=== PATIENT | male | born 1940 | race Caucasian/White ===

== ENCOUNTER 2023-06-13 10:50 | Outpatient (AMB) | payer MEDICARE, SELFPAY ==
[2023-06-13 10:56] VITALS: BP 160/68; PULSE 60; O2SAT 98; BMI 25.2
--- NOTE | 2023-06-13 10:56 | HO.NEPHOV_ITS ---
HPI HPI Comments History of Present Illness Details 82-year-old man with a history of chroni c kidney disease in the setting of longstanding hypertension and vascular disease. Recently amlodipine has been increased to 2.5 mg twice a day. Home blood pressure readings have been acceptable. Serum creatinine has been around 1.4-1.7 mg/dL. Around as history of coronary disease and status post CABG in the past. He has history of edema due to high dose of Norvasc in the past. At that time he was on 10 mg a day. PFSH Family History Father Hypertension Social History (Updated 06/13/23 @ 11:01 by Maine Bucio) Alcohol intake: former Patient Tobacco Use Status: Former Tobacco user Use of substances other than those prescribed or required for medical reasons: No Vital Signs 06/13/23 10:56 06/13/23 11:09 Height 5 ft 8 in Weight 166 lb BMI 25.2 BP 160/68 H 140/60 H Blood Pressure Location Lt brachial Lt brachial Position Sitting Sitting Pulse 60 Pulse Source Pulse Oximeter Pulse Oximetry (%) 98 Oxygen Delivery Method Room Air Physical Exam Vital Signs: Last Vital Signs Pulse 60 06/13/23 10:56 BP 140/60 H 06/13/23 11:09 Pulse Ox 98 06/13/23 10:56 Oxygen Delivery Method Room Air 06/13/23 10:56 BMI result Body Mass Index 25.2 Const General: comfortable Nutritional Appearance: well nourished Orientation/consciousness: patient oriented x3 HEENT Head: No normal to inspection Mouth: moist mucous membranes Neck Neck: Yes supple and Yes no JVD Resp Auscultation: clear to auscultation bilaterally, no rales and rub present Cardio Jugular venous distension: no JVD Palpation: no palpable S3 and no palpable S4 Heart sounds: no rubs GI Palpation (GI): Soft to palpation and nontender Percussion: No Fluid wave present General: Yes no CVA tenderness Back/Spine/Pelvis Back: no CVA tenderness Skin General skin exam: no rashes or lesions noted Neuro General: patient oriented x3 Extrem Other: Knee braces left leg General: Yes no pedal edema and No clubbing Assessment & Plan Assessment & Plan (1) CKD (chronic kidney disease): Code(s): N18.9 - Chronic kidney disease, unspecified (2) HTN (hypertension): Code(s): I10 - Essential (primary) hypertension Plan Elderly man with stage 3 chronic kidney disease in the setting of longstanding hypertension. 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 Renal function is close to baseline with a serum creatinine of 1.7 mg/dL. Goal is to slow the portion disease. The office today blood pressure was initially elevated but repeat reading was acceptable. Goal is to maintain blood pressure less than 130/80 mm of mercury. Continue with current dose of amlodipine Discussed low-sodium diet. History of mild anemia which is multifactorial no indication for Epogen. Coding Level of Care Code Est Pt Level 4 (65717) Diagnoses CKD (chronic kidney disease) N18.9 HTN (hypertension) I10 Results Reviewed Results Reviewed: 06/11/23 Cr 1.7 Nephrology Results: No Data to Display
[2023-06-13 11:09] VITALS: BP 140/60
== END 2023-06-13 11:18 | disposition home or self-care (01) ==
PROVIDERS: PCP Internal Medicine; Referring Provider Internal Medicine; Visit Provider Internal Medicine Hypertension Specialist
DX: I12.9 Hypertensive chronic kidney disease with stage 1 through stage 4 chronic kidney disease, or unspecified chronic kidney disease (principal); N18.30 Chronic kidney disease, stage 3 unspecified
CPT/HCPCS: 99214

== ENCOUNTER → 2023-06-13 10:50 | Outpatient (BNVA) | payer MEDICARE, SELFPAY | PROVIDERS: PCP Internal Medicine; Referring Provider Internal Medicine; Visit Provider Internal Medicine Hypertension Specialist | DX: I12.9 Hypertensive chronic kidney disease with stage 1 through stage 4 chronic kidney disease, or unspecified chronic kidney disease (principal); N18.9 Chronic kidney disease, unspecified | CPT/HCPCS: 99212 ==

== ENCOUNTER 2023-12-12 10:47 | Outpatient (AMB) | payer MEDICARE, BC, SELFPAY ==
[2023-12-12 10:49] VITALS: BP 132/68; PULSE 60; O2SAT 98; BMI 25.7
--- NOTE | 2023-12-12 10:49 | HO.NEPHOV_ITS ---
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 Recently amlodipine has been increased to 2.5 mg twice a day. Home blood pressure readings have been acceptable. Serum creatinine has been around 1.4-1.7 mg/dL. Around as history of coronary disease and status post CABG in the past. He has history of edema due to high dose of Norvasc in the past. At that time he was on 10 mg a day. NOw on Amldipine 5 mg in AM and 2.5 mg q PM PFSH Family History Father Hypertension Social History Alcohol intake: former Patient Tobacco Use Status: Former Tobacco user Physical Exam Vital Signs: Last Vital Signs Pulse 60 12/12/23 10:49 BP 132/68 12/12/23 10:49 Pulse Ox 98 12/12/23 10:49 Oxygen Delivery Method Room Air 12/12/23 10:49 BMI result Body Mass Index 25.7 Const General: comfortable Nutritional Appearance: well nourished Orientation/consciousness: patient oriented x3 HEENT Head: No normal to inspection Mouth: moist mucous membranes Neck Neck: Yes supple and Yes no JVD Resp Auscultation: clear to auscultation bilaterally, no rales and rub present Cardio Jugular venous distension: no JVD Palpation: no palpable S3 and no palpable S4 Heart sounds: no rubs GI Palpation (GI): Soft to palpation and nontender Percussion: No Fluid wave present General: Yes no CVA tenderness Back/Spine/Pelvis Back: no CVA tenderness Skin General skin exam: no rashes or lesions noted Neuro General: patient oriented x3 Extrem Other: Knee braces left leg General: Yes no pedal edema and No clubbing Results Reviewed Nephrology Results: No Data to Display Assessment & Plan Assessment & Plan (1) CKD (chronic kidney disease): Code(s): N18.9 - Chronic kidney disease, unspecified Category: Medical (2) HTN (hypertension): Code(s): I10 - Essential (primary) hypertension Category: Medical Plan Elderly man with stage 3 chronic kidney disease in the setting of longstanding hypertension. 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 Renal function is close to baseline with a serum creatinine of 1.45 mg/dL. Goal is to slow the progression of the kidney disease. BP well controlled Goal is to maintain blood pressure less than 130/80 mm of mercury. Continue with current dose of amlodipine Discussed low-sodium diet. Mild edema ; Amlodipine could be a contributing factor History of mild anemia which is multifactorial no indication for Epogen. Coding Level of Care Code Est Pt Level 4 (43185) Diagnoses CKD (chronic kidney disease) N18.9 HTN (hypertension) I10
== END 2023-12-12 11:14 | disposition home or self-care (01) ==
PROVIDERS: PCP Internal Medicine; Visit Provider Internal Medicine Hypertension Specialist
DX: I12.9 Hypertensive chronic kidney disease with stage 1 through stage 4 chronic kidney disease, or unspecified chronic kidney disease (principal); N18.9 Chronic kidney disease, unspecified
CPT/HCPCS: 99214

== ENCOUNTER → 2023-12-12 10:47 | Outpatient (BNVA) | payer MEDICARE, SELFPAY | PROVIDERS: PCP Internal Medicine; Visit Provider Internal Medicine Hypertension Specialist | DX: I12.9 Hypertensive chronic kidney disease with stage 1 through stage 4 chronic kidney disease, or unspecified chronic kidney disease (principal); N18.9 Chronic kidney disease, unspecified | CPT/HCPCS: 99212 ==

== ENCOUNTER 2024-09-24 10:36 | Outpatient (AMB) | payer MEDICARE, SELFPAY ==
[2024-09-24 10:41] VITALS: BP 128/50; PULSE 62; O2SAT 98; BMI 23.9
--- NOTE | 2024-09-24 10:41 | HO.NEPHOV_ITS ---
Vital Signs 09/24/24 10:41 Height 5 ft 8 in Weight 157 lb BMI 23.9 BP 128/50 L Blood Pressure Location Rt brachial Position Sitting Pulse 62 Pulse Source Pulse Oximeter Pulse Oximetry (%) 98 Oxygen Delivery Method Room Air Intake Visit Reasons: FU / CONF Form Grader Required: No Accompanied by: Spouse Allergies No Known Allergies Allergy (Verified 09/24/24 10:44) Medication List - Last Reconciled 09/24/24 by Krishan Luevano MD amlodipine 5 mg PO DAILY amlodipine 2.5 mg PO .evening aspirin 81 mg PO DAILY cyanocobalamin (vitamin B-12) 1,000 mcg PO DAILY metoprolol succinate ER 50 mg PO DAILY rosuvastatin 40 mg PO DAILY HPI Comments Details: 84-year-old man with a history of chronic kidney disease in the setting of longstanding hypertension and vascular disease. Recently amlodipine has been increased to 2.5 mg twice a day. Home blood pressure readings have been acceptable. Serum creatinine has been around 1.4-1.7 mg/dL. Around as history of coronary disease and status post CABG in the past. He has history of edema due to high dose of Norvasc in the past. At that time he was on 10 mg a day. Now on Amldipine 5 mg in AM and 2.5 mg q PM 09/24/24 The patient is an 84-year-old male presenting with kidney function decline and medication-related complications. The patient experienced a fall in the kitchen, resulting in a fractured ankle and knee injury. He underwent rehabilitation for three months following the injury. During hospitalization, the patient was administered olmesartan, which led to complications and retention requiring catheterization. The medication was discontinued, and the catheter was eventually removed. The patient is currently on amlodipine taken twice daily, with no reported side effects such as lightheadedness or dizziness. He reports good respiratory function and denies any breathing difficulties. An ultrasound is scheduled to assess kidney function further, and blood work is planned to monitor his condition. The patient is advised to maintain adequate hydration and reduce salt intake to manage edema. [facility] Family History Father Hypertension Social History Alcohol intake: former Patient Tobacco Use Status: Former Tobacco user Physical Exam Vital Signs: Last Vital Signs Pulse 62 09/24/24 10:41 BP 128/50 L 09/24/24 10:41 Pulse Ox 98 09/24/24 10:41 Oxygen Delivery Method Room Air 09/24/24 10:41 BMI result Body Mass Index 23.9 Const General: comfortable Nutritional Appearance: well nourished Orientation/consciousness: patient oriented x3 HEENT Head: No normal to inspection Mouth: moist mucous membranes Neck Neck: Yes supple and Yes no JVD Resp Auscultation: clear to auscultation bilaterally, no rales and rub present Cardio Jugular venous distension: no JVD Palpation: no palpable S3 and no palpable S4 Heart sounds: no rubs GI Palpation (GI): Soft to palpation and nontender Percussion: No Fluid wave present General: Yes no CVA tenderness Back/Spine/Pelvis Back: no CVA tenderness Skin General skin exam: no rashes or lesions noted Neuro General: patient oriented x3 Extrem Other: Knee braces left leg General: No clubbing and Yes pedal edema Results Reviewed Results Reviewed: 06/11/23 Cr 1.7 Assessment & Plan Assessment & Plan (1) CKD (chronic kidney disease): Code(s): N18.9 - Chronic kidney disease, unspecified Category: Medical (2) HTN (hypertension): Code(s): I10 - Essential (primary) hypertension Category: Medical Plan Elderly man with stage 3 chronic kidney disease in the setting of longstanding hypertension. 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 Renal function is close to baseline with a serum creatinine of 1.45 mg/dL. Goal is to slow the progression of the kidney disease. s/p WANDER during recent hospitalization- resolved BP well controlled Goal is to maintain blood pressure less than 130/80 mm of mercury. Continue with current dose of amlodipine Discussed low-sodium diet. Mild edema ; Amlodipine could be a contributing factor History of mild anemia which is multifactorial no indication for Epogen. Coding Level of Care Code Est Pt Level 4 (88154) Diagnoses CKD (chronic kidney disease) N18.9 HTN (hypertension) I10
--- OUTSIDE RECORDS SUMMARY | 2024-09-24 12:32 | XMS_ITS | Encounter Summary ---
Author Organization [facility] Address [address] [place] [address] Care Team Providers Care High Speed Printer Operator Name Role Phone Fartun Goldstein MD Primary Care Provider + Encounter Details Date Type Department Care Team (Late st Contact Info) Description 06/29/2024 Lab Requisition [facility] - Main Lab [address] [facility] [place] [address] Fartun Goldstein MD [address] [facility] [address] [place] [address] Unspecified atrial fibrillation (CMS/HCC V24, CMS/HCC V28) Social History Tobacco Use Types Packs/Day Years Used Date Smoking Tobacco: Never Assessed Sex and Gender Information Value Date Recorded Sex Assigned at Not on file Legal Sex Male 4:14 AM EST Gender Identity Not on file Sexual Orientation Not on file documented as of this encounter Plan of Treatment Not on file documented as of this encounter Procedures Procedure Name Priority Date/Time Associated Diagnosis Comments COMPLETE BLOOD COUNT Routine 06/29/2024 1:02 PM EDT Unspecified atrial fibrillation (CMS/HCC) COMPREHENSIVE METABOLIC PANEL Routine 06/29/2024 1:02 PM EDT Unspecified atrial fibrillation (CMS/HCC) documented in this encounter Results * (ABNORMAL) Comprehensive metabolic panel (06/29/2024 1:02 PM EDT) Sodium 134 133 - 145 mmol/L LAB CHEMISTRY METHOD 06/29/2024 2:33 PM EDT [facility] Potassium 4.7 3.5 - 5.5 mmol/L LAB CHEMISTRY METHOD 06/29/2024 2:33 PM EDT [facility] Chloride 102 96 - 110 mmol/L LAB CHEMISTRY METHOD 06/29/2024 2:33 PM [facility] CO2 20(L) 21 - 32 mmol/L LAB CHEMISTRY METHOD 06/29/2024 2:33 PM [facility] Anion Gap 12(H) 3 - 11 LAB CHEMISTRY METHOD 06/29/2024 2:33 PM [facility] Glucose 122(H) 70 - 100 mg/dL LAB CHEMISTRY METHOD 06/29/2024 2:33 PM [facility] BUN 28(H) 5 - 25 mg/dL LAB CHEMISTRY METHOD 06/29/2024 2:33 PM [facility] Creatinine 1.87(H) 0.70 - 1.30 mg/dL LAB CHEMISTRY METHOD 06/29/2024 2:33 PM [facility] eGFR 35(L) >=60 mL/min/1. 73m2 LAB CHEMISTRY METHOD 06/29/2024 2:33 PM [facility] Comment:Calculation based on the Chronic Kidney Disease Epidemiology Collaboration (CKD-EPI) equation refit without adjustment for race. BUN/Creatinine Ratio 15.0 LAB CHEMISTRY METHOD 06/29/2024 2:33 PM [facility] Calcium 8.9 8.5 - 10.5 mg/dL LAB CHEMISTRY METHOD 06/29/2024 2:33 PM [facility] AST (SGOT) 44(H) 10 - 42 unit/L LAB CHEMISTRY METHOD 06/29/2024 2:33 PM [facility] ALT (SGPT) 40 10 - 60 unit/L LAB CHEMISTRY METHOD 06/29/2024 2:33 PM [facility] Alkaline Phosphatase 73 42 - 121 unit/L LAB CHEMISTRY METHOD 06/29/2024 2:33 PM [facility] Total Protein 6.2 6.0 - 8.0 g/dL LAB CHEMISTRY METHOD 06/29/2024 2:33 PM EDT [facility] Albumin 2.5(L) 3.2 - 5.0 g/dL LAB CHEMISTRY METHOD 06/29/2024 2:33 PM EDT [facility] Total Bilirubin 0.8 0.0 - 1.4 mg/dL LAB CHEMISTRY METHOD 06/29/2024 2:33 PM EDT [facility] Blood Venous blood specimen / Unknown Venipuncture / Unknown 06/29/2024 1:02 PM EDT 06/29/2024 1:53 PM EDT us Fartun Goldstein MD LAB BLOOD ORDERABLES Fin al Result [facility] [address] [place] [address], * (ABNORMAL) Complete blood count (06/29/2024 1:02 PM EDT) WBC 15.2(H) 4.8 - 10.8 K/mcL LAB HEMETOLOGY METHOD 06/29/2024 2:07 PM EDT [facility] RBC 2.70(L) 4.50 - 5.50 M/mcL LAB HEMETOLOGY METHOD 06/29/2024 2:07 PM EDT [facility] Hemoglobin 8.6(L) 13.5 - 17.5 g/dL LAB HEMETOLOGY METHOD 06/29/2024 2:07 PM EDT [facility] Hematocrit 27.1(L) 42.0 - 54.0 % LAB HEMETOLOGY METHOD 06/29/2024 2:07 PM EDT [facility] MCV 100.4(H) 79.0 - 98.0 FL LAB HEMETOLOGY METHOD 06/29/2024 2:07 PM EDT [facility] MCH 31.9 27.0 - 32.0 pcg LAB HEMETOLOGY METHOD 06/29/2024 2:07 PM EDT [facility] MCHC 31.7(L) 32.0 - 37.0 g/dL LAB HEMETOLOGY METHOD 06/29/2024 2:07 PM EDT [facility] RDW 13.6 11.0 - 15.0 % LAB HEMETOLOGY METHOD 06/29/2024 2:07 PM EDT [facility] Platelets 389 130 - 400 K/mcL LAB HEMETOLOGY METHOD 06/29/2024 2:07 PM EDT [facility] MPV 10.4 7.0 - 11.0 FL LAB HEMETOLOGY METHOD 06/29/2024 2:07 PM EDT [facility] NRBC 0.0 <1.0 % LAB HEMETOLOGY METHOD 06/29/2024 2:07 PM EDT [facility] NRBC Absolute 0.00 <0.10 K/mcL LAB HEMETOLOGY METHOD 06/29/2024 2:07 PM EDT [facility] Blood Venous blood specimen / Unknown Venipuncture / Unknown 06/29/2024 1:02 PM EDT 06/29/2024 1:53 PM EDT us Fartun Goldstein MD LAB BLOOD ORDERABLES Fin al Result [facility] [address] [place] [address], documented in this encounter Visit Diagnoses Diagnosis Unspecified atrial fibrillation (CMS/HCC V24, CMS/HCC V28) documented in this encounter Care Teams High Speed Printer Operator Relationship Specialty Start Date End Date Fartun Goldstein MD [address] [place] [id number] PCP - General Family Medicine 06/13/24 documented as of this encounter
== END 2024-09-24 10:58 | disposition home or self-care (01) ==
LOC: HO.HKAS 10:36
PROVIDERS: PCP Internal Medicine; Visit Provider Internal Medicine Hypertension Specialist
DX: I12.9 Hypertensive chronic kidney disease with stage 1 through stage 4 chronic kidney disease, or unspecified chronic kidney disease (principal); N18.9 Chronic kidney disease, unspecified
CPT/HCPCS: 99214

== ENCOUNTER → 2024-09-24 10:36 | Outpatient (BNVA) | payer MEDICARE, SELFPAY | PROVIDERS: PCP Internal Medicine; Visit Provider Internal Medicine Hypertension Specialist | DX: I12.9 Hypertensive chronic kidney disease with stage 1 through stage 4 chronic kidney disease, or unspecified chronic kidney disease (principal); N18.9 Chronic kidney disease, unspecified | CPT/HCPCS: 99212 ==

== ENCOUNTER 2025-01-21 08:41 | Outpatient (AMB) | payer MEDICARE, SELFPAY ==
[2025-01-21 08:56] VITALS: BP 130/50; PULSE 60; O2SAT 97; BMI 24.3
--- NOTE | 2025-01-21 08:56 | HO.NEPHOV_ITS ---
Vital Signs 01/21/25 08:56 Height 5 ft 8 in Weight 160 lb BMI 24.3 BP 130/50 L Blood Pressure Location Rt brachial Position Sitting Pulse 60 Pulse Source Pulse Oximeter Pulse Oximetry (%) 97 Oxygen Delivery Method Room Air Intake Visit Reasons: 4m follow up, t Confirmed Fibre Optic Cable Splicer Required: No Accompanied by: Self / Same As Patient Allergies No Known Allergies Allergy (Verified 01/21/25 08:59) Medication List - Last Reconciled 01/21/25 by Krishan Luevano MD amlodipine 5 mg PO DAILY aspirin 81 mg PO DAILY cyanocobalamin (vitamin B-12) 1,000 mcg PO DAILY PRN metoprolol succinate ER 50 mg PO DAILY rosuvastatin 40 mg PO DAILY HPI Comments Details: 84-year-old man with a history of chronic kidney disease in the setting of longstanding hypertension and vascular disease. Recently amlodipine has been increased to 2.5 mg twice a day. Home blood pressure readings have been acceptable. Serum creatinine has been around 1.4-1.7 mg/dL. Around as history of coronary disease and status post CABG in the past. He has history of edema due to high dose of Norvasc in the past. At that time he was on 10 mg a day. Now on Amldipine 5 mg in AM and 2.5 mg q PM 09/24/24 The patient is an 84-year-old male presenting with kidney function decline and medication-related complications. The patient experienced a fall in the kitchen, resulting in a fractured ankle and knee injury. He underwent rehabilitation for three months following the injury. During hospitalization, the patient was administered olmesartan, which led to complications and retention requiring catheterization. The medication was discontinued, and the catheter was eventually removed. The patient is currently on amlodipine taken twice daily, with no reported side effects such as lightheadedness or dizziness. He reports good respiratory function and denies any breathing difficulties. An ultrasound is scheduled to assess kidney function further, and blood work is planned to monitor his condition. The patient is advised to maintain adequate hydration and reduce salt intake to manage edema. 01/21/25 - The patient is an 84-year-old male presenting with anemia and chronic kidney disease. - Anemia: Hemoglobin level is 8.3 g/dL, - Hypothyroidism: Underactive thyroid, awaiting medication initiation. Accompanied by ;In a wheelchair [facility] Family History Father Hypertension Social History Alcohol intake: former Patient Tobacco Use Status: Former Tobacco user Physical Exam Vital Signs: BMI result Body Mass Index 24.3 Const General: comfortable Nutritional Appearance: well nourished Orientation/consciousness: patient oriented x3 HEENT Head: No normal to inspection Mouth: moist mucous membranes Neck Neck: Yes supple and Yes no JVD Resp Auscultation: clear to auscultation bilaterally, no rales and rub present Cardio Jugular venous distension: no JVD Palpation: no palpable S3 and no palpable S4 Heart sounds: no rubs GI Palpation (GI): Soft to palpation and nontender Percussion: No Fluid wave present General: Yes no CVA tenderness Back/Spine/Pelvis Back: no CVA tenderness Skin General skin exam: no rashes or lesions noted Neuro General: patient oriented x3 Extrem Other: Knee braces left leg General: No clubbing and Yes pedal edema Results Reviewed Results Reviewed: 06/11/23 Cr 1.7 01/16/25 BUN / Cr 31/2.0 K 4.2 HgB 8.3 TSH: 9.08 Assessment & Plan Assessment & Plan (1) CKD (chronic kidney disease): Code(s): N18.9 - Chronic kidney disease, unspecified Category: Medical (2) HTN (hypertension): Code(s): I10 - Essential (primary) hypertension Category: Medical Plan Elderly man with stage 3 chronic kidney disease in the setting of longstanding hypertension. 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 Renal function is close to baseline with a serum creatinine of 2.0 mg/dL. Goal is to slow the progression of the kidney disease. HTN BP well controlled Goal is to maintain blood pressure less than 130/80 mm of mercury. Continue with current dose of amlodipine Discussed low-sodium diet. Mild edema ; Amlodipine could be a contributing factor Anemia Hgb 8.2 and 8.3 Work up in progress Iron studies- normal May need Epogen- I shall arrange Orders: Orders Basic Metabolic Panel 4 Months I10 - Essential (primary) hypertension, N18.9 - Chronic kidney disease, unspecified Coding Level of Care Code Est Pt Level 4 (51997) Diagnoses CKD (chronic kidney disease) N18.9 HTN (hypertension) I10
== END 2025-01-21 09:54 | disposition home or self-care (01) ==
LOC: HO.HKAS 08:42
PROVIDERS: PCP Internal Medicine; Visit Provider Internal Medicine Hypertension Specialist
DX: I12.9 Hypertensive chronic kidney disease with stage 1 through stage 4 chronic kidney disease, or unspecified chronic kidney disease (principal); N18.9 Chronic kidney disease, unspecified
CPT/HCPCS: 99214

== ENCOUNTER → 2025-01-21 08:41 | Outpatient (BNVA) | payer MEDICARE, SELFPAY | PROVIDERS: PCP Internal Medicine; Visit Provider Internal Medicine Hypertension Specialist | DX: I10 Essential (primary) hypertension (principal); N18.30 Chronic kidney disease, stage 3 unspecified; D63.1 Anemia in chronic kidney disease | CPT/HCPCS: 99212 ==

== ENCOUNTER 2025-02-11 10:39 | Outpatient (AMB) | payer MEDICARE, SELFPAY ==
--- OUTSIDE RECORDS SUMMARY | 2024-11-19 06:41 | XMS_ITS ---
Author Organization [facility] Address [address] [place], [place] [id number] Care Team Providers Care Paint Spray Tender Name Role Phone IONA TOTH Primary Care Provider [phone] REASON FOR VISIT continuation of PT/ OT Encounters Encounter Location Date Provider [place] [facility] [place] [address] [place] [address] 11/19/2024 IONA TOTH PLAN OF TREATMENT Next Appt Details Provider Name:IONA JEFFRIES, 07/28/2025 10:00:00 AM, [address] [place], [address],
--- OUTSIDE RECORDS SUMMARY | 2024-11-20 05:29 | XMS_ITS ---
Author Organization [facility] Address [address] [place], [place] [id number] Care Team Providers Care Land Commissioner Name Role Phone IONA TOTH Primary Care Provider REASON FOR VISIT Received order for PT and OT Encounters Encounter Location Date Provider Diagnosis [facility] [address] [place] [phone] 11/20/2024 IONA TOTH PLAN OF TREATMENT Next Appt Details Provider Name:IONA JEFFRIES, 07/28/2025 10:00:00 AM, [address] [place], [address],
--- OUTSIDE RECORDS SUMMARY | 2024-12-02 07:51 | XMS_ITS ---
Author Organization [facility] Address [address] [place], [place] [id number] Care Team Providers Care Hospice Patient Care Secretary Name Role Phone IONA TOTH Primary Care Provider REASON FOR VISIT lab review Encounters Encounter Location Date Provider Diagnosis [facility] [address] [place] [phone] 12/02/2024 IONA TOTH PLAN OF TREATMENT Next Appt Details Provider Name:IONA JEFFRIES, 07/28/2025 10:00:00 AM, [address] [place], [address],
--- OUTSIDE RECORDS SUMMARY | 2024-12-23 08:01 | XMS_ITS ---
Author Organization [facility] Address [address] [place], [place] [phone] Care Team Providers Care Animal Husbandry Professor Name Role Phone IONA TOTH Primary Care Provider [phone] REASON FOR VISIT requesting Encounters Encounter Location Date Provider Diagnosis [facility] [address] [place] [phone] 12/23/2024 IONA TOTH PLAN OF TREATMENT Next Appt Details Provider Name:IONA JEFFRIES, 07/28/2025 10:00:00 AM, [address] [place], [phone],
--- OUTSIDE RECORDS SUMMARY | 2024-12-24 11:36 | XMS_ITS ---
Author Organization [facility] Address [address] [place], [place] [phone] Care Team Providers Care Valet Name Role Phone IONA TOTH Primary Care Provider [phone] REASON FOR VISIT need md NPI for order Encounters Encounter Location Date Provider Diagnosis [facility] [address] [place] [address] 12/24/2024 IONA TOTH PLAN OF TREATMENT Next Appt Details Provider Name:IONA JEFFRIES, 07/28/2025 10:00:00 AM, [address] [place], [address],
--- OUTSIDE RECORDS SUMMARY | 2025-01-10 06:28 | XMS_ITS ---
Author Organization [facility] Address [address] [place], [place] [phone] Care Team Providers Care Director Network Development Name Role Phone IONA TOTH Primary Care Provider [phone] REASON FOR VISIT (W)(2)consult note Encounters Encounter Location Date Provider Diagnosis [address] [address] 01/10/2025 IONA TOTH PLAN OF TREATMENT Next Appt Details Provider Name:IONA JEFFRIES, 07/28/2025 10:00:00 AM, [address] [place], [address],
--- OUTSIDE RECORDS SUMMARY | 2025-01-19 09:15 | XMS_ITS ---
Author Organization [facility] Address [address], [place] [id number] Care Team Providers Care Account Development Executive Name Role Phone IONA TOTH Primary Care Provider RESULTS Component Value Reference Range Notes EKG Reviewed date:02/03/2025 01:01:13 PM Interpretation: Performing Lab: Notes/Report: ECGDiastolicBP ECGHr ECGPRInterval ECGPWaveAxis ECGQRSDuration ECGQrsWaveAxis ECGQTcInterval ECGQTInterval ECGSystolicBP ECGTWaveAxis RR_DiastolicBP RR_MaxRRInterval RR_MeanHR RR_MeanRRInterval RR_MinRRInterval RR_NumBeats RR_NumNormalBeats RR_SystolicBP REASON FOR VISIT F/U MEDICATIONS Medication SIG (Take, Route, Frequency, Duration) Notes Start Date End Date Status amLODIPine Besylate 5 MG 1 tablet Orally Once a day in AM for 90 days plus 2.5 q d Active Rosuvastatin Calcium 40 MG TAKE 1 TABLET DAILY for 90 Active E20-Dbikcf 1 MG as directed Orally Active Knee Brace Adjustable Hinged - as directed 10/05/2022 Active Metoprolol Succinate ER 50 MG TAKE 1 TABLET ONCE DAILY for 90 Active Nitroglycerin 0.4 MG 1 tablet under the tongue and allow to dissolve as needed. Take every 5 minutes up to 3 times if chest pain persists Sublingual Three times a day Active Aspirin 81 81 MG 1 tablet Orally Once a day for 30 day(s) Active SOCIAL HISTORY Tobacco Use: Social History Observation Description Date Details (start date - stop date) Never Smoker NA - NA Sex Assigned At : Social History Observation Description Sex Assigned At Unknown Smoking Question Answer Notes Are you a: never smoker VITAL SIGNS Height 68 in 01/19/2025 Weight 162 lbs 01/19/2025 Blood pressure systolic 122 mm Hg 01/20/20 25 Blood pressure diastolic 72 mm Hg 025 BMI 24.63 kg/m2 01/19/2025 Encounters Encounter Location Date Provider Diagnosis [facility] [address] [place] [address] 01/19/2025 IONA TOTH Essential (primary) hypertension I10 ; Disorder of lipoprotein metabolism, unspecified E78.9 ; Chronic kidney disease, unspecified N18.9 ; 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 Check lipid profile check LFTs LDL goal less than 70 01/19/2025 Chronic kidney disease, unspecified (ICD-10 - N18.9) Doing well urinating well follow-up with renal. Chronic chronic history of kidney disease stage III with acute kidney injury but had resolved. 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 yearly set up cardiac echo 01/19/2025 Unspecified atrial fibrillation (ICD-10 - I48.91) Patient has had a Watchman procedure therefore does not need anticoagulation . Patient had a pacemaker EKG a paced rhythm left bundle branch block 01/19/2025 Elevated PSA (ICD-10 - R97.20) Discussed PSA elevation and again. Tolerating test recheck. After discussion patient states he does not want to have anything done understands the risks PLAN OF TREATMENT Treatment Notes Assessment Notes Essential (primary) hypertension Blood p ressure stable well-controlled no change in therapy follow-up with renal Disorder of lipoprotein meta bolism, unspecified On statin for decades continue with statin. Check lipid profile check LFTs LDL goal less than 70 Chronic kidney disease, unspecified Doin g well urinating well follow-up with renal. Chronic chronic history of kidney disease stage III with acute kidney injury but had resolved. 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 yearly set up cardiac echo Unspecified atrial fibrillation Patient has had a Watchman procedure therefore does not need anticoagulation. Patient had a pacemaker EKG a paced rhythm left bundle branch block Elevated PSA Discussed PSA elevat ion and again. Tolerating test recheck. After discussion patient states he does not want to have anything done understands the risks Pending Test Test Name Order Date Echocardiogram 01/19/2025 Future Test Test Name Order Date Vitamin [id number] 01/10/2025 Folate (Folic Acid), Serum-[id number] 2024 Urinalysis, Complete w/ME-[id number] 025 TSH-[id number] 01/10/2025 CBC, Platelet, w/o Differential-[id number] 1 Lipid Panel-[id number] 01/10/2025 Comp. Metabolic Panel ([id number] 2024 Next Appt Details Follow Up: Doing 6 months la bs pending EKG today, Reason: Provider Name:IONA JEFFRIES, 07/28/2025 10:00:00 AM, [address] [place], [address], Progress Notes * Examination Category Sub-Category Detail Notes Category Not es General Examination HEENT: Conjunctiva pink anicteric mucous membranes moist oropharynx clear TMs clear sinus clear EACs clear Neck: Supple carotids 2+ n o bruits lymphadenopathy no thyromegaly Heart: Regular rate and rhy thm 2/6 systolic murmur left sternal border Lungs: clear to auscultatio n Abdomen: soft, non tender/non distended, no rebound tenderness, no guarding or rigidity, no masses palpated, no hepatosplenomegaly, normal active bowel sounds Extremities: no edema, pulses 2 p rad bilaterally General Appearance Pleasant elderly whi te male appearing stated age no apparent distress alert appropriate conversive Skin: Scattered ecchymoses no skin breakdown no ulcerations no rashes no concerning moles Neuro alert and oriented x 3, CN 2-12 intact, motor 5/5 bilaterally proximally and distally in all 4 extremities Musculoskeletal Left knee brace exte rnal support device intact. History and Physical Notes * HPI (History of Present Illness) Category Sub-Category Detail Notes Category Not es General Hypertension fo llow-up. See review of systems below
--- OUTSIDE RECORDS SUMMARY | 2025-01-20 01:20 | XMS_ITS ---
Author Organization [facility] Address [address] [place], [place] [id number] Care Team Providers Care Auto Air Conditioning Installer Name Role Phone IONA TOTH Primary Care Provider [phone] REASON FOR VISIT add on PROBLEMS Problem Type ICD Code Onset Dates Problem Status W/U Status Risk SNOMED Code Notes Problem Anemia, unspecified (D64.9) Active confirmed Anemia ([id number]) Encounters Encounter Location Date Provider Diagnosis [address] [address] 01/20/2025 IONA TOTH B12 deficiency E53.8 and Anemia, unspecified D64.9 ASSESSMENTS Encounter Date Diagnosis Assessment Notes Treatment Notes Treatment Clinical Notes Section Notes 01/20/2025 B12 deficiency (ICD-10 - E53.8) 01/20/2025 Anemia, unspecified (ICD-10 - D64.9) PLAN OF TREATMENT Future Test Test Name Order Date [id number] 01/20/2025 Iron and TIBC-[id number] 01/20/2025 Haptoglobin-[id number] 01/20/2025 Ferritin-186396 01/20/2025 Reticulocyte Count-395158 01/20/2025 Methylmalonic Acid, Serum-293036 025 Homocyst(e)ine-462816 01/20/2025 Next Appt Details Provider Name:IONA JEFFRIES, 07/28/2025 10:00:00 AM, [address] [place] [address], [phone],
--- OUTSIDE RECORDS SUMMARY | 2025-01-20 03:13 | XMS_ITS ---
Author Organization [facility] Address [address] [place], [place] [id number] Care Team Providers Care Sales Designer Name Role Phone JANEYIONA Primary Care Provider REASON FOR VISIT (2)thyroid there other encounter MEDICATIONS Medication SIG (Take, Route, Fr equency, Duration) Notes Start Date End Date Status Nitroglycerin 0.4 MG 1 tablet under the tongue and allow to dissolve as needed. Take every 5 minutes up to 3 times if chest pain persists Sublingual Once a day if needed for 30 days Active Encounters Encounter Location Date Provider Diagnosis [facility] [address] [place] [address] 01/20/2025 IONA TOTH Essential (primary) hypertension I10 and Acquired hypothyroidism E03.9 ASSESSMENTS Encounter Date Diagnosis Assessment Notes Treatment Notes Treatment Clinical Notes Section Notes 01/20/2025 Essential (primary) hypertension (ICD-10 - I10) 01/20/2025 Acquired hypothyroidism (ICD-10 - E03.9) PLAN OF TREATMENT Medication Medication Name Sig Start Date Stop Date Notes Nitroglycerin 0.4 MG 1 tablet under the tongue and allow to dissolve as needed. Take every 5 minutes up to 3 times if chest pain persists Sublingual Once a day if needed for 30 days Future Test Test Name Order Date T4 Free Direct (Thyroxine)-[id number] 2024 TSH-[id number] 03/03/2025 BMP8+eGFR-[id number] 03/03/2025 Next Appt Details Provider Name:IONA JEFFRIES, 07/28/2025 10:00:00 AM, [address] [place], [address],
--- OUTSIDE RECORDS SUMMARY | 2025-01-21 05:23 | XMS_ITS ---
Author Organization [facility] Address [address] [place], [place] [id number] Care Team Providers Care Oven Dumper Name Role Phone IONA TOTH Primary Care Provider REASON FOR VISIT Send Med MEDICATIONS Medication SIG (Take, Route, Frequency, Duration) Notes Start Date End Date Status Levothyroxine Sodium 25 MCG 1 tablet in the morning on an empty stomach Orally Once a day for 90 day(s) 01/21/2025 Active Encounters Encounter Location Date Provider Diagnosis [facility] [address] [place] [address] 01/21/2025 IONA TOTH PLAN OF TREATMENT Medication Medication Name Sig Start Date Stop Date Notes Levothyroxine Sodium 25 MCG 1 tablet in the morning on an empty stomach Orally Once a day for 90 day(s) 01/21/2025 Next Appt Details Provider Name:IONA JEFFRIES, 07/28/2025 10:00:00 AM, [address] [place], [address],
[2025-02-11 10:45] VITALS: BP 140/52; PULSE 60; O2SAT 100
--- NOTE | 2025-02-11 10:45 | HO.NEPHOV ---
Vital Signs 02/11/25 10:45 Height 5 ft 8 in BP 140/52 H Blood Pressure Location Rt brachial Position Sitting Pulse 60 Pulse Source Pulse Oximeter Pulse Oximetry (%) 100 Oxygen Delivery Method Room Air Intake Visit Reasons: Retacrit Mattress Inspector Required: No Accompanied by: Spouse Allergies No Known Allergies Allergy (Verified 02/11/25 10:47) HPI Comments Details: 84-year-old man with a history of chronic kidney disease in the setting of longstanding hypertension and vascular disease. Recently amlodipine has been increased to 2.5 mg twice a day. Home blood pressure readings have been acceptable. Serum creatinine has been around 1.4-1.7 mg/dL. Around as history of coronary disease and status post CABG in the past. He has history of edema due to high dose of Norvasc in the past. At that time he was on 10 mg a day. Now on Amldipine 5 mg in AM and 2.5 mg q PM 09/24/24 The patient is an 84-year-old male presenting with kidney function decline and medication-related complications. The patient experienced a fall in the kitchen, resulting in a fractured ankle and knee injury. He underwent rehabilitation for three months following the injury. During hospitalization, the patient was administered olmesartan, which led to complications and retention requiring catheterization. The medication was discontinued, and the catheter was eventually removed. The patient is currently on amlodipine taken twice daily, with no reported side effects such as lightheadedness or dizziness. He reports good respiratory function and denies any breathing difficulties. An ultrasound is scheduled to assess kidney function further, and blood work is planned to monitor his condition. The patient is advised to maintain adequate hydration and reduce salt intake to manage edema. 01/21/25 - The patient is an 84-year-old male presenting with anemia and chronic kidney disease. - Anemia: Hemoglobin level is 8.3 g/dL, - Hypothyroidism: Underactive thyroid, awaiting medication initiation. Accompanied by ;In a wheelchair 02/11/25 Here for follow up and MERARY injection No new issues today PFSH Family History Father Hypertension Social History Alcohol intake: former Patient Tobacco Use Status: Former Tobacco user Physical Exam Vital Signs: Last Vital Signs Pulse 60 02/11/25 10:45 BP 140/52 H 02/11/25 10:45 Pulse Ox 100 02/11/25 10:45 Oxygen Delivery Method Room Air 02/11/25 10:45 Office Meds epoetin miguelina-epbx 20,000 unit/mL injection solution Performing Provider: Krishan Luevano MD Performing [facility] Administered by: Krishan Luevano MD on 02/11/25 11:03 Dose Route Admin Location Dispensed Lot Number Expiration Date [facility] Ruby [employer] Rails Engineer 20,000 unit subcut right arm 1 mL [id number] 05/30/26 3809-6115-83 [employer] Total Dispensed Waste 1 mL 0 % Assessment & Plan Assessment & Plan (1) CKD (chronic kidney disease): Code(s): N18.9 - Chronic kidney disease, unspecified Category: Medical (2) HTN (hypertension): Code(s): I10 - Essential (primary) hypertension Category: Medical Plan Elderly man with stage 3 chronic kidney disease in the setting of longstanding hypertension. 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 Renal function is close to baseline with a serum creatinine of 2.0 mg/dL. Goal is to slow the progression of the kidney disease. HTN BP well controlled Goal is to maintain blood pressure less than 130/80 mm of mercury. Continue with current dose of amlodipine Discussed low-sodium diet. Mild edema ; Amlodipine could be a contributing factor Anemia Hgb 8.2 and 8.3 Work up in progress Iron studies- normal Administered Retacrit 58896 U SQ and tolerated well Orders: Orders AMB Epoetin Injection Practice Supplied Today N40.1 - Benign prostatic hyperplasia with lower urinary tract symptoms Coding Level of Care Code Est Pt Level 4 (19347) Diagnoses CKD (chronic kidney disease) N18.9 HTN (hypertension) I10
--- OUTSIDE RECORDS SUMMARY | 2025-02-11 12:48 | XMS_ITS | Encounter Summary ---
Author Organization [facility] Address [address] [place] [address] Care Team Providers Care Head Of English Name Role Phone Fartun Goldstein MD Primary Care Provider + Encounter Details Date Type Department Care Team (Late st Contact Info) Description 06/13/2024 Lab Requisition [facility] - Main Lab [address] [facility] [place] [address] Fartun Goldstein MD [address] [facility] [address] [place] [address] Unspecified atrial fibrillation (CMS/HCC V24, CMS/HCC V28) [...] Associated Diagnosis Comments COMPLETE BLOOD COUNT Routine 06/16/2024 7:31 AM EDT Unspecified atrial fibrillation (CMS/HCC) BASIC METABOLIC PANEL Routine 06/16/2024 7:31 AM EDT Unspecified atrial fibrillation (CMS/HCC) documented in this encounter Results * (ABNORMAL) Basic metabolic panel (06/16/2024 7:31 AM EDT) Sodium 134 133 - 145 mmol/L LAB CHEMISTRY METHOD 06/16/2024 3:12 PM EDT [facility] Potassium 4.9 3.5 - 5.5 mmol/L LAB CHEMISTRY METHOD 06/16/2024 3:12 PM EDT [facility] Chloride 101 96 - 110 mmol/L LAB CHEMISTRY METHOD 06/16/2024 3:12 PM EDT [facility] CO2 18(L) 21 - 32 mmol/L LAB CHEMISTRY METHOD 06/16/2024 3:12 PM [facility] Anion Gap 15(H) 3 - 11 LAB CHEMISTRY METHOD 06/16/2024 3:12 PM [facility] Glucose 94 70 - 100 mg/dL LAB CHEMISTRY METHOD 06/16/2024 3:12 PM EDT [facility] BUN 77(H) 5 - 25 mg/dL LAB CHEMISTRY METHOD 06/16/2024 3:12 PM [facility] Comment:Results verified by repeat testing Creatinine 5.11(H) 0.70 - 1.30 mg/dL LAB CHEMISTRY METHOD 06/16/2024 3:12 PM [facility] Comment:Results verified by repeat testing eGFR 10(L) >=60 mL/min/1. 73m2 LAB CHEMISTRY METHOD 06/16/2024 3:12 PM [facility] Comment:Calculation based on the Chronic Kidney Disease Epidemiology Collaboration (CKD-EPI) equation refit without adjustment for race. BUN/Creatinine Ratio 15.1 LAB CHEMISTRY METHOD 06/16/2024 3:12 PM [facility] Calcium 8.4(L) 8.5 - 10.5 mg/dL LAB CHEMISTRY METHOD 06/16/2024 3:12 PM T [facility] Blood Venous blood specimen / Unknown Venipuncture / Unknown 06/16/2024 7:31 AM EDT 06/16/2024 11:30 AM EDT us Fartun Goldstein MD LAB BLOOD ORDERABLES Fin al Result [facility] [address] [place] [address], * (ABNORMAL) Complete blood count (06/16/2024 7:31 AM EDT) [facility] WBC 7.4 4.8 - 10.8 K/mcL LAB HEMETOLOGY METHOD 06/16/2024 12:32 PM [facility] RBC 2.80(L) 4.50 - 5.50 M/mcL LAB HEMETOLOGY METHOD 06/16/2024 12:32 PM EDT [facility] Hemoglobin 9.0(L) 13.5 - 17.5 g/dL LAB HEMETOLOGY METHOD 06/16/2024 12:32 PM [facility] Hematocrit 28.4(L) 42.0 - 54.0 % LAB HEMETOLOGY METHOD 06/16/2024 12:32 PM [facility] MCV 101.4(H) 79.0 - 98.0 FL LAB [facility]OLOGY [facility]24 [facility] MCH 32.1(H) 27.0 - 32.0 pcg LAB HEMETOLOGY METHOD 06/16/2024 12:32 PM [facility] MCHC 31.7(L) 32.0 - 37.0 g/dL LAB HEMETOLOGY METHOD 06/16/2024 12:32 PM [facility] RDW 13.4 11.0 - 15.0 % LAB HEMETOLOGY METHOD 06/16/2024 12:32 PM [facility] Platelets 311 130 - 400 K/mcL LAB HEMETOLOGY METHOD 06/16/2024 12:32 PM [facility] MPV 10.5 7.0 - 11.0 FL LAB HEMETOLOGY METHOD 06/16/2024 12:32 PM [facility] NRBC 0.0 <1.0 % LAB HEMETOLOGY METHOD 06/16/2024 12:32 PM [facility] NRBC Absolute 0.00 <0.10 K/mcL LAB HEMETOLOGY METHOD 06/16/2024 12:32 PM EDT [facility] Blood Venous blood specimen / Unknown Venipuncture / Unknown 06/16/2024 7:31 AM EDT 06/16/2024 11:30 AM EDT us Fartun Goldstein MD LAB BLOOD ORDERABLES Fin al Result [facility] [address] [place] [address], documented in this encounter Visit Diagnoses Diagnosis Unspecified atrial fibrillation (CMS/HCC V24, CMS/HCC V28) documented in this encounter Care Teams Head Of English Relationship Specialty Start Date End Date Fartun Goldstein MD [address] [place] [address] PCP - General Family Medicine 06/13/24 documented as of this encounter
--- OUTSIDE RECORDS SUMMARY | 2025-02-11 12:48 | XMS_ITS | Encounter Summary ---
Author Organization [facility] Address [address] [place] [address] Care Team Providers Care Electrolysist Name Role Phone Fartun Goldstein MD Primary Care Provider + Encounter Details Date Type Department Care Team (Late st Contact Info) Description 06/22/[address] [facility] - Main Lab [address] [facility] [place] [address] Fartun Goldstein MD [address] [address] Unspecified atrial fibrillation (CMS/HCC V24, CMS/HCC V28) [...] on file documented as of this encounter Visit Diagnoses Diagnosis Unspecified atrial fibrillation (CMS/HCC V24, CMS/HCC V28) documented in this encounter Care Teams Electrolysist Relationship Specialty Start Date End Date Fartun Goldstein MD [address] [place] [id number] PCP - General Family Medicine 06/13/24 documented as of this encounter
--- OUTSIDE RECORDS SUMMARY | 2025-02-11 12:48 | XMS_ITS | Patient Health Record ---
Author Organization [facility] Address [address] [place], [place] [id number] Care Team Providers Care Mri Supervisor Name Role Phone JANEY IONA Primary Care Provider LIZZIE FINLEY [phone] ALLERGIES No Known Allergies REASON FOR REFERRAL Referral Organization [facility] Referring Provider First Name IONA Referring Provider Last Name JANEY Referring Provider Speciality Internal M edicine Referred Provider JILL GOOWDIN Referred Provider Specialty Certified Ps ychologist General Notes Nelli GARNER Call Ctr 04/11/2024 02:44:48 PM > Sukhwinder sandersm BS Cardiology for an insurance referral to Dr Thalia Goodwin , [address] [place] [address], phone [phone], fax [phone], reason-I25.10, appointment date 04/11/24, visits-6, insurance confirmed (the referral is needed for the patients [facility] Blue insurance), Ginger GARNER Referrals 04/15/2024 02:39:45 PM > referral approved and faxed to Sukhwinder at [phone] Referral Priority Routine Referral Appointment Date 04/11/2024 Reason S82.91XA Referral Organization [facility] Referring Provider First Name IONA Referring Provider Last Name JANEY Referring Provider Speciality Internal M edicine Referred Provider TERI ALVAREZ Referred Provider Specialty Orthopedic S urgery General Notes Lorna GARNER Admin 11:56:32 AM > per incoming document from MANUELA GUARDADO) pt has appt on 07/03/24 with Teri Lareau>12 visits>S82.91XA>referral approved and faxed to [facility] at [phone]>encounter closed Referral Priority Routine Referral Appointment Date 07/03/2024 Reason insurance referral isela porter Referral Organization [facility] Referring Provider First Name IONA Referring Provider Last Name JANEY Referring Provider Speciality Internal edicine Referred Organization [facility] Referred Provider Specialty Orthopedic S urgery General Notes Karen GARNER MA 025 03:48:56 PM > Cherri/RIPS asking for 3 [facility] referrals for ongoing treatment, [address] [place], [address], fax [phone]. , NASEEM Lantigua, , M25.562, back date to 07/17/24, 12 visits, BC has referral for the MD for all. , PATSYLorna P Admin 10/13/2024 10:25:31 AM > referral approved and faxed to GEORGINA at [phone]>ENCOUNTER CLOSED Referral Priority Routine Referral Appointment Date 07/17/2024 Reason insurance referral p milad edwards Referral Organization [facility] Referring Provider First Name IONA Referring Provider Last Name JANEY Referring Provider Speciality Internal edicine Referred Organization [facility] General Notes Karen GARNER [place] 025 03:50:48 PM > Cherri/MANUELA asking for 3 [facility] referrals for ongoing treatment, [address] [place], [address], fax [phone]. , Milad Edwards , M25.562, back date to 08/11/24, 12 visits., PATSYLorna P Admin 10/13/2024 10:32:47 AM > referral approved and faxed to [facility] at [phone]>encounter closed Clinical Notes 1831 Referral Priority Routine Referral Appointment Date 08/11/2024 Reason insurance referral Referral Organization [facility] Referring Provider First Name IONA Referring Provider Last Name JANEY Referring Provider Speciality Internal edicine Referred Organization [facility] General Notes Karen GARNER MA 025 03:53:23 PM > Milad Avitia, , M25.571, 09/05/24 appt., 12 visits., Lavinia GARNERi P Admin 10/13/2024 10:18:04 AM > referral approved and faxed to GEORGINA at [phone]>encounter closed Referral Priority Routine Referral Appointment Date 09/05/2024 Reason up date referral Referral Organization [facility] Referring Provider First Name IONA Referring Provider Last Name JANEY Referring Provider Speciality Internal edicine Referred Provider CRISTAL ORDOÑEZ Referred Provider Specialty Urology General Notes Karen GARNER MA 025 11:11:33 AM > t saw a urologist on 07/23/24 Dr Cristal Ordoñez , so the patient would need a back dated insurance referral, [address] [address], [facility] [address], phone [phone], fax [phone], reason-catheter from detention removal, visits-1, insurance confirmed, IONA TOTH 10/20/2024 08:15:57 AM > put in urinary retention, Lorna GRANER P Admin 10/21/2024 12:40:57 PM > referral approved and faxed to [phone]>encounter closed Clinical Notes Lorna GARNER P Admin 10:39:55 AM > Karen,, could you please let me know why pt had a cathter>I cant use removal for the referral Referral Priority Routine Referral Appointment Date 07/23/2024 Referral Organization [facility] Referring Provider First Name IONA Referring Provider Last Name JANEY Referring Provider [facility] Internal edicine Referred Organization [facility] Referred Provider Specialty Orthopedic S urgery General Notes Lorna GARNER P Admin 12:42:51 PM > per incoming document pt had appt on 10/15/24 for M25.561>referral approved and faxed to MANUELA at [phone]>encounter closed Referral Priority Routine Referral Appointment Date 10/15/2024 MEDICATIONS Medication SIG (Take, Route, Frequency, Duration) Notes Start Date End Date Status Knee Brace Adjustable Hinged - as directed 10/05/2022 Active Levothyroxine Sodium 25 MCG 1 tablet in the morning on an empty stomach Orally Once a day for 90 day(s) 01/21/2025 Active Metoprolol Succinate ER 50 MG TAKE 1 TABLET ONCE DAILY for 90 Active amLODIPine Besylate 5 MG 1 tablet Orally Once a day in AM for 90 days plus 2.5 q d Active Aspirin 81 81 MG 1 tablet Orally Once a day for 30 day(s) Active Rosuvastatin Calcium 40 MG TAKE 1 TABLET DAILY for 90 Active F27-Cvqidc 1 MG as directed Orally Active Nitroglycerin 0.4 MG 1 tablet under the tongue and allow to dissolve as needed. Take every 5 minutes up to 3 times if chest pain persists Sublingual Once a day if needed for 30 days Active SOCIAL HISTORY Tobacco Use: Social History Observation Description Date Details (start date - stop date) Never Smoker NA - NA Sex Assigned At : Social History Observation Description Sex Assigned At Unknown Smoking Question Answer Notes Are you a: never smoker PROBLEMS Problem Type ICD Code Onset Dates Problem Status W/U Status Risk SNOMED Code Notes Problem GERD [Gastroesophageal reflux disease] (530.81) Active confirmed Gastroesophagea l reflux disease (disorder) (329861833) Problem IBS [Irritable bowel syndrome] (564.1) Active confirmed Irritable bowel syndrome (18384520) Problem H/o colon adenoma (211.3) Active confirmed Benign neoplasm of colon (50867238) Problem Gastro-esophageal reflux disease without esophagitis (K21.9) Active confirmed Gastro-esophage al reflux disease without esophagitis (128097194) Problem Essential (primary) hypertension (I10) Active confirmed Essential hypertension (02980524) Problem Hypothyroidism, unspecified (E03.9) Active confirmed Hypothyroidism (87577204) Problem Anemia, unspecified (D64.9) Active confirmed Anemia (470556744) Problem Arthritis (M19.90) Active confirmed 372 3001 Problem Chronic kidney disease, unspecified (N18.9) Active confirmed Chronic kidney disease (544984005) Problem Acquired hypothyroidism (E03.9) Active confirmed 349844485 Problem Chronic diastolic (congestive) heart failure (I50.32) Active confirmed Chronic noé stolic heart failure (609984365) Problem 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) Active confirmed Anemia in chron ic kidney disease (831195601) Problem Disorder of lipoprotein metabolism, 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 confirmed Disorder of lipoprotein storage and metabolism (disorder) (230547176) Problem Polyneuropathy, unspecified (G62.9) Active confirmed Polyneuropathy (59118548) Problem Hypertensive chronic kidney disease with stage 1 through stage 4 chronic kidney disease, or unspecified chronic kidney disease (I12.9) Active confirmed Chronic kidn ey disease due to hypertension (190910458829751) Problem Hypertensive heart and chronic kidney disease with heart failure and stage 1 through stage 4 chronic kidney disease, or unspecified chronic kidney disease (I13.0) Active confirmed Hypertensive heart AND chronic kidney disease with congestive heart failure (09354321713174) Problem 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5) Active confirmed Sick sinus syndrome (97731063) Problem Athscl heart disease of kake coronary artery w/o ang pctrs (I25.10) Active confirmed Atherosclerosis of coronary artery without angina pectoris (803845115443475) Problem Aortic stenosis, moderate (I35.0) Active confirmed 548403738 Problem Pure hypercholesterolem ia, unspecified (E78.00) Active confirmed Pure hypercholesterolemia (819198240) Problem Benign prostatic hyperplasia without lower urinary tract symptoms (N40.0) Active confirmed Benign pros tatic hypertrophy without outflow obstruction (537825166) Problem Chronic kidney disease, stage 3 unspecified (N18.30) Active confirmed Chronic kidney disease stage 3 (disorder) (886814781) VITAL SIGNS Blood pressure diastolic 72 mm Hg 01/19/2025 Height 68 in 01/19/2025 Blood pressure systolic 122 mm Hg 01/19/2025 Weight 162 lbs 01/19/2025 BMI 24.63 kg/m2 01/19/2025 Encounters Encounter Location Date Provider Diagnosis [facility] [address] [place] [phone] 02/19/2024 IONA TOTH Essential (primary) hypertension I10 ; Disorder of lipoprotein metabolism, unspecified E78.9 ; Chronic kidney disease, unspecified N18.9 ; Athscl heart disease of kake coronary artery w/o ang pctrs I25.10 ; Gastro-esophageal reflux disease without esophagitis K21.9 ; B12 deficiency E53.8 ; Aortic stenosis, moderate I35.0 ; Unspecified atrial fibrillation I48.91 and Acquired hypothyroidism E03.9 [facility] [address] [place] [address] 02/20/2024 IONA TOTH Elevated serum creatinine R79.89 [facility] [address] [place] [phone] 06/09/2024 IONA TOTH [facility] [address] [place] [address] 06/10/2024 IONA TOTH [facility] [address] [place] [phone] 06/12/2024 IONA TOTH [facility] [address] [place] [phone] 06/17/2024 IONA TOTH [facility] [address] [place] [phone] 06/24/2024 IONA [facility] [address] [place] [phone] 08/05/2024 IONA TOTH [facility] [address] [place] [phone] 09/01/2024 IONA TOTH [facility] [address] [place] [phone] 09/02/2024 IONA TOTH [facility] [address] [place] [address] 09/02/2024 IONA [facility] [address] [place] [phone] 09/03/2024 IONA [facility] [address] [place] [phone] 09/08/2024 IONA TOTH [facility] [address] [place] [phone] 09/09/2024 [facility] [address] [address] 09/11/2024 [facility] discharge follow-up Z09 ; Acute kidney injury N17.9 ; Closed fracture of right ankle with routine healing, subsequent encounter S82.891D ; Lesion of right kake kidney N28.9 ; Disorder of lipoprotein metabolism, unspecified E78.9 ; Essential (primary) hypertension I10 ; Chronic kidney disease, unspecified N18.9 ; Acquired hypothyroidism E03.9 ; Acute urinary retention R33.8 and Closed fracture of proximal end of left tibia with routine healing, unspecified fracture morphology, subsequent encounter S82.102D [facility] [address] [place] [address] 09/11/2024 IONA [facility] [address] [place] [address] 09/15/2024 LIZZIE FINLEY [facility] [address] [place] [address] 09/16[facility] [address] [place] [phone] 09/30/2024 IONA TOTH [facility] [address] [place] [phone] 10/07/2024 IONA [facility] [address] [place] [phone] 10/10/2024 IONA [facility] [address] [place] [phone] 10/13/[address] [address] 11/19/[address] [address] 11/20/2024 [facility] [address] [place] [phone] 12/02/2024 IONA [facility] [address] [place] [phone] 12/23/2024 IONA [facility] [address] [place] [phone] 12/24/2024 IONA [facility] [address] [place] [phone] 01/10/2025 IONA [facility] [address] [place] [phone] 01/19/2025 IONA TOTH Essential (primary) hypertension I10 ; Disorder of lipoprotein metabolism, unspecified E78.9 ; Chronic kidney disease, unspecified N18.9 ; Athscl heart disease of kake coronary artery w/o ang pctrs I25.10 ; Gastro-esophageal reflux disease without esophagitis K21.9 ; B12 deficiency E53.8 ; Aortic stenosis, moderate I35.0 ; Unspecified atrial fibrillation I48.91 and Elevated PSA R97.[address] [address] 01/20/2025 IONA TOTH B12 deficiency E53.8 and Anemia, unspecified D64.[address] [address] 01/20/2025 IONA TOTH Essential (primary) hypertension I10 and Acquired hypothyroidism E03.[address] [place] [address] 01/21/2025 IONA TOTH ASSESSMENTS Encounter Date Diagnosis Assessment Notes Treatment Notes Treatment Clinical Notes Section Notes 02/19/2024 Disorder of lipoprotein metabolism, unspecified (ICD-10 - E78.9) Continue statin therapy check lipid profile with LDL goal less than 70 02/19/2024 Essential (primary) hypertension (ICD-10 - I10) Blood pressure stable well-controlled no change in therapy check electrolytes. EKG paced rhythm right bundle branch block 01/20/2025 Acquired hypothyroidism (ICD-10 - E03.9) 01/20/2025 Essential (primary) hypertension (ICD-10 - I10) 01/20/2025 Anemia, unspecified (ICD-10 - D64.9) 01/20/2025 B12 deficiency (ICD-10 - E53.8) 01/19/2025 Disorder of lipoprotein metabolism, unspecified (ICD-10 - E78.9) On statin for decades continue with statin. Check lipid profile check LFTs LDL goal less than 70 01/19/2025 Essential (primary) hypertension (ICD-10 - I10) Blood pressure stable well-controlled no change in therapy follow-up with renal 09/11/2024 Hospital discharge follow-up (ICD-10 - Z09) Hospital records and data reviewed. Medication reconciliation was completed with facility discharge summary. 09/11/2024 Acute kidney injury (ICD-10 - N17.9) likely from dehydration and olemsartan in setting of CKD: D/c Creat 1.97. Hgb 7.6 and hct 24.1 reported as stable. Will check renal function/lytes today. Following with nephrology and has appt later this month. 02/20/2024 Elevated serum creatinine (ICD-10 - R79.89) 09/11/2024 Closed fracture of right ankle with routine healing, subsequent encounter (ICD-10 - S82.891D) f/u with ortho; continue PT 01/19/2025 Chronic kidney disease, unspecified (ICD-10 - N18.9) Doing well urinating well follow-up with renal. Chronic chronic history of kidney disease stage III with acute kidney injury but had resolved. Avoid NSAIDs avoid IVP dyes 02/19/2024 Chronic kidney disease, unspecified (ICD-10 - N18.9) Stable check BMP. Avoid NSAIDs avoid IVP dyes 02/19/2024 Athscl heart disease of kake coronary artery w/o ang pctrs (ICD-10 - I25.10) No chest pain no CHF vital signs stable patient with aortic stenosis, MR and diastolic dysfunction. Asymptomatic 09/11/2024 Lesion of right kake kidney (ICD-10 - N28.9) 1.1cm indeterminate lesion in right lower pole rec US imaging 01/19/2025 Athscl heart disease of kake coronary artery w/o ang pctrs (ICD-10 - I25.10) Chest pain no CHF vital signs stable check EKG sinus rhythm no change 02/19/2024 Gastro-esophageal reflux disease without esophagitis (ICD-10 - K21.9) Stable no significant symptoms dietary recommendations discussed 09/11/2024 Disorder of lipoprotein metabolism, unspecified (ICD-10 - E78.9) LDL at goal <100 in 02/23; will repeat, continue on crestor 01/19/2025 Gastro-esophageal reflux disease without esophagitis (ICD-10 - K21.9) 02/19/2024 B12 deficiency (ICD-10 - E53.8) Continue B12 therapy. 09/11/2024 Essential (primary) hypertension (ICD-10 - I10) good control; continue current management; low salt 01/19/2025 B12 deficiency (ICD-10 - E53.8) Continue B12 replacement 02/19/2024 Aortic stenosis, moderate (ICD-10 - I35.0) No CHF no chest pain no change in medication follow-up echo per cardiology 09/11/2024 Chronic kidney disease, unspecified (ICD-10 - N18.9) F/u with Dr Pal as scheduled; will check renal and lytes 01/19/2025 Aortic stenosis, moderate (ICD-10 - I35.0) No CHF no chest pain no LEGAL ADVISER symptoms cardiac echo q. yearly set up cardiac echo 02/19/2024 Unspecified atrial fibrillation (ICD-10 - I48.91) Stable check EKG 09/11/2024 Acquired hypothyroidism (ICD-10 - E03.9) will check TSH, not on any meds 01/19/2025 Unspecified atrial fibrillation (ICD-10 - I48.91) Patient has had a Watchman procedure therefore does not need anticoagulation. Patient had a pacemaker EKG a paced rhythm left bundle branch block 02/19/2024 Acquired hypothyroidism (ICD-10 - E03.9) Check TSH follow-up in 6 months of medical 09/11/2024 Acute urinary retention (ICD-10 - R33.8) no longer with any urinary symptoms; doesnt follow with urology; would like to try and go off the flomax; advised to restart if diff urinating 01/19/2025 Elevated PSA (ICD-10 - R97.20) Discussed PSA elevation and again. Tolerating test recheck. After discussion patient states he does not want to have anything done understands the risks 09/11/2024 Closed fracture of proximal end of left tibia with routine healing, unspecified fracture morphology, subsequent encounter (ICD-10 - S82.102D) f/u with ortho 09/11/2024 Other I am seeing the patient under the supervision of the co-signing physician. The physician was available for consultation at the time of the office visit. PLAN OF TREATMENT Pending Test Test Name Order Date Echocardiogram 01/19/2025 Future Test Test Name Order Date Iron and TIBC-816064 09/04/2023 Ferritin-474175 09/04/2023 CBC With Differential/Platelet-213662 Iron and TIBC-120181 10/02/2023 Vitamin G64-721258 10/02/2023 T4 Free Direct (Thyroxine)-933324 2023 Folate (Folic Acid), Serum-365230 2023 TSH-286242 10/02/2023 CBC, Platelet, w/o Differential-326989 0 10/02/2023 BMP8+eGFR-521772 10/02/2023 Albumin/Creatinine Ratio,Urine-889451 BMP8+eGFR-850712 03/05/2024 Vitamin M51-295149 01/10/2025 Folate (Folic Acid), Serum-184159 2024 Urinalysis, Complete w/ME-444107 025 TSH-951013 01/10/2025 CBC, Platelet, w/o Differential-543002 1 Lipid Panel-548643 01/10/2025 Comp. Metabolic Panel (14)-629628 2024 LDH-268606 01/20/2025 Iron and TIBC-121004 01/20/2025 Haptoglobin-745227 01/20/2025 Ferritin-305648 01/20/2025 Reticulocyte Count-982859 01/20/2025 Methylmalonic Acid, Serum-501955 025 Homocyst(e)ine-706914 01/20/2025 T4 Free Direct (Thyroxine)-546375 2024 TSH-054206 03/03/2025 BMP8+eGFR-890379 03/03/2025 Next Appt Details Provider Name:IONA JEFFRIES, 07/28/2025 10:00:00 AM, [address] [place], [address], Insurance Providers Payer Name Payer Address Payer Phone Subscriber Number Group Number Insured Name Patient Relationship to Insured Coverage Start Date Coverage End Date MEDICARE [employer] [address] [place] [address] [id number] [place] Self - patient is the insured [employer] [facility] [address] [place] [address] [phone] [id number] [place] Self - patient is the insured MEDICAL (GENERAL) HISTORY Medical History History ICD Code coronary artery disease angina Esophageal reflux Hypertension high cholesterol Colonoscopy 03/04 - Tubular Adenoma, sigmoid polyp / Mild Sigmoid Diverticulosis EGD 03/04 - [facility] Colonoscopy 04/16/06 - No polyps. Mild si gmoid diverticulosis. EGD 06/13/06 - [facility]. Probable IBS Colonoscopy 12/17/2012 - Diverticulosis in sigmoid colon Vaccination status. COVID 2 shots. Tetanus shot 2019. Pneumovax x 2. Flu shot q. year. Shingrix negative. Chronic kidney disease stage III. August 2024 for consult History of BPH microscopic hematuria Pertinent lab data August 2022 creatinine 1.8. LFTs normal. Homocystine and methylmalonic acid elevated. B12 low at 213. 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 CAD status post CABG Cardiac echo October 2022 eje ction fraction 50 to 55%. Grade 3 diastolic dysfunction. Mild MR moderate AAS Surgical History Surgery Date(Month/Year) cataracts - right eye 2011 Hip Replacement 07/05 Cardiac Stent 05/08 TKR - R 1999 CABG 1994 Hospitalization History Reason Date(Month/Year) [facility]: L ankle fx, joint effusion 05/2024 [facility]: Tx from [facility] for likely surgery. R ankle fx, left tibial tubercle fx 05/2024 [facility]: [facility]ER, acute urinary rete ntion, hyponatremia, elevated LFT's, constipation 05/2024
--- OUTSIDE RECORDS SUMMARY | 2025-02-11 12:49 | XMS_ITS | Encounter Summary ---
Author Organization [employer] Address [address] [place] [address] Care Team Providers Care Analyst Food And Beverage Name Role Phone Fartun Goldstein MD Primary Care Provider + Encounter Details Date Type Department Care Team (Late st Contact Info) Description 06/13/2024 Lab Requisition [facility] - Main Lab 299 [facility] [place] [address] Fartun Goldstein MD [address] [facility] 1 [place] [address] Unspecified atrial fibrillation (CMS/HCC V24, CMS/HCC V28) [...] Associated Diagnosis Comments COMPLETE BLOOD COUNT Routine 06/13/2024 6:18 AM EDT Unspecified atrial fibrillation (CMS/HCC) BASIC METABOLIC PANEL Routine 06/13/2024 6:18 AM EDT Unspecified atrial fibrillation (CMS/HCC) documented in this encounter Results * (ABNORMAL) Basic metabolic panel (06/13/2024 6:18 AM EDT) Sodium 137 133 - 145 mmol/L LAB CHEMISTRY METHOD 06/13/2024 1:16 PM EDT [facility] Potassium 4.3 3.5 - 5.5 mmol/L LAB CHEMISTRY METHOD 06/13/2024 1:16 PM EDT [facility] Chloride 106 96 - 110 mmol/L LAB CHEMISTRY METHOD 06/13/2024 1:16 PM EDT [facility] CO2 20(L) 21 - 32 mmol/L LAB CHEMISTRY METHOD 06/13/2024 1:16 PM [facility] Anion Gap 11 3 - 11 LAB CHEMISTRY METHOD 06/13/2024 1:16 PM [facility] Glucose 90 70 - 100 mg/dL LAB CHEMISTRY METHOD 06/13/2024 1:16 PM T [facility] BUN 38(H) 5 - 25 mg/dL LAB CHEMISTRY METHOD 06/13/2024 1:16 PM [facility] Creatinine 1.85(H) 0.70 - 1.30 mg/dL LAB CHEMISTRY METHOD 06/13/2024 1:16 PM [facility] eGFR 35(L) >=60 mL/min/1. 73m2 LAB CHEMISTRY METHOD 06/13/2024 1:16 PM T [facility] Comment:Calculation based on the Chronic Kidney Disease Epidemiology Collaboration (CKD-EPI) equation refit without adjustment for race. BUN/Creatinine Ratio 20.5 LAB CHEMISTRY METHOD 06/13/2024 1:16 PM [facility] Calcium 8.9 8.5 - 10.5 mg/dL LAB CHEMISTRY METHOD 06/13/2024 1:16 PM [facility] Blood Venous blood specimen / Unknown Venipuncture / Unknown 06/13/2024 6:18 AM EDT 06/13/2024 10:32 AM EDT us Fartun Goldstein MD LAB BLOOD ORDERABLES Fin al Result [facility] [address] [place] [address], * (ABNORMAL) Complete blood count (06/13/2024 6:18 AM EDT) [facility] WBC 9.7 4.8 - 10.8 K/mcL LAB HEMETOLOGY METHOD 06/13/2024 11:26 AM [facility] RBC 3.00(L) 4.50 - 5.50 M/mcL LAB HEMETOLOGY METHOD 06/13/2024 11:26 AM [facility] Hemoglobin 9.7(L) 13.5 - 17.5 g/dL LAB HEMETOLOGY METHOD 06/13/2024 11:26 AM [facility] Hematocrit 29.8(L) 42.0 - 54.0 % LAB HEMETOLOGY METHOD 06/13/2024 11:26 AM [facility] MCV 100.0(H) 79.0 - 98.0 FL LAB HEMETOLOGY METHOD 06/13/2024 11:26 AM [facility] MCH 32.6(H) 27.0 - 32.0 pcg LAB HEMETOLOGY METHOD 06/13/2024 11:26 AM [facility] MCHC 32.6 32.0 - 37.0 g/dL LAB HEMETOLOGY METHOD 06/13/2024 11:26 AM [facility] RDW 13.2 11.0 - 15.0 % LAB HEMETOLOGY METHOD 06/13/2024 11:26 AM [facility] Platelets 218 130 - 400 K/[facility] LAB HEMETOLOGY METHOD 06/13/2024 11:26 AM [facility] MPV 11.9(H) 7.0 - 11.0 FL LAB HEMETOLOGY METHOD 06/13/2024 11:26 AM [facility] NRBC 0.0 <1.0 % LAB HEMETOLOGY METHOD 06/13/2024 11:26 AM [facility] NRBC Absolute 0.00 <0.10 K/[facility] LAB HEMETOLOGY METHOD 06/13/2024 11:26 AM EDT [facility] Blood Venous blood specimen / Unknown Venipuncture / Unknown 06/13/2024 6:18 AM EDT 06/13/2024 10:32 AM EDT us Fartun Goldstein MD LAB BLOOD ORDERABLES Fin al Result [facility] [address] [place] [address], documented in this encounter Visit Diagnoses Diagnosis Unspecified atrial fibrillation (CMS/HCC V24, CMS/HCC V28) documented in this encounter Care Teams Analyst Food And Beverage Relationship Specialty Start Date End Date Fartun Goldstein MD [address] [place] [id number] PCP - General Family Medicine 06/13/24 documented as of this encounter
--- OUTSIDE RECORDS SUMMARY | 2025-02-11 12:49 | XMS_ITS | Encounter Summary ---
Author Organization [employer] [facility] Address [address] [place] [address] Care Team Providers Care Physician Office Clin Asst Name Role Phone Fartun Goldstein MD Primary Care Provider + Encounter Details Date Type Department Care Team (Late st Contact Info) Description 06/28/2024 Lab Requisition [facility] - Main Lab 299 [facility] [place] [address] Fartun Goldstein MD [address] [phone] Abnormal results of kidney function studies Social History Tobacco Use Types Packs/Day Years [...] Procedure Name Priority Date/Time Associated Diagnosis Comments BASIC METABOLIC PANEL Routine 06/28/2024 11:33 AM EDT Abnormal results of kidney function studies documented in this encounter Results * (ABNORMAL) Basic metabolic panel (06/28/2024 11:33 AM EDT) Sodium 134 133 - 145 mmol/L LAB CHEMISTRY METHOD 06/28/2024 1:21 PM EDT [facility] Potassium 4.4 3.5 - 5.5 mmol/L LAB CHEMISTRY METHOD 06/28/2024 1:21 PM EDT [facility] Chloride 103 96 - 110 mmol/L LAB CHEMISTRY METHOD 06/28/2024 1:21 PM EDT [facility] CO2 23 21 - 32 mmol/L LAB CHEMISTRY METHOD 06/28/2024 1:21 PM EDT [facility] Anion Gap 8 3 - 11 LAB CHEMISTRY METHOD 06/28/2024 1:21 PM EDT [facility] Glucose 94 70 - 100 mg/dL LAB CHEMISTRY METHOD 06/28/2024 1:21 PM EDT [facility] BUN 28(H) 5 - 25 mg/dL LAB CHEMISTRY METHOD 06/28/2024 1:21 PM EDT [facility] Creatinine 1.80(H) 0.70 - 1.30 mg/dL LAB CHEMISTRY METHOD 06/28/2024 1:21 PM EDT [facility] eGFR 36(L) >=60 mL/min/1. 73m2 LAB CHEMISTRY METHOD 06/28/2024 1:21 PM EDT [facility] Comment:Calculation based on the Chronic Kidney Disease Epidemiology Collaboration (CKD-EPI) equation refit without adjustment for race. BUN/Creatinine Ratio 15.6 LAB CHEMISTRY METHOD 06/28/2024 1:21 PM EDT [facility] Calcium 8.7 8.5 - 10.5 mg/dL LAB CHEMISTRY METHOD 06/28/2024 1:21 PM [facility] Blood Venous blood specimen / Unknown Venipuncture / Unknown 06/28/2024 11:33 AM EDT 06/28/2024 12:55 PM EDT us Fartun Goldstein MD LAB BLOOD ORDERABLES Fin al Result [facility] [address] [place] [address], [place] [phone] documented in this encounter Visit Diagnoses Diagnosis Abnormal results of kidney function studies Nonspecific abnormal results of kidney function study documented in this encounter Care Teams Physician Office Clin Asst Relationship Specialty Start Date End Date Fartun Goldstein MD [address] [place] [phone] PCP - General Family Medicine 06/13/24 documented as of this encounter
--- OUTSIDE RECORDS SUMMARY | 2025-02-11 12:49 | XMS_ITS | Encounter Summary ---
Author Organization [facility] Address [address] [place] [address] Care Team Providers Care Roll Scale Man Name Role Phone Fartun Goldstein MD Primary Care Provider + Encounter Details Date Type Department Care Team (Late st Contact Info) Description 06/30/[address] [facility] - Main Lab 299 [place] [address] Fartun Goldstein MD 819 [facility] 1 [place], [place] [phone] Essential (primary) hypertension Social History Tobacco Use Types Packs/Day Years [...] Procedure Name Priority Date/Time Associated Diagnosis Comments SST - GOLD Routine 06/30/2024 7:42 AM EDT Essential (primary) hypertension COMPLETE BLOOD COUNT Routine 06/30/2024 7:42 AM EDT Essential (primary) hypertension documented in this encounter Results * SST tube (06/30/2024 7:42 AM EDT) Extra Tube Hold for add-ons. 06/30/2024 1:02 PM EDT [facility] Comment:Auto resulted. Blood Venous blood specimen / Unknown 06/30/2024 7:42 AM EDT 06/30/2024 11:48 AM EDT us Fartun Goldstein MD LAB BLOOD ORDERABLES Fin al Result [facility] [address] [place] [address], * (ABNORMAL) Complete blood count (06/30/2024 7:42 AM EDT) WBC 8.7 4.8 - 10.8 K/mcL LAB HEMETOLOGY METHOD 06/30/2024 1:20 PM EDT [facility] RBC 2.50(L) 4.50 - 5.50 M/mcL LAB HEMETOLOGY METHOD 06/30/2024 1:20 PM EDT [facility] Hemoglobin 7.9(L) 13.5 - 17.5 g/dL LAB HEMETOLOGY METHOD 06/30/2024 1:20 PM EDT [facility] Hematocrit 25.3(L) 42.0 - 54.0 % LAB HEMETOLOGY METHOD 06/30/2024 1:20 PM EDT [facility] MCV 102.4(H) 79.0 - 98.0 FL LAB HEMETOLOGY METHOD 06/30/2024 1:20 PM EDT [facility] MCH 32.0 27.0 - 32.0 pcg LAB HEMETOLOGY METHOD 06/30/2024 1:20 PM EDT [facility] MCHC 31.2(L) 32.0 - 37.0 g/dL LAB HEMETOLOGY METHOD 06/30/2024 1:20 PM EDT [facility] RDW 13.6 11.0 - 15.0 % LAB HEMETOLOGY METHOD 06/30/2024 1:20 PM EDT [facility] Platelets 368 130 - 400 K/mcL LAB HEMETOLOGY METHOD 06/30/2024 1:20 PM EDT [facility] MPV 10.5 7.0 - 11.0 FL LAB HEMETOLOGY METHOD 06/30/2024 1:20 PM EDT [facility] NRBC 0.0 <1.0 % LAB HEMETOLOGY METHOD 06/30/2024 1:20 PM EDT [facility] NRBC Absolute 0.00 <0.10 K/mcL LAB HEMETOLOGY METHOD 06/30/2024 1:20 PM EDT [facility] Blood Venous blood specimen / Unknown Venipuncture / Unknown 06/30/2024 7:42 AM EDT 06/30/2024 11:32 AM EDT us Fartun Goldstein MD LAB BLOOD ORDERABLES Fin al Result [facility] [address] [place] [address], documented in this encounter Visit Diagnoses Diagnosis Essential (primary) hypertension Unspecified essential hypertension documented in this encounter Care Teams Roll Scale Man Relationship Specialty Start Date End Date Fartun Goldstein MD [address] [phone] PCP - General Family Medicine 06/13/24 documented as of this encounter
--- OUTSIDE RECORDS SUMMARY | 2025-02-11 12:49 | XMS_ITS | Encounter Summary ---
Author Organization [employer] Address [address] [place] [address] Care Team Providers Care Cable Splicer Apprentice Name Role Phone Fartun Goldstein MD Primary Care Provider + Encounter Details Date Type Department Care Team (Late st Contact Info) Description 06/25/2024 Lab Requisition [facility] - Main Lab 299 [place] [address] Fartun Goldstein MD 819 [facility] 1 [place] [address] Anemia, unspecified Social History Tobacco Use Types Packs/Day Years [...] Associated Diagnosis Comments COMPLETE BLOOD COUNT Routine 06/25/2024 5:37 AM EDT Anemia, unspecified BASIC METABOLIC PANEL Routine 06/25/2024 5:37 AM EDT Anemia, unspecified documented in this encounter Results * (ABNORMAL) Basic metabolic panel (06/25/2024 5:37 AM EDT) Sodium 135 133 - 145 mmol/L LAB CHEMISTRY METHOD 06/25/2024 8:37 AM T [facility] Potassium 4.6 3.5 - 5.5 mmol/L LAB CHEMISTRY METHOD 06/25/2024 8:37 AM [facility] Chloride 104 96 - 110 mmol/L LAB CHEMISTRY METHOD 06/25/2024 8:37 AM [facility] CO2 24 21 - 32 mmol/L LAB CHEMISTRY METHOD 06/25/2024 8:37 AM [facility] Anion Gap 7 3 - 11 LAB CHEMISTRY METHOD 06/25/2024 8:37 AM [facility] Glucose 82 70 - 100 mg/dL LAB CHEMISTRY METHOD 06/25/2024 8:37 AM [facility] BUN 31(H) 5 - 25 mg/dL LAB CHEMISTRY METHOD 06/25/2024 8:37 AM [facility] Creatinine 2.10(H) 0.70 - 1.30 mg/dL LAB CHEMISTRY METHOD 06/25/2024 8:37 AM [facility] eGFR 30(L) >=60 mL/min/1. 73m2 LAB CHEMISTRY METHOD 06/25/2024 8:37 AM [facility] Comment:Calculation based on the Chronic Kidney Disease Epidemiology Collaboration (CKD-EPI) equation refit without adjustment for race. BUN/Creatinine Ratio 14.8 LAB CHEMISTRY METHOD 06/25/2024 8:37 AM [facility] Calcium 8.4(L) 8.5 - 10.5 mg/dL LAB CHEMISTRY METHOD 06/25/2024 8:37 AM [facility] Blood Venous blood specimen / Unknown Venipuncture / Unknown 06/25/2024 5:37 AM EDT 06/25/2024 7:49 AM EDT us Fartun Goldstein MD LAB BLOOD ORDERABLES Fin al Result [facility] [address] [place] [address], * (ABNORMAL) Complete blood count (06/25/2024 5:37 AM EDT) WBC 8.9 4.8 - 10.8 K/[facility] LAB HEMETOLOGY METHOD 06/25/2024 8:11 AM [facility] RBC 2.50(L) 4.50 - 5.50 M/mcL LAB HEMETOLOGY METHOD 06/25/2024 8:11 AM [facility] Hemoglobin 7.9(L) 13.5 - 17.5 g/dL LAB HEMETOLOGY METHOD 06/25/2024 8:11 AM [facility] Hematocrit 24.6(L) 42.0 - 54.0 % LAB HEMETOLOGY METHOD 06/25/2024 8:11 AM [facility] MCV 100.4(H) 79.0 - 98.0 FL LAB HEMETOLOGY METHOD 06/25/2024 8:11 AM [facility] MCH 32.2(H) 27.0 - 32.0 pcg LAB HEMETOLOGY METHOD 06/25/2024 8:11 AM [facility] MCHC 32.1 32.0 - 37.0 g/dL LAB HEMETOLOGY METHOD 06/25/2024 8:11 AM [facility] RDW 13.7 11.0 - 15.0 % LAB HEMETOLOGY METHOD 06/25/2024 8:11 AM [facility] Platelets 354 130 - 400 K/mcL LAB HEMETOLOGY METHOD 06/25/2024 8:11 AM [facility] MPV 10.1 7.0 - 11.0 FL LAB HEMETOLOGY METHOD 06/25/2024 8:11 AM [facility] NRBC 0.0 <1.0 % LAB HEMETOLOGY METHOD 06/25/2024 8:11 AM [facility] NRBC Absolute 0.00 <0.10 K/mcL LAB HEMETOLOGY METHOD 06/25/2024 8:11 AM [facility] Blood Venous blood specimen / Unknown Venipuncture / Unknown 06/25/2024 5:37 AM EDT 06/25/2024 7:49 AM EDT us Fartun Goldstein MD LAB BLOOD ORDERABLES Fin al Result Performing Organization Address City/State/[facility] Co de Phone Number [facility] [address] [place] [address], documented in this encounter Visit Diagnoses Diagnosis Anemia, unspecified documented in this encounter Care Teams Cable Splicer Apprentice Relationship Specialty Start Date End Date Fartun Goldstein MD [address] [place] [phone] PCP - General Family Medicine 06/13/24 documented as of this encounter
--- OUTSIDE RECORDS SUMMARY | 2025-02-11 12:49 | XMS_ITS | Encounter Summary ---
Author Organization [employer] Address [address] [place] [address] Care Team Providers Care Stripping Cutter And Winder Name Role Phone Fartun Goldstein MD Primary Care Provider + Encounter Details Date Type Department Care Team (Late st Contact Info) Description 06/29/2024 Lab Requisition [facility] - Main Lab 299 [facility] [place] [address] Fartun Goldstein MD 819 [facility] 1 [place] [address] Unspecified atrial fibrillation (CMS/HCC V24, CMS/HCC V28) [...] LAB CHEMISTRY METHOD 06/29/2024 2:33 PM EDT [facility] Potassium 4.7 3.5 - 5.5 mmol/L LAB CHEMISTRY METHOD 06/29/2024 2:33 PM EDT [facility] Chloride 102 96 - 110 mmol/L LAB CHEMISTRY METHOD 06/29/2024 2:33 PM [facility] CO2 20(L) 21 - 32 mmol/L LAB CHEMISTRY METHOD 06/29/2024 2:33 PM [facility] Anion Gap 12(H) 3 - 11 LAB CHEMISTRY METHOD 06/29/2024 2:33 PM [facility] Glucose 122(H) 70 - 100 mg/dL LAB CHEMISTRY METHOD 06/29/2024 2:33 PM [facility] BUN 28(H) 5 - 25 mg/dL LAB CHEMISTRY METHOD 06/29/2024 2:33 PM [facility] Creatinine 1.87(H) 0.70 - 1.30 mg/dL LAB CHEMISTRY METHOD 06/29/2024 2:33 PM [facility] eGFR 35(L) >=60 mL/min/1. 73m2 LAB CHEMISTRY METHOD 06/29/2024 2:33 PM [facility] Comment:Calculation based on the Chronic Kidney Disease Epidemiology Collaboration (CKD-EPI) equation refit without adjustment for race. BUN/Creatinine Ratio 15.0 LAB CHEMISTRY METHOD 06/29/2024 2:33 PM [facility] Calcium 8.9 8.5 - 10.5 mg/dL LAB CHEMISTRY METHOD 06/29/2024 2:33 PM [facility] AST (SGOT) 44(H) 10 - 42 unit/L LAB CHEMISTRY METHOD 06/29/2024 2:33 PM [facility] ALT (SGPT) 40 10 - 60 unit/L LAB CHEMISTRY METHOD 06/29/2024 2:33 PM [facility] Alkaline Phosphatase 73 42 - 121 unit/L LAB CHEMISTRY METHOD 06/29/2024 2:33 PM [facility] Total Protein 6.2 6.0 - 8.0 g/dL LAB CHEMISTRY METHOD 06/29/2024 2:33 PM EDT [facility] Albumin 2.5(L) 3.2 - 5.0 g/dL LAB CHEMISTRY METHOD 06/29/2024 2:33 PM EDT [facility] Total Bilirubin 0.8 0.0 - 1.4 mg/dL LAB CHEMISTRY METHOD 06/29/2024 2:33 PM EDT [facility] Blood Venous blood specimen / Unknown Venipuncture / Unknown 06/29/2024 1:02 PM EDT 06/29/2024 1:53 PM EDT us Fartun Goldstein MD LAB BLOOD ORDERABLES Fin al Result [facility] [address] [place] [address], * (ABNORMAL) Complete blood count (06/29/2024 1:02 PM EDT) WBC 15.2(H) 4.8 - 10.8 K/mcL LAB HEMETOLOGY METHOD 06/29/2024 2:07 PM EDT [facility] RBC 2.70(L) 4.50 - 5.50 M/mcL LAB HEMETOLOGY METHOD 06/29/2024 2:07 PM EDT [facility] Hemoglobin 8.6(L) 13.5 - 17.5 g/dL LAB HEMETOLOGY METHOD 06/29/2024 2:07 PM EDT [facility] Hematocrit 27.1(L) 42.0 - 54.0 % LAB HEMETOLOGY METHOD 06/29/2024 2:07 PM EDT [facility] MCV 100.4(H) 79.0 - 98.0 FL LAB HEMETOLOGY METHOD 06/29/2024 2:07 PM EDT [facility] MCH 31.9 27.0 - 32.0 pcg LAB HEMETOLOGY METHOD 06/29/2024 2:07 PM EDT [facility] MCHC 31.7(L) 32.0 - 37.0 g/dL LAB HEMETOLOGY METHOD 06/29/2024 2:07 PM EDT [facility] RDW 13.6 11.0 - 15.0 % LAB HEMETOLOGY METHOD 06/29/2024 2:07 PM EDT [facility] Platelets 389 130 - 400 K/mcL LAB HEMETOLOGY METHOD 06/29/2024 2:07 PM EDT [facility] MPV 10.4 7.0 - 11.0 FL LAB HEMETOLOGY METHOD 06/29/2024 2:07 PM EDT [facility] NRBC 0.0 <1.0 % LAB HEMETOLOGY METHOD 06/29/2024 2:07 PM EDT [facility] NRBC Absolute 0.00 <0.10 K/mcL LAB HEMETOLOGY METHOD 06/29/2024 2:07 PM EDT [facility] Blood Venous blood specimen / Unknown Venipuncture / Unknown 06/29/2024 1:02 PM EDT 06/29/2024 1:53 PM EDT us Fartun Goldstein MD LAB BLOOD ORDERABLES Fin al Result [facility] [address] [place] [address], documented in this encounter Visit Diagnoses Diagnosis Unspecified atrial fibrillation (CMS/HCC V24, CMS/HCC V28) documented in this encounter Care Teams Stripping Cutter And Winder Relationship Specialty Start Date End Date Fartun Goldstein MD [address] [place] [phone] PCP - General Family Medicine 06/13/24 documented as of this encounter
--- OUTSIDE RECORDS SUMMARY | 2025-02-11 12:50 | XMS_ITS | Encounter Summary ---
Author Organization [employer] Address [address] [place] [address] Care Team Providers Care Abap Developer Name Role Phone Fartun Goldstein MD Primary Care Provider + Encounter Details Date Type Department Care Team (Late st Contact Info) Description 07/25/2024 Lab Requisition [facility] - Main Lab 299 [place] [address] Fartun Goldstein MD [address] [phone] Myelodysplastic syndrome, unspecified (CMS/HCC V24, CMS/HCC V28) Social History Tobacco [...] Associated Diagnosis Comments COMPLETE BLOOD COUNT Routine 07/28/2024 6:42 AM EDT Myelodysplastic syndrome, unspecified (CMS/HCC V24, CMS/HCC V28) BASIC METABOLIC PANEL Routine 07/28/2024 6:42 AM EDT Myelodysplastic syndrome, unspecified (CMS/HCC V24, CMS/HCC V28) documented in this encounter Results * (ABNORMAL) Basic metabolic panel (07/28/2024 6:42 AM EDT) Sodium 140 133 - 145 mmol/L LAB CHEMISTRY METHOD 07/28/2024 11:57 AM EDT [facility] Potassium 4.2 3.5 - 5.5 mmol/L LAB CHEMISTRY METHOD 07/28/2024 11:57 AM [facility] Chloride 109 96 - 110 mmol/L LAB CHEMISTRY METHOD 07/28/2024 11:57 AM [facility] CO2 25 21 - 32 mmol/L LAB CHEMISTRY METHOD 07/28/2024 11:57 AM [facility] Anion Gap 6 3 - 11 LAB CHEMISTRY METHOD 07/28/2024 11:57 AM [facility] Glucose 80 70 - 100 mg/dL LAB CHEMISTRY METHOD 07/28/2024 11:57 AM [facility] BUN 24 5 - 25 mg/dL LAB CHEMISTRY METHOD 07/28/2024 11:57 AM [facility] Creatinine 1.67(H) 0.70 - 1.30 mg/dL LAB CHEMISTRY METHOD 07/28/2024 11:57 AM [facility] eGFR 40(L) >=60 mL/min/1. 73m2 LAB CHEMISTRY METHOD 07/28/2024 11:57 AM [facility] Comment:Calculation based on the Chronic Kidney Disease Epidemiology Collaboration (CKD-EPI) equation refit without adjustment for race. BUN/Creatinine Ratio 14.4 LAB CHEMISTRY METHOD 07/28/2024 11:57 AM [facility] Calcium 8.8 8.5 - 10.5 mg/dL LAB CHEMISTRY METHOD 07/28/2024 11:57 AM [facility] Blood Venous blood specimen / Unknown Venipuncture / Unknown 07/28/2024 6:42 AM EDT 07/28/2024 9:47 AM EDT us Fartun Goldstein MD LAB BLOOD ORDERABLES Fin al Result [facility] [address] [place] [address], * (ABNORMAL) Complete blood count (07/28/2024 6:42 AM EDT) [facility] WBC 6.2 4.8 - 10.8 K/mcL LAB HEMETOLOGY METHOD 07/28/2024 10:16 AM [facility] RBC 2.30(L) 4.50 - 5.50 M/mcL LAB HEMETOLOGY METHOD 07/28/2024 10:16 AM [facility] Hemoglobin 7.3(L) 13.5 - 17.5 g/dL LAB HEMETOLOGY METHOD 07/28/2024 10:16 AM [facility] Hematocrit 23.7(L) 42.0 - 54.0 % LAB HEMETOLOGY METHOD 07/28/2024 10:16 AM [facility] MCV 105.3(H) 79.0 - 98.0 FL LAB HEMETOLOGY METHOD 07/28/2024 10:16 AM [facility] MCH 32.4(H) 27.0 - 32.0 pcg LAB HEMETOLOGY METHOD 07/28/2024 10:16 AM [facility] MCHC 30.8(L) 32.0 - 37.0 g/dL LAB HEMETOLOGY METHOD 07/28/2024 10:16 AM [facility] RDW 15.3(H) 11.0 - 15.0 % LAB HEMETOLOGY METHOD 07/28/2024 10:16 AM [facility] Platelets 234 130 - 400 K/mcL LAB HEMETOLOGY METHOD 07/28/2024 10:16 AM [facility] MPV 11.7(H) 7.0 - 11.0 FL LAB HEMETOLOGY METHOD 07/28/2024 10:16 AM [facility] NRBC 0.0 <1.0 % LAB HEMETOLOGY METHOD 07/28/2024 10:16 AM [facility] NRBC Absolute 0.00 <0.10 K/mcL LAB HEMETOLOGY METHOD 07/28/2024 10:16 AM EDT [facility] Blood Venous blood specimen / Unknown Venipuncture / Unknown 07/28/2024 6:42 AM EDT 07/28/2024 9:47 AM EDT us Fartun Goldstein MD LAB BLOOD ORDERABLES Fin al Result [facility] [address] [place] [address], documented in this encounter Visit Diagnoses Diagnosis Myelodysplastic syndrome, unspecified (CMS/HCC V24, CMS/HCC V28) Myelodysplastic syndrome, unspecified documented in this encounter Care Teams Abap Developer Relationship Specialty Start Date End Date Fartun Goldstein MD [address] [place] [id number] PCP - General Family Medicine 06/13/24 documented as of this encounter
--- OUTSIDE RECORDS SUMMARY | 2025-02-11 12:50 | XMS_ITS | Encounter Summary ---
Author Organization [employer] [facility] Address [address] [place] [address] Care Team Providers Care Chainstitch Zipper Setter Name Role Phone Fartun Goldstein MD Primary Care Provider + Encounter Details Date Type Department Care Team (Late st Contact Info) Description 07/15/2024 Lab Requisition [facility] - Main Lab 299 [facility] [place] [address] Fartun Goldstein MD [address] [facility] 1 [place] [address] Essential (primary) hypertension Social History Tobacco Use [...] Associated Diagnosis Comments COMPLETE BLOOD COUNT Routine 07/15/2024 5:03 AM EDT Essential (primary) hypertension BASIC METABOLIC PANEL Routine 07/15/2024 5:03 AM EDT Essential (primary) hypertension documented in this encounter Results * (ABNORMAL) Basic metabolic panel (07/15/2024 5:03 AM EDT) Sodium 136 133 - 145 mmol/L LAB CHEMISTRY METHOD 07/15/2024 9:17 AM [facility] Potassium 3.9 3.5 - 5.5 mmol/L LAB CHEMISTRY METHOD 07/15/2024 9:17 AM [facility] Chloride 106 96 - 110 mmol/L LAB CHEMISTRY METHOD 07/15/2024 9:17 AM [facility] CO2 25 21 - 32 mmol/L LAB CHEMISTRY METHOD 07/15/2024 9:17 AM [facility] Anion Gap 5 3 - 11 LAB CHEMISTRY METHOD 07/15/2024 9:17 AM [facility] Glucose 73 70 - 100 mg/dL LAB CHEMISTRY METHOD 07/15/2024 9:17 AM [facility] BUN 21 5 - 25 mg/dL LAB CHEMISTRY METHOD 07/15/2024 9:17 AM [facility] Creatinine 1.47(H) 0.70 - 1.30 mg/dL LAB CHEMISTRY METHOD 07/15/2024 9:17 AM [facility] eGFR 46(L) >=60 mL/min/1. 73m2 LAB CHEMISTRY METHOD 07/15/2024 9:17 AM [facility] Comment:Calculation based on the Chronic Kidney Disease Epidemiology Collaboration (CKD-EPI) equation refit without adjustment for race. BUN/Creatinine Ratio 14.3 LAB CHEMISTRY METHOD 07/15/2024 9:17 AM [facility] Calcium 8.7 8.5 - 10.5 mg/dL LAB CHEMISTRY METHOD 07/15/2024 9:17 AM [facility] Blood Venous blood specimen / Unknown Venipuncture / Unknown 07/15/2024 5:03 AM EDT 07/15/2024 8:28 AM EDT us Fartun Goldstein MD LAB BLOOD ORDERABLES Fin al Result [facility] LAB [address] [place] [address], * (ABNORMAL) Complete blood count (07/15/2024 5:03 AM EDT) WBC 7.0 4.8 - 10.8 K/[facility] LAB HEMETOLOGY METHOD 07/15/2024 9:21 AM [facility] RBC 2.30(L) 4.50 - 5.50 M/mcL LAB HEMETOLOGY METHOD 07/15/2024 9:21 AM [facility] Hemoglobin 7.2(L) 13.5 - 17.5 g/dL LAB HEMETOLOGY METHOD 07/15/2024 9:21 AM [facility] Hematocrit 23.3(L) 42.0 - 54.0 % LAB HEMETOLOGY METHOD 07/15/2024 9:21 AM [facility] MCV 103.1(H) 79.0 - 98.0 FL LAB HEMETOLOGY METHOD 07/15/2024 9:21 AM [facility] MCH 31.9 27.0 - 32.0 pcg LAB HEMETOLOGY METHOD 07/15/2024 9:21 AM [facility] MCHC 30.9(L) 32.0 - 37.0 g/dL LAB HEMETOLOGY METHOD 07/15/2024 9:21 AM [facility] RDW 14.9 11.0 - 15.0 % LAB HEMETOLOGY METHOD 07/15/2024 9:21 AM [facility] Platelets 07/15/2024 9:21 AM [facility] Comment:Not measured. Platel ets appear adequate but clumped MPV 10.2 7.0 - 11.0 FL LAB HEMETOLOGY METHOD 07/15/2024 9:21 AM [facility] NRBC 0.0 <1.0 % LAB HEMETOLOGY METHOD 07/15/2024 9:21 AM [facility] NRBC Absolute 0.00 <0.10 K/mcL LAB HEMETOLOGY METHOD 07/15/2024 9:21 AM [facility] Blood Venous blood specimen / Unknown Venipuncture / Unknown 07/15/2024 5:03 AM EDT 07/15/2024 8:28 AM EDT us Fartun Goldstein MD LAB BLOOD ORDERABLES Fin al Result [facility] ([facility]) [facility] LAB [address] [place] [address], documented in this encounter Visit Diagnoses Diagnosis Essential (primary) hypertension Unspecified essential hypertension documented in this encounter Care Teams Chainstitch Zipper Setter Relationship Specialty Start Date End Date Fartun Goldstein MD [address] [place] [id number] PCP - General Family Medicine 06/13/24 documented as of this encounter
--- OUTSIDE RECORDS SUMMARY | 2025-02-11 12:50 | XMS_ITS | Encounter Summary ---
Author Organization [employer] Address [address] [place] [address] Care Team Providers Care Needle Loom Tender Name Role Phone Fartun Goldstein MD Primary Care Provider + Encounter Details Date Type Department Care Team (Late st Contact Info) Description 07/09/2024 Lab Requisition [facility] - Main Lab 299 [place] [address] Fartun Goldstein MD 819 [facility] 1 [place] [address] Unspecified atrial fibrillation (CMS/HCC V24, CMS/HCC V28) [...] Associated Diagnosis Comments COMPLETE BLOOD COUNT Routine 07/09/2024 5:50 AM EDT Unspecified atrial fibrillation (CMS/HCC V24, CMS/HCC V28) BASIC METABOLIC PANEL Routine 07/09/2024 5:50 AM EDT Unspecified atrial fibrillation (CMS/HCC V24, CMS/HCC V28) documented in this encounter Results * (ABNORMAL) Basic metabolic panel (07/09/2024 5:50 AM EDT) Sodium 137 133 - 145 mmol/L LAB CHEMISTRY METHOD 07/09/2024 10:39 AM EDT [facility] Potassium 3.8 3.5 - 5.5 mmol/L LAB CHEMISTRY METHOD 07/09/2024 10:39 AM [facility] Chloride 106 96 - 110 mmol/L LAB CHEMISTRY METHOD 07/09/2024 10:39 AM [facility] CO2 25 21 - 32 mmol/L LAB CHEMISTRY METHOD 07/09/2024 10:39 AM [facility] Anion Gap 6 3 - 11 LAB CHEMISTRY METHOD 07/09/2024 10:39 AM [facility] Glucose 77 70 - 100 mg/dL LAB CHEMISTRY METHOD 07/09/2024 10:39 AM [facility] BUN 27(H) 5 - 25 mg/dL LAB CHEMISTRY METHOD 07/09/2024 10:39 AM [facility] Creatinine 1.77(H) 0.70 - 1.30 mg/dL LAB CHEMISTRY METHOD 07/09/2024 10:39 AM [facility] eGFR 37(L) >=60 mL/min/1. 73m2 LAB CHEMISTRY METHOD 07/09/2024 10:39 AM [facility] Comment:Calculation based on the Chronic Kidney Disease Epidemiology Collaboration (CKD-EPI) equation refit without adjustment for race. BUN/Creatinine Ratio 15.3 LAB CHEMISTRY METHOD 07/09/2024 10:39 AM [facility] Calcium 8.5 8.5 - 10.5 mg/dL LAB CHEMISTRY METHOD 07/09/2024 10:39 AM [facility] Blood Venous blood specimen / Unknown Venipuncture / Unknown 07/09/2024 5:50 AM EDT 07/09/2024 8:43 AM EDT us Fartun Goldstein MD LAB BLOOD ORDERABLES Fin al Result [facility] LAB [address] [place] [address], * (ABNORMAL) Complete blood count (07/09/2024 5:50 AM EDT) [facility] WBC 7.0 4.8 - 10.8 K/mcL LAB HEMETOLOGY METHOD 07/09/2024 9:37 AM [facility] RBC 2.20(L) 4.50 - 5.50 M/mcL LAB HEMETOLOGY METHOD 07/09/2024 9:37 AM [facility] Hemoglobin 7.1(L) 13.5 - 17.5 g/dL LAB HEMETOLOGY METHOD 07/09/2024 9:37 AM [facility] Hematocrit 22.9(L) 42.0 - 54.0 % LAB HEMETOLOGY METHOD 07/09/2024 9:37 AM [facility] LAB MCV 103.2(H) 79.0 - 98.0 FL LAB HEMETOLOGY METHOD 07/09/2024 9:37 AM [facility] LAB MCH 32.0 27.0 - 32.0 pcg LAB HEMETOLOGY METHOD 07/09/2024 9:37 AM [facility] LAB MCHC 31.0(L) 32.0 - 37.0 g/dL LAB HEMETOLOGY METHOD 07/09/2024 9:37 AM [facility] LAB RDW 14.3 11.0 - 15.0 % LAB HEMETOLOGY METHOD 07/09/2024 9:37 AM [facility] LAB Platelets 291 130 - 400 K/mcL LAB HEMETOLOGY METHOD 07/09/2024 9:37 AM [facility] LAB MPV 10.5 7.0 - 11.0 FL LAB HEMETOLOGY METHOD 07/09/2024 9:37 AM [facility] NRBC 0.0 <1.0 % LAB HEMETOLOGY METHOD 07/09/2024 9:37 AM [facility] LAB NRBC Absolute 0.00 <0.10 K/mcL LAB HEMETOLOGY METHOD 07/09/2024 9:37 AM EDT [facility] Blood Venous blood specimen / Unknown Venipuncture / Unknown 07/09/2024 5:50 AM EDT 07/09/2024 8:43 AM EDT us Fartun Goldstein MD LAB BLOOD ORDERABLES Fin al Result [facility] [address] [place] [address], documented in this encounter Visit Diagnoses Diagnosis Unspecified atrial fibrillation (CMS/HCC V24, CMS/HCC V28) documented in this encounter Care Teams Needle Loom Tender Relationship Specialty Start Date End Date Fartun Goldstein MD [address] [place] [phone] PCP - General Family Medicine 06/13/24 documented as of this encounter
--- OUTSIDE RECORDS SUMMARY | 2025-02-11 12:50 | XMS_ITS | Encounter Summary ---
Author Organization [employer] Address [address] [place] [address] Care Team Providers Care Belt Fixer Name Role Phone Fartun Goldstein MD Primary Care Provider + Encounter Details Date Type Department Care Team (Late st Contact Info) Description 08/29/2024 Lab Requisition [facility] - Main Lab [address] [place] [address] Fartun Goldstein MD [address] [facility] 1 [place] [address] Anemia, unspecified Social History Tobacco Use Types [...] Associated Diagnosis Comments COMPLETE BLOOD COUNT Routine 09/01/2024 6:06 AM EDT Anemia, unspecified BASIC METABOLIC PANEL Routine 09/01/2024 6:06 AM EDT Anemia, unspecified documented in this encounter Results * (ABNORMAL) Basic metabolic panel (09/01/2024 6:06 AM EDT) Sodium 139 133 - 145 mmol/L LAB CHEMISTRY METHOD 09/01/2024 10:20 AM [facility] Potassium 4.7 3.5 - 5.5 mmol/L LAB CHEMISTRY METHOD 09/01/2024 10:20 AM [facility] Chloride 108 96 - 110 mmol/L LAB CHEMISTRY METHOD 09/01/2024 10:20 AM [facility] CO2 22 21 - 32 mmol/L LAB CHEMISTRY METHOD 09/01/2024 10:20 AM [facility] Anion Gap 9 3 - 11 LAB CHEMISTRY METHOD 09/01/2024 10:20 AM [facility] Glucose 80 70 - 100 mg/dL LAB CHEMISTRY METHOD 09/01/2024 10:20 AM [facility] BUN 39(H) 5 - 25 mg/dL LAB CHEMISTRY METHOD 09/01/2024 10:20 AM [facility] Creatinine 1.79(H) 0.70 - 1.30 mg/dL LAB CHEMISTRY METHOD 09/01/2024 10:20 AM [facility] LAB eGFR 36(L) >=60 mL/min/1. 73m2 LAB CHEMISTRY METHOD 09/01/2024 10:20 AM [facility] Comment:Calculation based on the Chronic Kidney Disease Epidemiology Collaboration (CKD-EPI) equation refit without adjustment for race. BUN/Creatinine Ratio 21.8 LAB CHEMISTRY METHOD 09/01/2024 10:20 AM [facility] Calcium 8.7 8.5 - 10.5 mg/dL LAB CHEMISTRY METHOD 09/01/2024 10:20 AM [facility] Blood Venous blood specimen / Unknown Venipuncture / Unknown 09/01/2024 6:06 AM EDT 09/01/2024 10:19 AM EDT us Fartun Goldstein MD LAB BLOOD ORDERABLES Fin al Result [facility] LAB [address] [place] [address], * (ABNORMAL) Complete blood count (09/01/2024 6:06 AM EDT) WBC 5.8 4.8 - 10.8 K/[facility] LAB HEMETOLOGY METHOD 09/01/2024 10:13 AM [facility] RBC 2.40(L) 4.50 - 5.50 M/mcL LAB HEMETOLOGY METHOD 09/01/2024 10:13 AM [facility] Hemoglobin 7.8(L) 13.5 - 17.5 g/dL LAB HEMETOLOGY METHOD 09/01/2024 10:13 AM [facility] Hematocrit 24.7(L) 42.0 - 54.0 % LAB HEMETOLOGY METHOD 09/01/2024 10:13 AM [facility] MCV 102.1(H) 79.0 - 98.0 FL LAB HEMETOLOGY METHOD 09/01/2024 10:13 AM [facility] MCH 32.2(H) 27.0 - 32.0 pcg LAB HEMETOLOGY METHOD 09/01/2024 10:13 AM [facility] MCHC 31.6(L) 32.0 - 37.0 g/dL LAB HEMETOLOGY METHOD 09/01/2024 10:13 AM [facility] RDW 14.2 11.0 - 15.0 % LAB HEMETOLOGY METHOD 09/01/2024 10:13 AM [facility] Platelets 232 130 - 400 K/mcL LAB HEMETOLOGY METHOD 09/01/2024 10:13 AM [facility] MPV 11.2(H) 7.0 - 11.0 FL LAB HEMETOLOGY METHOD 09/01/2024 10:13 AM [facility] NRBC 0.0 <1.0 % LAB HEMETOLOGY METHOD 09/01/2024 10:13 AM [facility] NRBC Absolute 0.00 <0.10 K/mcL LAB HEMETOLOGY METHOD 09/01/2024 10:13 AM [facility] Blood Venous blood specimen / Unknown Venipuncture / Unknown 09/01/2024 6:06 AM EDT 09/01/2024 10:11 AM EDT Fartun Goldstein MD LAB BLOOD ORDERABLES Fin al Result [facility] [address] [place] [address], documented in this encounter Visit Diagnoses Diagnosis Anemia, unspecified documented in this encounter Care Teams Belt Fixer Relationship Specialty Start Date End Date Fartun Goldstein MD [address] [place] [id number] PCP - General Family Medicine 06/13/24 documented as of this encounter
--- OUTSIDE RECORDS SUMMARY | 2025-02-11 12:50 | XMS_ITS | Encounter Summary ---
Author Organization [employer] Address [address] [place] [address] Care Team Providers Care Cook Cold Meat Name Role Phone Fartun Goldstein MD Primary Care Provider + Encounter Details Date Type Department Care Team (Late st Contact Info) Description 08/09/2024 Lab Requisition [facility] - Main Lab [address] [place] [address] Fartun Goldstein MD [address] [facility] 1 [place] [address] Anemia, unspecified Social History Tobacco Use Types [...] Associated Diagnosis Comments COMPLETE BLOOD COUNT Routine 08/11/2024 5:57 AM EDT Anemia, unspecified BASIC METABOLIC PANEL Routine 08/11/2024 5:57 AM EDT Anemia, unspecified documented in this encounter Results * (ABNORMAL) Basic metabolic panel (08/11/2024 5:57 AM EDT) Sodium 140 133 - 145 mmol/L LAB CHEMISTRY METHOD 08/11/2024 8:47 AM [facility] Potassium 4.1 3.5 - 5.5 mmol/L LAB CHEMISTRY METHOD 08/11/2024 8:47 AM [facility] Chloride 109 96 - 110 mmol/L LAB CHEMISTRY METHOD 08/11/2024 8:47 AM [facility] LAB CO2 24 21 - 32 mmol/L LAB CHEMISTRY METHOD 08/11/2024 8:47 AM [facility] LAB Anion Gap 7 3 - 11 LAB CHEMISTRY METHOD 08/11/2024 8:47 AM [facility] LAB Glucose 78 70 - 100 mg/dL LAB CHEMISTRY METHOD 08/11/2024 8:47 AM [facility] BUN 33(H) 5 - 25 mg/dL LAB CHEMISTRY METHOD 08/11/2024 8:47 AM [facility] Creatinine 1.81(H) 0.70 - 1.30 mg/dL LAB CHEMISTRY METHOD 08/11/2024 8:47 AM [facility] LAB eGFR 36(L) >=60 mL/min/1. 73m2 LAB CHEMISTRY METHOD 08/11/2024 8:47 AM [facility] LAB Comment:Calculation based on the Chronic Kidney Disease Epidemiology Collaboration (CKD-EPI) equation refit without adjustment for race. BUN/Creatinine Ratio 18.2 LAB CHEMISTRY METHOD 08/11/2024 8:47 AM [facility] Calcium 9.0 8.5 - 10.5 mg/dL LAB CHEMISTRY METHOD 08/11/2024 8:47 AM [facility] LAB Blood Venous blood specimen / Unknown Venipuncture / Unknown 08/11/2024 5:57 AM EDT 08/11/2024 7:32 AM EDT us Fartun Goldstein MD LAB BLOOD ORDERABLES Fin al Result [facility] LAB [address] [place] [address], * (ABNORMAL) Complete blood count (08/11/2024 5:57 AM EDT) WBC 5.8 4.8 - 10.8 K/[facility] LAB HEMETOLOGY METHOD 08/11/2024 8:01 AM [facility] LAB RBC 2.20(L) 4.50 - 5.50 M/mcL LAB HEMETOLOGY METHOD 08/11/2024 8:01 AM [facility] Hemoglobin 7.0(L) 13.5 - 17.5 g/dL LAB HEMETOLOGY METHOD 08/11/2024 8:01 AM [facility] LAB Hematocrit 22.4(L) 42.0 - 54.0 % LAB HEMETOLOGY METHOD 08/11/2024 8:01 AM [facility] LAB MCV 102.3(H) 79.0 - 98.0 FL LAB HEMETOLOGY METHOD 08/11/2024 8:01 AM [facility] LAB MCH 32.0 27.0 - 32.0 pcg LAB HEMETOLOGY METHOD 08/11/2024 8:01 AM [facility] LAB MCHC 31.3(L) 32.0 - 37.0 g/dL LAB HEMETOLOGY METHOD 08/11/2024 8:01 AM [facility] LAB RDW 15.2(H) 11.0 - 15.0 % LAB HEMETOLOGY METHOD 08/11/2024 8:01 AM [facility] LAB Platelets 217 130 - 400 K/mcL LAB HEMETOLOGY METHOD 08/11/2024 8:01 AM [facility] LAB MPV 10.7 7.0 - 11.0 FL LAB HEMETOLOGY METHOD 08/11/2024 8:01 AM [facility] LAB NRBC 0.0 <1.0 % LAB HEMETOLOGY METHOD 08/11/2024 8:01 AM [facility] LAB NRBC Absolute 0.00 <0.10 K/mcL LAB HEMETOLOGY METHOD 08/11/2024 8:01 AM [facility] LAB Blood Venous blood specimen / Unknown Venipuncture / Unknown 08/11/2024 5:57 AM EDT 08/11/2024 7:32 AM EDT us Fartun Goldstein MD LAB BLOOD ORDERABLES Fin al Result Performing Organization Address City/State/[facility] Co de Phone Number [facility] [address] [place] [address], documented in this encounter Visit Diagnoses Diagnosis Anemia, unspecified documented in this encounter Care Teams Cook Cold Meat Relationship Specialty Start Date End Date Fartun Goldstein MD [address] [place] [id number] PCP - General Family Medicine 06/13/24 documented as of this encounter
--- OUTSIDE RECORDS SUMMARY | 2025-02-11 12:50 | XMS_ITS | Encounter Summary ---
Author Organization [employer] Address [address] [place] [address] Care Team Providers Care Internal Medicine Nurse Practitioner Name Role Phone Fartun Goldstein MD Primary Care Provider + Encounter Details Date Type Department Care Team (Late st Contact Info) Description 07/23/[address] [facility] - Main Lab [address] [place] [address] Fartun Goldstein MD 8[address] [facility] 1 [place] [address] Anemia, unspecified Social History Tobacco Use Types [...] Associated Diagnosis Comments COMPLETE BLOOD COUNT Routine 07/23/2024 7:47 AM EDT Anemia, unspecified BASIC METABOLIC PANEL Routine 07/23/2024 7:47 AM EDT Anemia, unspecified documented in this encounter Results * (ABNORMAL) Basic metabolic panel (07/23/2024 7:47 AM EDT) Sodium 138 133 - 145 mmol/L LAB CHEMISTRY METHOD 07/23/2024 10:34 AM [facility] Potassium 4.0 3.5 - 5.5 mmol/L LAB CHEMISTRY METHOD 07/23/2024 10:34 AM [facility] Chloride 107 96 - 110 mmol/L LAB CHEMISTRY METHOD 07/23/2024 10:34 AM [facility] CO2 25 21 - 32 mmol/L LAB CHEMISTRY METHOD 07/23/2024 10:34 AM [facility] Anion Gap 6 3 - 11 LAB CHEMISTRY METHOD 07/23/2024 10:34 AM [facility] Glucose 83 70 - 100 mg/dL LAB CHEMISTRY METHOD 07/23/2024 10:34 AM [facility] BUN 25 5 - 25 mg/dL LAB CHEMISTRY METHOD 07/23/2024 10:34 AM [facility] Creatinine 1.73(H) 0.70 - 1.30 mg/dL LAB CHEMISTRY METHOD 07/23/2024 10:34 AM [facility] LAB eGFR 38(L) >=60 mL/min/1. 73m2 LAB CHEMISTRY METHOD 07/23/2024 10:34 AM [facility] LAB Comment:Calculation based on the Chronic Kidney Disease Epidemiology Collaboration (CKD-EPI) equation refit without adjustment for race. BUN/Creatinine Ratio 14.5 LAB CHEMISTRY METHOD 07/23/2024 10:34 AM [facility] Calcium 8.8 8.5 - 10.5 mg/dL LAB CHEMISTRY METHOD 07/23/2024 10:34 AM [facility] Blood Venous blood specimen / Unknown Venipuncture / Unknown 07/23/2024 7:47 AM EDT 07/23/2024 9:27 AM EDT us Fartun Goldstein MD LAB BLOOD ORDERABLES Fin al Result [facility] [address] [place] [address], * (ABNORMAL) Complete blood count (07/23/2024 7:47 AM EDT) WBC 5.6 4.8 - 10.8 K/mcL LAB HEMETOLOGY METHOD 07/23/2024 10:14 AM [facility] RBC 2.20(L) 4.50 - 5.50 M/mcL LAB HEMETOLOGY METHOD 07/23/2024 10:14 AM [facility] Hemoglobin 7.1(L) 13.5 - 17.5 g/dL LAB HEMETOLOGY METHOD 07/23/2024 10:14 AM [facility] LAB Hematocrit 22.8(L) 42.0 - 54.0 % LAB HEMETOLOGY METHOD 07/23/2024 10:14 AM [facility] LAB MCV 103.2(H) 79.0 - 98.0 FL LAB HEMETOLOGY METHOD 07/23/2024 10:14 AM [facility] MCH 32.1(H) 27.0 - 32.0 pcg LAB HEMETOLOGY METHOD 07/23/2024 10:14 AM [facility] MCHC 31.1(L) 32.0 - 37.0 g/dL LAB HEMETOLOGY METHOD 07/23/2024 10:14 AM [facility] LAB RDW 15.1(H) 11.0 - 15.0 % LAB HEMETOLOGY METHOD 07/23/2024 10:14 AM [facility] Platelets 192 130 - 400 K/mcL LAB HEMETOLOGY METHOD 07/23/2024 10:14 AM [facility] MPV 11.7(H) 7.0 - 11.0 FL LAB HEMETOLOGY METHOD 07/23/2024 10:14 AM [facility] NRBC 0.0 <1.0 % LAB HEMETOLOGY METHOD 07/23/2024 10:14 AM [facility] NRBC Absolute 0.00 <0.10 K/mcL LAB HEMETOLOGY METHOD 07/23/2024 10:14 AM [facility] Blood Venous blood specimen / Unknown Venipuncture / Unknown 07/23/2024 7:47 AM EDT 07/23/2024 9:27 AM EDT Fartun Goldstein MD LAB BLOOD ORDERABLES Fin al Result [facility] ([facility]) [facility] [address] [place] [address], documented in this encounter Visit Diagnoses Diagnosis Anemia, unspecified documented in this encounter Care Teams Internal Medicine Nurse Practitioner Relationship Specialty Start Date End Date Fartun Goldstein MD [address] [place] [id number] PCP - General Family Medicine 06/13/24 documented as of this encounter
--- OUTSIDE RECORDS SUMMARY | 2025-02-11 12:50 | XMS_ITS | Encounter Summary ---
Author Organization [facility] Address [address] [place] [address] Care Team Providers Care Custom Wood Stair Builder Name Role Phone Fartun Goldstein MD Primary Care Provider + Encounter Details Date Type Department Care Team (Late st Contact Info) Description 09/05/2024 Lab Requisition [facility] - Main Lab 299 [facility] [place] [address] Fartun Goldstein MD [address] [address] Anemia, unspecified Social History Tobacco Use Types Packs/Day Years Used Date Smoking Tobacco: Never Assessed Sex and Gender Information Value Date Recorded Sex Assigned at Not on file Legal Sex Male 4:14 AM EST Gender Identity Not on file Sexual Orientation Not on file documented as of this encounter Plan of Treatment Not on file documented as of this encounter Visit Diagnoses Diagnosis Anemia, unspecified documented in this encounter Care Teams Custom Wood Stair Builder Relationship Specialty Start Date End Date Fartun Goldstein MD [address] [phone] PCP - General Family Medicine 06/13/24 documented as of this encounter
--- OUTSIDE RECORDS SUMMARY | 2025-02-11 12:50 | XMS_ITS | Encounter Summary ---
Author Organization [employer] [facility] Address [address] [place] [address] Care Team Providers Care Livestock Nutritionist Name Role Phone Fartun Goldstein MD Primary Care Provider + Encounter Details Date Type Department Care Team (Late st Contact Info) Description 08/17/2024 Lab Requisition [facility] - Main Lab [address] [place] [address] Fartun Goldstein MD [address] [phone] Myelodysplastic syndrome, unspecified (CMS/HCC V24, CMS/HCC V28) [...] Associated Diagnosis Comments COMPLETE BLOOD COUNT Routine 08/18/2024 6:03 AM EDT Myelodysplastic syndrome, unspecified (CMS/HCC V24, CMS/HCC V28) BASIC METABOLIC PANEL Routine 08/18/2024 6:03 AM EDT Myelodysplastic syndrome, unspecified (CMS/HCC V24, CMS/HCC V28) documented in this encounter Results * (ABNORMAL) Basic metabolic panel (08/18/2024 6:03 AM EDT) Sodium 139 133 - 145 mmol/L LAB CHEMISTRY METHOD 08/18/2024 10:33 AM EDT [facility] ([facility] Potassium 4.4 3.5 - 5.5 mmol/L LAB CHEMISTRY METHOD 08/18/2024 10:33 AM [facility] Chloride 107 96 - 110 mmol/L LAB CHEMISTRY METHOD 08/18/2024 10:33 AM [facility] CO2 22 21 - 32 mmol/L LAB CHEMISTRY METHOD 08/18/2024 10:33 AM [facility] Anion Gap 10 3 - 11 LAB CHEMISTRY METHOD 08/18/2024 10:33 AM [facility] Glucose 76 70 - 100 mg/dL LAB CHEMISTRY METHOD 08/18/2024 10:33 AM [facility] BUN 34(H) 5 - 25 mg/dL LAB CHEMISTRY METHOD 08/18/2024 10:33 AM [facility] Creatinine 1.97(H) 0.70 - 1.30 mg/dL LAB CHEMISTRY METHOD 08/18/2024 10:33 AM [facility] eGFR 32(L) >=60 mL/min/1. 73m2 LAB CHEMISTRY METHOD 08/18/2024 10:33 AM [facility] LAB Comment:Calculation based on the Chronic Kidney Disease Epidemiology Collaboration (CKD-EPI) equation refit without adjustment for race. BUN/Creatinine Ratio 17.3 LAB CHEMISTRY METHOD 08/18/2024 10:33 AM [facility] Calcium 9.1 8.5 - 10.5 mg/dL LAB CHEMISTRY METHOD 08/18/2024 10:33 AM [facility] Blood Venous blood specimen / Unknown Venipuncture / Unknown 08/18/2024 6:03 AM EDT 08/18/2024 9:11 AM EDT us Fartun Goldstein MD LAB BLOOD ORDERABLES Fin al Result [facility] LAB [address] [place] [address], * (ABNORMAL) Complete blood count (08/18/2024 6:03 AM EDT) [facility] WBC 5.5 4.8 - 10.8 K/mcL LAB HEMETOLOGY METHOD 08/18/2024 9:42 AM [facility] RBC 2.30(L) 4.50 - 5.50 M/mcL LAB HEMETOLOGY METHOD 08/18/2024 9:42 AM [facility] Hemoglobin 7.6(L) 13.5 - 17.5 g/dL LAB HEMETOLOGY METHOD 08/18/2024 9:42 AM [facility] Hematocrit 24.1(L) 42.0 - 54.0 % LAB HEMETOLOGY METHOD 08/18/2024 9:42 AM [facility] MCV 103.0(H) 79.0 - 98.0 FL LAB HEMETOLOGY METHOD 08/18/2024 9:42 AM [facility] MCH 32.5(H) 27.0 - 32.0 pcg LAB HEMETOLOGY METHOD 08/18/2024 9:42 AM [facility] MCHC 31.5(L) 32.0 - 37.0 g/dL LAB HEMETOLOGY METHOD 08/18/2024 9:42 AM [facility] RDW 14.7 11.0 - 15.0 % LAB HEMETOLOGY METHOD 08/18/2024 9:42 AM [facility] Platelets 235 130 - 400 K/mcL LAB HEMETOLOGY METHOD 08/18/2024 9:42 AM [facility] MPV 11.3(H) 7.0 - 11.0 FL LAB HEMETOLOGY METHOD 08/18/2024 9:42 AM [facility] NRBC 0.0 <1.0 % LAB HEMETOLOGY METHOD 08/18/2024 9:42 AM [facility] NRBC Absolute 0.00 <0.10 K/mcL LAB HEMETOLOGY METHOD 08/18/2024 9:42 AM EDT [facility] Blood Venous blood specimen / Unknown Venipuncture / Unknown 08/18/2024 6:03 AM EDT 08/18/2024 9:11 AM EDT us Fartun Goldstein MD LAB BLOOD ORDERABLES Fin al Result [facility] [address] [place] [address], documented in this encounter Visit Diagnoses Diagnosis Myelodysplastic syndrome, unspecified (CMS/HCC V24, CMS/HCC V28) Myelodysplastic syndrome, unspecified documented in this encounter Care Teams Livestock Nutritionist Relationship Specialty Start Date End Date Fartun Goldstein MD [address] [place] [phone] PCP - General Family Medicine 06/13/24 documented as of this encounter
--- OUTSIDE RECORDS SUMMARY | 2025-02-11 12:50 | XMS_ITS | Encounter Summary ---
Author Organization [facility] Address [address] [place] [address] Care Team Providers Care Animal Cop Name Role Phone Fartun Goldstein MD Primary Care Provider + Encounter Details Date Type Department Care Team (Late st Contact Info) Description 07/03/2024 Lab Requisition [facility] Lab [address] [place] [address] Fartun Goldstein MD [address] [phone] Elevated white blood cell count, unspecified Social History Tobacco Use Types Packs/Day [...] Associated Diagnosis Comments COMPLETE BLOOD COUNT Routine 07/03/2024 6:54 AM EDT Elevated white blood cell count, unspecified documented in this encounter Results * (ABNORMAL) Complete blood count (07/03/2024 6:54 AM EDT) WBC 6.5 4.8 - 10.8 K/[facility] LAB HEMETOLOGY METHOD 07/03/2024 8:[address] [facility] RBC 2.30(L) 4.50 - 5.50 M/[facility] LAB HEMETOLOGY METHOD 07/03/2024 8:[address] [facility] Hemoglobin 7.5(L) 13.5 - 17.5 g/dL LAB HEMETOLOGY METHOD 07/03/2024 8:[address] [facility] Hematocrit 23.6(L) 42.0 - 54.0 % LAB HEMETOLOGY METHOD 07/03/2024 8:[address] [facility] MCV 100.9(H) 79.0 - 98.0 FL LAB HEMETOLOGY METHOD 07/03/2024 8:[address] [facility] MCH 32.1(H) 27.0 - 32.0 pcg LAB HEMETOLOGY METHOD 07/03/2024 8:[address] [facility] MCHC 31.8(L) 32.0 - 37.0 g/dL LAB HEMETOLOGY METHOD 07/03/2024 8:[address] [facility] RDW 13.6 11.0 - 15.0 % LAB HEMETOLOGY METHOD 07/03/2024 8:[address] [facility] Platelets 355 130 - 400 K/mcL LAB HEMETOLOGY METHOD 07/03/2024 8:[address] [facility] MPV 9.8 7.0 - 11.0 FL LAB HEMETOLOGY METHOD 07/03/2024 8:[address] [facility] NRBC 0.0 <1.0 % LAB HEMETOLOGY METHOD 07/03/2024 8:[address] [facility] NRBC Absolute 0.00 <0.10 K/mcL LAB HEMETOLOGY METHOD 07/03/2024 8:[address] [facility] Blood Venous blood specimen / Unknown Venipuncture / Unknown 07/03/2024 6:54 AM EDT 07/03/2024 8:08 AM EDT us Fartun Goldstein MD LAB BLOOD ORDERABLES Fin al Result [facility] [address] [place] [address], documented in this encounter Visit Diagnoses Diagnosis Elevated white blood cell count, unspecified documented in this encounter Care Teams Animal Cop Relationship Specialty Start Date End Date Fartun Goldstein MD [address] [phone] PCP - General Family Medicine 06/13/24 documented as of this encounter
--- OUTSIDE RECORDS SUMMARY | 2025-02-11 12:50 | XMS_ITS | Clinical Summary ---
Author Organization [address] [facility] Address [address] [place] [address] Phone Care Team Providers Care Medical Assisting Instructor Name Role Phone Elder, Fartun Barahona MD Primary Care Provider + Social History Tobacco Use Types Packs/Day Years Used Date Smoking Tobacco: Never Assessed Sex and Gender Information Value Date Recorded Sex Assigned at Not on file Legal Sex Male 4:14 AM EST Gender Identity Not on file Sexual Orientation Not on file Plan of Treatment Health Maintenance Due Date Last Done Comments Pneumococcal Vaccine: 50+ Years (1 of 1 - PCV) 02/29/1988 Zoster Vaccines (1 of 2) 02/29/1988 RSV Immunization Adult Patients (1 - 1-dose 75+ series) 2013 Depression Screening 04/02/2024 Cholesterol Screening (Lipid Panel) 06/13/2024 Falls Risk Assessment 06/13/2024 Medicare Annual Wellness Visit 06/13/2024 Social Influencers of Health Screening 06/13/2024 COVID-19 Vaccine (2 - 2024- season) 2024 05/27/2020 Influenza Vaccine (#1) 2024 01/27/2008 Hypertension/CHF/CAD Annual BMP Blood Test 09/01/2025 09/01/2024, 08/26/2024, 08/18/2024, Additional history exists DTaP,Tdap,and Td Vaccines (2 - Td or Tdap) 07/07/2029 07/08/2019 HIB Vaccines Aged Out No longer eligi ble based on patient's age to complete this topic HPV Vaccines Aged Out No longer eligi ble based on patient's age to complete this topic Hepatitis A Vaccines Aged Out No long er eligible based on patient's age to complete this topic Hepatitis B Vaccines Aged Out No long er eligible based on patient's age to complete this topic IPV Vaccines Aged Out No longer eligi ble based on patient's age to complete this topic MMR Vaccines Aged Out No longer eligi ble based on patient's age to complete this topic Meningococcal ACWY Vaccine Aged Out N o longer eligible based on patient's age to complete this topic Meningococcal B Vaccine Aged Out No l onger eligible based on patient's age to complete this topic RSV Immunization Patients Under 20 months Aged Out No longer eligible based on patient's age to complete this topic Varicella Vaccines Aged Out No longer eligible based on patient's age to complete this topic Procedures Procedure Name Priority Date/Time Associated Diagnosis Comments BASIC METABOLIC PANEL Routine 09/01/2024 6:06 AM EDT Anemia, unspecified from Last 3 Months or Most Recently Relevant to Health Maintenance Results * (ABNORMAL) Basic metabolic panel (09/01/2024 6:06 AM EDT) Sodium 139 133 - 145 mmol/L LAB CHEMISTRY METHOD 09/01/2024 10:20 AM [facility] Potassium 4.7 3.5 - 5.5 mmol/L LAB CHEMISTRY METHOD 09/01/2024 10:20 AM [facility] Chloride 108 96 - 110 mmol/L LAB CHEMISTRY METHOD 09/01/2024 10:20 AM [facility] CO2 22 21 - 32 mmol/L LAB CHEMISTRY METHOD 09/01/2024 10:20 AM [facility] Anion Gap 9 3 - 11 LAB CHEMISTRY METHOD 09/01/2024 10:20 AM [facility] Glucose 80 70 - 100 mg/dL LAB CHEMISTRY METHOD 09/01/2024 10:20 AM [facility] BUN 39(H) 5 - 25 mg/dL LAB CHEMISTRY METHOD 09/01/2024 10:20 AM [facility] Creatinine 1.79(H) 0.70 - 1.30 mg/dL LAB CHEMISTRY METHOD 09/01/2024 10:20 AM [facility] eGFR 36(L) >=60 mL/min/1. 73m2 LAB CHEMISTRY METHOD 09/01/2024 10:20 AM EDT [facility] Comment:Calculation based on the Chronic Kidney Disease Epidemiology Collaboration (CKD-EPI) equation refit without adjustment for race. BUN/Creatinine Ratio 21.8 LAB CHEMISTRY METHOD 09/01/2024 10:20 AM EDT [facility] Calcium 8.7 8.5 - 10.5 mg/dL LAB CHEMISTRY METHOD 09/01/2024 10:20 AM EDT [facility] Blood Venous blood specimen / Unknown Venipuncture / Unknown 09/01/2024 6:06 AM EDT 09/01/2024 10:19 AM EDT us Fartun Goldstein MD LAB BLOOD ORDERABLES Fin al Result [facility] [address] [place] [address], from Last 3 Months or Most Recently Relevant to Health Maintenance Insurance MEDICARE [facility] Care Teams Medical Assisting Instructor Relationship Specialty Start Date End Date Fartun Goldstein MD [address] [place] [address] PCP - General Family Medicine 06/13/24
--- OUTSIDE RECORDS SUMMARY | 2025-02-11 12:50 | XMS_ITS | Encounter Summary ---
Author Organization [employer] Address [address] [place] [address] Care Team Providers Care Dry Kiln Loader Name Role Phone Fartun Goldstein MD Primary Care Provider + Encounter Details Date Type Department Care Team (Late st Contact Info) Description 08/25/2024 Lab Requisition [facility] - Main Lab [address] [place] [address] Fartun Goldstein MD [address] [phone] Myelodysplastic syndrome, unspecified (CMS/HCC V24, CMS/HCC V28) [...] Associated Diagnosis Comments COMPLETE BLOOD COUNT Routine 08/26/2024 5:58 AM EDT Myelodysplastic syndrome, unspecified (CMS/HCC V24, CMS/HCC V28) BASIC METABOLIC PANEL Routine 08/26/2024 5:58 AM EDT Myelodysplastic syndrome, unspecified (CMS/HCC V24, CMS/HCC V28) documented in this encounter Results * (ABNORMAL) Basic metabolic panel (08/26/2024 5:58 AM EDT) Sodium 140 133 - 145 mmol/L LAB CHEMISTRY METHOD 08/26/2024 11:17 AM EDT [facility] Potassium 4.4 3.5 - 5.5 mmol/L LAB CHEMISTRY METHOD 08/26/2024 11:17 AM [facility] Chloride 108 96 - 110 mmol/L LAB CHEMISTRY METHOD 08/26/2024 11:17 AM [facility] CO2 23 21 - 32 mmol/L LAB CHEMISTRY METHOD 08/26/2024 11:17 AM [facility] Anion Gap 9 3 - 11 LAB CHEMISTRY METHOD 08/26/2024 11:17 AM [facility] Glucose 73 70 - 100 mg/dL LAB CHEMISTRY METHOD 08/26/2024 11:17 AM [facility] BUN 36(H) 5 - 25 mg/dL LAB CHEMISTRY METHOD 08/26/2024 11:17 AM [facility] Creatinine 1.98(H) 0.70 - 1.30 mg/dL LAB CHEMISTRY METHOD 08/26/2024 11:17 AM [facility] LAB eGFR 32(L) >=60 mL/min/1. 73m2 LAB CHEMISTRY METHOD 08/26/2024 11:17 AM [facility] LAB Comment:Calculation based on the Chronic Kidney Disease Epidemiology Collaboration (CKD-EPI) equation refit without adjustment for race. BUN/Creatinine Ratio 18.2 LAB CHEMISTRY METHOD 08/26/2024 11:17 AM [facility] Calcium 9.0 8.5 - 10.5 mg/dL LAB CHEMISTRY METHOD 08/26/2024 11:17 AM [facility] Blood Venous blood specimen / Unknown Venipuncture / Unknown 08/26/2024 5:58 AM EDT 08/26/2024 11:17 AM EDT us Fartun Goldstein MD LAB BLOOD ORDERABLES Fin al Result [facility] LAB [address] [place] [address], * (ABNORMAL) Complete blood count (08/26/2024 5:58 AM EDT) [facility] WBC 5.4 4.8 - 10.8 K/mcL LAB HEMETOLOGY METHOD 08/26/2024 11:03 AM [facility] RBC 2.20(L) 4.50 - 5.50 M/mcL LAB HEMETOLOGY METHOD 08/26/2024 11:03 AM [facility] Hemoglobin 7.3(L) 13.5 - 17.5 g/dL LAB HEMETOLOGY METHOD 08/26/2024 11:03 AM [facility] Hematocrit 23.6(L) 42.0 - 54.0 % LAB HEMETOLOGY METHOD 08/26/2024 11:03 AM [facility] MCV 105.4(H) 79.0 - 98.0 FL LAB HEMETOLOGY METHOD 08/26/2024 11:03 AM [facility] MCH 32.6(H) 27.0 - 32.0 pcg LAB HEMETOLOGY METHOD 08/26/2024 11:03 AM [facility] MCHC 30.9(L) 32.0 - 37.0 g/dL LAB HEMETOLOGY METHOD 08/26/2024 11:03 AM [facility] RDW 14.6 11.0 - 15.0 % LAB HEMETOLOGY METHOD 08/26/2024 11:03 AM [facility] Platelets 212 130 - 400 K/mcL LAB HEMETOLOGY METHOD 08/26/2024 11:03 AM [facility] LAB MPV 11.3(H) 7.0 - 11.0 FL LAB HEMETOLOGY METHOD 08/26/2024 11:03 AM [facility] NRBC 0.0 <1.0 % LAB HEMETOLOGY METHOD 08/26/2024 11:03 AM [facility] NRBC Absolute 0.00 <0.10 K/mcL LAB HEMETOLOGY METHOD 08/26/2024 11:03 AM EDT [facility] Blood Venous blood specimen / Unknown Venipuncture / Unknown 08/26/2024 5:58 AM EDT 08/26/2024 11:02 AM EDT us Fartun Goldstein MD LAB BLOOD ORDERABLES Fin al Result [facility] [address] [place] [address], documented in this encounter Visit Diagnoses Diagnosis Myelodysplastic syndrome, unspecified (CMS/HCC V24, CMS/HCC V28) Myelodysplastic syndrome, unspecified documented in this encounter Care Teams Dry Kiln Loader Relationship Specialty Start Date End Date Fartun Goldstein MD [address] [place] [phone] PCP - General Family Medicine 06/13/24 documented as of this encounter
--- OUTSIDE RECORDS SUMMARY | 2025-02-11 12:50 | XMS_ITS | Encounter Summary ---
Author Organization [employer] Address [address] [place] [address] Care Team Providers Care Wall Mirror Department Supervisor Name Role Phone Fartun Goldstein MD Primary Care Provider + Encounter Details Date Type Department Care Team (Late st Contact Info) Description 08/02/2024 Lab Requisition [facility] - Main Lab [address] [place] [address] Fartun Goldstein MD [address] [phone] Myelodysplastic syndrome, unspecified (CMS/HCC V24, CMS/HCC V28) [...] Associated Diagnosis Comments COMPLETE BLOOD COUNT Routine 08/04/2024 5:53 AM EDT Myelodysplastic syndrome, unspecified (CMS/HCC V24, CMS/HCC V28) BASIC METABOLIC PANEL Routine 08/04/2024 5:53 AM EDT Myelodysplastic syndrome, unspecified (CMS/HCC V24, CMS/HCC V28) documented in this encounter Results * (ABNORMAL) Basic metabolic panel (08/04/2024 5:53 AM EDT) Sodium 137 133 - 145 mmol/L LAB CHEMISTRY METHOD 08/04/2024 10:15 AM EDT [facility] Potassium 4.0 3.5 - 5.5 mmol/L LAB CHEMISTRY METHOD 08/04/2024 10:15 AM [facility] Chloride 107 96 - 110 mmol/L LAB CHEMISTRY METHOD 08/04/2024 10:15 AM [facility] CO2 22 21 - 32 mmol/L LAB CHEMISTRY METHOD 08/04/2024 10:15 AM [facility] Anion Gap 8 3 - 11 LAB CHEMISTRY METHOD 08/04/2024 10:15 AM [facility] Glucose 77 70 - 100 mg/dL LAB CHEMISTRY METHOD 08/04/2024 10:15 AM [facility] BUN 31(H) 5 - 25 mg/dL LAB CHEMISTRY METHOD 08/04/2024 10:15 AM [facility] Creatinine 1.80(H) 0.70 - 1.30 mg/dL LAB CHEMISTRY METHOD 08/04/2024 10:15 AM [facility] eGFR 36(L) >=60 mL/min/1. 73m2 LAB CHEMISTRY METHOD 08/04/2024 10:15 AM [facility] Comment:Calculation based on the Chronic Kidney Disease Epidemiology Collaboration (CKD-EPI) equation refit without adjustment for race. BUN/Creatinine Ratio 17.2 LAB CHEMISTRY METHOD 08/04/2024 10:15 AM [facility] Calcium 9.0 8.5 - 10.5 mg/dL LAB CHEMISTRY METHOD 08/04/2024 10:15 AM [facility] Blood Venous blood specimen / Unknown Venipuncture / Unknown 08/04/2024 5:53 AM EDT 08/04/2024 9:11 AM EDT us Fartun Goldstein MD LAB BLOOD ORDERABLES Fin al Result [facility] [address] [place] [address], * (ABNORMAL) Complete blood count (08/04/2024 5:53 AM EDT) [facility] WBC 6.3 4.8 - 10.8 K/mcL LAB HEMETOLOGY METHOD 08/04/2024 9:50 AM [facility] RBC 2.30(L) 4.50 - 5.50 M/mcL LAB HEMETOLOGY METHOD 08/04/2024 9:50 AM [facility] Hemoglobin 7.3(L) 13.5 - 17.5 g/dL LAB HEMETOLOGY METHOD 08/04/2024 9:50 AM [facility] Hematocrit 23.8(L) 42.0 - 54.0 % LAB HEMETOLOGY METHOD 08/04/2024 9:50 AM [facility] MCV 105.8(H) 79.0 - 98.0 FL LAB HEMETOLOGY METHOD 08/04/2024 9:50 AM [facility] MCH 32.4(H) 27.0 - 32.0 pcg LAB HEMETOLOGY METHOD 08/04/2024 9:50 AM [facility] MCHC 30.7(L) 32.0 - 37.0 g/dL LAB HEMETOLOGY METHOD 08/04/2024 9:50 AM [facility] RDW 15.6(H) 11.0 - 15.0 % LAB HEMETOLOGY METHOD 08/04/2024 9:50 AM [facility] Platelets 227 130 - 400 K/mcL LAB HEMETOLOGY METHOD 08/04/2024 9:50 AM [facility] MPV 11.0 7.0 - 11.0 FL LAB HEMETOLOGY METHOD 08/04/2024 9:50 AM [facility] NRBC 0.0 <1.0 % LAB HEMETOLOGY METHOD 08/04/2024 9:50 AM [facility] NRBC Absolute 0.00 <0.10 K/mcL LAB HEMETOLOGY METHOD 08/04/2024 9:50 AM EDT [facility] Blood Venous blood specimen / Unknown Venipuncture / Unknown 08/04/2024 5:53 AM EDT 08/04/2024 9:11 AM EDT us Fartun Goldstein MD LAB BLOOD ORDERABLES Fin al Result [facility] [address] [place] [address], documented in this encounter Visit Diagnoses Diagnosis Myelodysplastic syndrome, unspecified (CMS/HCC V24, CMS/HCC V28) Myelodysplastic syndrome, unspecified documented in this encounter Care Teams Wall Mirror Department Supervisor Relationship Specialty Start Date End Date Fartun Goldstein MD [address] [place] [address] PCP - General Family Medicine 06/13/24 documented as of this encounter
== END 2025-02-11 11:09 | disposition home or self-care (01) ==
LOC: HO.HKAS 10:40
PROVIDERS: PCP Internal Medicine; Visit Provider Internal Medicine Hypertension Specialist
DX: I12.9 Hypertensive chronic kidney disease with stage 1 through stage 4 chronic kidney disease, or unspecified chronic kidney disease (principal); N18.9 Chronic kidney disease, unspecified; N40.1 Benign prostatic hyperplasia with lower urinary tract symptoms
CPT/HCPCS: 99214

== ENCOUNTER → 2025-02-11 10:39 | Outpatient (BNVA) | payer MEDICARE, SELFPAY | PROVIDERS: PCP Internal Medicine; Visit Provider Internal Medicine Hypertension Specialist | DX: I10 Essential (primary) hypertension (principal); N18.31 Chronic kidney disease, stage 3a; D63.1 Anemia in chronic kidney disease | CPT/HCPCS: 96372; 99212; Q5106 ==

== ENCOUNTER 2025-03-18 11:38 | Outpatient (AMB) | payer MEDICARE, SELFPAY ==
--- OUTSIDE RECORDS SUMMARY | 2024-09-16 06:00 | XMS_ITS ---
Author Organization [facility] Address [address] [place] [phone] Care Team Providers Care Pill Packer Name Role Phone IONA TOTH Primary Care Provider LIZZIE FINLEY [phone] REASON FOR VISIT JW/42 extended appt Encounters Encounter Location Date Provider Diagnosis [address] [address] 09/16/2024 LIZZIE FINLEY Plan Of Treatment Next Appt Details Provider Name:IONA JEFFRIES, 07/28/2025 10:00:00 AM, [address] [place] [address], [phone], Progress Notes * BARRINGTON FLORENCE RDOB:[birth year] (85 yo M)Acc No.[id number]:09/16/2024 Progress Notes Patient: BARRINGTON LEIVA Provider: Fracisco Finley PA-C :1940 A ge:84 Y S ex:Male Date:09/16/2024 Address:[address] [place] [address] Pcp:IONA TOTH Subjective: * Chief Complaints: * J W/42 extended appt * Electronic signature of TRISHA FINLEY PA-C on 03/18/2025 at 03:25 PM EST Sign off status: Pending * Provider: Fracisco Finley PA-C Date: 0 09/16/2024 Generated for Ryanne diamond/Fabien/Kavon on: 1 05/19/2024 03:25 PM EST
--- OUTSIDE RECORDS SUMMARY | 2025-03-04 10:00 | XMS_ITS ---
Author Organization [facility] Address [address] [place] [address] Care Team Providers Care Dispatcher Service Name Role Phone IONA TOTH Primary Care Provider DANNY KELLEY [phone] REASON FOR VISIT CB 42 Chest Cold Encounters Encounter Location Date Provider Diagnosis [address] [address] 03/04/2025 DANNY KELLEY Plan Of Treatment Next Appt Details Provider Name:IONA JEFFRIES, 07/28/2025 10:00:00 AM, [address] [place], [address], Progress Notes * BARRINGTON FLORENCE RDOB:[birth year] (85 yo M)Acc No.[id number]:03/04/2025 Progress Notes Patient: BARRINGTON LEIVA Provider: Dee Dee Kelley MD :1940 A ge:85 Y S ex:Male Date:03/04/2025 Address:[address] [place] [id number] Pcp:IONA TOTH Subjective: * Chief Complaints: * C B 42 Chest Cold Billing Information: * Procedure Codes: * Electronic signature of MERCY KELLEY M.D. on 03/18/2025 at 03:26 PM EST Sign off status: Pending * Provider: Dee Dee Kelley MD Date: 05/05/2024 Generated for Ryanne diamond/Fabien/Giovanismitting on: 1 05/19/2024 03:26 PM EST
--- OUTSIDE RECORDS SUMMARY | 2025-03-16 06:00 | XMS_ITS ---
Author Organization [facility] Address [address] [place] [address] Care Team Providers Care Dough Puncher Name Role Phone IONA TOTH Primary Care Provider LIZZIE FINLEY Unavailable [phone] Allergies No Known Allergies Reason For Referral Reason (03/16/25 FAXED) pos t hospitalization f/u, NSTEMI, acute respiratory failure; multifocal pneumonia; acute on chronic heart failure Diagnosis 1 Chronic diastolic (c ongestive) heart failure (I50.32) Diagnosis 2 Acute respiratory fa ilure with hypoxia (J96.01) Diagnosis 3 NSTEMI (non-ST eleva josy myocardial infarction) (I21.4) [facility] Referring Provider First Name LIZZIE Referring Provider Last Name TUSHAR Referring Provider Speciality Physician Container Washer Referred Provider JILL CADE General Notes Elida GARNER MA 01:01:24 PM > referral and office note faxed Referral Priority Routine REASON FOR VISIT JW/42 HFU Medications Medication SIG (Take, Route, Frequency, Duration) Notes Start Date End Date Status Levothyroxine Sodium 25 MCG Tablet 1 tablet in the morning on an empty stomach Orally Once a day; Duration: 90 day(s) 01/21/2025 Active Tamsulosin HCl 0.4 MG Capsule 1 capsule Orally Daily at bedtime 03/11/2025 Not-Taking Polyethylene Glycol 3350 17 GM Packet 1 packet mixed with 8 ounces of fluid Orally Daily as needed constipation 03/11/2025 Not-Taking Milk of Magnesia 1200 MG/15ML Suspension 30ml Orally Daily at bedtime as need if no BM in 3 days 03/11/2025 Not-Taking Knee Brace Adjustable Hinged - Miscellaneous as directed 10/05/2022 Unkno wn Nitroglycerin 0.4 MG Tablet Sublingual 1 tablet under the tongue and allow to dissolve as needed. Take every 5 minutes up to 3 times if chest pain persists Sublingual Once a day if needed; Duration: 30 days Active amLODIPine Besylate 5 MG Tablet 1 tablet Orally Once a day in AM; Duration: 90 days Active V26-Zygvwh 1 MG Tablet Chewable as directed Orally Active Metoprolol Succinate ER 50 MG Tablet Extended Release 24 Hour TAKE 1 TABLET ONCE DAILY; Duration: 90 Active Rosuvastatin Calcium 40 MG Tablet TAKE 1 TABLET DAILY; Duration: 90 Active Sodium Bicarbonate 650 MG Tablet 1 tab Orally twice a day 03/11/2025 Not-Taking Aspirin 81 81 MG Tablet Delayed Release 1 tablet Orally Once a day; Duration: 30 day(s) Active Social History Tobacco Use: Social History Observation Description Date Details (start date - stop date) Former Smoker NA - NA Social History Tobacco Use: Social Info Question Answer Notes Tobacco Control (Standard) Tobacco use: Former smoker Additional Details Category Social Info Options Details General Occupation: Retired alcohol use: yes Beer: 3/day Coffee/Tea/Soda: yes Coffee: 3 cups/ day Marital Status Living with smokers in household no Problems Problem Type SNOMED Code ICD Code Onset Dates Problem Status W/U Status Risk Notes Problem Chronic kidney disease stage 3B (disorder) (892070732) CKD stage 3b, GFR 30-44 ml/min (N18.32) Active confirmed Problem Acute non-ST segment elevation myocardial infarction (037602467) NSTEMI (non-ST elevated myocardial infarction) (I21.4) Active confirmed Vital Signs Blood pressure systolic 129 mm Hg 03/16/20 25 Blood pressure diastolic 76 mm Hg 025 Height 68 in 03/16/2025 Weight 000 lbs 03/16/2025 Encounters Encounter Location Date Provider Diagnosis [facility] [address] [place] [address] 03/16/2025 [facility] discharge follow-up Z51.89 ; Multifocal pneumonia J18.8 ; Acute kidney injury (WANDER) with acute tubular necrosis (ATN) N17.0 ; CKD stage 3b, GFR 30-44 ml/min N18.32 ; NSTEMI (non-ST elevated myocardial infarction) I21.4 ; Acute respiratory failure with hypoxia J96.01 and Chronic diastolic (congestive) heart failure I50.32 Assessments Encounter Date Diagnosis (ICD Code) Assessment Notes Treatment Notes Treatment Clinical Notes Section Notes 03/16/2025 Hospital discharge follow-up (ICD-10 - Z51.89) Hospital records and data reviewed. Medication reconciliation was completed with facility discharge summary. 03/16/2025 Multifocal pneumonia (ICD-10 - J18.8) treated with rocephin, doxycycline and oxygen, sats are normal, improving 03/16/2025 Acute kidney injury (WANDER) with acute tubular necrosis (ATN) (ICD-10 - N17.0) due to dehydration; treated with IV fluids and now on sodium bicarb which pt will continue until seeing anum Liao check renal fuction/lytes today 03/16/2025 CKD stage 3b, GFR 30-44 ml/min (ICD-10 - N18.32) f/u with renal on 03/18/25 03/16/2025 NSTEMI (non-ST elevated myocardial infarction) (ICD-10 - I21.4) due to htn and hypoxia in the setting of acute bronchitis/RSV infection; f/u with cardiology 03/16/2025 Acute respiratory failure with hypoxia (ICD-10 - J96.01) due to multifocal pneumonia and RSV; treated with abx and oxygen 03/16/2025 Chronic diastolic (congestive) heart failure (ICD-10 - I50.32) pt with h/o ischemic cardiomyopathy; swelling in legs have increased some since d/c from hospital; will check labs including renal status and bnp (was 21,837 on admission); will arrange post hospitalization with cardiology as well 03/16/2025 Other I am seeing the patient under the supervision of the co-signing physician. The physician was available for consultation at the time of the office visit. Plan Of Treatment Treatment Notes Assessment Notes Hospital discharge follow-up Hospital re cords and data reviewed. Medication reconciliation was completed with facility discharge summary. Multifocal pneumonia treated with roceph in, doxycycline and oxygen, sats are normal, improving Acute kidney injury (WANDER) wi th acute tubular necrosis (ATN) due to dehydration; treated with IV flui ds and now on sodium bicarb which pt will continue until seeing anum Liao check renal fuction/lytes today CKD stage 3b, GFR 30-44 ml/min f/u with renal on 03/18/25 NSTEMI (non-ST elevated myoc ardial infarction) due to htn and hypoxia in the setting of acute bronchitis/RSV infection; f/u with cardiology Acute respiratory failure with hypoxia d ue to multifocal pneumonia and RSV; treated with abx and oxygen Chronic diastolic (congestiv e) heart failure pt with h/o ischemic cardiomyopathy; swelling in legs have increased some since d/c from hospital; will check labs including renal status and bnp (was 21,837 on admission); will arrange post hospitalization with cardiology as well Other I am seeing the francisco ent under the supervision of the co-signing physician. The physician was available for consultation at the time of the office visit. Referrals Referral Date Details 03/16/2025 03/16/2025, ( 5 FAXED) post hospitalization f/u, NSTEMI, acute respiratory failure; multifocal pneumonia; acute on chronic heart failure, [facility] Next Appt Details Follow Up: prn, Reason: Provider Name:IONA JEFFRIES, 07/28/2025 10:00:00 AM, [address] [place], [address], History and Physical Notes * HPI (History of Present Illness) Category Sub-Category Detail Notes Category Not es General Pt here for HFU today with his and son, iNk. Pt was admitted to [facility] from 03/05/25 -03/11/25 due to acute respiratory failure with hyoxia, RSV, multifocal pneumonia; ATN due to WANDER in the setting of CKD; and NSTEMI. Pt recieved IV lasix in the ER whcih worsened his WANDER with a BUN/creat of 80/4.91. He was volume depleted and started on IV fluids. Nephrology was consulted. Despite IV fluids his kidney functions continued to deteriorate. His CXR showed vascular congestion concerning for volume overload/CHF. Due to renal failure fluids were continued with close monitoring. US of kidneys were negative for obstruction. On 03/10/25 renal status showed significant improvement (63/4.38) and CXR improved. On 03/11/25 creat was down to 3.9. Dr Basilio started him on Na Bicarb and was cleared for dicharge with oupt nephrology f/u. Due to hypoxia and HTN pt had a NSTEMI. Hs trop was elevated. Echo was updated due to h/o Mod to severe which showed mild inc gradient across valve compared to may 2024. He was on oxygen via high flow nasal cannula which was weaned to room air. He was treated with ceftriaxone and doxycycline for presumed pneumonia. PT evaluated pt and rec inpt rehab. Family preferred home with services. Pt has appt with Dr Luevano on 03/18/25,. reports she stopped sodium bicarb yesterday due to noticing swelling in legs. He is coughing which has improved since hospitalizartion. He denies fever. Appetite has been good at home. He c/o sob which is at baseline. He is urinating normally. Visiting nurse has come. PT/OT expected to be coming as well. Physical Examination Category Sub-Category Detail Notes Section Note s HEENT Pharynx: moist mucus membranes NECK Cervical lymph nodes: non-tender, no cerv ical lymphadenopathy Neck: supple EXTREMITIES Edema: L >R lower leg p itting edema; 1+ L, trace R to mid tibia CHEST Shape and expansion: normal Breath sounds: clear to auscultatio n Rales: bibasilar Wheezes: none rubs no HEART Rhythm: regular Murmurs: 3/6, systolic ejecti on murmur Heart sounds: Normal S1 & S2, no S 3/S4 Clicks: none Rubs: none Rate: regular ABDOMEN Guarding: none Tenderness: none NEUROLOGICAL Mental status: Alert and oriented to pers on, place, time GENERAL General Appearance: well nourish ed, no apparent distress, well developed, in wheelchair Consultation Request Notes Referral Date Referring Provider Referred Provider Not es 03/16/2025 LIZZIE FINLEY JILL ( 5 FAXED) post hospitalization f/u, NSTEMI, acute respiratory failure; multifocal pneumonia; acute on chronic heart failure Progress Notes * BARRINGTON FLORENCE RDOB:[birth year] (85 yo M)Acc No.[id number]:03/16/2025 Progress note Patient: Loida WILDERBARRINGTON Provider: Fracisco Finley PA-C :1940 A ge:85 Y S ex:Male Date:03/16/2025 Address:[address] [place], [place] [id number] Pcp:IONA TOTH Subjective: * Chief Complaints: * J W/42 HFU * HPI: G eneral: Pt here for HFU today with his and son, Nik. Pt was admitted to [facility] from 03/05/25 -03/11/25 due to acute respiratory failure with hyoxia, RSV, multifocal pneumonia; ATN due to WANDER in the setting of CKD; and NSTEMI. Pt recieved IV lasix in the ER whcih worsened his WANDER with a BUN/creat of 80/4.91. He was volume depleted and started on IV fluids. Nephrology was consulted. Despite IV fluids his kidney functions continued to deteriorate. His CXR showed vascular congestion concerning for volume overload/CHF. Due to renal failure fluids were continued with close monitoring. US of kidneys were negative for obstruction. On 03/10/25 renal status showed significant improvement (63/4.38) and CXR improved. On 03/11/25 creat was down to 3.9. Dr Basilio started him on Na Bicarb and was cleared for dicharge with oupt nephrology f/u. Due to hypoxia and HTN pt had a NSTEMI. Hs trop was elevated. Echo was updated due to h/o Mod to severe which showed mild inc gradient across valve compared to may 2024.? He was on oxygen via high flow nasal cannula which was weaned to room air. He was treated with ceftriaxone and doxycycline for presumed pneumonia. PT evaluated pt and rec inpt rehab. Family preferred home with services. P t has appt with Dr Bassem martines 03/18/25,. reports she stopped sodium bicarb yesterday due to noticing swelling in legs. He is coughing which has improved since hospitalizartion. He denies fever. Appetite has been good at home. He c/o sob which is at baseline. He is urinating normally. V isiting nurse has come. P T/OT expected to be coming as well. * ROS: C ONSTITUTIONAL: no f ever. n o l oss of appetite. C ARDIOVASCULAR: no c hest pain. s hortness of breath y es. l eg swelling y es. R ESPIRATORY: no s putum. c ough y es. n o p hlegm. n o c hest congestion. G ASTROINTESTINAL: no n ausea. n o v omiting. G ENITOURINARY: voiding normally y es. K idney disease y es. n o u rinary retention. * Medical History: Coronary artery disease Angina Esophageal reflux Hypertension High cholesterol Colonoscopy 03/04 - Tubular Adenoma, sigmoid polyp / Mild Sigmoid Diverticulosis EGD 03/04 - Nrml Colonoscopy 04/16/06 - No polyps. Mild sigmoid diverticulosis. EGD 06/13/06 - Nrml. Probable IBS [...] Status post pacemaker Status post Watchman procedure Curriculum Developer OV every 6 months. CAD status post CABG Cardiac echo October 2022 ejection fraction 50 to 55%. Grade 3 diastolic dysfunction. Mild MR moderate AAS Medical History Verified * Surgical History: CABG 1994 TKR - R 1999 Cardiac Stent 05/08 Hip Replacement 07/05 cataracts - right eye 2011 Surgical History verified. * Hospitalization/Major Diagno stic Procedure: [facility]: L ankle fx, joint effusion 05/2024 [facility]: Tx from [facility] for likely surgery. R ankle fx, left tibial tubercle fx 05/2024 [facility]: WANDER, acute urinary retention, hyponatremia, elevated LFT's, constipation 05/2024 [facility] dx Chronic anemia, hyponatremia, poor p.o. intake, WANDER, CKD, elevated BNP, troponinemia, community acquired pneumonia 03/05/2025 Hospitalization Verified. * Family History: F ather: 70 yrs, Blood Clot. M other: 62 yrs, Massive Heart Attack. 2 brother(s) , 4 sister(s) . 2 son(s) - healthy. . F amily History Verified.. No FH of Colon CA or polyps. * Social History: G eneral: S mokers in household: no. Alcohol use: yes, Beer: 3/day. Coffee/Tea/Soda: yes, Coffee: 3 cups/day. Marital Status: . Living with: . Occupation: Retired. T obacco Use: T obacco Control (Standard) T obacco use: F ormer smoker. Social History Verified. * Medications: T akingAspirin 81 81 MG Tablet Delayed Release 1 tablet Orally Once a day Metoprolol Succinate ER 50 MG Tablet Extended Release 24 Hour TAKE 1 TABLET ONCE DAILY Rosuvastatin Calcium 40 MG Tablet TAKE 1 TABLET DAILY Nitroglycerin 0.4 MG Tablet Sublingual 1 tablet under the tongue and allow to dissolve as needed. Take every 5 minutes up to 3 times if chest pain persists Sublingual Once a day if needed amLODIPine Besylate 5 MG Tablet 1 tablet Orally Once a day in AM [id number]-Yqgclj 1 MG Tablet Chewable as directed Orally Levothyroxine Sodium 25 MCG Tablet 1 tablet in the morning on an empty stomach Orally Once a day Taking Aspirin 81 81 MG Tablet Delayed Release 1 tablet Orally Once a day Taking Metoprolol Succinate ER 50 MG Tablet Extended Release 24 Hour TAKE 1 TABLET ONCE DAILY Taking Rosuvastatin Calcium 40 MG Tablet TAKE 1 TABLET DAILY Taking Nitroglycerin 0.4 MG Tablet Sublingual 1 tablet under the tongue and allow to dissolve as needed. Take every 5 minutes up to 3 times if chest pain persists Sublingual Once a day if needed Taking amLODIPine Besylate 5 MG Tablet 1 tablet Orally Once a day in AM Taking Z39-Lgcxjd 1 MG Tablet Chewable as directed Orally Taking Levothyroxine Sodium 25 MCG Tablet 1 tablet in the morning on an empty stomach Orally Once a day Not-TakingSodium Bicarbonate 650 MG Tablet 1 tab Orally twice a day Tamsulosin HCl 0.4 MG Capsule 1 capsule Orally Daily at bedtime Polyethylene Glycol 3350 17 GM Packet 1 packet mixed with 8 ounces of fluid Orally Daily as needed constipation Milk of Magnesia 1200 MG/15ML Suspension 30ml Orally Daily at bedtime as need if no BM in 3 days Not-Taking Sodium Bicarbonate 650 MG Tablet 1 tab Orally twice a day Not-Taking Tamsulosin HCl 0.4 MG Capsule 1 capsule Orally Daily at bedtime Not-Taking Polyethylene Glycol 3350 17 GM Packet 1 packet mixed with 8 ounces of fluid Orally Daily as needed constipation Not-Taking Milk of Magnesia 1200 MG/15ML Suspension 30ml Orally Daily at bedtime as need if no BM in 3 days UnknownKnee Brace Adjustable Hinged - Miscellaneous as directed Medication List reviewed and reconciled with the patientUnknown Knee Brace Adjustable Hinged - Miscellaneous as directed Medication List reviewed and reconciled with the patient * Allergies: N .K.D.A.yesAllergies Verified. Objective: * Vitals: H t: 68 in, Wt: 000 lbs, Temp: 98 F, HR: 60 /min, BP:129/76mm Hg, BMI: Not Taken - Declined by Patient, O2 Sat: 99% RA. * Physical Examination: G ENERAL: General Appearance: w ell nourished, no apparent distress, well developed, in wheelchair. H EENT: Pharynx: m oist mucus membranes. N PETEY: Neck: s upple. C ervical lymph nodes: n on-tender, no cervical lymphadenopathy. C HEST: Shape and expansion: n ormal. r ubs n o. B reath sounds: c lear to auscultation. R ales: b ibasilar. W heezes: n one. H EART: Rhythm: r egular. R ate: r egular. H eart sounds: N ormal S1 & S2, no S3/S4. M urmurs: 3 /6, systolic ejection murmur. C licks:?none. R ubs: n one. A BDOMEN: Tenderness: n one. G uarding: n one. E XTREMITIES: Edema: L >R lower leg pitting edema; 1+ L, trace R to mid tibia. N EUROLOGICAL: Mental status: A lert and oriented to person, place, time.? Assessment: * Assessment: 1. H ospital discharge follow-up - Z51.89 (Primary) 2 . M ultifocal pneumonia - J18.8 3 . A cute kidney injury (WANDER) with acute tubular necrosis (ATN) - N17.0 4 . C KD stage 3b, GFR 30-44 ml/min - N18.32 5 . N STEMI (non-ST elevated myocardial infarction) - I21.4 6 . A cute respiratory failure with hypoxia - J96.01 7 . C hronic diastolic (congestive) heart failure - I50.32? Plan: * Treatment: 2. M ultifocal pneumonia Notes: treated with rocephin, doxycycline and oxygen, sats are normal, improving 3. A cute kidney injury (WANDER) with acute tubular necrosis (ATN) L AB: CBC, Platelet, No Differential-[id number] (Ordered for 03/16/2025) L AB: Basic Metabolic Panel ([id number] (Ordered for 03/16/2025) Notes: due to dehydration; treated with IV fluids and now on sodium bicarb which pt will continue until seeing anum Liao check renal fuction/lytes today 4. C KD stage 3b, GFR 30-44 ml/min Notes: f/u with renal on 03/18/25 5. N STEMI (non-ST elevated myocardial infarction) L AB: B-Type Natriuretic Peptide-[id number] (Ordered for 03/16/2025) Notes: due to htn and hypoxia in the setting of acute bronchitis/RSV infection; f/u with cardiology? Referral To:[facility] Reason:post hospitalization f/u, NSTEMI, acute respiratory failure; multifocal pneumonia; acute on chronic heart failure 6. A cute respiratory failure with hypoxia Notes: due to multifocal pneumonia and RSV; treated with abx and oxygen ? Referral To:[facility] Reason:post hospitalization f/u, NSTEMI, acute respiratory failure; multifocal pneumonia; acute on chronic heart failure 7. C hronic diastolic (congestive) heart failure Notes: pt with h/o ischemic cardiomyopathy; swelling in legs have increased some since d/c from hospital; will check labs including renal status and bnp (was 21,837 on admission); will arrange post hospitalization with cardiology as well Referral To:[facility] Reason:post hospitalization f/u, NSTEMI, acute respiratory failure; multifocal pneumonia; acute on chronic heart failure 8. O thers Notes: I am seeing the patient under the supervision of the co-signing physician. The physician was available for consultation at the time of the office visit. * Follow Up: p rn Billing Information: * Procedure Codes: * Sign off status: Completed true * Provider: Fracisco Finley PA-C Date: 1 05/17/2024 Generated for Ryanne diamond/Fabien/Kavon on: 1 05/19/2024 03:27 PM EST
--- NOTE | 2025-03-18 11:56 | HO.NEPHOV_ITS ---
Vital Signs 03/18/25 11:58 Height 5 ft 8 in BP 134/62 Blood Pressure Location Rt brachial Position Sitting Pulse 60 Pulse Source Pulse Oximeter Pulse Oximetry (%) 98 Oxygen Delivery Method Room Air Intake Visit Reasons: 4wks Retacrit F/U w/labs Director Appointment Required: No Accompanied by: Spouse Allergies No Known Allergies Allergy (Verified 03/18/25 11:58) Medication List - Last Reconciled 03/18/25 by Krishan Luevano MD amlodipine 5 mg PO DAILY aspirin 81 mg PO DAILY cyanocobalamin (vitamin B-12) 1,000 mcg PO DAILY PRN levothyroxine 25 mcg PO QAM metoprolol succinate ER 50 mg PO DAILY nitroglycerin 0.4 mg sublingual rosuvastatin 40 mg PO DAILY HPI Comments Details: History of Present Illness The patient is an 85 year old male with longstanding HTN, CKD and anemia He was hospitalized from the 4th to the 10th of the month for pneumonia Sustained WANDER Cr was > 4t. During his hospital stay, his hemoglobin dropped to 6.9, but he did not receive a blood transfusion. He was started on sodium bicarbonate 650 mg twice a day, which resulted in significant swelling of one leg and foot, making it difficult for him to buckle his brace. The sodium bicarbonate was subsequently stopped. His kidney function declined due to the recent infection. He reports normal urination. The patient is currently receiving physical therapy at home. He also experienced a bruise and subcutaneous swelling from an incorrectly administered injection. Results - Labs: Recent blood work from the previous day was noted as good. - His hemoglobin level dropped to 6.9 during his recent hospitalization. [facility] Family History Father Hypertension Social History Alcohol intake: former Patient Tobacco Use Status: Former Tobacco user Physical Exam Exam Exam: Physical Exam General: Awake. Comfortable. HENT: Neck supple. Mucosa moist. Infected ear and strep throat. Pulmonary: Lungs aeration equal. No rales. Cardiology: Heart S1-S2 heard. No gallop. Abdomen: Soft. Non tender. Bowel sounds normal. Neurologic: No involuntary movements. No myoclonus. Extremities: Swelling in the leg and foot. No rash. Vital Signs: Last Vital Signs Pulse 60 03/18/25 11:58 BP 134/62 03/18/25 11:58 Pulse Ox 98 03/18/25 11:58 Oxygen Delivery Method Room Air 03/18/25 11:58 Office Meds epoetin miguelina-epbx 20,000 unit/mL injection solution Performing Provider: Krishan Luevano MD Performing Location[facility] Administered by: Krishan Luevano MD on 03/18/25 12:11 Dose Route Admin Location Dispensed Lot Number Expiration Date [place] [employer] Professor 40,000 unit subcut left arm 2 mL [id number] 03/18/25 3395-1723-57 PFIZE R US PHARM Total Dispensed Waste 2 mL 0 % Assessment & Plan Assessment & Plan (1) Anemia due to chronic kidney disease: Code(s): N18.9 - Chronic kidney disease, unspecified; D63.1 - Anemia in chronic kidney disease Category: Medical (2) CKD (chronic kidney disease): Code(s): N18.9 - Chronic kidney disease, unspecified Category: Medical (3) HTN (hypertension): Code(s): I10 - Essential (primary) hypertension Category: Medical Plan Plan 1. Anemia - The patient's hemoglobin decreased to 6.9 during his recent hospitalization. - The plan is to double the dose of his erythropoiesis-stimulating agent injections ( [id number] U ) to improve red blood cell production. 2. Acute Kidney Injury - superimposed on CKD - The patient's kidney function has declined secondary to a recent infection. No s/s of uremia - Expectation is that kidney function will improve and recover over time. 3. Peripheral Edema - The patient developed significant leg and foot edema after starting sodium bicarbonate 650 mg twice daily during hospitalization. - The sodium bicarbonate was discontinued, and the swelling is expected to resolve. 4. HTN BP is acceptable. NO changes Stay on low salt diet Orders: Orders Basic Metabolic Panel 3 Weeks D63.1 - Anemia in chronic kidney disease, N18.9 - Chronic kidney disease, unspecified Complete Blood Count no Diff 3 Weeks D63.1 - Anemia in chronic kidney disease, N18.9 - Chronic kidney disease, unspecified AMB Epoetin Injection Practice Supplied Today D63.1 - Anemia in chronic kidney disease, N18.9 - Chronic kidney disease, unspecified Coding Level of Care Code Est Pt Level 4 (43199) Diagnoses Anemia due to chronic kidney disease N18.9; D63.1 CKD (chronic kidney disease) N18.9 HTN (hypertension) I10
[2025-03-18 11:58] VITALS: BP 134/62; PULSE 60; O2SAT 98
--- OUTSIDE RECORDS SUMMARY | 2025-03-18 15:25 | XMS_ITS | Patient Health Record ---
[facility] Address [address] [place] [address] Care Team Providers Care Skidder Loader Name Role Phone IONA TOTH Primary Care Provider DANNY RAMIREZ Unavailable [phone] LIZZIE FINLEY Unavailable [phone] Allergies No Known Allergies Reason For Referral Referral Organization [facility] Referring Provider First Name IONA Referring Provider Last Name JANEY Referring Provider Speciality Internal M edicine Referred Provider JILL GOODWIN Referred Provider Specialty Certified Ps ychologist General Notes Nelli GARNER Call Ctr 04/11/2024 02:44:48 PM > Sukhwinder sandersm BS Cardiology for an insurance referral to Dr Thalia Goodwin , [address] [place] [address], phone [phone], fax [phone], reason-I25.10, appointment date 04/11/24, visits-6, insurance confirmed (the referral is needed for the patients [facility] Blue insurance), Ginger GARNER Referrals 04/15/2024 02:39:45 PM > referral approved and faxed to Sukhwinder at [phone] Referral Priority Routine Referral Appointment Date 04/11/2024 Reason S82.91XA Referral Organization [facility] Referring Provider First Name IONA Referring Provider Last Name JANEY Referring Provider Speciality Internal M edicine Referred Provider TERI MAIER Referred Provider Specialty Orthopedic S urgery General Notes Lorna GARNER Admin 11:56:32 AM > per incoming document from MANUELA GUARDADO) pt has appt on 07/03/24 with Teri Maier>12 visits>S82.91XA>referral approved and faxed to [facility] at [phone]>encounter closed Referral Priority Routine Referral Appointment Date 07/03/2024 Reason insurance referral isela porter Referral Organization [facility] Referring Provider First Name IONA Referring Provider Last Name JANEY Referring Provider Speciality Internal edicine Referred Organization [facility] Referred Provider Specialty Orthopedic S urgery General Notes Karen GARNER MA 03:48:56 PM > Cherri/RIPS asking for 3 [facility] referrals for ongoing treatment, [address], [address], fax [phone]. , NASEEM Lantigua , M25.562, back date to 07/17/24, 12 visits, has referral for the MD for all. , PATSYLorna P Admin 10/13/2024 10:25:31 AM > referral approved and faxed to GEORGINA at [phone]>ENCOUNTER CLOSED Referral Priority Routine Referral Appointment Date 07/17/2024 Reason insurance referral p milad mari Referral Organization [facility] Referring Provider First Name IONA Referring Provider Last Name JANEY Referring Provider Speciality Internal edicine Referred Organization [facility] General Notes Karen GARNER [place] 03:50:48 PM > Cherri/MANUELA asking for 3 [facility] referrals for ongoing treatment, [address], [address], fax [phone]. , ARLET Dukes [id number], M25.562, back date to 08/11/24, 12 visits., Lorna GARNER P Admin 10/13/2024 10:32:47 AM > referral approved and faxed to [facility] at [phone]>encounter closed Clinical Notes 1831 Referral Priority Routine Referral Appointment Date 08/11/2024 Reason insurance referral Referral Organization [facility] [employer] Referring Provider First Name IONA Referring Provider Last Name JANEY Referring Provider Speciality Internal edicine Referred Organization [facility] General Notes Karen GARNER MA 03:53:23 PM > Milad Avitia , M25.571, 09/05/24 appt., 12 visits., Lorna GARNER P Admin 10/13/2024 10:18:04 AM > referral approved and faxed to GEORGINA at [phone]>encounter closed Referral Priority Routine Referral Appointment Date 09/05/2024 Reason up date referral Referral Organization [facility] Referring Provider First Name IONA Referring Provider Codey Name JANEY Referring Provider Speciality Internal edicine Referred Provider CRISTAL ORDOÑEZ Referred Provider Specialty Urology General Notes Karen GARNER MA 025 11:11:33 AM > t saw a urologist on 07/23/24 Dr Cristal Ordoñez , so the patient would need a back dated insurance referral, [address] [address], [facility] [address], phone [phone], fax [phone], reason-catheter from [facility] removal, visits-1, insurance confirmed, IONA TOTH 10/20/2024 08:15:57 AM > put in urinary retention, Lorna GARNER P Admin 10/21/2024 12:40:57 PM > referral approved and faxed to [phone]>encounter closed Clinical Notes Lorna GARNER Admin 10:39:55 AM > Karen,, could you please let me know why pt had a cathter>I cant use removal for the referral Referral Priority Routine Referral Appointment Date 07/23/2024 [facility] Referring Provider First Name IONA Referring Provider Codey Name JANEY Referring Provider [facility] Internal edicine Referred Organization MANUELA Referred Provider Specialty Orthopedic S urgery General Notes Lorna GARNER P Admin 12:42:51 PM > per incoming document pt had appt on 10/15/24 for M25.561>referral approved and faxed to MANUELA at [phone]>encounter closed Referral Priority Routine Referral Appointment Date 10/15/2024 Reason (03/16/25 FAXED) pos t hospitalization f/u, NSTEMI, acute respiratory failure; multifocal pneumonia; acute on chronic heart failure Diagnosis 1 Chronic diastolic (c ongestive) heart failure (I50.32) Diagnosis 2 Acute respiratory fa ilure with hypoxia (J96.01) Diagnosis 3 NSTEMI (non-ST eleva josy myocardial infarction) (I21.4) Referral Organization [facility] Referring Provider First Name LIZZIE Referring Provider Last Name RIKSHWETAMACO Referring Provider Speciality Physician Metal Wire Coating Operator Referred Provider JILL GOODWIN General Notes Elida GARNER MA 01:01:24 PM > referral and office note faxed Referral Priority Routine Medications Medication SIG (Take, Route, Frequency, Duration) Notes Start Date End Date Status Nitroglycerin 0.4 MG Tablet Sublingual 1 tablet under the tongue and allow to dissolve as needed. Take every 5 minutes up to 3 times if chest pain persists Sublingual Once a day if needed; Duration: 30 days Active amLODIPine Besylate 5 MG Tablet 1 tablet Orally Once a day in AM; Duration: 90 days Active L05-Rhehay 1 MG Tablet Chewable as directed Orally Active Levothyroxine Sodium 25 MCG Tablet 1 tablet [...] no BM in 3 days 03/11/2025 Not-Taking Sodium Bicarbonate 650 MG Tablet 1 tab Orally twice a day 03/11/2025 Not-Taking Knee Brace Adjustable Hinged - Miscellaneous as directed 10/05/2022 Unkno wn Aspirin 81 81 MG Tablet Delayed Release 1 tablet Orally Once a day; Duration: 30 day(s) Active Metoprolol Succinate ER 50 MG Tablet Extended Release 24 Hour TAKE 1 TABLET ONCE DAILY; Duration: 90 Active Rosuvastatin Calcium 40 MG Tablet TAKE 1 TABLET DAILY; Duration: 90 Active Social History Tobacco Use: Social History Observation Description Date Details (start date - stop date) Former Smoker NA - NA Social History Tobacco Use: Social Info Question Answer Notes Tobacco Control (Standard) Tobacco use: Former smoker Smoking Are you a: never smoker Additional Details Category Social Info Options Details General Occupation: Retired alcohol use: yes Beer: 3/day Coffee/Tea/Soda: yes Coffee: 3 cups/ day Marital Status Living with smokers in household no Problems Problem Type SNOMED Code ICD Code Onset Dates Problem Status W/U Status Risk Notes Problem Gastroesophageal reflux disease (disorder) (443627747) GERD [Gastroesophageal reflux disease] (530.81) Active confirmed Problem Irritable bowel syndrome (07879677) IBS [Irritable bowel syndrome] (564.1) Active confirmed Problem Benign neoplasm of colon (94568143) H/o colon adenoma (211.3) Active confirmed Problem Gastro-esophageal reflux disease without esophagitis (128252872) Gastro-esophageal reflux disease without esophagitis (K21.9) Active confirmed Problem Essential hypertensi on (90583287) Essential (primary) hypertension (I10) Active confirmed Problem Hypothyroidism (56155079) Hypothyroidism, unspecified (E03.9) Active confirmed Problem Anemia (367366229) Anemia, unspecified (D64.9) Active confirmed Problem Arthritis (1000419) Arthritis (M19.90) Active c onfirmed Problem Chronic kidney disea se (978570951) Chronic kidney disease, unspecified (N18.9) Active confirmed Problem Acquired hypothyroidism (501230133) Acquired hypothyroidism (E03.9) Active confirmed Problem Chronic diastolic heart failure (511185515) Chronic diastolic (congestive) heart failure (I50.32) Active confirmed Problem Anemia in chronic kidney disease (552417848) 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) Active confirmed Problem Disorder of lipoprotein storage and metabolism (disorder) (231467706) Disorder of lipoprotein metabolism, 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 confirmed Problem Polyneuropathy (14933543) Polyneuropathy, unspecified (G62.9) Active confirmed Problem Chronic kidney disea se due to hypertension (968333310152516) Hypertensive chronic kidney disease with stage 1 through stage 4 chronic kidney disease, or unspecified chronic kidney disease (I12.9) Active confirmed Problem Hypertensive heart A ND chronic kidney disease with congestive heart failure (43215204280324) Hypertensive heart and chronic kidney disease with heart failure and stage 1 through stage 4 chronic kidney disease, or unspecified chronic kidney disease (I13.0) Active confirmed Problem Atherosclerotic hear t disease of cadd[place] coronary artery without angina pectoris (180914685612547) Atherosclerotic heart disease of [place] coronary artery without angina pectoris (I25.10) Active confirmed Problem Angina (875256154) Atherosclerot ic heart disease of [place] coronary artery with unspecified angina pectoris (I25.119) Active confirmed Problem Aortic valve disorde r (6636946) Nonrheumatic aortic (valve) stenosis (I35.0) Active confirmed Problem Complete atrioventricular block (59806904) Atrioventricular block, 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) Active confirmed Problem Atrial fibrillation (56013253) Unspecified atrial fibrillation (I48.91) Active confirmed Problem Sick sinus syndrome (24641100) Sick sinus syndrome (I49.5) Active confirmed Problem Atherosclerosis of coronary artery without angina pectoris (975606584319933) Athscl heart disease of [place] coronary artery w/o ang pctrs (I25.10) Active confirmed Problem Aortic valve disorde r (0916603) Aortic stenosis, moderate (I35.0) Active confirmed Problem Acute non-ST segment elevation myocardial infarction (670547579) NSTEMI (non-ST elevated myocardial infarction) (I21.4) Active confirmed Problem Pure hypercholesterolemia (413823281) Pure hypercholesterolem ia, unspecified (E78.00) Active confirmed Problem Benign prostatic hypertrophy without outflow obstruction (060039938) Benign prostatic hyperplasia without lower urinary tract symptoms (N40.0) Active confirmed Problem Chronic kidney disea se stage 3 (disorder) (966772735) Chronic kidney disease, stage 3 unspecified (N18.30) Active confirmed Problem Chronic kidney disea se stage 3B (disorder) (616359590) CKD stage 3b, GFR 30-44 ml/min (N18.32) Active confirmed Vital Signs Blood pressure diastolic 76 mm Hg 03/16/2025 Height 68 in 03/16/2025 Blood pressure systolic 129 mm Hg 03/16/2025 Weight 000 lbs 03/16/2025 BMI 24.63 kg/m2 01/19/2025 Encounters Encounter Location Date Provider Diagnosis [facility] [address] [place] [address] 09/11/2024 [facility] discharge follow-up Z09 ; Acute kidney injury N17.9 ; Closed fracture of right ankle with routine healing, subsequent encounter S82.293P ; Lesion of right caddo kidney N28.9 ; Disorder of lipoprotein metabolism, unspecified E78.9 ; Essential (primary) hypertension I10 ; Chronic kidney disease, unspecified N18.9 ; Acquired hypothyroidism E03.9 ; Acute urinary retention R33.8 and Closed fracture of proximal end of left tibia with routine healing, unspecified fracture morphology, subsequent encounter S82.102D [address] [address] 01/19/2025 IONA TOTH Essential (primary) hypertension I10 ; Disorder of lipoprotein metabolism, unspecified E78.9 ; Chronic kidney disease, unspecified N18.9 ; Athscl heart disease of [place] coronary artery w/o ang pctrs I25.10 ; Gastro-esophageal reflux disease without esophagitis K21.9 ; B12 deficiency E53.8 ; Aortic stenosis, moderate I35.0 ; Unspecified atrial fibrillation I48.91 and Elevated PSA R97.[address] [address] 03/16/2025 [facility] discharge follow-up Z51.89 ; Multifocal pneumonia J18.8 ; Acute kidney injury (WANDER) with acute tubular necrosis (ATN) N17.0 ; CKD stage 3b, GFR 30-44 ml/min N18.32 ; NSTEMI (non-ST elevated myocardial infarction) I21.4 ; Acute respiratory failure with hypoxia J96.01 and Chronic diastolic (congestive) heart failure I50.[address] [address] 06/09/[address] [address] 06/10/[address] [address] 06/12/[address] [address] 06/17/[address] [address] 06/24/[address] [address] 09/01/[address] [address] 09/02/[address] [place] [address] 09/02/2024 IONA TOTH [facility] [address] [place] [address] 09/03/2024 IONA TOTH [facility] [address] [place] [address] 09/08/2024 IONA TOTH [facility] [address] [place] [address] 09/09/2024 IONA TOTH [facility] [address] [place] [address] 09/11/2024 IONA TOTH [facility] [address] [place] [address] 09/15/2024 LIZZIE FINLEY [facility] [address] [place] [address] 09/30/2024 IONA TOTH [facility] [address] [place] [address] 10/07/2024 IONA TOTH [facility] [address] [place] [address] 10/10/2024 IONA TOTH [facility] [address] [place] [address] 10/13/2024 IONA TOTH [facility] [address] [place] [address] 11/19/2024 IONA TOTH [facility] [address] [place] [address] 11/20/2024 IONA TOTH [facility] [address] [place] [address] 12/02/2024 IONA TOTH [facility] [address] [place] [address] 12/23/2024 IONA TOTH [facility] [address] [place] [address] 12/24/2024 IONA TOTH [facility] [address] [place] [address] 01/10/2025 IONA TOTH [facility] [address] [place] [address] 01/20/2025 IONA TOTH B12 deficiency E53.8 and Anemia, unspecified D64.9 [facility] [address] [place] [address] 01/20/2025 IONA TOTH Essential (primary) hypertension I10 and Acquired hypothyroidism E03.9 [facility] [address] [place] [address], [place] [address] 01/21/2025 IONA [facility] [address] [place] [address], [place] [address] 03/04/2025 IONA [facility] [address] [place] [address], [place] [address] 03/05/2025 IONA [facility] [address] [place] [address], [place] [address] 03/12/2025 IONA [facility] [address] [place] [address], [place] [address] 03/12/2025 IONA [facility] [address] [place] [address], [place] [address] 03/12/[address] [place] [address] 03/13/[address] [place] [address] 03/16/[address] [place] [address] 03/16/[address] [place] [address] 03/17/2025 IONA TOTH Assessments Encounter Date Diagnosis (ICD Code) Assessment Notes Treatment Notes Treatment Clinical Notes Section Notes 09/11/2024 Acute kidney injury (ICD-10 - N17.9) likely from dehydration and olemsartan in setting of CKD: D/c Creat 1.97. Hgb 7.6 and hct 24.1 reported as stable. Will check renal function/lytes today. Following with nephrology and has appt later this month. 09/11/2024 Hospital discharge follow-up (ICD-10 - Z09) Hospital records and data reviewed. Medication reconciliation was completed with facility discharge summary. 01/20/2025 B12 deficiency (ICD-10 - E53.8) 01/20/2025 Anemia, unspecified (ICD-10 - D64.9) 01/20/2025 Essential (primary) hypertension (ICD-10 - I10) 01/20/2025 Acquired hypothyroidism (ICD-10 - E03.9) 03/16/2025 Hospital discharge follow-up (ICD-10 - Z51.89) Hospital records and data reviewed. Medication reconciliation was completed with facility discharge summary. 03/16/2025 Multifocal pneumonia (ICD-10 - J18.8) treated with rocephin, doxycycline and oxygen, sats are normal, improving 01/19/2025 Essential (primary) hypertension (ICD-10 - I10) [...] had resolved. Avoid NSAIDs avoid IVP dyes 03/16/2025 Acute kidney injury (WANDER) with acute tubular necrosis (ATN) (ICD-10 - N17.0) due to dehydration; treated with IV fluids and now on sodium bicarb which pt will continue until seeing anum Liao check renal fuction/lytes today 09/11/2024 Closed fracture of right ankle with routine healing, subsequent encounter (ICD-10 - S82.891D) f/u with ortho; continue PT 09/11/2024 Lesion of right caddo kidney (ICD-10 - N28.9) 1.1cm indeterminate lesion in right lower pole rec US imaging 03/16/2025 CKD stage 3b, GFR 30-44 ml/min (ICD-10 - N18.32) f/u with renal on 03/18/25 01/19/2025 Athscl heart disease of c[place] coronary artery w/o ang pctrs (ICD-10 - I25.10) Chest pain no CHF vital signs stable check EKG sinus rhythm no change 01/19/2025 Gastro-esophageal reflux disease without esophagitis (ICD-10 - K21.9) 03/16/2025 NSTEMI (non-ST elevated myocardial infarction) (ICD-10 - I21.4) due to htn and hypoxia in the setting of acute bronchitis/RSV infection; f/u with cardiology 09/11/2024 Disorder of lipoprotein metabolism, unspecified (ICD-10 - E78.9) LDL at goal <100 in 02/23; will repeat, continue on crestor 09/11/2024 Essential (primary) hypertension (ICD-10 - I10) good control; continue current management; low salt 03/16/2025 Acute respiratory failure with hypoxia (ICD-10 - J96.01) due to multifocal pneumonia and RSV; treated with abx and oxygen 01/19/2025 B12 deficiency (ICD-10 - E53.8) Continue B12 replacement 01/19/2025 Aortic stenosis, moderate (ICD-10 - I35.0) No CHF no chest pain no TUBE DRAWER symptoms cardiac echo q. yearly set up cardiac echo 03/16/2025 Chronic diastolic (congestive) heart failure (ICD-10 - I50.32) pt with h/o ischemic cardiomyopathy; swelling in legs have increased some since d/c from hospital; will check labs including renal status and bnp (was 21,837 on admission); will arrange post hospitalization with cardiology as well 09/11/2024 Chronic kidney disease, unspecified (ICD-10 - N18.9) F/u with Dr Pla as scheduled; will check renal and lytes 09/11/2024 Acquired hypothyroidism (ICD-10 - E03.9) will [...] have anything done understands the risks 09/11/2024 Acute urinary retention (ICD-10 - R33.8) no longer with any urinary symptoms; doesnt follow with urology; would like to try and go off the flomax; advised to restart if diff urinating 09/11/2024 Closed fracture of proximal end of left tibia with routine healing, unspecified fracture morphology, subsequent encounter (ICD-10 - S82.102D) f/u with ortho 09/11/2024 Other I am seeing the patient under the supervision of the co-signing physician. The physician was available for consultation at the time of the office visit. 03/16/2025 Other I am seeing the patient under the supervision of the co-signing physician. The physician was available for consultation at the time of the office visit. Plan Of Treatment Pending Test Test Name Order Date Echocardiogram 01/19/2025 Future Test Test Name Order Date Iron and TIBC-313971 09/04/2023 Ferritin-800378 09/04/2023 CBC With Differential/Platelet-859033 Iron and TIBC-582827 10/02/2023 Vitamin J96-938791 10/02/2023 T4 Free Direct (Thyroxine)-611268 2023 Folate (Folic Acid), Serum-333490 2023 TSH-563298 10/02/2023 CBC, Platelet, w/o Differential-193785 0 10/02/2023 BMP8+eGFR-716307 10/02/2023 Albumin/Creatinine Ratio,Urine-529873 BMP8+eGFR-626813 03/05/2024 Vitamin O95-717800 01/10/2025 Folate (Folic Acid), Serum-789727 2024 Urinalysis, Complete w/ME-384346 025 TSH-246065 01/10/2025 CBC, Platelet, w/o Differential-166566 1 Lipid Panel-919659 01/10/2025 Comp. Metabolic Panel (14)-032240 2024 LDH-339171 01/20/2025 Iron and TIBC-685914 01/20/2025 Haptoglobin-712324 01/20/2025 Ferritin-887659 01/20/2025 Reticulocyte Count-530404 01/20/2025 Methylmalonic Acid, Serum-836600 025 Homocyst(e)ine-372600 01/20/2025 T4 Free Direct (Thyroxine)-976481 2024 TSH-729077 03/03/2025 BMP8+eGFR-615016 03/03/2025 Next Appt Details Provider Name:IONA JEFFRIES, 07/28/2025 10:00:00 AM, [address] [place], [address], Insurance Providers Payer Name Payer Address Payer Phone Subscriber Number Group Number Insured Name Patient Relationship to Insured Coverage Start Date Coverage End Date MEDICARE [facility] [employer] 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 CAD status post CABG Cardiac echo October 2022 eje ction fraction 50 to 55%. Grade 3 diastolic dysfunction. Mild MR moderate AAS Surgical History Surgery Date(Month/Year) cataracts - right eye 2011 Hip Replacement 07/05 Cardiac Stent 05/08 TKR - R 1999 CABG 1994 Hospitalization History Reason Date(Month/Year) [facility] dx Chronic anemia, hypon atremia, poor p.o. intake, WANDER, CKD, elevated BNP, troponinemia, community acquired pneumonia 03/05/2025 [facility]: WANDER, acute urinary rete ntion, hyponatremia, elevated LFT's, constipation 05/2024 [facility]: Tx from [facility] for likely surgery. R ankle fx, left tibial tubercle fx 05/2024 [facility]: L ankle fx, joint effusion 05/2024
--- OUTSIDE RECORDS SUMMARY | 2025-03-18 15:26 | XMS_ITS | Encounter Summary ---
Author Organization [facility] Address [address] [place] [address] Care Team Providers Care Energy Derivatives Trader Name Role Phone Fartun Goldstein MD Primary Care Provider + Encounter Details Date Type Department Care Team (Late st Contact Info) Description 06/30/[address] [facility] - Main Lab [address] [place] [address] Fartun Goldstein MD 819 [facility] 1 [place], [place] [id number] Essential (primary) hypertension Social History Tobacco Use [...] Hold for add-ons. 06/30/2024 1:02 PM EDT [facility] Comment:Auto resulted. Blood Venous blood specimen / Unknown 06/30/2024 7:42 AM EDT 06/30/2024 11:48 AM EDT us Fartun Goldstein MD LAB BLOOD ORDERABLES Fin al Result [facility] [address] [place] [address], * (ABNORMAL) Complete blood count (06/30/2024 7:42 AM EDT) WBC 8.7 4.8 - 10.8 K/mcL LAB HEMETOLOGY METHOD 06/30/2024 1:20 PM EDT [facility] RBC 2.50(L) 4.50 - 5.50 M/mcL LAB HEMETOLOGY METHOD 06/30/2024 1:20 PM EDT [facility] Hemoglobin 7.9(L) 13.5 - 17.5 g/dL LAB HEMETOLOGY METHOD 06/30/2024 1:20 PM EDT [facility] Hematocrit 25.3(L) 42.0 - 54.0 % LAB HEMETOLOGY METHOD 06/30/2024 1:20 PM EDT [facility] MCV 102.4(H) 79.0 - 98.0 FL LAB HEMETOLOGY METHOD 06/30/2024 1:20 PM EDT [facility] MCH 32.0 27.0 - 32.0 pcg LAB HEMETOLOGY METHOD 06/30/2024 1:20 PM EDT [facility] MCHC 31.2(L) 32.0 - 37.0 g/dL LAB HEMETOLOGY METHOD 06/30/2024 1:20 PM EDT [facility] RDW 13.6 11.0 - 15.0 % LAB HEMETOLOGY METHOD 06/30/2024 1:20 PM EDT [facility] Platelets 368 130 - 400 K/mcL LAB HEMETOLOGY METHOD 06/30/2024 1:20 PM EDT [facility] MPV 10.5 7.0 - 11.0 FL LAB HEMETOLOGY METHOD 06/30/2024 1:20 PM EDT [facility] NRBC 0.0 <1.0 % LAB HEMETOLOGY METHOD 06/30/2024 1:20 PM EDT [facility] NRBC Absolute 0.00 <0.10 K/mcL LAB HEMETOLOGY METHOD 06/30/2024 1:20 PM EDT [facility] Blood Venous blood specimen / Unknown Venipuncture / Unknown 06/30/2024 7:42 AM EDT 06/30/2024 11:32 AM EDT us Fartun Goldstein MD LAB BLOOD ORDERABLES Fin al Result [facility] [address] [place] [address], documented in this encounter Visit Diagnoses Diagnosis Essential (primary) hypertension Unspecified essential hypertension documented in this encounter Care Teams Energy Derivatives Trader Relationship Specialty Start Date End Date Fartun Goldstein MD [address] [address] PCP - General Family Medicine 06/13/24 documented as of this encounter
--- OUTSIDE RECORDS SUMMARY | 2025-03-18 15:26 | XMS_ITS | Encounter Summary ---
Author Organization [employer] Address [address] [place] [address] Care Team Providers Care Underwriter Mortgage Loan Name Role Phone Fartun Goldstein MD Primary Care Provider + Encounter Details Date Type Department Care Team (Late st Contact Info) Description 06/29/2024 Lab Requisition [facility] - Main Lab 299 [facility] [place] [address] Fartun Goldstein MD 819 [facility] 1 [place] [address] Unspecified atrial fibrillation (CMS/HCC V24, CMS/HCC V28) [...] LAB CHEMISTRY METHOD 06/29/2024 2:33 PM EDT [facility] Potassium 4.7 3.5 - 5.5 mmol/L LAB CHEMISTRY METHOD 06/29/2024 2:33 PM EDT [facility] Chloride 102 96 - 110 mmol/L LAB CHEMISTRY METHOD 06/29/2024 2:33 PM [facility] CO2 20(L) 21 - 32 mmol/L LAB CHEMISTRY METHOD 06/29/2024 2:33 PM [facility] Anion Gap 12(H) 3 - 11 LAB CHEMISTRY METHOD 06/29/2024 2:33 PM [facility] Glucose 122(H) 70 - 100 mg/dL LAB CHEMISTRY METHOD 06/29/2024 2:33 PM [facility] BUN 28(H) 5 - 25 mg/dL LAB CHEMISTRY METHOD 06/29/2024 2:33 PM [facility] Creatinine 1.87(H) 0.70 - 1.30 mg/dL LAB CHEMISTRY METHOD 06/29/2024 2:33 PM [facility] eGFR 35(L) >=60 mL/min/1. 73m2 LAB CHEMISTRY METHOD 06/29/2024 2:33 PM [facility] Comment:Calculation based on the Chronic Kidney Disease Epidemiology Collaboration (CKD-EPI) equation refit without adjustment for race. BUN/Creatinine Ratio 15.0 LAB CHEMISTRY METHOD 06/29/2024 2:33 PM [facility] Calcium 8.9 8.5 - 10.5 mg/dL LAB CHEMISTRY METHOD 06/29/2024 2:33 PM [facility] AST (SGOT) 44(H) 10 - 42 unit/L LAB CHEMISTRY METHOD 06/29/2024 2:33 PM [facility] ALT (SGPT) 40 10 - 60 unit/L LAB CHEMISTRY METHOD 06/29/2024 2:33 PM [facility] Alkaline Phosphatase 73 42 - 121 unit/L LAB CHEMISTRY METHOD 06/29/2024 2:33 PM [facility] Total Protein 6.2 6.0 - 8.0 g/dL LAB CHEMISTRY METHOD 06/29/2024 2:33 PM EDT [facility] Albumin 2.5(L) 3.2 - 5.0 g/dL LAB CHEMISTRY METHOD 06/29/2024 2:33 PM EDT [facility] Total Bilirubin 0.8 0.0 - 1.4 mg/dL LAB CHEMISTRY METHOD 06/29/2024 2:33 PM EDT [facility] Blood Venous blood specimen / Unknown Venipuncture / Unknown 06/29/2024 1:02 PM EDT 06/29/2024 1:53 PM EDT us Fartun Goldstein MD LAB BLOOD ORDERABLES Fin al Result [facility] [address] [place] [address], * (ABNORMAL) Complete blood count (06/29/2024 1:02 PM EDT) WBC 15.2(H) 4.8 - 10.8 K/mcL LAB HEMETOLOGY METHOD 06/29/2024 2:07 PM EDT [facility] RBC 2.70(L) 4.50 - 5.50 M/mcL LAB HEMETOLOGY METHOD 06/29/2024 2:07 PM EDT [facility] Hemoglobin 8.6(L) 13.5 - 17.5 g/dL LAB HEMETOLOGY METHOD 06/29/2024 2:07 PM EDT [facility] Hematocrit 27.1(L) 42.0 - 54.0 % LAB HEMETOLOGY METHOD 06/29/2024 2:07 PM EDT [facility] MCV 100.4(H) 79.0 - 98.0 FL LAB HEMETOLOGY METHOD 06/29/2024 2:07 PM EDT [facility] MCH 31.9 27.0 - 32.0 pcg LAB HEMETOLOGY METHOD 06/29/2024 2:07 PM EDT [facility] MCHC 31.7(L) 32.0 - 37.0 g/dL LAB HEMETOLOGY METHOD 06/29/2024 2:07 PM EDT [facility] RDW 13.6 11.0 - 15.0 % LAB HEMETOLOGY METHOD 06/29/2024 2:07 PM EDT [facility] Platelets 389 130 - 400 K/mcL LAB HEMETOLOGY METHOD 06/29/2024 2:07 PM EDT [facility] MPV 10.4 7.0 - 11.0 FL LAB HEMETOLOGY METHOD 06/29/2024 2:07 PM EDT [facility] NRBC 0.0 <1.0 % LAB HEMETOLOGY METHOD 06/29/2024 2:07 PM EDT [facility] NRBC Absolute 0.00 <0.10 K/mcL LAB HEMETOLOGY METHOD 06/29/2024 2:07 PM EDT [facility] Blood Venous blood specimen / Unknown Venipuncture / Unknown 06/29/2024 1:02 PM EDT 06/29/2024 1:53 PM EDT us Fartun Goldstein MD LAB BLOOD ORDERABLES Fin al Result [facility] [address] [place] [address], documented in this encounter Visit Diagnoses Diagnosis Unspecified atrial fibrillation (CMS/HCC V24, CMS/HCC V28) documented in this encounter Care Teams Underwriter Mortgage Loan Relationship Specialty Start Date End Date Fartun Goldstein MD [address] [place] [phone] PCP - General Family Medicine 06/13/24 documented as of this encounter
--- OUTSIDE RECORDS SUMMARY | 2025-03-18 15:26 | XMS_ITS | Encounter Summary ---
Author Organization [facility] Address [address] [place] [address] Care Team Providers Care Spotter Name Role Phone Fartun Goldstein MD Primary Care Provider + Encounter Details Date Type Department Care Team (Late st Contact Info) Description 07/23/2024 Lab Requisition [facility] - Main Lab [address] [place] [address] Fartun Goldstein MD 819 [facility] 1 [place] [address] Anemia, unspecified Social History Tobacco Use Types [...] mmol/L LAB CHEMISTRY METHOD 07/23/2024 10:34 AM [facility] Potassium 4.0 3.5 - 5.5 mmol/L LAB CHEMISTRY METHOD 07/23/2024 10:34 AM [facility] Chloride 107 96 - 110 mmol/L LAB CHEMISTRY METHOD 07/23/2024 10:34 AM [facility] CO2 25 21 - 32 mmol/L LAB CHEMISTRY METHOD 07/23/2024 10:34 AM [facility] Anion Gap 6 3 - 11 LAB CHEMISTRY METHOD 07/23/2024 10:34 AM [facility] Glucose 83 70 - 100 mg/dL LAB CHEMISTRY METHOD 07/23/2024 10:34 AM [facility] BUN 25 5 - 25 mg/dL LAB CHEMISTRY METHOD 07/23/2024 10:34 AM [facility] Creatinine 1.73(H) 0.70 - 1.30 mg/dL LAB CHEMISTRY METHOD 07/23/2024 10:34 AM [facility] eGFR 38(L) >=60 mL/min/1. 73m2 LAB CHEMISTRY METHOD 07/23/2024 10:34 AM [facility] Comment:Calculation based on the Chronic Kidney Disease Epidemiology Collaboration (CKD-EPI) equation refit without adjustment for race. BUN/Creatinine Ratio 14.5 LAB CHEMISTRY METHOD 07/23/2024 10:34 AM [facility] Calcium 8.8 8.5 - 10.5 mg/dL LAB CHEMISTRY METHOD 07/23/2024 10:34 AM [facility] Blood Venous blood specimen / Unknown Venipuncture / Unknown 07/23/2024 7:47 AM EDT 07/23/2024 9:27 AM EDT us Fartun Goldstein MD LAB BLOOD ORDERABLES Fin al Result [facility] [address] [place] [address], * (ABNORMAL) Complete blood count (07/23/2024 7:47 AM EDT) WBC 5.6 4.8 - 10.8 K/mcL LAB HEMETOLOGY METHOD 07/23/2024 10:14 AM [facility] RBC 2.20(L) 4.50 - 5.50 M/mcL LAB HEMETOLOGY METHOD 07/23/2024 10:14 AM [facility] Hemoglobin 7.1(L) 13.5 - 17.5 g/dL LAB HEMETOLOGY METHOD 07/23/2024 10:14 AM [facility] Hematocrit 22.8(L) 42.0 - 54.0 % LAB HEMETOLOGY METHOD 07/23/2024 10:14 AM [facility] MCV 103.2(H) 79.0 - 98.0 FL LAB HEMETOLOGY METHOD 07/23/2024 10:14 AM [facility] MCH 32.1(H) 27.0 - 32.0 pcg LAB HEMETOLOGY METHOD 07/23/2024 10:14 AM [facility] MCHC 31.1(L) 32.0 - 37.0 g/dL LAB HEMETOLOGY METHOD 07/23/2024 10:14 AM [facility] RDW 15.1(H) 11.0 - 15.0 % LAB HEMETOLOGY METHOD 07/23/2024 10:14 AM [facility] Platelets 192 130 - 400 K/mcL LAB HEMETOLOGY METHOD 07/23/2024 10:14 AM [facility] MPV 11.7(H) 7.0 - 11.0 FL LAB HEMETOLOGY METHOD 07/23/2024 10:14 AM [facility] NRBC 0.0 <1.0 % LAB HEMETOLOGY METHOD 07/23/2024 10:14 AM [facility] NRBC Absolute 0.00 <0.10 K/mcL LAB HEMETOLOGY METHOD 07/23/2024 10:14 AM [facility] Blood Venous blood specimen / Unknown Venipuncture / Unknown 07/23/2024 7:47 AM EDT 07/23/2024 9:27 AM EDT Fartun Goldstein MD LAB BLOOD ORDERABLES Fin al Result [facility]) [facility] [address] [place] [address], documented in this encounter Visit Diagnoses Diagnosis Anemia, unspecified documented in this encounter Care Teams Spotter Relationship Specialty Start Date End Date Fartun Goldstein MD [address] [place] [phone] PCP - General Family Medicine 06/13/24 documented as of this encounter
--- OUTSIDE RECORDS SUMMARY | 2025-03-18 15:26 | XMS_ITS | Encounter Summary ---
Author Organization [employer] Address [address] [place] [address] Care Team Providers Care Vice President Of Talent Acquisition Name Role Phone Fartun Goldstein MD Primary Care Provider + Encounter Details Date Type Department Care Team (Late st Contact Info) Description 06/13/2024 Lab Requisition [facility] - Main Lab 299 [facility] [place] [address] Fartun Goldstein MD 819 [facility] 1 [place] [address] Unspecified atrial fibrillation (CMS/HCC V24, CMS/HCC V28) [...] LAB CHEMISTRY METHOD 06/13/2024 1:16 PM EDT [facility] Potassium 4.3 3.5 - 5.5 mmol/L LAB CHEMISTRY METHOD 06/13/2024 1:16 PM EDT [facility] Chloride 106 96 - 110 mmol/L LAB CHEMISTRY METHOD 06/13/2024 1:16 PM EDT [facility] CO2 20(L) 21 - 32 mmol/L LAB CHEMISTRY METHOD 06/13/2024 1:16 PM [facility] Anion Gap 11 3 - 11 LAB CHEMISTRY METHOD 06/13/2024 1:16 PM [facility] Glucose 90 70 - 100 mg/dL LAB CHEMISTRY METHOD 06/13/2024 1:16 PM T [facility] BUN 38(H) 5 - 25 mg/dL LAB CHEMISTRY METHOD 06/13/2024 1:16 PM [facility] Creatinine 1.85(H) 0.70 - 1.30 mg/dL LAB CHEMISTRY METHOD 06/13/2024 1:16 PM [facility] eGFR 35(L) >=60 mL/min/1. 73m2 LAB CHEMISTRY METHOD 06/13/2024 1:16 PM T [facility] Comment:Calculation based on the Chronic Kidney Disease Epidemiology Collaboration (CKD-EPI) equation refit without adjustment for race. BUN/Creatinine Ratio 20.5 LAB CHEMISTRY METHOD 06/13/2024 1:16 PM [facility] Calcium 8.9 8.5 - 10.5 mg/dL LAB CHEMISTRY METHOD 06/13/2024 1:16 PM [facility] Blood Venous blood specimen / Unknown Venipuncture / Unknown 06/13/2024 6:18 AM EDT 06/13/2024 10:32 AM EDT us Fartun Goldstein MD LAB BLOOD ORDERABLES Fin al Result [facility] [address] [place] [address], * (ABNORMAL) Complete blood count (06/13/2024 6:18 AM EDT) [facility] WBC 9.7 4.8 - 10.8 K/mcL LAB HEMETOLOGY METHOD 06/13/2024 11:26 AM [facility] RBC 3.00(L) 4.50 - 5.50 M/mcL LAB HEMETOLOGY METHOD 06/13/2024 11:26 AM [facility] Hemoglobin 9.7(L) 13.5 - 17.5 g/dL LAB HEMETOLOGY METHOD 06/13/2024 11:26 AM [facility] Hematocrit 29.8(L) 42.0 - 54.0 % LAB HEMETOLOGY METHOD 06/13/2024 11:26 AM [facility] MCV 100.0(H) 79.0 - 98.0 FL LAB HEMETOLOGY METHOD 06/13/2024 11:26 AM [facility] MCH 32.6(H) 27.0 - 32.0 pcg LAB HEMETOLOGY METHOD 06/13/2024 11:26 AM [facility] MCHC 32.6 32.0 - 37.0 g/dL LAB HEMETOLOGY METHOD 06/13/2024 11:26 AM [facility] RDW 13.2 11.0 - 15.0 % LAB HEMETOLOGY METHOD 06/13/2024 11:26 AM [facility] Platelets 218 130 - 400 K/[facility] LAB HEMETOLOGY METHOD 06/13/2024 11:26 AM [facility] MPV 11.9(H) 7.0 - 11.0 FL LAB HEMETOLOGY METHOD 06/13/2024 11:26 AM [facility] NRBC 0.0 <1.0 % LAB HEMETOLOGY METHOD 06/13/2024 11:26 AM [facility] NRBC Absolute 0.00 <0.10 K/[facility] LAB HEMETOLOGY METHOD 06/13/2024 11:26 AM EDT [facility] Blood Venous blood specimen / Unknown Venipuncture / Unknown 06/13/2024 6:18 AM EDT 06/13/2024 10:32 AM EDT us Fartun Goldstein MD LAB BLOOD ORDERABLES Fin al Result [facility] [address] [place] [address], documented in this encounter Visit Diagnoses Diagnosis Unspecified atrial fibrillation (CMS/HCC V24, CMS/HCC V28) documented in this encounter Care Teams Vice President Of Talent Acquisition Relationship Specialty Start Date End Date Fartun Goldstein MD [address] [place] [phone] PCP - General Family Medicine 06/13/24 documented as of this encounter
--- OUTSIDE RECORDS SUMMARY | 2025-03-18 15:26 | XMS_ITS | Encounter Summary ---
Author Organization [facility] Address [address] [place] [address] Care Team Providers Care Metal Drill Operator Name Role Phone Fartun Goldstein MD Primary Care Provider + Encounter Details Date Type Department Care Team (Late st Contact Info) Description 06/22/[address] [facility] - Main Lab 299 [facility] [place] [address] Fartun Goldstein MD [address] [address] Unspecified atrial fibrillation (CMS/HCC V24, CMS/HCC V28) [...] V28) documented in this encounter Care Teams Metal Drill Operator Relationship Specialty Start Date End Date Fartun Goldstein MD [address] [place] [phone] PCP - General Family Medicine 06/13/24 documented as of this encounter
--- OUTSIDE RECORDS SUMMARY | 2025-03-18 15:26 | XMS_ITS | Encounter Summary ---
Author Organization [employer] Address [address] [place] [address] Care Team Providers Care Sales Center Manager Name Role Phone Fartun Goldstein MD Primary Care Provider + Encounter Details Date Type Department Care Team (Late st Contact Info) Description 06/28/2024 Lab Requisition [facility] - Main Lab 299 [facility] [place] [address] Fartun Goldstein MD [address] [phone] Abnormal results of kidney function studies Social [...] LAB CHEMISTRY METHOD 06/28/2024 1:21 PM EDT [facility] Potassium 4.4 3.5 - 5.5 mmol/L LAB CHEMISTRY METHOD 06/28/2024 1:21 PM EDT [facility] Chloride 103 96 - 110 mmol/L LAB CHEMISTRY METHOD 06/28/2024 1:21 PM EDT [facility] CO2 23 21 - 32 mmol/L LAB CHEMISTRY METHOD 06/28/2024 1:21 PM EDT [facility] Anion Gap 8 3 - 11 LAB CHEMISTRY METHOD 06/28/2024 1:21 PM EDT [facility] Glucose 94 70 - 100 mg/dL LAB CHEMISTRY METHOD 06/28/2024 1:21 PM EDT [facility] BUN 28(H) 5 - 25 mg/dL LAB CHEMISTRY METHOD 06/28/2024 1:21 PM EDT [facility] Creatinine 1.80(H) 0.70 - 1.30 mg/dL LAB CHEMISTRY METHOD 06/28/2024 1:21 PM EDT [facility] eGFR 36(L) >=60 mL/min/1. 73m2 LAB CHEMISTRY METHOD 06/28/2024 1:21 PM EDT [facility] Comment:Calculation based on the Chronic Kidney Disease Epidemiology Collaboration (CKD-EPI) equation refit without adjustment for race. BUN/Creatinine Ratio 15.6 LAB CHEMISTRY METHOD 06/28/2024 1:21 PM EDT [facility] Calcium 8.7 8.5 - 10.5 mg/dL LAB CHEMISTRY METHOD 06/28/2024 1:21 PM [facility] Blood Venous blood specimen / Unknown Venipuncture / Unknown 06/28/2024 11:33 AM EDT 06/28/2024 12:55 PM EDT us Fartun Goldstein MD LAB BLOOD ORDERABLES Fin al Result [facility] [address] [place] [address], [place] [phone] documented in this encounter Visit Diagnoses Diagnosis Abnormal results of kidney function studies Nonspecific abnormal results of kidney function study documented in this encounter Care Teams Sales Center Manager Relationship Specialty Start Date End Date Fartun Goldstein MD [address] [place] [phone] PCP - General Family Medicine 06/13/24 documented as of this encounter
--- OUTSIDE RECORDS SUMMARY | 2025-03-18 15:26 | XMS_ITS | Encounter Summary ---
Author Organization [employer] Address [address] [place] [address] Care Team Providers Care Electrician'S Assistant Name Role Phone Fartun Goldstein MD Primary Care Provider + Encounter Details Date Type Department Care Team (Late st Contact Info) Description 06/13/2024 Lab Requisition [facility] - Main Lab 299 [facility] [place] [address] Fartun Goldstein MD 819 [facility] 1 [place] [address] Unspecified atrial fibrillation (CMS/HCC V24, CMS/HCC V28) [...] LAB CHEMISTRY METHOD 06/16/2024 3:12 PM EDT [facility] Potassium 4.9 3.5 - 5.5 mmol/L LAB CHEMISTRY METHOD 06/16/2024 3:12 PM EDT [facility] Chloride 101 96 - 110 mmol/L LAB CHEMISTRY METHOD 06/16/2024 3:12 PM EDT [facility] CO2 18(L) 21 - 32 mmol/L LAB CHEMISTRY METHOD 06/16/2024 3:12 PM [facility] Anion Gap 15(H) 3 - 11 LAB CHEMISTRY METHOD 06/16/2024 3:12 PM [facility] Glucose 94 70 - 100 mg/dL LAB CHEMISTRY METHOD 06/16/2024 3:12 PM EDT [facility] BUN 77(H) 5 - 25 mg/dL LAB CHEMISTRY METHOD 06/16/2024 3:12 PM [facility] Comment:Results verified by repeat testing Creatinine 5.11(H) 0.70 - 1.30 mg/dL LAB CHEMISTRY METHOD 06/16/2024 3:12 PM [facility] Comment:Results verified by repeat testing eGFR 10(L) >=60 mL/min/1. 73m2 LAB CHEMISTRY METHOD 06/16/2024 3:12 PM [facility] Comment:Calculation based on the Chronic Kidney Disease Epidemiology Collaboration (CKD-EPI) equation refit without adjustment for race. BUN/Creatinine Ratio 15.1 LAB CHEMISTRY METHOD 06/16/2024 3:12 PM [facility] Calcium 8.4(L) 8.5 - 10.5 mg/dL LAB CHEMISTRY METHOD 06/16/2024 3:12 PM T [facility] Blood Venous blood specimen / Unknown Venipuncture / Unknown 06/16/2024 7:31 AM EDT 06/16/2024 11:30 AM EDT us Fartun Goldstein MD LAB BLOOD ORDERABLES Fin al Result [facility] [address] [place] [address], * (ABNORMAL) Complete blood count (06/16/2024 7:31 AM EDT) [facility] WBC 7.4 4.8 - 10.8 K/mcL LAB HEMETOLOGY METHOD 06/16/2024 12:32 PM [facility] RBC 2.80(L) 4.50 - 5.50 M/mcL LAB HEMETOLOGY METHOD 06/16/2024 12:32 PM EDT [facility] Hemoglobin 9.0(L) 13.5 - 17.5 g/dL LAB HEMETOLOGY METHOD 06/16/2024 12:32 PM [facility] Hematocrit 28.4(L) 42.0 - 54.0 % LAB HEMETOLOGY METHOD 06/16/2024 12:32 PM [facility] MCV 101.4(H) 79.0 - 98.0 FL LAB HEMETOLOGY METHOD 06/16/2024 12:32 [facility] MCH 32.1(H) 27.0 - 32.0 pcg LAB HEMETOLOGY METHOD 06/16/2024 12:32 PM [facility] MCHC 31.7(L) 32.0 - 37.0 g/dL LAB HEMETOLOGY METHOD 06/16/2024 12:32 PM [facility] RDW 13.4 11.0 - 15.0 % LAB HEMETOLOGY METHOD 06/16/2024 12:32 PM [facility] Platelets 311 130 - 400 K/mcL LAB HEMETOLOGY METHOD 06/16/2024 12:32 PM [facility] MPV 10.5 7.0 - 11.0 FL LAB HEMETOLOGY METHOD 06/16/2024 12:32 PM [facility] NRBC 0.0 <1.0 % LAB HEMETOLOGY METHOD 06/16/2024 12:32 PM [facility] NRBC Absolute 0.00 <0.10 K/mcL LAB HEMETOLOGY METHOD 06/16/2024 12:32 PM EDT [facility] Blood Venous blood specimen / Unknown Venipuncture / Unknown 06/16/2024 7:31 AM EDT 06/16/2024 11:30 AM EDT us Fartun Goldstein MD LAB BLOOD ORDERABLES Fin al Result [facility] [address] [place] [address], documented in this encounter Visit Diagnoses Diagnosis Unspecified atrial fibrillation (CMS/HCC V24, CMS/HCC V28) documented in this encounter Care Teams Electrician'S Assistant Relationship Specialty Start Date End Date Fartun Goldstein MD [address] [place] [phone] PCP - General Family Medicine 06/13/24 documented as of this encounter
--- OUTSIDE RECORDS SUMMARY | 2025-03-18 15:26 | XMS_ITS | Encounter Summary ---
Author Organization [employer] Address [address] [place] [address] Care Team Providers Care Professional Bass Fisher Name Role Phone Fartun Goldstein MD Primary Care Provider + Encounter Details Date Type Department Care Team (Late st Contact Info) Description 07/25/2024 Lab Requisition [facility] - Main Lab [address] [place] [address] Fartun Goldstein MD [address] [phone] Myelodysplastic syndrome, unspecified (CMS/HCC V24, CMS/HCC V28) [...] LAB CHEMISTRY METHOD 07/28/2024 11:57 AM EDT [facility] Potassium 4.2 3.5 - 5.5 mmol/L LAB CHEMISTRY METHOD 07/28/2024 11:57 AM [facility] Chloride 109 96 - 110 mmol/L LAB CHEMISTRY METHOD 07/28/2024 11:57 AM [facility] CO2 25 21 - 32 mmol/L LAB CHEMISTRY METHOD 07/28/2024 11:57 AM [facility] Anion Gap 6 3 - 11 LAB CHEMISTRY METHOD 07/28/2024 11:57 AM [facility] Glucose 80 70 - 100 mg/dL LAB CHEMISTRY METHOD 07/28/2024 11:57 AM [facility] BUN 24 5 - 25 mg/dL LAB CHEMISTRY METHOD 07/28/2024 11:57 AM [facility] Creatinine 1.67(H) 0.70 - 1.30 mg/dL LAB CHEMISTRY METHOD 07/28/2024 11:57 AM [facility] eGFR 40(L) >=60 mL/min/1. 73m2 LAB CHEMISTRY METHOD 07/28/2024 11:57 AM [facility] LAB Comment:Calculation based on the Chronic Kidney Disease Epidemiology Collaboration (CKD-EPI) equation refit without adjustment for race. BUN/Creatinine Ratio 14.4 LAB CHEMISTRY METHOD 07/28/2024 11:57 AM [facility] Calcium 8.8 8.5 - 10.5 mg/dL LAB CHEMISTRY METHOD 07/28/2024 11:57 AM [facility] Blood Venous blood specimen / Unknown Venipuncture / Unknown 07/28/2024 6:42 AM EDT 07/28/2024 9:47 AM EDT us Fartun Goldstein MD LAB BLOOD ORDERABLES Fin al Result [facility] [address] [place] [address], * (ABNORMAL) Complete blood count (07/28/2024 6:42 AM EDT) [facility] WBC 6.2 4.8 - 10.8 K/mcL LAB HEMETOLOGY METHOD 07/28/2024 10:16 AM [facility] RBC 2.30(L) 4.50 - 5.50 M/mcL LAB HEMETOLOGY METHOD 07/28/2024 10:16 AM [facility] Hemoglobin 7.3(L) 13.5 - 17.5 g/dL LAB HEMETOLOGY METHOD 07/28/2024 10:16 AM [facility] Hematocrit 23.7(L) 42.0 - 54.0 % LAB HEMETOLOGY METHOD 07/28/2024 10:16 AM [facility] MCV 105.3(H) 79.0 - 98.0 FL LAB HEMETOLOGY METHOD 07/28/2024 10:16 AM [facility] MCH 32.4(H) 27.0 - 32.0 pcg LAB HEMETOLOGY METHOD 07/28/2024 10:16 AM [facility] MCHC 30.8(L) 32.0 - 37.0 g/dL LAB HEMETOLOGY METHOD 07/28/2024 10:16 AM [facility] RDW 15.3(H) 11.0 - 15.0 % LAB HEMETOLOGY METHOD 07/28/2024 10:16 AM [facility] Platelets 234 130 - 400 K/mcL LAB HEMETOLOGY METHOD 07/28/2024 10:16 AM [facility] MPV 11.7(H) 7.0 - 11.0 FL LAB HEMETOLOGY METHOD 07/28/2024 10:16 AM [facility] NRBC 0.0 <1.0 % LAB HEMETOLOGY METHOD 07/28/2024 10:16 AM [facility] NRBC Absolute 0.00 <0.10 K/mcL LAB HEMETOLOGY METHOD 07/28/2024 10:16 AM EDT [facility] Blood Venous blood specimen / Unknown Venipuncture / Unknown 07/28/2024 6:42 AM EDT 07/28/2024 9:47 AM EDT us Fartun Goldstein MD LAB BLOOD ORDERABLES Fin al Result [facility] [address] [place] [address], documented in this encounter Visit Diagnoses Diagnosis Myelodysplastic syndrome, unspecified (CMS/HCC V24, CMS/HCC V28) Myelodysplastic syndrome, unspecified documented in this encounter Care Teams Professional Bass Fisher Relationship Specialty Start Date End Date Fartun Goldstein MD [address] [place] [phone] PCP - General Family Medicine 06/13/24 documented as of this encounter
--- OUTSIDE RECORDS SUMMARY | 2025-03-18 15:26 | XMS_ITS | Encounter Summary ---
Author Organization [employer] Address [address] [place] [address] Care Team Providers Care Automobile And Property Underwriter Name Role Phone Fartun Goldstein MD Primary Care Provider + Encounter Details Date Type Department Care Team (Late st Contact Info) Description 06/25/2024 Lab Requisition [facility] - Main Lab [address] [place] [address] Fartun Goldstein MD 819 [facility] 1 [place] [address] Anemia, unspecified Social History Tobacco Use Types [...] LAB CHEMISTRY METHOD 06/25/2024 8:37 AM T [facility] Potassium 4.6 3.5 - 5.5 mmol/L LAB CHEMISTRY METHOD 06/25/2024 8:37 AM [facility] Chloride 104 96 - 110 mmol/L LAB CHEMISTRY METHOD 06/25/2024 8:37 AM [facility] CO2 24 21 - 32 mmol/L LAB CHEMISTRY METHOD 06/25/2024 8:37 AM [facility] Anion Gap 7 3 - 11 LAB CHEMISTRY METHOD 06/25/2024 8:37 AM [facility] Glucose 82 70 - 100 mg/dL LAB CHEMISTRY METHOD 06/25/2024 8:37 AM [facility] BUN 31(H) 5 - 25 mg/dL LAB CHEMISTRY METHOD 06/25/2024 8:37 AM [facility] Creatinine 2.10(H) 0.70 - 1.30 mg/dL LAB CHEMISTRY METHOD 06/25/2024 8:37 AM [facility] eGFR 30(L) >=60 mL/min/1. 73m2 LAB CHEMISTRY METHOD 06/25/2024 8:37 AM [facility] Comment:Calculation based on the Chronic Kidney Disease Epidemiology Collaboration (CKD-EPI) equation refit without adjustment for race. BUN/Creatinine Ratio 14.8 LAB CHEMISTRY METHOD 06/25/2024 8:37 AM [facility] Calcium 8.4(L) 8.5 - 10.5 mg/dL LAB CHEMISTRY METHOD 06/25/2024 8:37 AM [facility] Blood Venous blood specimen / Unknown Venipuncture / Unknown 06/25/2024 5:37 AM EDT 06/25/2024 7:49 AM EDT us Fartun Goldstein MD LAB BLOOD ORDERABLES Fin al Result [facility] [address] [place] [address], * (ABNORMAL) Complete blood count (06/25/2024 5:37 AM EDT) WBC 8.9 4.8 - 10.8 K/[facility] LAB HEMETOLOGY METHOD 06/25/2024 8:11 AM [facility] RBC 2.50(L) 4.50 - 5.50 M/mcL LAB HEMETOLOGY METHOD 06/25/2024 8:11 AM [facility] Hemoglobin 7.9(L) 13.5 - 17.5 g/dL LAB HEMETOLOGY METHOD 06/25/2024 8:11 AM [facility] Hematocrit 24.6(L) 42.0 - 54.0 % LAB HEMETOLOGY METHOD 06/25/2024 8:11 AM [facility] MCV 100.4(H) 79.0 - 98.0 FL LAB HEMETOLOGY METHOD 06/25/2024 8:11 AM [facility] MCH 32.2(H) 27.0 - 32.0 pcg LAB HEMETOLOGY METHOD 06/25/2024 8:11 AM [facility] MCHC 32.1 32.0 - 37.0 g/dL LAB HEMETOLOGY METHOD 06/25/2024 8:11 AM [facility] RDW 13.7 11.0 - 15.0 % LAB HEMETOLOGY METHOD 06/25/2024 8:11 AM [facility] Platelets 354 130 - 400 K/mcL LAB HEMETOLOGY METHOD 06/25/2024 8:11 AM [facility] MPV 10.1 7.0 - 11.0 FL LAB HEMETOLOGY METHOD 06/25/2024 8:11 AM [facility] NRBC 0.0 <1.0 % LAB HEMETOLOGY METHOD 06/25/2024 8:11 AM [facility] NRBC Absolute 0.00 <0.10 K/mcL LAB HEMETOLOGY METHOD 06/25/2024 8:11 AM [facility] Blood Venous blood specimen / Unknown Venipuncture / Unknown 06/25/2024 5:37 AM EDT 06/25/2024 7:49 AM EDT us Fartun Goldstein MD LAB BLOOD ORDERABLES Fin al Result Performing Organization Address City/State/[facility] Co de Phone Number [facility] ([facility] [address] [place] [address], documented in this encounter Visit Diagnoses Diagnosis Anemia, unspecified documented in this encounter 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
--- OUTSIDE RECORDS SUMMARY | 2025-03-18 15:27 | XMS_ITS | Encounter Summary ---
Author Organization [employer] Address [address] [place] [address] Care Team Providers Care Electrical Systems Engineer Name Role Phone Fartun Goldstein MD Primary Care Provider + Encounter Details Date Type Department Care Team (Late st Contact Info) Description 08/29/2024 Lab Requisition [facility] - Main Lab [address] [place] [address] Fartun Goldstein MD 819 [facility] 1 [place] [address] Anemia, unspecified Social History Tobacco Use Types [...] mmol/L LAB CHEMISTRY METHOD 09/01/2024 10:20 AM [facility] Potassium 4.7 3.5 - 5.5 mmol/L LAB CHEMISTRY METHOD 09/01/2024 10:20 AM [facility] Chloride 108 96 - 110 mmol/L LAB CHEMISTRY METHOD 09/01/2024 10:20 AM [facility] CO2 22 21 - 32 mmol/L LAB CHEMISTRY METHOD 09/01/2024 10:20 AM [facility] Anion Gap 9 3 - 11 LAB CHEMISTRY METHOD 09/01/2024 10:20 AM [facility] Glucose 80 70 - 100 mg/dL LAB CHEMISTRY METHOD 09/01/2024 10:20 AM [facility] BUN 39(H) 5 - 25 mg/dL LAB CHEMISTRY METHOD 09/01/2024 10:20 AM [facility] Creatinine 1.79(H) 0.70 - 1.30 mg/dL LAB CHEMISTRY METHOD 09/01/2024 10:20 AM [facility] eGFR 36(L) >=60 mL/min/1. 73m2 LAB CHEMISTRY METHOD 09/01/2024 10:20 AM [facility] Comment:Calculation based on the Chronic Kidney Disease Epidemiology Collaboration (CKD-EPI) equation refit without adjustment for race. BUN/Creatinine Ratio 21.8 LAB CHEMISTRY METHOD 09/01/2024 10:20 AM [facility] Calcium 8.7 8.5 - 10.5 mg/dL LAB CHEMISTRY METHOD 09/01/2024 10:20 AM [facility] Blood Venous blood specimen / Unknown Venipuncture / Unknown 09/01/2024 6:06 AM EDT 09/01/2024 10:19 AM EDT us Fartun Goldstein MD LAB BLOOD ORDERABLES Fin al Result [facility] [address] [place] [address], * (ABNORMAL) Complete blood count (09/01/2024 6:06 AM EDT) WBC 5.8 4.8 - 10.8 K/[facility] LAB HEMETOLOGY METHOD 09/01/2024 10:13 AM [facility] RBC 2.40(L) 4.50 - 5.50 M/mcL LAB HEMETOLOGY METHOD 09/01/2024 10:13 AM [facility] Hemoglobin 7.8(L) 13.5 - 17.5 g/dL LAB HEMETOLOGY METHOD 09/01/2024 10:13 AM [facility] Hematocrit 24.7(L) 42.0 - 54.0 % LAB HEMETOLOGY METHOD 09/01/2024 10:13 AM [facility] MCV 102.1(H) 79.0 - 98.0 FL LAB HEMETOLOGY METHOD 09/01/2024 10:13 AM [facility] MCH 32.2(H) 27.0 - 32.0 pcg LAB HEMETOLOGY METHOD 09/01/2024 10:13 AM [facility] MCHC 31.6(L) 32.0 - 37.0 g/dL LAB HEMETOLOGY METHOD 09/01/2024 10:13 AM [facility] RDW 14.2 11.0 - 15.0 % LAB HEMETOLOGY METHOD 09/01/2024 10:13 AM [facility] Platelets 232 130 - 400 K/mcL LAB HEMETOLOGY METHOD 09/01/2024 10:13 AM [facility] MPV 11.2(H) 7.0 - 11.0 FL LAB HEMETOLOGY METHOD 09/01/2024 10:13 AM [facility] NRBC 0.0 <1.0 % LAB HEMETOLOGY METHOD 09/01/2024 10:13 AM [facility] NRBC Absolute 0.00 <0.10 K/mcL LAB HEMETOLOGY METHOD 09/01/2024 10:13 AM [facility] Blood Venous blood specimen / Unknown Venipuncture / Unknown 09/01/2024 6:06 AM EDT 09/01/2024 10:11 AM EDT Fartun Goldstein MD LAB BLOOD ORDERABLES Fin al Result [facility] ([facility]) [facility] [address] [place] [address], documented in this encounter Visit Diagnoses Diagnosis Anemia, unspecified documented in this encounter Care Teams Electrical Systems Engineer Relationship Specialty Start Date End Date Fartun Goldstein MD [address] [place] [id number] PCP - General Family Medicine 06/13/24 documented as of this encounter
--- OUTSIDE RECORDS SUMMARY | 2025-03-18 15:27 | XMS_ITS | Encounter Summary ---
Author Organization [employer] Address [address] [place] [address] Care Team Providers Care Utilization Management Rn Name Role Phone Fartun Goldstein MD Primary Care Provider + Encounter Details Date Type Department Care Team (Late st Contact Info) Description 07/09/2024 Lab Requisition [facility] - Main Lab [address] [place] [address] Fartun Goldstein MD 819 [facility] 1 [place] [address] Unspecified atrial fibrillation (CMS/HCC V24, CMS/HCC V28) [...] LAB CHEMISTRY METHOD 07/09/2024 10:39 AM EDT [facility] Potassium 3.8 3.5 - 5.5 mmol/L LAB CHEMISTRY METHOD 07/09/2024 10:39 AM [facility] Chloride 106 96 - 110 mmol/L LAB CHEMISTRY METHOD 07/09/2024 10:39 AM [facility] CO2 25 21 - 32 mmol/L LAB CHEMISTRY METHOD 07/09/2024 10:39 AM [facility] Anion Gap 6 3 - 11 LAB CHEMISTRY METHOD 07/09/2024 10:39 AM [facility] Glucose 77 70 - 100 mg/dL LAB CHEMISTRY METHOD 07/09/2024 10:39 AM [facility] BUN 27(H) 5 - 25 mg/dL LAB CHEMISTRY METHOD 07/09/2024 10:39 AM [facility] Creatinine 1.77(H) 0.70 - 1.30 mg/dL LAB CHEMISTRY METHOD 07/09/2024 10:39 AM [facility] LAB eGFR 37(L) >=60 mL/min/1. 73m2 LAB CHEMISTRY METHOD 07/09/2024 10:39 AM [facility] Comment:Calculation based on the Chronic Kidney Disease Epidemiology Collaboration (CKD-EPI) equation refit without adjustment for race. BUN/Creatinine Ratio 15.3 LAB CHEMISTRY METHOD 07/09/2024 10:39 AM [facility] Calcium 8.5 8.5 - 10.5 mg/dL LAB CHEMISTRY METHOD 07/09/2024 10:39 AM [facility] Blood Venous blood specimen / Unknown Venipuncture / Unknown 07/09/2024 5:50 AM EDT 07/09/2024 8:43 AM EDT us Fartun Goldstein MD LAB BLOOD ORDERABLES Fin al Result [facility] [address] [place] [address], * (ABNORMAL) Complete blood count (07/09/2024 5:50 AM EDT) [facility] WBC 7.0 4.8 - 10.8 K/mcL LAB HEMETOLOGY METHOD 07/09/2024 9:37 AM [facility] RBC 2.20(L) 4.50 - 5.50 M/mcL LAB HEMETOLOGY METHOD 07/09/2024 9:37 AM [facility] Hemoglobin 7.1(L) 13.5 - 17.5 g/dL LAB HEMETOLOGY METHOD 07/09/2024 9:37 AM [facility] Hematocrit 22.9(L) 42.0 - 54.0 % LAB HEMETOLOGY METHOD 07/09/2024 9:37 AM [facility] MCV 103.2(H) 79.0 - 98.0 FL LAB HEMETOLOGY METHOD 07/09/2024 9:37 AM [facility] MCH 32.0 27.0 - 32.0 pcg LAB HEMETOLOGY METHOD 07/09/2024 9:37 AM [facility] MCHC 31.0(L) 32.0 - 37.0 g/dL LAB HEMETOLOGY METHOD 07/09/2024 9:37 AM [facility] RDW 14.3 11.0 - 15.0 % LAB HEMETOLOGY METHOD 07/09/2024 9:37 AM [facility] Platelets 291 130 - 400 K/mcL LAB HEMETOLOGY METHOD 07/09/2024 9:37 AM [facility] MPV 10.5 7.0 - 11.0 FL LAB HEMETOLOGY METHOD 07/09/2024 9:37 AM [facility] NRBC 0.0 <1.0 % LAB HEMETOLOGY METHOD 07/09/2024 9:37 AM [facility] NRBC Absolute 0.00 <0.10 K/mcL LAB HEMETOLOGY METHOD 07/09/2024 9:37 AM EDT [facility] Blood Venous blood specimen / Unknown Venipuncture / Unknown 07/09/2024 5:50 AM EDT 07/09/2024 8:43 AM EDT us Fartun Goldstein MD LAB BLOOD ORDERABLES Fin al Result [facility] [address] [place] [address], documented in this encounter Visit Diagnoses Diagnosis Unspecified atrial fibrillation (CMS/HCC V24, CMS/HCC V28) documented in this encounter Care Teams Utilization Management Rn Relationship Specialty Start Date End Date Fartun Goldstein MD [address] [place] [phone] PCP - General Family Medicine 06/13/24 documented as of this encounter
--- OUTSIDE RECORDS SUMMARY | 2025-03-18 15:27 | XMS_ITS | Encounter Summary ---
Author Organization [facility] Address [address] [place] [address] Care Team Providers Care Customizer Name Role Phone Fartun Goldstein MD Primary Care Provider + Encounter Details Date Type Department Care Team (Late st Contact Info) Description 07/03/2024 Lab Requisition [facility] [address] [place] [address] Fartun Goldstein MD [address] [phone] Elevated white blood cell count, unspecified Social [...] AM EDT) WBC 6.5 4.8 - 10.8 K/[facility] LAB HEMETOLOGY METHOD 07/03/2024 8:48 AM EDT [facility] RBC 2.30(L) 4.50 - 5.50 M/[facility] LAB HEMETOLOGY METHOD 07/03/2024 8:48 AM EDT [facility] Hemoglobin 7.5(L) 13.5 - 17.5 g/dL LAB HEMETOLOGY METHOD 07/03/2024 8:48 AM EDT [facility] Hematocrit 23.6(L) 42.0 - 54.0 % LAB HEMETOLOGY METHOD 07/03/2024 8:48 AM EDT [facility] MCV 100.9(H) 79.0 - 98.0 FL LAB HEMETOLOGY METHOD 07/03/2024 8:48 AM EDT [facility] MCH 32.1(H) 27.0 - 32.0 pcg LAB HEMETOLOGY METHOD 07/03/2024 8:48 AM EDT [facility] MCHC 31.8(L) 32.0 - 37.0 g/dL LAB HEMETOLOGY METHOD 07/03/2024 8:48 AM EDT [facility] RDW 13.6 11.0 - 15.0 % LAB HEMETOLOGY METHOD 07/03/2024 8:48 AM EDT [facility] Platelets 355 130 - 400 K/mcL LAB HEMETOLOGY METHOD 07/03/2024 8:48 AM EDT [facility] MPV 9.8 7.0 - 11.0 FL LAB HEMETOLOGY METHOD 07/03/2024 8:48 AM EDT [facility] NRBC 0.0 <1.0 % LAB HEMETOLOGY METHOD 07/03/2024 8:48 AM EDT [facility] NRBC Absolute 0.00 <0.10 K/mcL LAB HEMETOLOGY METHOD 07/03/2024 8:48 AM EDT [facility] Blood Venous blood specimen / Unknown Venipuncture / Unknown 07/03/2024 6:54 AM EDT 07/03/2024 8:08 AM EDT us Fartun Goldstein MD LAB BLOOD ORDERABLES Fin al Result [facility] [address] [place] [address], documented in this encounter Visit Diagnoses Diagnosis Elevated white blood cell count, unspecified documented in this encounter Care Teams Customizer Relationship Specialty Start Date End Date Fartun Goldstein MD [address] [id number] PCP - General Family Medicine 06/13/24 documented as of this encounter
--- OUTSIDE RECORDS SUMMARY | 2025-03-18 15:27 | XMS_ITS | Encounter Summary ---
Author Organization [employer] Address [address] [place] [address] Care Team Providers Care Gyroscope Repairer Name Role Phone Fartun Goldstein MD Primary Care Provider + Encounter Details Date Type Department Care Team (Late st Contact Info) Description 08/25/2024 Lab Requisition [facility] - Main Lab [address] [place] [address] Fartun Goldstein MD [address] [phone] Myelodysplastic syndrome, unspecified (CMS/HCC V24, CMS/HCC V28) [...] LAB CHEMISTRY METHOD 08/26/2024 11:17 AM EDT [facility] Potassium 4.4 3.5 - 5.5 mmol/L LAB CHEMISTRY METHOD 08/26/2024 11:17 AM [facility] Chloride 108 96 - 110 mmol/L LAB CHEMISTRY METHOD 08/26/2024 11:17 AM [facility] CO2 23 21 - 32 mmol/L LAB CHEMISTRY METHOD 08/26/2024 11:17 AM [facility] LAB Anion Gap 9 3 - 11 LAB CHEMISTRY METHOD 08/26/2024 11:17 AM [facility] Glucose 73 70 - 100 mg/dL LAB CHEMISTRY METHOD 08/26/2024 11:17 AM [facility] BUN 36(H) 5 - 25 mg/dL LAB CHEMISTRY METHOD 08/26/2024 11:17 AM [facility] Creatinine 1.98(H) 0.70 - 1.30 mg/dL LAB CHEMISTRY METHOD 08/26/2024 11:17 AM [facility] LAB eGFR 32(L) >=60 mL/min/1. 73m2 LAB CHEMISTRY METHOD 08/26/2024 11:17 AM [facility] LAB Comment:Calculation based on the Chronic Kidney Disease Epidemiology Collaboration (CKD-EPI) equation refit without adjustment for race. BUN/Creatinine Ratio 18.2 LAB CHEMISTRY METHOD 08/26/2024 11:17 AM [facility] Calcium 9.0 8.5 - 10.5 mg/dL LAB CHEMISTRY METHOD 08/26/2024 11:17 AM [facility] Blood Venous blood specimen / Unknown Venipuncture / Unknown 08/26/2024 5:58 AM EDT 08/26/2024 11:17 AM EDT us Fartun Goldstein MD LAB BLOOD ORDERABLES Fin al Result [facility] [address] [place] [address], * (ABNORMAL) Complete blood count (08/26/2024 5:58 AM EDT) [facility] WBC 5.4 4.8 - 10.8 K/mcL LAB HEMETOLOGY METHOD 08/26/2024 11:03 AM [facility] RBC 2.20(L) 4.50 - 5.50 M/mcL LAB HEMETOLOGY METHOD 08/26/2024 11:03 AM [facility] Hemoglobin 7.3(L) 13.5 - 17.5 g/dL LAB HEMETOLOGY METHOD 08/26/2024 11:03 AM [facility] Hematocrit 23.6(L) 42.0 - 54.0 % LAB HEMETOLOGY METHOD 08/26/2024 11:03 AM [facility] MCV 105.4(H) 79.0 - 98.0 FL LAB HEMETOLOGY METHOD 08/26/2024 11:03 AM [facility] MCH 32.6(H) 27.0 - 32.0 pcg LAB HEMETOLOGY METHOD 08/26/2024 11:03 AM [facility] MCHC 30.9(L) 32.0 - 37.0 g/dL LAB HEMETOLOGY METHOD 08/26/2024 11:03 AM [facility] RDW 14.6 11.0 - 15.0 % LAB HEMETOLOGY METHOD 08/26/2024 11:03 AM [facility] Platelets 212 130 - 400 K/mcL LAB HEMETOLOGY METHOD 08/26/2024 11:03 AM [facility] MPV 11.3(H) 7.0 - 11.0 FL LAB HEMETOLOGY METHOD 08/26/2024 11:03 AM [facility] NRBC 0.0 <1.0 % LAB HEMETOLOGY METHOD 08/26/2024 11:03 AM [facility] NRBC Absolute 0.00 <0.10 K/mcL LAB HEMETOLOGY METHOD 08/26/2024 11:03 AM EDT [facility] Blood Venous blood specimen / Unknown Venipuncture / Unknown 08/26/2024 5:58 AM EDT 08/26/2024 11:02 AM EDT us Fartun Goldstein MD LAB BLOOD ORDERABLES Fin al Result [facility] [address] [place] [address], documented in this encounter Visit Diagnoses Diagnosis Myelodysplastic syndrome, unspecified (CMS/HCC V24, CMS/HCC V28) Myelodysplastic syndrome, unspecified documented in this encounter Care Teams Gyroscope Repairer Relationship Specialty Start Date End Date Fartun Goldstein MD [address] [place] [id number] PCP - General Family Medicine 06/13/24 documented as of this encounter
--- OUTSIDE RECORDS SUMMARY | 2025-03-18 15:27 | XMS_ITS | Encounter Summary ---
Author Organization [facility] Address [address] [place] [address] Care Team Providers Care Extension Clerk Name Role Phone Fartun Goldstein MD Primary Care Provider + Encounter Details Date Type Department Care Team (Late st Contact Info) Description 09/05/2024 Lab Requisition [facility] - Main Lab 299 [facility] [place] [address] Fartun Goldstein MD [address] [phone] Anemia, unspecified Social History Tobacco Use Types [...] unspecified documented in this encounter Care Teams Extension Clerk Relationship Specialty Start Date End Date Fartun Goldstein MD [address] [phone] PCP - General Family Medicine 06/13/24 documented as of this encounter
--- OUTSIDE RECORDS SUMMARY | 2025-03-18 15:27 | XMS_ITS | Encounter Summary ---
Author Organization [facility] Address [address] [place] [address] Care Team Providers Care Decorator Store Name Role Phone Fartun Goldstein MD Primary Care Provider + Encounter Details Date Type Department Care Team (Late st Contact Info) Description 08/17/2024 Lab Requisition [facility] - Main Lab [address] [place] [address] Fartun Goldstein MD [address] [phone] Myelodysplastic syndrome, unspecified (CMS/HCC V24, CMS/HCC V28) [...] LAB CHEMISTRY METHOD 08/18/2024 10:33 AM EDT [facility] ([facility]) [facility] LAB Potassium 4.4 3.5 - 5.5 mmol/L LAB CHEMISTRY METHOD 08/18/2024 10:33 AM [facility] LAB Chloride 107 96 - 110 mmol/L LAB CHEMISTRY METHOD 08/18/2024 10:33 AM [facility] LAB CO2 22 21 - 32 mmol/L LAB CHEMISTRY METHOD 08/18/2024 10:33 AM [facility] LAB Anion Gap 10 3 - 11 LAB CHEMISTRY METHOD 08/18/2024 10:33 AM [facility] LAB Glucose 76 70 - 100 mg/dL LAB CHEMISTRY METHOD 08/18/2024 10:33 AM [facility] LAB BUN 34(H) 5 - 25 mg/dL LAB CHEMISTRY METHOD 08/18/2024 10:33 AM [facility] LAB Creatinine 1.97(H) 0.70 - 1.30 mg/dL LAB CHEMISTRY METHOD 08/18/2024 10:33 AM [facility] LAB eGFR 32(L) >=60 mL/min/1. 73m2 LAB CHEMISTRY METHOD 08/18/2024 10:33 AM [facility] LAB Comment:Calculation based on the Chronic Kidney Disease Epidemiology Collaboration (CKD-EPI) equation refit without adjustment for race. BUN/Creatinine Ratio 17.3 LAB CHEMISTRY METHOD 08/18/2024 10:33 AM [facility] LAB Calcium 9.1 8.5 - 10.5 mg/dL LAB CHEMISTRY METHOD 08/18/2024 10:33 AM [facility] LAB Blood Venous blood specimen / Unknown Venipuncture / Unknown 08/18/2024 6:03 AM EDT 08/18/2024 9:11 AM EDT us Fartun Goldstein MD LAB BLOOD ORDERABLES Fin al Result [facility] LAB [address] [place] [address], * (ABNORMAL) Complete blood count (08/18/2024 6:03 AM EDT) [facility] WBC 5.5 4.8 - 10.8 K/mcL LAB HEMETOLOGY METHOD 08/18/2024 9:42 AM [facility] LAB RBC 2.30(L) 4.50 - 5.50 M/mcL LAB HEMETOLOGY METHOD 08/18/2024 9:42 AM [facility] LAB Hemoglobin 7.6(L) 13.5 - 17.5 g/dL LAB HEMETOLOGY METHOD 08/18/2024 9:42 AM [facility] LAB Hematocrit 24.1(L) 42.0 - 54.0 % LAB HEMETOLOGY METHOD 08/18/2024 9:42 AM [facility] LAB MCV 103.0(H) 79.0 - 98.0 FL LAB HEMETOLOGY METHOD 08/18/2024 9:42 AM [facility] LAB MCH 32.5(H) 27.0 - 32.0 pcg LAB HEMETOLOGY METHOD 08/18/2024 9:42 AM [facility] LAB MCHC 31.5(L) 32.0 - 37.0 g/dL LAB HEMETOLOGY METHOD 08/18/2024 9:42 AM [facility] LAB RDW 14.7 11.0 - 15.0 % LAB HEMETOLOGY METHOD 08/18/2024 9:42 AM [facility] LAB Platelets 235 130 - 400 K/mcL LAB HEMETOLOGY METHOD 08/18/2024 9:42 AM [facility] LAB MPV 11.3(H) 7.0 - 11.0 FL LAB HEMETOLOGY METHOD 08/18/2024 9:42 AM [facility] LAB NRBC 0.0 <1.0 % LAB HEMETOLOGY METHOD 08/18/2024 9:42 AM [facility] LAB NRBC Absolute 0.00 <0.10 K/mcL LAB HEMETOLOGY METHOD 08/18/2024 9:42 AM EDT [facility] LAB Blood Venous blood specimen / Unknown Venipuncture / Unknown 08/18/2024 6:03 AM EDT 08/18/2024 9:11 AM EDT us Fartun Goldstein MD LAB BLOOD ORDERABLES Fin al Result [facility] LAB [address] [place] [address], documented in this encounter Visit Diagnoses Diagnosis Myelodysplastic syndrome, unspecified (CMS/HCC V24, CMS/HCC V28) Myelodysplastic syndrome, unspecified documented in this encounter Care Teams Decorator Store Relationship Specialty Start Date End Date Fartun Goldstein MD [address] [place] [phone] PCP - General Family Medicine 06/13/24 documented as of this encounter
--- OUTSIDE RECORDS SUMMARY | 2025-03-18 15:27 | XMS_ITS | Encounter Summary ---
Author Organization [employer] Address [address] [place] [address] Care Team Providers Care Lead Press Operator Name Role Phone Fartun Goldstein MD Primary Care Provider + Encounter Details Date Type Department Care Team (Late st Contact Info) Description 08/02/2024 Lab Requisition [facility] - Main Lab [address] [place] [address] Fartun Goldstein MD [address] [phone] Myelodysplastic syndrome, unspecified (CMS/HCC V24, CMS/HCC V28) [...] LAB CHEMISTRY METHOD 08/04/2024 10:15 AM EDT [facility] LAB Potassium 4.0 3.5 - 5.5 mmol/L LAB CHEMISTRY METHOD 08/04/2024 10:15 AM [facility] LAB Chloride 107 96 - 110 mmol/L LAB CHEMISTRY METHOD 08/04/2024 10:15 AM [facility] LAB CO2 22 21 - 32 mmol/L LAB CHEMISTRY METHOD 08/04/2024 10:15 AM [facility] LAB Anion Gap 8 3 - 11 LAB CHEMISTRY METHOD 08/04/2024 10:15 AM [facility] LAB Glucose 77 70 - 100 mg/dL LAB CHEMISTRY METHOD 08/04/2024 10:15 AM [facility] LAB BUN 31(H) 5 - 25 mg/dL LAB CHEMISTRY METHOD 08/04/2024 10:15 AM [facility] LAB Creatinine 1.80(H) 0.70 - 1.30 mg/dL LAB CHEMISTRY METHOD 08/04/2024 10:15 AM [facility] LAB eGFR 36(L) >=60 mL/min/1. 73m2 LAB CHEMISTRY METHOD 08/04/2024 10:15 AM [facility] LAB Comment:Calculation based on the Chronic Kidney Disease Epidemiology Collaboration (CKD-EPI) equation refit without adjustment for race. BUN/Creatinine Ratio 17.2 LAB CHEMISTRY METHOD 08/04/2024 10:15 AM [facility] LAB Calcium 9.0 8.5 - 10.5 mg/dL LAB CHEMISTRY METHOD 08/04/2024 10:15 AM [facility] LAB Blood Venous blood specimen / Unknown Venipuncture / Unknown 08/04/2024 5:53 AM EDT 08/04/2024 9:11 AM EDT us Fartun Goldstein MD LAB BLOOD ORDERABLES Fin al Result [facility] [address] [place] [address], * (ABNORMAL) Complete blood count (08/04/2024 5:53 AM EDT) [facility] WBC 6.3 4.8 - 10.8 K/mcL LAB HEMETOLOGY METHOD 08/04/2024 9:50 AM [facility] RBC 2.30(L) 4.50 - 5.50 M/mcL LAB HEMETOLOGY METHOD 08/04/2024 9:50 AM [facility] LAB Hemoglobin 7.3(L) 13.5 - 17.5 g/dL LAB HEMETOLOGY METHOD 08/04/2024 9:50 AM [facility] LAB Hematocrit 23.8(L) 42.0 - 54.0 % LAB HEMETOLOGY METHOD 08/04/2024 9:50 AM [facility] LAB MCV 105.8(H) 79.0 - 98.0 FL LAB HEMETOLOGY METHOD 08/04/2024 9:50 AM [facility] LAB MCH 32.4(H) 27.0 - 32.0 pcg LAB HEMETOLOGY METHOD 08/04/2024 9:50 AM [facility] LAB MCHC 30.7(L) 32.0 - 37.0 g/dL LAB HEMETOLOGY METHOD 08/04/2024 9:50 AM [facility] LAB RDW 15.6(H) 11.0 - 15.0 % LAB HEMETOLOGY METHOD 08/04/2024 9:50 AM [facility] LAB Platelets 227 130 - 400 K/mcL LAB HEMETOLOGY METHOD 08/04/2024 9:50 AM [facility] MPV 11.0 7.0 - 11.0 FL LAB HEMETOLOGY METHOD 08/04/2024 9:50 AM [facility] LAB NRBC 0.0 <1.0 % LAB HEMETOLOGY METHOD 08/04/2024 9:50 AM [facility] LAB NRBC Absolute 0.00 <0.10 K/mcL LAB HEMETOLOGY METHOD 08/04/2024 9:[address] [facility] LAB Blood Venous blood specimen / Unknown Venipuncture / Unknown 08/04/2024 5:53 AM EDT 08/04/2024 9:11 AM EDT us Fartun Goldstein MD LAB BLOOD ORDERABLES Fin al Result [facility] [address] [place] [address], documented in this encounter Visit Diagnoses Diagnosis Myelodysplastic syndrome, unspecified (CMS/HCC V24, CMS/HCC V28) Myelodysplastic syndrome, unspecified documented in this encounter Care Teams Lead Press Operator Relationship Specialty Start Date End Date Fartun Goldstein MD [address] [place] [phone] PCP - General Family Medicine 06/13/24 documented as of this encounter
--- OUTSIDE RECORDS SUMMARY | 2025-03-18 15:27 | XMS_ITS | Encounter Summary ---
Author Organization [employer] [facility] Address [address] [place] [address] Care Team Providers Care Leathersmith Name Role Phone Fartun Goldstein MD Primary Care Provider + Encounter Details Date Type Department Care Team (Late st Contact Info) Description 07/15/2024 Lab Requisition [facility] - Main Lab [address] [facility] [place] [address] Fartun Goldstein MD 819 [facility] 1 [place] [address] Essential (primary) hypertension Social History Tobacco Use [...] mmol/L LAB CHEMISTRY METHOD 07/15/2024 9:17 AM [facility] LAB Potassium 3.9 3.5 - 5.5 mmol/L LAB CHEMISTRY METHOD 07/15/2024 9:17 AM [facility] LAB Chloride 106 96 - 110 mmol/L LAB CHEMISTRY METHOD 07/15/2024 9:17 AM [facility] CO2 25 21 - 32 mmol/L LAB CHEMISTRY METHOD 07/15/2024 9:17 AM [facility] LAB Anion Gap 5 3 - 11 LAB CHEMISTRY METHOD 07/15/2024 9:17 AM [facility] LAB Glucose 73 70 - 100 mg/dL LAB CHEMISTRY METHOD 07/15/2024 9:17 AM [facility] BUN 21 5 - 25 mg/dL LAB CHEMISTRY METHOD 07/15/2024 9:17 AM [facility] Creatinine 1.47(H) 0.70 - 1.30 mg/dL LAB CHEMISTRY METHOD 07/15/2024 9:17 AM [facility] eGFR 46(L) >=60 mL/min/1. 73m2 LAB CHEMISTRY METHOD 07/15/2024 9:17 AM [facility] LAB Comment:Calculation based on the Chronic Kidney Disease Epidemiology Collaboration (CKD-EPI) equation refit without adjustment for race. BUN/Creatinine Ratio 14.3 LAB CHEMISTRY METHOD 07/15/2024 9:17 AM [facility] Calcium 8.7 8.5 - 10.5 mg/dL LAB CHEMISTRY METHOD 07/15/2024 9:17 AM [facility] LAB Blood Venous blood specimen / Unknown Venipuncture / Unknown 07/15/2024 5:03 AM EDT 07/15/2024 8:28 AM EDT us Fartun Goldstein MD LAB BLOOD ORDERABLES Fin al Result [facility] [address] [place] [address], * (ABNORMAL) Complete blood count (07/15/2024 5:03 AM EDT) WBC 7.0 4.8 - 10.8 K/[facility] LAB HEMETOLOGY METHOD 07/15/2024 9:21 AM [facility] RBC 2.30(L) 4.50 - 5.50 M/mcL LAB HEMETOLOGY METHOD 07/15/2024 9:21 AM [facility] Hemoglobin 7.2(L) 13.5 - 17.5 g/dL LAB HEMETOLOGY METHOD 07/15/2024 9:21 AM [facility] LAB Hematocrit 23.3(L) 42.0 - 54.0 % LAB HEMETOLOGY METHOD 07/15/2024 9:21 AM [facility] LAB MCV 103.1(H) 79.0 - 98.0 FL LAB HEMETOLOGY METHOD 07/15/2024 9:21 AM [facility] MCH 31.9 27.0 - 32.0 pcg LAB HEMETOLOGY METHOD 07/15/2024 9:21 AM [facility] MCHC 30.9(L) 32.0 - 37.0 g/dL LAB HEMETOLOGY METHOD 07/15/2024 9:21 AM [facility] RDW 14.9 11.0 - 15.0 % LAB HEMETOLOGY METHOD 07/15/2024 9:21 AM [facility] LAB Platelets 07/15/2024 9:21 AM [facility] LAB Comment:Not measured. Platel ets appear adequate but clumped MPV 10.2 7.0 - 11.0 FL LAB HEMETOLOGY METHOD 07/15/2024 9:21 AM [facility] NRBC 0.0 <1.0 % LAB HEMETOLOGY METHOD 07/15/2024 9:21 AM [facility] NRBC Absolute 0.00 <0.10 K/mcL LAB HEMETOLOGY METHOD 07/15/2024 9:21 AM [facility] Blood Venous blood specimen / Unknown Venipuncture / Unknown 07/15/2024 5:03 AM EDT 07/15/2024 8:28 AM EDT us Fartun Goldstein MD LAB BLOOD ORDERABLES Fin al Result [facility] ([facility]) [facility] [address] [place] [address], documented in this encounter Visit Diagnoses Diagnosis Essential (primary) hypertension Unspecified essential hypertension documented in this encounter Care Teams Leathersmith Relationship Specialty Start Date End Date Fartun Goldstein MD [address] [place] [phone] PCP - General Family Medicine 06/13/24 documented as of this encounter
--- OUTSIDE RECORDS SUMMARY | 2025-03-18 15:27 | XMS_ITS | Encounter Summary ---
Author Organization [employer] Address [address] [place] [address] Care Team Providers Care Mental Hygiene Consultant Name Role Phone Fartun Goldstein MD Primary Care Provider + Encounter Details Date Type Department Care Team (Late st Contact Info) Description 08/09/2024 Lab Requisition [facility] - Main Lab [address] [place] [address] Fartun Goldstein MD 819 [facility] 1 [place] [address] Anemia, unspecified Social History Tobacco Use Types [...] mmol/L LAB CHEMISTRY METHOD 08/11/2024 8:[address] [facility] Potassium 4.1 3.5 - 5.5 mmol/L LAB CHEMISTRY METHOD 08/11/2024 8:[address] [facility] Chloride 109 96 - 110 mmol/L LAB CHEMISTRY METHOD 08/11/2024 8:[address] [facility] CO2 24 21 - 32 mmol/L LAB CHEMISTRY METHOD 08/11/2024 8:[address] [facility] Anion Gap 7 3 - 11 LAB CHEMISTRY METHOD 08/11/2024 8:[address] [facility] Glucose 78 70 - 100 mg/dL LAB CHEMISTRY METHOD 08/11/2024 8:[address] [facility] BUN 33(H) 5 - 25 mg/dL LAB CHEMISTRY METHOD 08/11/2024 8:[address] [facility] Creatinine 1.81(H) 0.70 - 1.30 mg/dL LAB CHEMISTRY METHOD 08/11/2024 8:[address] [facility] LAB eGFR 36(L) >=60 mL/min/1. 73m2 LAB CHEMISTRY METHOD 08/11/2024 8:[address] [facility] Comment:Calculation based on the Chronic Kidney Disease Epidemiology Collaboration (CKD-EPI) equation refit without adjustment for race. BUN/Creatinine Ratio 18.2 LAB CHEMISTRY METHOD 08/11/2024 8:[address] [facility] Calcium 9.0 8.5 - 10.5 mg/dL LAB CHEMISTRY METHOD 08/11/2024 8:[address] [facility] Blood Venous blood specimen / Unknown Venipuncture / Unknown 08/11/2024 5:57 AM EDT 08/11/2024 7:32 AM EDT us Fartun Goldstein MD LAB BLOOD ORDERABLES Fin al Result [facility] [address] [place] [address], * (ABNORMAL) Complete blood count (08/11/2024 5:57 AM EDT) WBC 5.8 4.8 - 10.8 K/[facility] LAB HEMETOLOGY METHOD 08/11/2024 8:[address] [facility] RBC 2.20(L) 4.50 - 5.50 M/mcL LAB HEMETOLOGY METHOD 08/11/2024 8:[address] [facility] Hemoglobin 7.0(L) 13.5 - 17.5 g/dL LAB HEMETOLOGY METHOD 08/11/2024 8:[address] [facility] Hematocrit 22.4(L) 42.0 - 54.0 % LAB HEMETOLOGY METHOD 08/11/2024 8:[address] [facility] MCV 102.3(H) 79.0 - 98.0 FL LAB HEMETOLOGY METHOD 08/11/2024 8:[address] [facility] MCH 32.0 27.0 - 32.0 pcg LAB HEMETOLOGY METHOD 08/11/2024 8:[address] [facility] MCHC 31.3(L) 32.0 - 37.0 g/dL LAB HEMETOLOGY METHOD 08/11/2024 8:[address] [facility] RDW 15.2(H) 11.0 - 15.0 % LAB HEMETOLOGY METHOD 08/11/2024 8:[address] [facility] Platelets 217 130 - 400 K/mcL LAB HEMETOLOGY METHOD 08/11/2024 8:[address] [facility] MPV 10.7 7.0 - 11.0 FL LAB HEMETOLOGY METHOD 08/11/2024 8:[address] [facility] NRBC 0.0 <1.0 % LAB HEMETOLOGY METHOD 08/11/2024 8:[address] [facility] NRBC Absolute 0.00 <0.10 K/mcL LAB HEMETOLOGY METHOD 08/11/2024 8:[address] [facility] Blood Venous blood specimen / Unknown Venipuncture / Unknown 08/11/2024 5:57 AM EDT 08/11/2024 7:32 AM EDT us Fartun Goldstein MD LAB BLOOD ORDERABLES Fin al Result Performing Organization Address City/State/[facility] Co de Phone Number [facility] [address] [place] [address], documented in this encounter Visit Diagnoses Diagnosis Anemia, unspecified documented in this encounter Care Teams Mental Hygiene Consultant Relationship Specialty Start Date End Date Fartun Goldstein MD [address] [place] [phone] PCP - General Family Medicine 06/13/24 documented as of this encounter
--- OUTSIDE RECORDS SUMMARY | 2025-03-18 15:27 | XMS_ITS | Clinical Summary ---
Author Organization [address] [facility] Address [address] [place] [address] Phone Care Team Providers Care Cost Estimating Engineer Name Role Phone Elder, Fartun Barahona MD [...] mmol/L LAB CHEMISTRY METHOD 09/01/2024 10:20 AM [facility] Potassium 4.7 3.5 - 5.5 mmol/L LAB CHEMISTRY METHOD 09/01/2024 10:20 AM [facility] Chloride 108 96 - 110 mmol/L LAB CHEMISTRY METHOD 09/01/2024 10:20 AM [facility] LAB CO2 22 21 - 32 mmol/L LAB CHEMISTRY METHOD 09/01/2024 10:20 AM [facility] LAB Anion Gap 9 3 - 11 LAB CHEMISTRY METHOD 09/01/2024 10:20 AM [facility] Glucose 80 70 - 100 mg/dL LAB CHEMISTRY METHOD 09/01/2024 10:20 AM [facility] BUN 39(H) 5 - 25 mg/dL LAB CHEMISTRY METHOD 09/01/2024 10:20 AM [facility] Creatinine 1.79(H) 0.70 - 1.30 mg/dL LAB CHEMISTRY METHOD 09/01/2024 10:20 AM [facility] LAB eGFR 36(L) >=60 mL/min/1. 73m2 LAB CHEMISTRY METHOD 09/01/2024 10:20 AM EDT [facility] Comment:Calculation based on the Chronic Kidney Disease Epidemiology Collaboration (CKD-EPI) equation refit without adjustment for race. BUN/Creatinine Ratio 21.8 LAB CHEMISTRY METHOD 09/01/2024 10:20 AM EDT [facility] Calcium 8.7 8.5 - 10.5 mg/dL LAB CHEMISTRY METHOD 09/01/2024 10:20 AM EDT [facility] Blood Venous blood specimen / Unknown Venipuncture / Unknown 09/01/2024 6:06 AM EDT 09/01/2024 10:19 AM EDT us Fartun Goldstein MD LAB BLOOD ORDERABLES Fin al Result [facility] ([facility]) [facility] [address] [place] [address], from Last 3 Months or Most Recently Relevant to Health Maintenance Insurance MEDICARE [facility] Care Teams Cost Estimating Engineer Relationship Specialty Start Date End Date Fartun Goldstein MD [address] [place] [address] PCP - General Family Medicine 06/13/24
--- OUTSIDE RECORDS SUMMARY | 2025-05-09 19:00 | XMS_ITS | Clinical Summary ---
Author Organization Unknown Care Team Providers Care Trashman Name Role Phone JANEY GRAYSONIONA Unavailable Unava james MOROCHO RN, INGRID Unavailable Unavailable DAVID RASHEEDN, SARA Unavailable Unavaillorelei SHETH PT, SHRAVAN Unavailable Unavailable DARLENE CABLE TV INSTALLER, [employer] Unavailable Unavailable Payers Payer Name Policy Type Policy Number Effective Date Expira tion Date MEDICARE.NGS.PDGM [id number] Problems Condition Name Condition Details Condition Category Status Onset Date Resolution Date Last Treatment Date Treating Clinician Comments OTHER PNEUMONIA, UNSPECIFIED ORGANISM Active 2024-04 00:00: 00 HYPERTENSIVE CHRONIC KIDNEY DISEASE W STG 1-4/UNSP CHR KDNY Active 2024-04 00:00: 00 CHRONIC KIDNEY DISEASE, STAGE 3B Active 2024-04 00:00: 00 ANEMIA IN CHRONIC KIDNEY DISEASE Active 2024-04 00:00: 00 CHRONIC ATRIAL FIBRILLATION , UNSPECIFIED Active 2024-04 00:00: 00 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 Active 2024-04 00:00: 00 ACUTE KIDNEY FAILURE, UNSPECIFIED Active 2024-04 00:00: 00 HYPO-OSMOLAL ITY AND HYPONATREMIA Active 2024-04 00:00: 00 ACUTE RESPIRATORY FAILURE WITH HYPOXIA Active 2024-04 00:00: 00 HYPOTENSION, UNSPECIFIED Active 2024-04 00:00: 00 HYPOTHYROIDI SM, UNSPECIFIED Active 2024-04 00:00: 00 OLD MYOCARDIAL INFARCTION Active 2024-04 00:00: 00 HYPERLIPIDEM IA, UNSPECIFIED Active 2024-04 00:00: 00 GASTRO-ESOPH 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 Ordering Clinician Indication Dosage Frequency Signature (SIG) Comments Components amlodipine 5 mg tablet 08-19 00:00: 00 Yes [id number] HTN Per instruc tions ONCE DAILY Per instructio ns ONCE DAILY (route: oral) Med Classific ation: Cardiovas cular Therapy Agents metoprolol succinate ER 50 mg tablet,exte nded release 24 hr 08-19 00:00: 00 Yes [id number] AFIB Per instruc tions ONCE DAILY Per instructio ns ONCE DAILY (route: oral) Med Classific ation: Cardiovas cular Therapy Agents rosuvastati n 40 mg tablet 08-19 00:00: 00 Yes [id number] CHOLESTEROL 1 tablet DAILY 1 tablet DAILY (route: oral) Med Classific ation: Cardiovas cular Therapy Agents acetaminoph en 325 mg tablet 09-07 00:00: 00 Yes [id number] PAIN 2 tablet 3 TIMES DAILY 2 tablet 3 TIMES DAILY (route: oral) Med Classific ation: Analgesic , Anti-infl ammatory or Antipyret ic amlodipine 2.5 mg tablet 09-07 00:00: 00 03-12 00:00 :00 No [id number] HTN 1 tablet BEDTIME 1 tablet BEDTIME (route: oral) Med Classific ation: Cardiovas cular Therapy Agents aspirin 81 mg tablet,shantelle yed release 09-07 00:00: 00 Yes [id number] HEART HEALTH 1 tablet DAILY 1 tablet DAILY (route: oral) Med Classific ation: Hematolog ical Agents Miralax 17 gram/dose oral powder 09-07 00:00: 00 12-02 00:00 :00 No [id number] LAXATIVE 17 gram DAILY 17 gram DAILY (route: oral) Med Classific ation: Gastroint estinal Therapy Agents tamsulosin 0.4 mg capsule 09-07 00:00: 00 12-02 00:00 :00 No [id number] BPH 1 capsule DAILY 1 capsule DAILY (route: oral) Med Classific ation: Genitouri nary Therapy Vital Signs Vital Name Observation Time Observation Value Commen ts Temperature 2025-03-17 14:59:00.000 98.6 [degF] Temperature 2025-03-17 11:14:00.000 97 [degF] Temperature 2025-03-12 10:25:00.000 97.9 [degF] BMI (%) 2025-03-12 10:25:00.000 23 kg/m2 Height 2025-03-12 10:25:00.000 67 [in_us] Pulse 2025-03-17 14:59:00.000 68 /min Pulse 2025-03-17 11:14:00.000 60 /min Pulse 2025-03-12 10:25:00.000 61 /min O2 Saturation (%) 2025-03-17 14:59:00.000 99 % O2 Saturation (%) 2025-03-17 11:14:00.000 95 % O2 Saturation (%) 2025-03-12 10:25:00.000 96 % Respirations 2025-03-17 14:59:00.000 18 /min Respirations 2025-03-17 11:14:00.000 16 /min Respirations 2025-03-12 10:25:00.000 18 /min Weight (lbs) 2025-03-12 10:25:00.000 150 [lb_av] Systolic Blood Pressure 2025-03-17 14:59:00.000 110 mm [Hg] Systolic Blood Pressure 2025-03-17 11:14:00.000 120 mm [Hg] Systolic Blood Pressure 2025-03-12 10:25:00.000 128 mm [Hg] Diastolic Blood Pressure 2025-03-17 14:59:00.000 62 mm [Hg] Diastolic Blood Pressure 2025-03-17 11:14:00.000 70 mm [Hg] Diastolic Blood Pressure 2025-03-12 10:25:00.000 78 mm [Hg] Plan of Treatment Planned Activity Planned Date Details Comments Future Scheduled Test RN TO OBSE RVE, ASSESS, EVALUATE, AND DEVELOP AN INDIVIDUALIZED PLAN OF CARE. AGENCY MAY ACCEPT ORDERS FROM CONSULTING PHYSICIANS. RN TO OBSERVE AND ASSESS, ORTHODONTIC ASSISTANT/BRYOLOGIST TO OBSERVE FOR RISK FOR FALLS AND INSTRUCT IN FALL PREVENTION, HOME SAFETY, MEDICATION MANAGEMENT, INFECTION PREVENTION, AND NUTRITION MANAGEMENT. RN/ORTHODONTIC ASSISTANT/BRYOLOGIST NURSE MAY PERFORM O2 SATURATION LEVEL ON ADMISSION AND PRN FOR RN TO ASSESS/ORTHODONTIC ASSISTANT TO OBSERVE PATIENT, WITH NOTIFICATION TO THE PHYSICIAN IF SATURATION IS 90% IN THE ABSENCE OF MORE SPECIFIC PARAMETERS FROM THE PHYSICIAN. AGENCY MAY PERFORM A RESUMPTION OF CARE VISIT FOLLOWING ANY HOSPITAL ADMISSION. RN/ORTHODONTIC ASSISTANT/BRYOLOGIST TO MONITOR CO-MORBID CONDITIONS LISTED ON THE PLAN OF CARE AND ANY NEW CONDITIONS THAT PRESENT THEMSELVES DURING THIS EPISODE TO IDENTIFY CHANGES AND INTERVENE TO MINIMIZE COMPLICATIONS. [code = RN TO OBSERVE, ASSESS, EVALUATE, AND DEVELOP AN INDIVIDUALIZED PLAN OF CARE. AGENCY MAY ACCEPT ORDERS FROM CONSULTING PHYSICIANS. RN TO OBSERVE AND ASSESS, ORTHODONTIC ASSISTANT/BRYOLOGIST TO OBSERVE FOR RISK FOR FALLS AND INSTRUCT IN FALL PREVENTION, HOME SAFETY, MEDICATION MANAGEMENT, INFECTION PREVENTION, AND NUTRITION MANAGEMENT. RN/ORTHODONTIC ASSISTANT/BRYOLOGIST NURSE MAY PERFORM O2 SATURATION LEVEL ON ADMISSION AND PRN FOR RN TO ASSESS/ORTHODONTIC ASSISTANT TO OBSERVE PATIENT, WITH NOTIFICATION TO THE PHYSICIAN IF SATURATION IS 90% IN THE ABSENCE OF MORE SPECIFIC PARAMETERS FROM THE PHYSICIAN. AGENCY MAY PERFORM A RESUMPTION OF CARE VISIT FOLLOWING ANY HOSPITAL ADMISSION. RN/ORTHODONTIC ASSISTANT/BRYOLOGIST TO MONITOR CO-MORBID CONDITIONS LISTED ON THE PLAN OF CARE AND ANY NEW CONDITIONS THAT PRESENT THEMSELVES DURING THIS EPISODE TO IDENTIFY CHANGES AND INTERVENE TO MINIMIZE COMPLICATIONS.] Future Scheduled Test MEDICATION MANAGEMENT; RN/ORTHODONTIC ASSISTANT/BRYOLOGIST TO REVIEW MEDICATIONS FOR INTERACTIONS, EFFECTIVENESS OF DRUG THERAPY, AND SIGNS/SYMPTOMS OF ADVERSE REACTIONS. MAY INSTRUCT AND REINFORCE MEDICATION TEACHING RELATED TO THE USE OF MEDICATIONS, DOSAGE, FREQUENCY, PURPOSE, SIDE EFFECTS, AND TO REPORT COMPLICATIONS. [code = MEDICATION MANAGEMENT; RN/ORTHODONTIC ASSISTANT/BRYOLOGIST TO REVIEW MEDICATIONS FOR INTERACTIONS, EFFECTIVENESS OF DRUG THERAPY, AND SIGNS/SYMPTOMS OF ADVERSE REACTIONS. MAY INSTRUCT AND REINFORCE MEDICATION TEACHING RELATED TO THE USE OF MEDICATIONS, DOSAGE, FREQUENCY, PURPOSE, SIDE EFFECTS, AND TO REPORT COMPLICATIONS.] Future Scheduled Test RISK FOR H OSPITALIZATION; RN TO ASSESS/TEACH, BRYOLOGIST/ORTHODONTIC ASSISTANT TO OBSERVE/TEACH PATIENT/CAREGIVER ON RISK FOR HOSPITALIZATION/EMERGENCY ROOM VISITS, TEACH SIGNS AND SYMPTOMS THAT PUT PATIENT AT RISK, WHEN TO NOTIFY NURSE/PHYSICIAN OF COMPLICATIONS/DECLINE, AND WHEN TO CALL 911. [code = RISK FOR HOSPITALIZATION; RN TO ASSESS/TEACH, BRYOLOGIST/ORTHODONTIC ASSISTANT TO OBSERVE/TEACH PATIENT/CAREGIVER ON RISK FOR HOSPITALIZATION/EMERGENCY ROOM VISITS, TEACH SIGNS AND SYMPTOMS THAT PUT PATIENT AT RISK, WHEN TO NOTIFY NURSE/PHYSICIAN OF COMPLICATIONS/DECLINE, AND WHEN TO CALL 911.] Future Scheduled Test RESPIRATOR Y SYSTEM MANAGEMENT; RN TO ASSESS AND TEACH, ORTHODONTIC ASSISTANT/BRYOLOGIST TO OBSERVE AND TEACH RELATED TO ALTERED RESPIRATORY STATUS TO MINIMIZE COMPLICATIONS AND REDUCE HOSPITALIZATION. [code = RESPIRATORY SYSTEM MANAGEMENT; RN TO ASSESS AND TEACH, ORTHODONTIC ASSISTANT/BRYOLOGIST TO OBSERVE AND TEACH RELATED TO ALTERED RESPIRATORY STATUS TO MINIMIZE COMPLICATIONS AND REDUCE HOSPITALIZATION.] Future Scheduled Test PNEUMONIA MANAGEMENT; RN TO ASSESS AND TEACH, ORTHODONTIC ASSISTANT/BRYOLOGIST TO OBSERVE AND TEACH SIGNS OF PNEUMONIA EXACERBATION AND PROVIDE EARLY INTERVENTIONS TO MINIMIZE RISK OF HOSPITALIZATION. [code = PNEUMONIA MANAGEMENT; RN TO ASSESS AND TEACH, ORTHODONTIC ASSISTANT/BRYOLOGIST TO OBSERVE AND TEACH SIGNS OF PNEUMONIA EXACERBATION AND PROVIDE EARLY INTERVENTIONS TO MINIMIZE RISK OF HOSPITALIZATION.] Future Scheduled Test PAIN MANAG EMENT; RN TO ASSESS AND TEACH, BRYOLOGIST/ORTHODONTIC ASSISTANT TO OBSERVE AND TEACH AND PROVIDE EDUCATION ON PAIN MANAGEMENT TECHNIQUES. [code = PAIN MANAGEMENT; RN TO ASSESS AND TEACH, BRYOLOGIST/ORTHODONTIC ASSISTANT TO OBSERVE AND TEACH AND PROVIDE EDUCATION ON PAIN MANAGEMENT TECHNIQUES.] Future Scheduled Test FALL REDUC TION MANAGEMENT; RN TO ASSESS AND OBSERVE, ORTHODONTIC ASSISTANT/BRYOLOGIST TO OBSERVE FALL RISK FACTORS AND EDUCATE PATIENT/CAREGIVER ON STRATEGIES TO MINIMIZE THE RISK OF FALLING. [code = FALL REDUCTION MANAGEMENT; RN TO ASSESS AND OBSERVE, ORTHODONTIC ASSISTANT/BRYOLOGIST TO OBSERVE FALL RISK FACTORS AND EDUCATE PATIENT/CAREGIVER ON STRATEGIES TO MINIMIZE THE RISK OF FALLING.] Future Scheduled Test PHYSICAL T HERAPIST TO EVALUATE FOR DECREASED STRENGTH [code = PHYSICAL THERAPIST TO EVALUATE FOR DECREASED STRENGTH] Future Scheduled Test AGENCY MAY PERFORM A RESUMPTION OF CARE VISIT FOLLOWING ANY HOSPITAL ADMISSION. PT TO EVALUATE, OBSERVE / ASSESS, AND MONITOR, CABLE TV INSTALLER TO OBSERVE AND MONITOR, PROVIDE SKILLED THERAPEUTIC INTERVENTION, ACTIVITY, EDUCATION, AND TRAINING TO ADDRESS; PT/CABLE TV INSTALLER TO PROVIDE GAIT TRAINING FOR IMPROVED MOBILITY AND /OR TO NORMALIZE GAIT PATTERN NEUROMUSCULAR RE-EDUCATION / BALANCE / POSTURAL CONTROL (PT) THERAPEUTIC EXERCISES AND ESTABLISHING A HOME EXERCISE PROGRAM (PT/CABLE TV INSTALLER) PT/CABLE TV INSTALLER TO PROVIDE STAIR TRAINING CHAIR TRANSFERS (PT/CABLE TV INSTALLER) PT TO ASSESS / CABLE TV INSTALLER TO MONITOR FOR AND REPORT EARLY SIGNS OF ANTICOAGULANT TOXICITY TO THE PHYSICIAN AND/OR THE RN CLINICAL VALVE SEATER OPERATOR FOR PHYSICIAN NOTIFICATION AND TO PROVIDE PATIENT/CAREGIVER EDUCATION ON ANTICOAGULANT THERAPY PT / CABLE TV INSTALLER TO MONITOR AND EDUCATE ON OXYGEN SATURATION DURING ADLS/IADLS, NOTIFY PHYSICIAN AND/OR THE RN CLINICAL VALVE SEATER OPERATOR FOR PHYSICIAN NOTIFICATION AND IF O2 SATS BELOW PHYSICIAN ORDERED PARAMETERS AFTER 10 MIN OF REST PT / CABLE TV INSTALLER MAY EDUCATE ON PAIN MANAGEMENT CLINICALLY INDICATED, INCLUDING NON-PHARMACOLOGICAL PAIN REDUCTION TECHNIQUES AND USE OF CRYOTHERAPY OR HEAT UP TO 20 MIN AT A TIME FOR PAIN MANAGEMENT TIMES PER DAY TO PT/CABLE TV INSTALLER TO IDENTIFY FALL RISK FACTORS; EDUCATE THE PATIENT/CAREGIVER ON WAYS TO REDUCE FALL RISK FACTORS AND ESTABLISH HOME EXERCISE PROGRAM TO MINIMIZE FALL RISK. MAY TEACH THE PATIENT FLOOR RECOVERY WHEN CLINICALLY APPROPRIATE [code = AGENCY MAY PERFORM A RESUMPTION OF CARE VISIT FOLLOWING ANY HOSPITAL ADMISSION. PT TO EVALUATE, OBSERVE / ASSESS, AND MONITOR, CABLE TV INSTALLER TO OBSERVE AND MONITOR, PROVIDE SKILLED THERAPEUTIC INTERVENTION, ACTIVITY, EDUCATION, AND TRAINING TO ADDRESS; PT/CABLE TV INSTALLER TO PROVIDE GAIT TRAINING FOR IMPROVED MOBILITY AND /OR TO NORMALIZE GAIT PATTERN NEUROMUSCULAR RE-EDUCATION / BALANCE / POSTURAL CONTROL (PT) THERAPEUTIC EXERCISES AND ESTABLISHING A HOME EXERCISE PROGRAM (PT/CABLE TV INSTALLER) PT/CABLE TV INSTALLER TO PROVIDE STAIR TRAINING CHAIR TRANSFERS (PT/CABLE TV INSTALLER) PT TO ASSESS / CABLE TV INSTALLER TO MONITOR FOR AND REPORT EARLY SIGNS OF ANTICOAGULANT TOXICITY TO THE PHYSICIAN AND/OR THE RN CLINICAL VALVE SEATER OPERATOR FOR PHYSICIAN NOTIFICATION AND TO PROVIDE PATIENT/CAREGIVER EDUCATION ON ANTICOAGULANT THERAPY PT / CABLE TV INSTALLER TO MONITOR AND EDUCATE ON OXYGEN SATURATION DURING ADLS/IADLS, NOTIFY PHYSICIAN AND/OR THE RN CLINICAL VALVE SEATER OPERATOR FOR PHYSICIAN NOTIFICATION AND IF O2 SATS BELOW PHYSICIAN ORDERED PARAMETERS AFTER 10 MIN OF REST PT / CABLE TV INSTALLER MAY EDUCATE ON PAIN MANAGEMENT CLINICALLY INDICATED, INCLUDING NON-PHARMACOLOGICAL PAIN REDUCTION TECHNIQUES AND USE OF CRYOTHERAPY OR HEAT UP TO 20 MIN AT A TIME FOR PAIN MANAGEMENT TIMES PER DAY TO PT/CABLE TV INSTALLER TO IDENTIFY FALL RISK FACTORS; EDUCATE THE PATIENT/CAREGIVER ON WAYS TO REDUCE FALL RISK FACTORS AND ESTABLISH HOME EXERCISE PROGRAM TO MINIMIZE FALL RISK. MAY TEACH THE PATIENT FLOOR RECOVERY WHEN CLINICALLY APPROPRIATE] Goal Patient Goal - WALK MORE Goal Provider Goal - A PLAN OF CARE WILL BE ESTABLISHED THAT MEETS THE PATIENT S NEEDS. PATIENT WILL DEMONSTRATE OXYGEN SATURATION WITHIN NORMAL LIMITS OR PATIENT S OPTIMAL LEVEL ESTABLISHED BY THE PHYSICIAN THROUGHOUT CARE. CHANGES TO CO-MORBID CONDITIONS AND ANY NEW CONDITIONS WILL BE IDENTIFIED AND REPORTED TO THE PHYSICIAN. Goal Provider Goal - PATIENT/CAREGIVER TO VERBALIZE, AND CONSISTENTLY DEMONSTRATE EFFECTIVE, SAFE MANAGEMENT OF MEDICATION INCLUDING KNOWLEDGE OF EFFECTIVENESS, POTENTIAL SIDE EFFECTS AND DRUG REACTIONS AND WHEN TO CONTACT THE APPROPRIATE CARE PROVIDER. PATIENT/CAREGIVER WILL BE ABLE TO VERBALIZE UNDERSTANDING OF MEDICATION REGIMEN AND ACCURATELY TAKE MEDICATIONS PRESCRIBED WITHOUT ADVERSE EFFECTS BY 05/13/25 Goal Provider Goal - PATIENT/CAREGIVER WILL VERBALIZE UNDERSTANDING OF SIGNS AND SYMPTOMS THAT PUT THE PATIENT AT RISK FOR HOSPITALIZATION /EMERGENCY ROOM VISITS, WHEN TO NOTIFY NURSE/PHYSICIAN OF COMPLICATIONS/DECLINE AND WHEN TO CALL 911 BY 05/13/25 Goal Provider Goal - PATIENT / CAREGIVER WILL VERBALIZE/DEMONSTRATE UNDERSTANDING OF MEASURES TO MANAGE ALTERED RESPIRATORY STATUS BY 05/13/25 Goal Provider Goal - PATIENT / CAREGIVER WILL VERBALIZE/DEMONSTRATE AN ABILITY TO ADHERE TO PNEUMONIA SELF-MANAGEMENT TO MINIMIZE COMPLICATIONS AND AVOID HOSPITALIZATION BY 05/13/25 Goal Provider Goal - PATIENT / CAREGIVER WILL VERBALIZE / DEMONSTRATE UNDERSTANDING OF PAIN CONTROL MEASURES BY 05/13/25 Goal Provider Goal - PATIENT/CAREGIVER WILL VERBALIZE/DEMONSTRATE UNDERSTANDING OF FALL RISK FACTORS AND IMPLEMENT STRATEGIES TO MINIMIZE FALL RISK. PATIENT/CAREGIVER WILL VERBALIZE/DEMONSTRATE AN ABILITY TO ADHERE TO FALL REDUCTION SELF-MANAGEMENT AND LIFE-STYLE CHANGES BY 05/13/25 Goal Provider Goal - Goal Provider Goal - PT LTG: PATIENT WILL DEMONSTRATE IMPROVED MOBILITY BY AMBULATING ON ALL SURFACES USING LRAD FROM SBA AND CGA TO INDEPENDENT WITHIN 8 WEEKS IN ORDER TO LEAVE HOME SAFELY FOR MD APPOINTMENTS PT LTG: PATIENT WILL DEMONSTRATE REDUCED GAIT DEVIATIONS TO REDUCE THE RISK FOR FALLING AND MINIMIZE STRAIN ON KNEES/HIPS AND BACK EVIDENCED BY IMPROVED STEP LENGTH, AND POSTURE USING LRAD TO WALK INDEPENDENTLY IN ORDER TO ACCESS ENTIRE HOME WITHIN 8 WEEKS PT LTG: PATIENT WILL NOT EXPERIENCE ANY FALLS DURING EPISODE OF CARE PT LTG: PATIENT WILL DEMONSTRATE REDUCED FALL RISK EVIDENCED BY TUG TEST (CUT SCORE >11 SECONDS INDICATES INCREASED FALL RISK) IMPROVING FROM 40 SEC TO 20 SEC WITHIN 8 WEEKS PT LTG: PATIENT WILL DEMONSTRATE IMPROVED FUNCTIONAL STRENGTH EVIDENCED BY FIVE TIMES SIT TO STAND TEST (CUT SCORE >12 SECONDS INDICATES AN INCREASED FALL RISK) IMPROVING FROM 30 SEC TO 20 SEC WITHIN 8 WEEKS IN ORDER TO REDUCE FALL RISK DURING SEATED TRANSFERS PT LTG: PATIENT WILL DEMONSTRATE INCREASED STRENGTH OF B LE MMT FROM 4-/3+ TO 4 WITHIN 8 WEEKS IN ORDER TO IMPROVE ALL TRASNFERS PT LTG: PATIENT WILL DEMONSTRATE IMPROVED ABILITY TO SAFELY NEGOTIATE STAIRS FROM CGA TO INDEPENDENT WITH LRAD IN ORDER TO LEAVE HOME SAFELY WITHIN 8 WEEKS PT STG: PATIENT WILL DEMONSTRATE IMPROVED ABILITY TO PERFORM CHAIR TRANSFERS TO REDUCE THE RISK OF SKIN BREAKDOWN AND FALL RISK FROM SBA TO INDEPENDENT WITHIN 4 WEEKS PT LTG: PATIENT WILL NOT EXHIBIT SIGNS AND SYMPTOMS OF ANTICOAGULANT TOXICITY THROUGHOUT EPISODE OF CARE. PT LTG: PATIENT WILL MAINTAIN OXYGEN SATURATION WITHIN PHYSICIAN ORDERED PARAMETERS THROUGHOUT EPISODE OF CARE. PT GOAL: PATIENT WILL DEMONSTRATE UNDERSTANDING OF PAIN MANAGEMENT TECHNIQUES EVIDENCED BY REDUCED PAIN IN L KNEE FROM 8 MAX TO 4 MAX WITHIN 8 WEEKS PT LTG: PATIENT/CAREGIVER WILL DEMONSTRATE ADHERENCE TO FALL REDUCTION SELF-MANAGEMENT AND REDUCING FALL RISK FACTORS TO MINIMIZE FALL RISK BY END OF EPISODE PT LTG: PATIENT WILL BE INDEPENDENT WITH IMPLEMENTATION OF HEP WITHIN 8 WEEKS PT LTG: CAREGIVER WILL BE INDEPENDENT ASSISTING PATIENT TO COMPLETE HEP WITHIN 8 WEEKS Progress Notes Progress Notes <paragraph>[Visit Date: 2024 by SARA HERNANDEZ LPN]:</paragraph><paragraph>SKILLED NURSE VISIT FOR RESPIRATORY MONITORING. SPOUSE PRESENT FOR VISIT AND IS SUPOORTIVEMAND INVOLVED WITH PLAN OF CARE. PATIENT ALERT AND ORIENTED X3, FORGETFUL AT BASELINE, GROOMED AND DRESSED, PLEASANT AND COOPERATIVE WITH VISIT. </paragraph><paragraph></paragraph><paragraph>PATIENT WAS SEEN BY HIS PCP ON 03/16/25. NO NEW ORDERS. LUNG SCHMITZ CLEAR BILATERALLY. PATIENT REPORTS PRODUCTIVE COUGH. NOT OBSERVED DURING VISIT. PATIENT HAS AN ACAPELLA DEVICE IN HOME FROM THE HOSPITAL SKILLED NURSE REVIEWED PURPOSE AND USE. PATIENT VERBALIZED UNDERSTANDING ND PROVIDED GOOD TEACH BACK. </paragraph><paragraph></paragraph><paragraph>PATIENT CONTINUES TO REQUIRE [employer] SERVICES FOR MONITORING OF RESPIRATORY STATUS. PATIENT IS HOMEBOUND DUE TO UNSTEADY GAIT AND POOR ENDURANCE AND PNEUMONIA AND REQUIRES ASSISTANCE OF ONE CAREGIVER TO SAFELY LEAVE HOME. PATIENT EDUCATED ON HOW AND WHEN TO CALL HOME HEALTH AGENCY AND WHEN TO CALL 911. VERBALIZED UNDERSTANDING.</paragraph> <paragraph>[Visit Date: 2024 by SHRAVAN SHETH PT]:</paragraph><paragraph>PROVIDED CARE:</paragraph><paragraph>PATIENT IS AN 85 YO UNDERGOING A HHPT ASSESSMENT FOR WEAKNESS, AND DECREASED MOBILITY FOLLOWING HOSPITLIZATION FOR ACUTE BRONCHITIS SSECONDARY TO RHINOVIRUS, NSTEMI, WANDER ON CKD, AND HYPONATREMIA. PMH INCLDUES: CARDIOMYOPATHY, CAD S/P CABG, HTN, HLD, HIGH-GRADE AV BLOCK S/P BIV PACEMAKER, A-FIB S/P WATCHMAN, PROCEDURE , AND CKD.</paragraph><paragraph></paragraph><paragraph>PLOF - PATIENT WAS INDEPENDENT IN AMBULATION, STAIRS, TRANSFERS, FUNCTIONAL MOBILITY, AND ALL SELF-CARE WITH A WALKER</paragraph><paragraph></paragraph><paragraph>CLOF- PATIENT CURRENTLY LIVES IN HOME WITH WITH TEE AND HAS 2 SONS THAT ASSIST THEM NEEDED. PATIENT IS USING HIS WC DUE TO +2 LE EDEMA IN FEET AND ANKLES, AND IS A&O X 3 WITH 5/1- L KNEE PAIN THAT CAN RISE TO 8. PATIENT PRESENTED WITH WEAKNESS, AND CURRENTLY NEEDS SBA TO CGA FOR ALL GAIT, TRANSFERS, STAIRS, FUCNTIONAL MOBILITY AND ALL SELF-CARE. FINDIGNS ARE SUPPORTED BY TUG (40 SEC) AND 5TSTS (30) SEC.</paragraph><paragraph></paragraph><paragraph>PATIENT WAS INSTRUCTED IN HEP, EDEMA MANAGMEENT, PAIN MANAGEMENT, AND FALL PREVENTION AND WOULD BENEFIT FROM WEEKLY HHPT VISITS TO ADDRESS DEFICITS. PATIENT AGREES TO POC, VISIT FREQUENCY, AND PROVIDED AL LREQURIED SIGNATURES</paragraph> Encounters Start Date/Time End Date/Time Encounter Type Admission Type [facility]ending [facility] Care [facility] Care Department Encounter ID Discharge Date Discharge Status Discharge Condition Discharge Reason Percent Goals Met 2025-03-12 00:00:00 2025-05-10 00:00:00 Outpatient [facility] [id number]
== END 2025-03-18 12:17 | disposition home or self-care (01) ==
LOC: HO.HKAS 11:38
PROVIDERS: PCP Internal Medicine; Visit Provider Internal Medicine Hypertension Specialist
DX: N18.9 Chronic kidney disease, unspecified (principal); D63.1 Anemia in chronic kidney disease; I12.9 Hypertensive chronic kidney disease with stage 1 through stage 4 chronic kidney disease, or unspecified chronic kidney disease
CPT/HCPCS: 99214

== ENCOUNTER → 2025-03-18 11:38 | Outpatient (BNVA) | payer MEDICARE, SELFPAY | PROVIDERS: PCP Internal Medicine; Visit Provider Internal Medicine Hypertension Specialist | DX: I12.9 Hypertensive chronic kidney disease with stage 1 through stage 4 chronic kidney disease, or unspecified chronic kidney disease (principal); N18.9 Chronic kidney disease, unspecified; D63.1 Anemia in chronic kidney disease; R60.0 Localized edema; N17.9 Acute kidney failure, unspecified; Z87.891 Personal history of nicotine dependence; Z79.899 Other long term (current) drug therapy | CPT/HCPCS: 96372; 99212; Q5106 ==

== ENCOUNTER 2025-04-01 11:18 | Outpatient (AMB) | payer MEDICARE, SELFPAY ==
--- OUTSIDE RECORDS SUMMARY | 2025-03-04 10:00 | XMS_ITS ---
Author Organization [facility] Address [address] [place] [address] Care Team Providers Care Tying In Machine Operator Name Role Phone IONA TOTH Primary Care Provider [phone] DANNY KELLEY [phone] REASON FOR VISIT CB 42 Chest Cold Encounters Encounter Location Date Provider Diagnosis [address] [address] 03/04/2025 DANNY KELLEY Plan Of Treatment Next Appt Details Provider Name:IONA JEFFRIES, 07/28/2025 10:00:00 AM, [address] [place], [address], Progress Notes * BARRINGTON FLORENCE RDOB:[birth year] (85 yo M)Acc No.[id number]:03/04/2025 Progress Notes Patient: BARRINGTON LEIVA Provider: Dee Dee Kelley MD :1940 A ge:85 Y S ex:Male Date:03/04/2025 Address:[address] [place], [place] [id number] Pcp:IONA TOTH Subjective: * Chief Complaints: * C B 42 Chest Cold Billing Information: * Procedure Codes: * Electronic signature of MERCY KELLEY M.D. on 04/01/2025 at 12:56 PM EST Sign off status: Pending * Provider: Dee Dee Kelley MD Date: 05/05/2024 Generated for Ryanne diamond/Fabien/Giovanismitting on: 1 12:56 PM EST
--- OUTSIDE RECORDS SUMMARY | 2025-03-27 05:13 | XMS_ITS ---
Author Organization [facility] Address [address] [place] [address] Care Team Providers Care Manager State Name Role Phone IONA TOTH Primary Care Provider [phone] Results Component Value Reference Range Notes US Lower Extremity Venous Do ppler Left Reviewed date:04/01/2025 11:15:18 AM Interpretation: Performing Lab: Notes/Report: REASON FOR VISIT US LOWER EXTREMITY Encounters Encounter Location Date Provider Diagnosis [address] [address] 03/27/2025 IONA TOTH Left leg swelling M79.89 Assessments Encounter Date Diagnosis (ICD Code) Assessment Notes Treatment Notes Treatment Clinical Notes Section Notes 03/27/2025 Left leg swelling (ICD-10 - M79.89) Plan Of Treatment Next Appt Details Provider Name:IONA JEFFRIES, 07/28/2025 10:00:00 AM, [address] [place] [address], [phone], Progress Notes * NEIL FOLRENCEALD RDOB:[birth year] (85 yo M)Acc No.[id number]:03/27/2025 Patient: BARRINGTON LEIVA :1940 A ge:85 Y S ex:Male Address:[address] [place] [phone] Subjective: * Chief Complaints: * U S LOWER EXTREMITY Assessment: * Assessment: 1. L eft leg swelling - M79.89 (Primary) Plan: * Treatment: * true * Date: Generated for Printi ng/Faxing/eTransmitting on: 1 12:56 PM EST
--- OUTSIDE RECORDS SUMMARY | 2025-03-31 04:45 | XMS_ITS ---
Author Organization [facility] Address [address] [place] [address] Care Team Providers Care Recreation Supervisor Name Role Phone IONA TOTH Primary Care Provider REASON FOR VISIT Furosemide 20 MG Tablet Encounters Encounter Location Date Provider Diagnosis [address] [address] 03/31/2025 IONA TOTH Essential (primary) hypertension I10 Assessments Encounter Date Diagnosis (ICD Code) Assessment Notes Treatment Notes Treatment Clinical Notes Section Notes 03/31/2025 Essential (primary) hypertension (ICD-10 - I10) Plan Of Treatment Future Test Test Name Order Date [id number] 03/31/2025 Next Appt Details Provider Name:IONA JEFFRIES, 07/28/2025 10:00:00 AM, [address] [place], [address], Progress Notes * BARRINGTON FLORENCE RDOB:[birth year] (85 yo M)Acc No.[id number]:03/31/2025 Patient: BARRINGTON LEIVA :1940 A ge:85 Y S ex:Male Address:[address] [place] [id number] Subjective: * Chief Complaints: * F urosemide 20 MG Tablet Assessment: * Assessment: 1. E ssential (primary) hypertension - I10 (Primary) Plan: * Treatment: * true * Date: Generated for Printi ng/Faxing/eTransmitting on: 12:56 PM EST
--- NOTE | 2025-04-01 11:15 | HO.NEPHOV ---
Vital Signs 04/01/25 11:17 Height 5 ft 8 in Weight 149 lb BMI 22.7 Intake Visit Reasons: F/U lab per Dr. Reina Motivational Speaker Required: No Allergies No Known Allergies Allergy (Verified 04/01/25 11:15) Do you need a note to return to daycare/school/sports/work: No HPI Comments Details: 85-year-old gentleman seen by Dr. Luevano he does clinic for CKD, hypertension he was recently admitted to [facility] for the body of following which he had WANDER on CKD with creatinine rising up to 4.0 along with Anemia. He was seen the clinic by Dr. Luevano on 03/18/2025. He was told to take Lasix 2 pills a day for anasarca; 149lbs lost about 15 lbs in the past 2 weeks and his swelling improved significantly. He still has a little bit of swelling left. his labs showed creatinine did decrease to baseline 2.0 on 03/23/25 but increased to 2.4 on 03/27/2025 with continued diuresis. He has participated in physical therapy at home everyday, his vitals has been stable yesterday his blood pressure was 120/70mmHg [facility] Family History Father Hypertension Social History Alcohol intake: former Patient Tobacco Use Status: Former Tobacco user Review of Systems Const Details: Const : no body aches, no chills, no excessive sweating and no fatigue Eyes: no blurry vision and no change in vision ENT: no bleeding gums and no change in voice, no dizziness Card: no chest pain, no shortness of breath, no orthopnea, no PND, swelling + Resp: no cough, no excessive phlegm production, no SOB GI: no abdominal pain and no nausea, no vomiting : no hematuria, no urinary frequency and no difficulty voiding Musc: no abnormal gait, no bone pain Neuro: no abnormal movements, no weakness, no dizziness, + abnormal gait Psych: no behavioral changes and no change in appetite Endo: no change in body appearance, no cold intolerance, no excessive sweating and no fatigue Physical Exam Vital Signs: BMI result Body Mass Index 22.7 did not do a physical examination as it was a telephonic visit Telehealth Telehealth Telehealth Platform: Telephone Patient Identification confirmed using: Name, : Yes Telehealth method: voice only Patient verbally consented to treatment: Yes Patient verbally consented to billing insurance company: Yes Patient informed of any privacy concerns related to visit: Yes Assessment & Plan Assessment & Plan (1) HTN (hypertension): Code(s): I10 - Essential (primary) hypertension Category: Medical (2) CKD (chronic kidney disease): Code(s): N18.9 - Chronic kidney disease, unspecified Category: Medical (3) Anemia due to chronic kidney disease: Code(s): N18.9 - Chronic kidney disease, unspecified; D63.1 - Anemia in chronic kidney disease Category: Medical Plan 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 Creatnine is down to 2.0 on 03/23/25 but increased to 2.4 with continued diuresis for anasarca> He states swelling has improved but still persists a little bit, asked him to take 2 pills a day for 2 more days and then down to one pill a day. Will see Dr Luevano with repeat labs on Apr 15 2024. Hypertension: - blood pressures well controlled - on amlodipine 2.5mg daily and metorpolol 50mg daily will see in the clinic with Dr Luevano in 2 weeks with repeat labs. Coding Level of Care Code Tele Est Pt Level 4 (66742) Diagnoses HTN (hypertension) I10 CKD (chronic kidney disease) N18.9 Anemia due to chronic kidney disease N18.9; D63.1
[2025-04-01 11:17] VITALS: BMI 22.7
--- OUTSIDE RECORDS SUMMARY | 2025-04-01 12:56 | XMS_ITS | Encounter Summary ---
Author Organization [employer] Address [address] [place] [address] Care Team Providers Care Electronic Equipment Set Up Operator Name Role Phone Fartun Goldstein MD Primary Care Provider + Encounter Details Date Type Department Care Team (Late st Contact Info) Description 06/13/2024 Lab Requisition [facility] - Main Lab [address] [facility] [place] [address] Fartun Goldstein MD [address] [facility] [address] [place] [address] Unspecified atrial fibrillation (CMS/HCC V24, CMS/HCC V28) [...] LAB CHEMISTRY METHOD 06/13/2024 1:16 PM EDT [facility] Potassium 4.3 3.5 - 5.5 mmol/L LAB CHEMISTRY METHOD 06/13/2024 1:16 PM EDT [facility] Chloride 106 96 - 110 mmol/L LAB CHEMISTRY METHOD 06/13/2024 1:16 PM EDT [facility] CO2 20(L) 21 - 32 mmol/L LAB CHEMISTRY METHOD 06/13/2024 1:16 PM [facility] Anion Gap 11 3 - 11 LAB CHEMISTRY METHOD 06/13/2024 1:16 PM [facility] Glucose 90 70 - 100 mg/dL LAB CHEMISTRY METHOD 06/13/2024 1:16 PM T [facility] BUN 38(H) 5 - 25 mg/dL LAB CHEMISTRY METHOD 06/13/2024 1:16 PM [facility] Creatinine 1.85(H) 0.70 - 1.30 mg/dL LAB CHEMISTRY METHOD 06/13/2024 1:16 PM [facility] eGFR 35(L) >=60 mL/min/1. 73m2 LAB CHEMISTRY METHOD 06/13/2024 1:16 PM T [facility] Comment:Calculation based on the Chronic Kidney Disease Epidemiology Collaboration (CKD-EPI) equation refit without adjustment for race. BUN/Creatinine Ratio 20.5 LAB CHEMISTRY METHOD 06/13/2024 1:16 PM [facility] Calcium 8.9 8.5 - 10.5 mg/dL LAB CHEMISTRY METHOD 06/13/2024 1:16 PM [facility] Blood Venous blood specimen / Unknown Venipuncture / Unknown 06/13/2024 6:18 AM EDT 06/13/2024 10:32 AM EDT us Fartun Goldstein MD LAB BLOOD ORDERABLES Fin al Result [facility] [address] [place] [address], * (ABNORMAL) Complete blood count (06/13/2024 6:18 AM EDT) [facility] WBC 9.7 4.8 - 10.8 K/mcL LAB HEMETOLOGY METHOD 06/13/2024 11:26 AM [facility] RBC 3.00(L) 4.50 - 5.50 M/mcL LAB HEMETOLOGY METHOD 06/13/2024 11:26 AM [facility] Hemoglobin 9.7(L) 13.5 - 17.5 g/dL LAB HEMETOLOGY METHOD 06/13/2024 11:26 AM [facility] Hematocrit 29.8(L) 42.0 - 54.0 % LAB HEMETOLOGY METHOD 06/13/2024 11:26 AM [facility] MCV 100.0(H) 79.0 - 98.0 FL LAB HEMETOLOGY METHOD 06/13/2024 11:26 AM [facility] MCH 32.6(H) 27.0 - 32.0 pcg LAB HEMETOLOGY METHOD 06/13/2024 11:26 AM [facility] MCHC 32.6 32.0 - 37.0 g/dL LAB HEMETOLOGY METHOD 06/13/2024 11:26 AM [facility] RDW 13.2 11.0 - 15.0 % LAB HEMETOLOGY METHOD 06/13/2024 11:26 AM [facility] Platelets 218 130 - 400 K/[facility] LAB HEMETOLOGY METHOD 06/13/2024 11:26 AM [facility] MPV 11.9(H) 7.0 - 11.0 FL LAB HEMETOLOGY METHOD 06/13/2024 11:26 AM [facility] NRBC 0.0 <1.0 % LAB HEMETOLOGY METHOD 06/13/2024 11:26 AM [facility] NRBC Absolute 0.00 <0.10 K/[facility] LAB HEMETOLOGY METHOD 06/13/2024 11:26 AM EDT [facility] Blood Venous blood specimen / Unknown Venipuncture / Unknown 06/13/2024 6:18 AM EDT 06/13/2024 10:32 AM EDT us Fartun Goldstein MD LAB BLOOD ORDERABLES Fin al Result [facility] [address] [place] [address], documented in this encounter Visit Diagnoses Diagnosis Unspecified atrial fibrillation (CMS/HCC V24, CMS/HCC V28) documented in this encounter Care Teams Electronic Equipment Set Up Operator Relationship Specialty Start Date End Date Fartun Goldstein MD [address] [place] [id number] PCP - General Family Medicine 06/13/24 documented as of this encounter
--- OUTSIDE RECORDS SUMMARY | 2025-04-01 12:56 | XMS_ITS | Encounter Summary ---
Author Organization [employer] Address [address] [place] [address] Care Team Providers Care Senior Principal Software Engineer Name Role Phone Fartun Goldstein MD Primary Care Provider + Encounter Details Date Type Department Care Team (Late st Contact Info) Description 07/25/2024 Lab Requisition [facility] - Main Lab [address] [place] [address] Fartun Goldstein MD [address] [phone] Myelodysplastic syndrome, unspecified (CMS/HCC V24, CMS/HCC V28) [...] LAB CHEMISTRY METHOD 07/28/2024 11:57 AM EDT [facility] Potassium 4.2 3.5 - 5.5 mmol/L LAB CHEMISTRY METHOD 07/28/2024 11:57 AM [facility] Chloride 109 96 - 110 mmol/L LAB CHEMISTRY METHOD 07/28/2024 11:57 AM [facility] CO2 25 21 - 32 mmol/L LAB CHEMISTRY METHOD 07/28/2024 11:57 AM [facility] Anion Gap 6 3 - 11 LAB CHEMISTRY METHOD 07/28/2024 11:57 AM [facility] Glucose 80 70 - 100 mg/dL LAB CHEMISTRY METHOD 07/28/2024 11:57 AM [facility] BUN 24 5 - 25 mg/dL LAB CHEMISTRY METHOD 07/28/2024 11:57 AM [facility] Creatinine 1.67(H) 0.70 - 1.30 mg/dL LAB CHEMISTRY METHOD 07/28/2024 11:57 AM [facility] eGFR 40(L) >=60 mL/min/1. 73m2 LAB CHEMISTRY METHOD 07/28/2024 11:57 AM [facility] Comment:Calculation based on the Chronic Kidney Disease Epidemiology Collaboration (CKD-EPI) equation refit without adjustment for race. BUN/Creatinine Ratio 14.4 LAB CHEMISTRY METHOD 07/28/2024 11:57 AM [facility] Calcium 8.8 8.5 - 10.5 mg/dL LAB CHEMISTRY METHOD 07/28/2024 11:57 AM [facility] Blood Venous blood specimen / Unknown Venipuncture / Unknown 07/28/2024 6:42 AM EDT 07/28/2024 9:47 AM EDT us Fartun Goldstein MD LAB BLOOD ORDERABLES Fin al Result [facility] [address] [place] [address], * (ABNORMAL) Complete blood count (07/28/2024 6:42 AM EDT) [facility] WBC 6.2 4.8 - 10.8 K/mcL LAB HEMETOLOGY METHOD 07/28/2024 10:16 AM [facility] RBC 2.30(L) 4.50 - 5.50 M/mcL LAB HEMETOLOGY METHOD 07/28/2024 10:16 AM [facility] Hemoglobin 7.3(L) 13.5 - 17.5 g/dL LAB HEMETOLOGY METHOD 07/28/2024 10:16 AM [facility] Hematocrit 23.7(L) 42.0 - 54.0 % LAB HEMETOLOGY METHOD 07/28/2024 10:16 AM [facility] MCV 105.3(H) 79.0 - 98.0 FL LAB HEMETOLOGY METHOD 07/28/2024 10:16 AM [facility] MCH 32.4(H) 27.0 - 32.0 pcg LAB HEMETOLOGY METHOD 07/28/2024 10:16 AM [facility] MCHC 30.8(L) 32.0 - 37.0 g/dL LAB HEMETOLOGY METHOD 07/28/2024 10:16 AM [facility] RDW 15.3(H) 11.0 - 15.0 % LAB HEMETOLOGY METHOD 07/28/2024 10:16 AM [facility] Platelets 234 130 - 400 K/mcL LAB HEMETOLOGY METHOD 07/28/2024 10:16 AM [facility] MPV 11.7(H) 7.0 - 11.0 FL LAB HEMETOLOGY METHOD 07/28/2024 10:16 AM [facility] NRBC 0.0 <1.0 % LAB HEMETOLOGY METHOD 07/28/2024 10:16 AM [facility] NRBC Absolute 0.00 <0.10 K/mcL LAB HEMETOLOGY METHOD 07/28/2024 10:16 AM EDT [facility] Blood Venous blood specimen / Unknown Venipuncture / Unknown 07/28/2024 6:42 AM EDT 07/28/2024 9:47 AM EDT us Fartun Goldstein MD LAB BLOOD ORDERABLES Fin al Result [facility] [address] [place] [address], documented in this encounter Visit Diagnoses Diagnosis Myelodysplastic syndrome, unspecified (CMS/HCC V24, CMS/HCC V28) Myelodysplastic syndrome, unspecified documented in this encounter Care Teams Senior Principal Software Engineer Relationship Specialty Start Date End Date Fartun Goldstein MD [address] [place] [phone] PCP - General Family Medicine 06/13/24 documented as of this encounter
--- OUTSIDE RECORDS SUMMARY | 2025-04-01 12:56 | XMS_ITS | Encounter Summary ---
Author Organization [employer] Address [address] [place] [address] Care Team Providers Care Director Auto Name Role Phone Fartun Goldstein MD Primary Care Provider + Encounter Details Date Type Department Care Team (Late st Contact Info) Description 08/02/2024 Lab Requisition [facility] - Main Lab [address] [place] [address] Fartun Goldstein MD [address] [phone] Myelodysplastic syndrome, unspecified (CMS/HCC V24, CMS/HCC V28) [...] LAB CHEMISTRY METHOD 08/04/2024 10:15 AM EDT [facility] Potassium 4.0 3.5 - 5.5 mmol/L LAB CHEMISTRY METHOD 08/04/2024 10:15 AM [facility] Chloride 107 96 - 110 mmol/L LAB CHEMISTRY METHOD 08/04/2024 10:15 AM [facility] CO2 22 21 - 32 mmol/L LAB CHEMISTRY METHOD 08/04/2024 10:15 AM [facility] Anion Gap 8 3 - 11 LAB CHEMISTRY METHOD 08/04/2024 10:15 AM [facility] Glucose 77 70 - 100 mg/dL LAB CHEMISTRY METHOD 08/04/2024 10:15 AM [facility] BUN 31(H) 5 - 25 mg/dL LAB CHEMISTRY METHOD 08/04/2024 10:15 AM [facility] Creatinine 1.80(H) 0.70 - 1.30 mg/dL LAB CHEMISTRY METHOD 08/04/2024 10:15 AM [facility] eGFR 36(L) >=60 mL/min/1. 73m2 LAB CHEMISTRY METHOD 08/04/2024 10:15 AM [facility] Comment:Calculation based on the Chronic Kidney Disease Epidemiology Collaboration (CKD-EPI) equation refit without adjustment for race. BUN/Creatinine Ratio 17.2 LAB CHEMISTRY METHOD 08/04/2024 10:15 AM [facility] Calcium 9.0 8.5 - 10.5 mg/dL LAB CHEMISTRY METHOD 08/04/2024 10:15 AM [facility] Blood Venous blood specimen / Unknown Venipuncture / Unknown 08/04/2024 5:53 AM EDT 08/04/2024 9:11 AM EDT us Fartun Goldstein MD LAB BLOOD ORDERABLES Fin al Result [facility] [address] [place] [address], * (ABNORMAL) Complete blood count (08/04/2024 5:53 AM EDT) [facility] WBC 6.3 4.8 - 10.8 K/mcL LAB HEMETOLOGY METHOD 08/04/2024 9:50 AM [facility] RBC 2.30(L) 4.50 - 5.50 M/mcL LAB HEMETOLOGY METHOD 08/04/2024 9:50 AM [facility] Hemoglobin 7.3(L) 13.5 - 17.5 g/dL LAB HEMETOLOGY METHOD 08/04/2024 9:50 AM [facility] Hematocrit 23.8(L) 42.0 - 54.0 % LAB HEMETOLOGY METHOD 08/04/2024 9:50 AM [facility] MCV 105.8(H) 79.0 - 98.0 FL LAB HEMETOLOGY METHOD 08/04/2024 9:50 AM [facility] MCH 32.4(H) 27.0 - 32.0 pcg LAB HEMETOLOGY METHOD 08/04/2024 9:50 AM [facility] MCHC 30.7(L) 32.0 - 37.0 g/dL LAB HEMETOLOGY METHOD 08/04/2024 9:50 AM [facility] RDW 15.6(H) 11.0 - 15.0 % LAB HEMETOLOGY METHOD 08/04/2024 9:50 AM [facility] Platelets 227 130 - 400 K/mcL LAB HEMETOLOGY METHOD 08/04/2024 9:50 AM [facility] MPV 11.0 7.0 - 11.0 FL LAB HEMETOLOGY METHOD 08/04/2024 9:50 AM [facility] NRBC 0.0 <1.0 % LAB HEMETOLOGY METHOD 08/04/2024 9:50 AM [facility] NRBC Absolute 0.00 <0.10 K/mcL LAB HEMETOLOGY METHOD 08/04/2024 9:50 AM EDT [facility] Blood Venous blood specimen / Unknown Venipuncture / Unknown 08/04/2024 5:53 AM EDT 08/04/2024 9:11 AM EDT us Fartun Goldstein MD LAB BLOOD ORDERABLES Fin al Result [facility] [address] [place] [address], documented in this encounter Visit Diagnoses Diagnosis Myelodysplastic syndrome, unspecified (CMS/HCC V24, CMS/HCC V28) Myelodysplastic syndrome, unspecified documented in this encounter Care Teams Director Auto Relationship Specialty Start Date End Date Fartun Goldstein MD [address] [place] [phone] PCP - General Family Medicine 06/13/24 documented as of this encounter
--- OUTSIDE RECORDS SUMMARY | 2025-04-01 12:56 | XMS_ITS | Patient Health Record ---
Author Organization [facility] Address [address] [place] [address] Care Team Providers Care Shear Scrapman Name Role Phone IONA TOTH Primary Care Provider DANNY RAMIREZ Unavailable [phone] LIZZIE FINLEY Unavailable [phone] Allergies No Known Allergies Reason For Referral Referral Organization [facility] Referring Provider First Name IONA Referring Provider Last Name JANEY Referring Provider Speciality Internal M edicine Referred Provider JILL GOODWIN Referred Provider Specialty Certified Ps ychologist General Notes Nelli GARNER Call Ctr 04/11/2024 02:44:48 PM > Sukhwinder sandersm BS Cardiology for an insurance referral to Dr Thalia Goodwin , [address] [place] [address], phone [phone], fax [phone], reason-I25.10, appointment date 04/11/24, visits-6, insurance confirmed (the referral is needed for the patients [facility] Blue insurance), Gniger GARNER Referrals 04/15/2024 02:39:45 PM > referral approved and faxed to Sukhwinder at [phone] Referral Priority Routine Referral Appointment Date 04/11/2024 Reason S82.91XA Referral Organization [facility] Referring Provider First Name IONA Referring Provider Last Name JANEY Referring Provider Speciality Internal M edicine Referred Provider TERI MAIER Referred Provider Specialty Orthopedic S urgery General Notes Lorna GARNER Admin 11:56:32 AM > per incoming document from MANUELA GUARDADO) pt has appt on 07/03/24 with Teri Maier>12 visits>S82.91XA>referral approved and faxed to [facility] at [phone]>encounter closed Referral Priority Routine Referral Appointment Date 07/03/2024 Reason insurance referral isela porter Referral Organization [facility] Referring Provider First Name IONA Referring Provider Last Name JANEY Referring Provider Speciality Internal edicine Referred Organization [facility] Referred Provider Specialty Orthopedic S urgery General Notes Karen GARNER MA 03:48:56 PM > Cherri/RIPS asking for 3 [facility] referrals for ongoing treatment, [address], [address], fax [phone]. , NASEEM Lantigua , M25.562, back date to 07/17/24, 12 visits, has referral for the MD for all. , PATSYLorna P Admin 10/13/2024 10:25:31 AM > referral approved and faxed to GEORGINA at [phone]>ENCOUNTER CLOSED Referral Priority Routine Referral Appointment Date 07/17/2024 Reason insurance referral p milad mari Referral Organization [facility] Referring Provider First Name IONA Referring Provider Last Name JANEY Referring Provider Speciality Internal edicine Referred Organization [facility] General Notes Karen GARNER MA 03:50:48 PM > Cherri/MANUELA asking for 3 [facility] referrals for ongoing treatment, [address], [address], fax [phone]. , ARLET Dukes [id number], M25.562, back date to 08/11/24, 12 visits., Lorna GARNER P Admin 10/13/2024 10:32:47 AM > referral approved and faxed to [facility] at [phone]>encounter closed Clinical Notes 1831 Referral Priority Routine Referral Appointment Date 08/11/2024 Reason insurance referral Referral Organization [email or web address] Referring Provider First Name IONA Referring Provider Last Name JANEY Referring Provider Speciality Internal edicine Referred Organization [facility] General Notes Karen GARNER MA 03:53:23 PM > Milad Avitia , M25.571, 09/05/24 appt., 12 visits., Lorna GARNER P Admin 10/13/2024 10:18:04 AM > referral approved and faxed to GEORGINA at [phone]>encounter closed Referral Priority Routine Referral Appointment Date 09/05/2024 Reason up date referral Referral Organization [facility] Referring Provider First Name IONA Referring Provider Codey Name JANEY Referring Provider Speciality Internal edicine Referred Provider CRISTAL ORDOÑEZ Referred Provider Specialty Urology General Notes Karen GARNER MA 025 11:11:33 AM > t saw a urologist on 07/23/24 Dr Cristal Ordoñez , so the patient would need a back dated insurance referral, [address], [facility] [address], phone [phone], fax [phone], reason-catheter from shelter removal, visits-1, insurance confirmed, IONA TOTH 10/20/2024 08:15:57 AM > put in urinary retention, Lorna GARNER P Admin 10/21/2024 12:40:57 PM > referral approved and faxed to [phone]>encounter closed Clinical Notes Lorna GARNER Admin 10:39:55 AM > Karen,, could you please let me know why pt had a cathter>I cant use removal for the referral Referral Priority Routine Referral Appointment Date 07/23/2024 [facility] Referring Provider First Name IONA Referring Provider Codey Name JANEY Referring Provider [facility] Internal edicine Referred Organization MAN[facility] Referred Provider Specialty Orthopedic S urgery General Notes Lorna GARNER P Admin 12:42:51 PM > per incoming document pt had appt on 10/15/24 for M25.561>referral approved and faxed to MANUELA at [phone]>encounter closed Referral Priority Routine Referral Appointment Date 10/15/2024 Reason (03/16/25 FAXED) pos t hospitalization f/u, NSTEMI, acute respiratory failure; multifocal pneumonia; acute on chronic heart failure Diagnosis 1 Chronic diastolic (c ongestive) heart failure (I50.32) Diagnosis 2 Acute respiratory fa ilure with hypoxia (J96.01) Diagnosis 3 NSTEMI (non-ST eleva josy myocardial infarction) (I21.4) Referral Organization [facility] Referring Provider First Name LIZZIE Referring Provider Last Name CLAUDIAIsaac Referring Provider Speciality Physician Rental Car Deliverer Referred Provider JILL GOODWIN General Notes Elida GARNER MA 01:01:24 PM > referral and office note faxed Referral Priority Routine Medications Medication SIG (Take, Route, Frequency, Duration) Notes Start Date End Date Status Aspirin 81 81 MG Tablet Delayed Release 1 tablet Orally Once a day; Duration: 30 day(s) Active Knee Brace Adjustable Hinged - Miscellaneous as directed 10/05/2022 Active amLODIPine Besylate 5 MG Tablet 1 tablet Orally Once a day in AM; Duration: 90 days Active Furosemide 20 MG Tablet TAKE 2 TABLETS B Y MOUTH DAILY; Duration: 90 Active Nitroglycerin 0.4 MG Tablet Sublingual 1 tablet under the tongue and allow to dissolve as needed. Take every 5 minutes up to 3 times if chest pain persists Sublingual Once a day if needed; Duration: 30 days Active Rosuvastatin Calcium 40 MG Tablet TAKE 1 TABLET DAILY; Duration: 90 Active Metoprolol Succinate ER 50 MG Tablet Extended Release 24 Hour TAKE 1 TABLET ONCE DAILY; Duration: 90 Active Levothyroxine Sodium 25 MCG Tablet 1 tablet in the morning on an empty stomach Orally Once a day; Duration: 90 day(s) 01/21/2025 Active Levothyroxine Sodium 50 MCG Tablet TAKE 1 TABLET BY MOUTH DAILY IN THE MORNING ON AN EMPTY STOMACH; Duration: 90 Active W34-Nxhozp 1 MG Tablet Chewable as directed Orally Active Social History Tobacco Use: Social History [...] Status Living with smokers in household no Section Notes: former smoker Problems Problem Type SNOMED Code ICD Code Onset Dates Problem Status W/U Status Risk Notes Problem Gastroesophageal reflux disease (disorder) (118985513) GERD [Gastroesophageal reflux disease] (530.81) Active confirmed Problem Irritable bowel syndrome (12427050) IBS [Irritable bowel syndrome] (564.1) Active confirmed Problem Benign neoplasm of colon (24125727) H/o colon adenoma (211.3) Active confirmed Problem Gastro-esophageal reflux disease without esophagitis (193081366) Gastro-esophageal reflux disease without esophagitis (K21.9) Active confirmed Problem Essential hypertensi on (71588512) Essential (primary) hypertension (I10) Active confirmed Problem Hypothyroidism (09923772) Hypothyroidism, unspecified (E03.9) Active confirmed Problem Anemia (742459628) Anemia, unspecified (D64.9) Active confirmed Problem Arthritis (1980582) Arthritis (M19.90) Active c onfirmed Problem Chronic kidney disea se (496709133) Chronic kidney disease, unspecified (N18.9) Active confirmed Problem Acquired hypothyroidism (043884768) Acquired hypothyroidism (E03.9) Active confirmed Problem Chronic diastolic heart failure (895583524) Chronic diastolic (congestive) heart failure (I50.32) Active confirmed Problem Anemia in chronic kidney disease (315712033) 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) Active confirmed Problem Disorder of lipoprotein storage and metabolism (disorder) (360488157) Disorder of lipoprotein metabolism, 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 confirmed Problem Polyneuropathy (20888979) Polyneuropathy, unspecified (G62.9) Active confirmed Problem Chronic kidney disea se due to hypertension (998043013957052) Hypertensive chronic kidney disease with stage 1 through stage 4 chronic kidney disease, or unspecified chronic kidney disease (I12.9) Active confirmed Problem Hypertensive heart A ND chronic kidney disease with congestive heart failure (89485059386617) Hypertensive heart and chronic kidney disease with heart failure and stage 1 through stage 4 chronic kidney disease, or unspecified chronic kidney disease (I13.0) Active confirmed Problem Atherosclerotic hear t disease of [place] coronary artery without angina pectoris (881082944305437) Atherosclerotic heart disease of [place] coronary artery without angina pectoris (I25.10) Active confirmed Problem Angina (876107238) Atherosclerot ic heart disease of [place] coronary artery with unspecified angina pectoris (I25.119) Active confirmed Problem Aortic valve disorde r (4875699) Nonrheumatic aortic (valve) stenosis (I35.0) Active confirmed Problem Complete atrioventricular block (36160267) Atrioventricular block, 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) Active confirmed Problem Atrial fibrillation (96961111) Unspecified atrial fibrillation (I48.91) Active confirmed Problem Sick sinus syndrome (83875922) Sick sinus syndrome (I49.5) Active confirmed Problem Atherosclerosis of coronary artery without angina pectoris (643979480489011) Athscl heart disease of [place] coronary artery w/o ang pctrs (I25.10) Active confirmed Problem Aortic valve disorde r (7103919) Aortic stenosis, moderate (I35.0) Active confirmed Problem Acute non-ST segment elevation myocardial infarction (781887402) NSTEMI (non-ST elevated myocardial infarction) (I21.4) Active confirmed Problem Pure hypercholesterolemia (241311990) Pure hypercholesterolem ia, unspecified (E78.00) Active confirmed Problem Benign prostatic hypertrophy without outflow obstruction (667345382) Benign prostatic hyperplasia without lower urinary tract symptoms (N40.0) Active confirmed Problem Chronic kidney disea se stage 3 (disorder) (155776818) Chronic kidney disease, stage 3 unspecified (N18.30) Active confirmed Problem Chronic kidney disea se stage 3B (disorder) (745257137) CKD stage 3b, GFR 30-44 ml/min (N18.32) Active confirmed Vital Signs Blood pressure diastolic 70 mm Hg 03/23/2025 Height 68 in 03/23/2025 Blood pressure systolic 110 mm Hg 03/23/2025 Weight 00 lbs 03/23/2025 BMI 24.63 kg/m2 01/19/2025 Encounters Encounter Location Date Provider Diagnosis [facility] [address] [place] [address] 09/11/2024 [facility] discharge follow-up Z09 ; Acute kidney injury N17.9 ; Closed fracture of right ankle with routine healing, subsequent encounter S82.891D ; Lesion of right [place] kidney N28.9 ; Disorder of lipoprotein metabolism, unspecified E78.9 ; Essential (primary) hypertension I10 ; Chronic kidney disease, unspecified N18.9 ; Acquired hypothyroidism E03.9 ; Acute urinary retention R33.8 and Closed fracture of proximal end of left tibia with routine healing, unspecified fracture morphology, subsequent encounter S82.102D [address] [address] 01/19/2025 IONA TOTH Essential (primary) hypertension I10 ; Disorder of lipoprotein metabolism, unspecified E78.9 ; Chronic kidney disease, unspecified N18.9 ; Athscl heart disease of [place] coronary artery w/o ang pctrs I25.10 ; Gastro-esophageal reflux disease without esophagitis K21.9 ; B12 deficiency E53.8 ; Aortic stenosis, moderate I35.0 ; Unspecified atrial fibrillation I48.91 and Elevated PSA R97.[address] [address] 03/23/2025 IONA TOTH Essential (primary) hypertension I10 ; Disorder of lipoprotein metabolism, unspecified E78.9 ; Athscl heart disease of [place] coronary artery w/o ang pctrs I25.10 ; B12 deficiency E53.8 ; Anemia, unspecified D64.9 ; Left arm swelling M79.89 and Left leg swelling M79.[address] [address] 03/16/2025 [facility] discharge follow-up Z51.89 ; Multifocal pneumonia J18.8 ; Acute kidney injury (WANDER) with acute tubular necrosis (ATN) N17.0 ; CKD stage 3b, GFR 30-44 ml/min N18.32 ; NSTEMI (non-ST elevated myocardial infarction) I21.4 ; Acute respiratory failure with hypoxia J96.01 and Chronic diastolic (congestive) heart failure I50.[address] [address] 01/21/2025 IONA TOTH [address] [address] 01/20/2025 IONA TOTH Essential (primary) hypertension I10 and Acquired hypothyroidism E03.[address] [address] 04/01/2025 IONA TOTH [address] [address] 03/31/2025 IONA TOTH [address] [address] 01/20/2025 IONA TOTH B12 deficiency E53.8 and Anemia, unspecified D64.9 [facility] [address] [place] [address] 01/10/2025 IONA [facility] [address] [place] [address] 12/24/[address] [facility] [address] [place] [address] 12/23/2024 IONA [facility] [address] [place] [address] 12/02/2024 IONA [facility] [address] [place] [address] 11/20/[address] [facility] [address] [place] [address] 11/19/[address] [facility] [address] [place] [address] 10/13/[address] [facility] [address] [place] [address] 10/10/2024 IONA [facility] [address] [place] [address] 10/07/[address] [facility] [address] [place] [address] 09/30/[address] [facility] [address] [place] [address] 09/15/2024 LIZZIE FINLEY [facility] [address] [place] [address] 09/11/[address] [facility] [address] [place] [address] 09/09/2024 IONA [facility] [address] [place] [address] 09/08/[address] [facility] [address] [place] [address] 09/03/[address] [facility] [address] [place] [address] 09/02/[address] [facility] [address] [place] [address] 09/02/2024 IONA [facility] [address] [place] [address] 09/01/[address] [facility] [address] [place] [address] 06/24/2024 IONA TOTH [facility] [address] [place] [address] 06/17/2024 IONA TOTH [facility] [address] [place] [address] 06/12/2024 IONA TOTH [facility] [address] [place] [address] 06/10/2024 IONA TOTH [facility] [address] [place] [address] 06/09/2024 IONA TOTH [facility] [address] [place] [address] 03/31/2025 IONA TOTH Essential (primary) hypertension I10 [facility] [address] [place] [address] 03/27/2025 IONA TOTH Left leg swelling M79.89 [facility] [address] [place] [address] 03/24/2025 IONA TOTH Acquired hypothyroidism E03.9 [facility] [address] [place] [address] 03/24/2025 IONA TOTH Chronic kidney disease, unspecified N18.9 and Acquired hypothyroidism E03.9 [facility] [address] [place] [address] 03/24/2025 IONA TOTH [facility] [address] [place] [address] 03/24/2025 IONA TOTH Acquired hypothyroidism E03.9 [facility] [address] [place] [address] 03/23/2025 IONA TOTH [facility] [address] [place] [address] 03/17/2025 IONA TOTH [facility] [address] [place] [address] 03/16/2025 IONA TOTH [facility] [address] [place] [address] 03/16/2025 IONA TOTH [facility] [address] [place] [address] 03/13/2025 IONA TOTH [facility] [address] [place] [address] 03/12/2025 IONA TOTH [facility] [address] [place] [address] 03/12/2025 IONA [facility] [address] [place] [address] 03/12/2025 IONA [facility] [address] [place] [address] 03/05/2025 IONA [facility] [address] [place] [address] 03/04/2025 IONA TOTH Assessments Encounter Date Diagnosis (ICD [...] was completed with facility discharge summary. 01/20/2025 Essential (primary) hypertension (ICD-10 - I10) 01/20/2025 Acquired hypothyroidism (ICD-10 - E03.9) 03/16/2025 Hospital discharge follow-up (ICD-10 - Z51.89) Hospital records and data reviewed. Medication reconciliation was completed with facility discharge summary. 03/16/2025 Multifocal pneumonia (ICD-10 - J18.8) treated with rocephin, doxycycline and oxygen, sats are normal, improving 03/23/2025 Essential (primary) hypertension (ICD-10 - I10) blood pressure stable well-controlled no change in therapy 03/24/2025 Acquired hypothyroidism (ICD-10 - E03.9) 03/24/2025 Chronic kidney disease, unspecified (ICD-10 - N18.9) 03/24/2025 Acquired hypothyroidism (ICD-10 - E03.9) 03/24/2025 Acquired hypothyroidism (ICD-10 - E03.9) 03/31/2025 Essential (primary) hypertension (ICD-10 - I10) 01/20/2025 B12 deficiency (ICD-10 - E53.8) 01/20/2025 Anemia, unspecified (ICD-10 - D64.9) 03/23/2025 Disorder of lipoprotein metabolism, unspecified (ICD-10 - E78.9) continue statin therapy check lipid profile LDL goal less than 70 01/19/2025 Essential (primary) hypertension (ICD-10 - I10) Blood pressure stable well-controlled no change in therapy follow-up with renal 01/19/2025 Disorder of lipoprotein metabolism, unspecified (ICD-10 - E78.9) On statin for decades continue with statin. Check lipid profile check LFTs LDL goal less than 70 03/27/2025 Left leg swelling (ICD-10 - M79.89) 01/19/2025 Chronic kidney disease, unspecified (ICD-10 - N18.9) Doing well urinating well follow-up with renal. Chronic chronic history of kidney disease stage III with acute kidney injury but had resolved. Avoid NSAIDs avoid IVP dyes 03/23/2025 Athscl heart disease of [place] coronary artery w/o ang pctrs (ICD-10 - I25.10) no chest pain no CHF patient does have moderate-severe aortic stenosis needs to follow-up with his product mgr every 3 months. Told him to call make an appointment and let me know if there is an issue making the appointment 03/16/2025 Acute kidney injury (WANDER) with acute tubular necrosis (ATN) (ICD-10 - N17.0) due to dehydration; treated with IV fluids and now on sodium bicarb which pt will continue until seeing anum Liao check renal fuction/lytes today 09/11/2024 Closed fracture of right ankle with routine healing, subsequent encounter (ICD-10 - S82.891D) f/u with ortho; continue PT 09/11/2024 Lesion of right [place] kidney (ICD-10 - N28.9) 1.1cm indeterminate lesion in right lower pole rec US imaging 03/23/2025 B12 deficiency (ICD-10 - E53.8) stable continue B12 folic acid 03/16/2025 CKD stage 3b, GFR 30-44 ml/min (ICD-10 - N18.32) f/u with renal on 03/18/25 01/19/2025 Athscl heart disease of [place] coronary artery w/o ang pctrs (ICD-10 - I25.10) Chest pain no CHF vital signs stable check EKG sinus rhythm no change 03/23/2025 Anemia, unspecified (ICD-10 - D64.9) recheck CBC 01/19/2025 Gastro-esophageal reflux disease without esophagitis (ICD-10 - K21.9) 09/11/2024 Disorder of lipoprotein metabolism, unspecified (ICD-10 - E78.9) LDL at goal <100 in 02/23; will repeat, continue on crestor 03/16/2025 NSTEMI (non-ST elevated myocardial infarction) (ICD-10 - I21.4) due to htn and hypoxia in the setting of acute bronchitis/RSV infection; f/u with cardiology 03/16/2025 Acute respiratory failure with hypoxia (ICD-10 - J96.01) due to multifocal pneumonia and RSV; treated with abx and oxygen 03/23/2025 Left arm swelling (ICD-10 - M79.89) etiology of swelling unclear. Seems to have bilateral significant edema some which fluid overload. No overt CHF at the present time no sign of infection. Will check full labs not clear if diuretics are an be possible since she has had a pretty significant acute kidney injury and very careful about worsening situation discussed that he may have to go into the hospital to have his fluid status monitored very closely and treatment initiated 01/19/2025 B12 deficiency (ICD-10 - E53.8) Continue B12 replacement 09/11/2024 Essential (primary) hypertension (ICD-10 - I10) good control; continue current management; low salt 01/19/2025 Aortic stenosis, moderate (ICD-10 - I35.0) No CHF no chest pain no [employer] symptoms cardiac echo q. yearly set up cardiac echo 09/11/2024 Chronic kidney disease, unspecified (ICD-10 - N18.9) F/u with Dr Pal as scheduled; will check renal and lytes 03/16/2025 Chronic diastolic (congestive) heart failure (ICD-10 - I50.32) pt with h/o ischemic cardiomyopathy; swelling in legs have increased some since d/c from hospital; will check labs including renal status and bnp (was 21,837 on admission); will arrange post hospitalization with cardiology as well 03/23/2025 Left leg swelling (ICD-10 - M79.89) patient has bilateral swelling but significantly worse left than right. Will set up an ultrasound. Check full labs monitor weight at home every day and called with the results. Patient had a recent echo need to get the results on that as well 09/11/2024 Acquired hypothyroidism (ICD-10 - E03.9) will [...] Test Test Name Order Date Echocardiogram 01/19/2025 US Upper Extremity Veins Duplex Left Future Test Test Name Order Date Iron and TIBC-498807 09/04/2023 Ferritin-535992 09/04/2023 CBC With Differential/Platelet-349367 Iron and TIBC-506377 10/02/2023 Vitamin J37-678321 10/02/2023 T4 Free Direct (Thyroxine)-190789 2023 Folate (Folic Acid), Serum-757456 2023 TSH-053653 10/02/2023 CBC, Platelet, w/o Differential-596020 0 10/02/2023 BMP8+eGFR-177583 10/02/2023 Albumin/Creatinine Ratio,Urine-111248 BMP8+eGFR-057141 03/05/2024 Vitamin C16-398661 01/10/2025 Folate (Folic Acid), Serum-187639 2024 Urinalysis, Complete w/ME-633381 025 TSH-253660 01/10/2025 CBC, Platelet, w/o Differential-740192 1 Lipid Panel-879364 01/10/2025 Comp. Metabolic Panel ([id number] 2024 LDH-565068 01/20/2025 Iron and TIBC-515072 01/20/2025 Haptoglobin-293544 01/20/2025 Ferritin-218118 01/20/2025 Reticulocyte Count-289815 01/20/2025 Methylmalonic Acid, Serum-232371 025 Homocyst(e)ine-537984 01/20/2025 T4 Free Direct (Thyroxine)-343615 2024 TSH-168399 03/03/2025 BMP8+eGFR-673176 03/03/2025 T4 and TSH-680664 03/23/2025 Hepatic Function Panel ([id number] B-Type Natriuretic Peptide-368669 2024 Urinalysis, Complete-168818 03/23/2025 CBC, Platelet, No Differential-561304 BMP8+eGFR-643338 03/23/2025 BMP8+eGFR-917667 03/31/2025 T4 and TSH-499708 04/21/2025 BMP8+eGFR-777638 04/21/2025 Next Appt Details Provider Name:IONA JEFFRIES, 07/28/2025 10:00:00 AM, [address] [place], [address], Insurance Providers Payer Name Payer Address Payer Phone Subscriber Number Group Number Insured Name Patient Relationship to Insured Coverage Start Date Coverage End Date [employer]IC[employer] 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 CAD status [...] elevated LFT's, constipation 05/2024 [facility]: Tx from [facility] for likely surgery. R ankle fx, left tibial tubercle fx 05/2024 [facility]: L ankle fx, joint effusion 05/2024
--- OUTSIDE RECORDS SUMMARY | 2025-04-01 12:56 | XMS_ITS | Encounter Summary ---
Author Organization [facility] Address [address] [place] [address] Care Team Providers Care Post Anesthesia Nurse Name Role Phone Fartun Goldstein MD Primary Care Provider + Encounter Details Date Type Department Care Team (Late st Contact Info) Description 06/22/2024 Lab Requisition [facility] - Main Lab [address] [facility] [place] [address] Fartun Goldstein MD [address] [address] Unspecified atrial fibrillation (CMS/HCC V24, CMS/HCC V28) [...] V28) documented in this encounter Care Teams Post Anesthesia Nurse Relationship Specialty Start Date End Date Fartun Goldstein MD [address] [place] [phone] PCP - General Family Medicine 06/13/24 documented as of this encounter
--- OUTSIDE RECORDS SUMMARY | 2025-04-01 12:56 | XMS_ITS | Encounter Summary ---
Author Organization [employer] Address [address] [place] [address] Care Team Providers Care Newspaper Illustrator Name Role Phone Fartun Goldstein MD Primary Care Provider + Encounter Details Date Type Department Care Team (Late st Contact Info) Description 06/29/2024 Lab Requisition [facility] - Main Lab 299 [facility] [place] [address] Fartun Goldstein MD 819 [facility] 1 [place] [address] Unspecified atrial fibrillation (CMS/HCC V24, CMS/HCC V28) [...] LAB CHEMISTRY METHOD 06/29/2024 2:33 PM EDT [facility] Potassium 4.7 3.5 - 5.5 mmol/L LAB CHEMISTRY METHOD 06/29/2024 2:33 PM EDT [facility] Chloride 102 96 - 110 mmol/L LAB CHEMISTRY METHOD 06/29/2024 2:33 PM [facility] CO2 20(L) 21 - 32 mmol/L LAB CHEMISTRY METHOD 06/29/2024 2:33 PM [facility] Anion Gap 12(H) 3 - 11 LAB CHEMISTRY METHOD 06/29/2024 2:33 PM [facility] Glucose 122(H) 70 - 100 mg/dL LAB CHEMISTRY METHOD 06/29/2024 2:33 PM [facility] BUN 28(H) 5 - 25 mg/dL LAB CHEMISTRY METHOD 06/29/2024 2:33 PM [facility] Creatinine 1.87(H) 0.70 - 1.30 mg/dL LAB CHEMISTRY METHOD 06/29/2024 2:33 PM [facility] eGFR 35(L) >=60 mL/min/1. 73m2 LAB CHEMISTRY METHOD 06/29/2024 2:33 PM [facility] Comment:Calculation based on the Chronic Kidney Disease Epidemiology Collaboration (CKD-EPI) equation refit without adjustment for race. BUN/Creatinine Ratio 15.0 LAB CHEMISTRY METHOD 06/29/2024 2:33 PM [facility] Calcium 8.9 8.5 - 10.5 mg/dL LAB CHEMISTRY METHOD 06/29/2024 2:33 PM [facility] AST (SGOT) 44(H) 10 - 42 unit/L LAB CHEMISTRY METHOD 06/29/2024 2:33 PM [facility] ALT (SGPT) 40 10 - 60 unit/L LAB CHEMISTRY METHOD 06/29/2024 2:33 PM [facility] Alkaline Phosphatase 73 42 - 121 unit/L LAB CHEMISTRY METHOD 06/29/2024 2:33 PM [facility] Total Protein 6.2 6.0 - 8.0 g/dL LAB CHEMISTRY METHOD 06/29/2024 2:33 PM EDT [facility] Albumin 2.5(L) 3.2 - 5.0 g/dL LAB CHEMISTRY METHOD 06/29/2024 2:33 PM EDT [facility] Total Bilirubin 0.8 0.0 - 1.4 mg/dL LAB CHEMISTRY METHOD 06/29/2024 2:33 PM EDT [facility] Blood Venous blood specimen / Unknown Venipuncture / Unknown 06/29/2024 1:02 PM EDT 06/29/2024 1:53 PM EDT us Fartun Goldstein MD LAB BLOOD ORDERABLES Fin al Result [facility] [address] [place] [address], * (ABNORMAL) Complete blood count (06/29/2024 1:02 PM EDT) WBC 15.2(H) 4.8 - 10.8 K/mcL LAB HEMETOLOGY METHOD 06/29/2024 2:07 PM EDT [facility] RBC 2.70(L) 4.50 - 5.50 M/mcL LAB HEMETOLOGY METHOD 06/29/2024 2:07 PM EDT [facility] Hemoglobin 8.6(L) 13.5 - 17.5 g/dL LAB HEMETOLOGY METHOD 06/29/2024 2:07 PM EDT [facility] Hematocrit 27.1(L) 42.0 - 54.0 % LAB HEMETOLOGY METHOD 06/29/2024 2:07 PM EDT [facility] MCV 100.4(H) 79.0 - 98.0 FL LAB HEMETOLOGY METHOD 06/29/2024 2:07 PM EDT [facility] MCH 31.9 27.0 - 32.0 pcg LAB HEMETOLOGY METHOD 06/29/2024 2:07 PM EDT [facility] MCHC 31.7(L) 32.0 - 37.0 g/dL LAB HEMETOLOGY METHOD 06/29/2024 2:07 PM EDT [facility] RDW 13.6 11.0 - 15.0 % LAB HEMETOLOGY METHOD 06/29/2024 2:07 PM EDT [facility] Platelets 389 130 - 400 K/mcL LAB HEMETOLOGY METHOD 06/29/2024 2:07 PM EDT [facility] MPV 10.4 7.0 - 11.0 FL LAB HEMETOLOGY METHOD 06/29/2024 2:07 PM EDT [facility] NRBC 0.0 <1.0 % LAB HEMETOLOGY METHOD 06/29/2024 2:07 PM EDT [facility] NRBC Absolute 0.00 <0.10 K/mcL LAB HEMETOLOGY METHOD 06/29/2024 2:07 PM EDT [facility] Blood Venous blood specimen / Unknown Venipuncture / Unknown 06/29/2024 1:02 PM EDT 06/29/2024 1:53 PM EDT us Fartun Goldstein MD LAB BLOOD ORDERABLES Fin al Result [facility] [address] [place] [address], documented in this encounter Visit Diagnoses Diagnosis Unspecified atrial fibrillation (CMS/HCC V24, CMS/HCC V28) documented in this encounter Care Teams Newspaper Illustrator Relationship Specialty Start Date End Date Fartun Goldstein MD [address] [place] [phone] PCP - General Family Medicine 06/13/24 documented as of this encounter
--- OUTSIDE RECORDS SUMMARY | 2025-04-01 12:56 | XMS_ITS | Encounter Summary ---
Author Organization [employer] Address [address] [place] [address] Care Team Providers Care J2Ee Developer Name Role Phone Fartun Goldstein MD Primary Care Provider + Encounter Details Date Type Department Care Team (Late st Contact Info) Description 06/25/2024 Lab Requisition [facility] - Main Lab 299 [place] [address] Fartun Goldstein MD 819 [facility] 1 [place] [address] Anemia, unspecified Social History Tobacco Use Types [...] LAB CHEMISTRY METHOD 06/25/2024 8:37 AM T [facility] Potassium 4.6 3.5 - 5.5 mmol/L LAB CHEMISTRY METHOD 06/25/2024 8:37 AM [facility] Chloride 104 96 - 110 mmol/L LAB CHEMISTRY METHOD 06/25/2024 8:37 AM [facility] CO2 24 21 - 32 mmol/L LAB CHEMISTRY METHOD 06/25/2024 8:37 AM [facility] Anion Gap 7 3 - 11 LAB CHEMISTRY METHOD 06/25/2024 8:37 AM [facility] Glucose 82 70 - 100 mg/dL LAB CHEMISTRY METHOD 06/25/2024 8:37 AM [facility] BUN 31(H) 5 - 25 mg/dL LAB CHEMISTRY METHOD 06/25/2024 8:37 AM [facility] Creatinine 2.10(H) 0.70 - 1.30 mg/dL LAB CHEMISTRY METHOD 06/25/2024 8:37 AM [facility] eGFR 30(L) >=60 mL/min/1. 73m2 LAB CHEMISTRY METHOD 06/25/2024 8:37 AM [facility] Comment:Calculation based on the Chronic Kidney Disease Epidemiology Collaboration (CKD-EPI) equation refit without adjustment for race. BUN/Creatinine Ratio 14.8 LAB CHEMISTRY METHOD 06/25/2024 8:37 AM [facility] Calcium 8.4(L) 8.5 - 10.5 mg/dL LAB CHEMISTRY METHOD 06/25/2024 8:37 AM [facility] Blood Venous blood specimen / Unknown Venipuncture / Unknown 06/25/2024 5:37 AM EDT 06/25/2024 7:49 AM EDT us Fartun Goldstein MD LAB BLOOD ORDERABLES Fin al Result [facility] [address] [place] [address], * (ABNORMAL) Complete blood count (06/25/2024 5:37 AM EDT) WBC 8.9 4.8 - 10.8 K/[facility] LAB HEMETOLOGY METHOD 06/25/2024 8:11 AM [facility] RBC 2.50(L) 4.50 - 5.50 M/mcL LAB HEMETOLOGY METHOD 06/25/2024 8:11 AM [facility] Hemoglobin 7.9(L) 13.5 - 17.5 g/dL LAB HEMETOLOGY METHOD 06/25/2024 8:11 AM [facility] Hematocrit 24.6(L) 42.0 - 54.0 % LAB HEMETOLOGY METHOD 06/25/2024 8:11 AM [facility] MCV 100.4(H) 79.0 - 98.0 FL LAB HEMETOLOGY METHOD 06/25/2024 8:11 AM [facility] MCH 32.2(H) 27.0 - 32.0 pcg LAB HEMETOLOGY METHOD 06/25/2024 8:11 AM [facility] MCHC 32.1 32.0 - 37.0 g/dL LAB HEMETOLOGY METHOD 06/25/2024 8:11 AM [facility] RDW 13.7 11.0 - 15.0 % LAB HEMETOLOGY METHOD 06/25/2024 8:11 AM [facility] Platelets 354 130 - 400 K/mcL LAB HEMETOLOGY METHOD 06/25/2024 8:11 AM [facility] MPV 10.1 7.0 - 11.0 FL LAB HEMETOLOGY METHOD 06/25/2024 8:11 AM [facility] NRBC 0.0 <1.0 % LAB HEMETOLOGY METHOD 06/25/2024 8:11 AM [facility] NRBC Absolute 0.00 <0.10 K/mcL LAB HEMETOLOGY METHOD 06/25/2024 8:11 AM [facility] Blood Venous blood specimen / Unknown Venipuncture / Unknown 06/25/2024 5:37 AM EDT 06/25/2024 7:49 AM EDT us Fartun Goldstein MD LAB BLOOD ORDERABLES Fin al Result Performing Organization Address City/State/[facility] Co de Phone Number [facility] [address] [place] [address], documented in this encounter Visit Diagnoses Diagnosis Anemia, unspecified documented in this encounter Care Teams J2Ee Developer Relationship Specialty Start Date End Date Fartun Goldstein MD [address] [place] [phone] PCP - General Family Medicine 06/13/24 documented as of this encounter
--- OUTSIDE RECORDS SUMMARY | 2025-04-01 12:56 | XMS_ITS | Encounter Summary ---
Author Organization [employer] [facility] Address [address] [place] [address] Care Team Providers Care Crayon Molding Machine Operator Name Role Phone Fartun Goldstein MD Primary Care Provider + Encounter Details Date Type Department Care Team (Late st Contact Info) Description 08/17/2024 Lab Requisition [facility] - Main Lab 299 [place] [address] Fartun Goldstein MD [address] [phone] Myelodysplastic syndrome, unspecified (CMS/HCC V24, CMS/HCC V28) [...] LAB CHEMISTRY METHOD 08/18/2024 10:33 AM EDT [facility] Potassium 4.4 3.5 - [...] al Result [facility] [address] [place] [address], * (ABNORMAL) Complete blood count (08/18/2024 6:03 AM EDT) [facility] WBC 5.5 4.8 - 10.8 K/mcL LAB [...] LAB HEMETOLOGY METHOD 08/18/2024 9:42 AM EDT [facility] Blood Venous blood specimen / Unknown Venipuncture / Unknown 08/18/2024 6:03 AM EDT 08/18/2024 9:11 AM EDT us Fartun Goldstein MD LAB BLOOD ORDERABLES Fin al Result [facility] [address] [place] [address], documented in this encounter Visit Diagnoses Diagnosis Myelodysplastic syndrome, unspecified (CMS/HCC V24, CMS/HCC V28) Myelodysplastic syndrome, unspecified documented in this encounter Care Teams Crayon Molding Machine Operator Relationship Specialty Start Date End Date Fartun Goldstein MD [address] [place] [phone] PCP - General Family Medicine 06/13/24 documented as of this encounter
--- OUTSIDE RECORDS SUMMARY | 2025-04-01 12:56 | XMS_ITS | Encounter Summary ---
Author Organization [employer] Address [address] [place] [address] Care Team Providers Care Poultice Machine Operator Name Role Phone Fartun Goldstein MD Primary Care Provider + Encounter Details Date Type Department Care Team (Late st Contact Info) Description 06/13/2024 Lab Requisition [facility] - Main Lab 299 [facility] [place] [address] Fartun Goldstein MD 819 [facility] 1 [place] [address] Unspecified atrial fibrillation (CMS/HCC V24, CMS/HCC V28) [...] LAB CHEMISTRY METHOD 06/16/2024 3:12 PM EDT [facility] Potassium 4.9 3.5 - 5.5 mmol/L LAB CHEMISTRY METHOD 06/16/2024 3:12 PM EDT [facility] Chloride 101 96 - 110 mmol/L LAB CHEMISTRY METHOD 06/16/2024 3:12 PM EDT [facility] CO2 18(L) 21 - 32 mmol/L LAB CHEMISTRY METHOD 06/16/2024 3:12 PM [facility] Anion Gap 15(H) 3 - 11 LAB CHEMISTRY METHOD 06/16/2024 3:12 PM [facility] Glucose 94 70 - 100 mg/dL LAB CHEMISTRY METHOD 06/16/2024 3:12 PM EDT [facility] BUN 77(H) 5 - 25 mg/dL LAB CHEMISTRY METHOD 06/16/2024 3:12 PM [facility] Comment:Results verified by repeat testing Creatinine 5.11(H) 0.70 - 1.30 mg/dL LAB CHEMISTRY METHOD 06/16/2024 3:12 PM [facility] Comment:Results verified by repeat testing eGFR 10(L) >=60 mL/min/1. 73m2 LAB CHEMISTRY METHOD 06/16/2024 3:12 PM [facility] Comment:Calculation based on the Chronic Kidney Disease Epidemiology Collaboration (CKD-EPI) equation refit without adjustment for race. BUN/Creatinine Ratio 15.1 LAB CHEMISTRY METHOD 06/16/2024 3:12 PM [facility] Calcium 8.4(L) 8.5 - 10.5 mg/dL LAB CHEMISTRY METHOD 06/16/2024 3:12 PM T [facility] Blood Venous blood specimen / Unknown Venipuncture / Unknown 06/16/2024 7:31 AM EDT 06/16/2024 11:30 AM EDT us Fartun Goldstein MD LAB BLOOD ORDERABLES Fin al Result [facility] [address] [place] [address], * (ABNORMAL) Complete blood count (06/16/2024 7:31 AM EDT) [facility] WBC 7.4 4.8 - 10.8 K/mcL LAB HEMETOLOGY METHOD 06/16/2024 12:32 PM [facility] RBC 2.80(L) 4.50 - 5.50 M/mcL LAB HEMETOLOGY METHOD 06/16/2024 12:32 PM EDT [facility] Hemoglobin 9.0(L) 13.5 - 17.5 g/dL LAB HEMETOLOGY METHOD 06/16/2024 12:32 PM [facility] Hematocrit 28.4(L) 42.0 - 54.0 % LAB HEMETOLOGY METHOD 06/16/2024 12:32 PM [facility] MCV 101.4(H) 79.0 - 98.0 FL LAB HEMETOLOGY METHOD 06/16[facility]2024 12[facility] MCH 32.1(H) 27.0 - 32.0 pcg LAB HEMETOLOGY METHOD 06/16/2024 12:32 PM [facility] MCHC 31.7(L) 32.0 - 37.0 g/dL LAB HEMETOLOGY METHOD 06/16/2024 12:32 PM [facility] RDW 13.4 11.0 - 15.0 % LAB HEMETOLOGY METHOD 06/16/2024 12:32 PM [facility] Platelets 311 130 - 400 K/mcL LAB HEMETOLOGY METHOD 06/16/2024 12:32 PM [facility] MPV 10.5 7.0 - 11.0 FL LAB HEMETOLOGY METHOD 06/16/2024 12:32 PM [facility] NRBC 0.0 <1.0 % LAB HEMETOLOGY METHOD 06/16/2024 12:32 PM [facility] NRBC Absolute 0.00 <0.10 K/mcL LAB HEMETOLOGY METHOD 06/16/2024 12:32 PM EDT [facility] Blood Venous blood specimen / Unknown Venipuncture / Unknown 06/16/2024 7:31 AM EDT 06/16/2024 11:30 AM EDT us Fartun Goldstein MD LAB BLOOD ORDERABLES Fin al Result [facility] [address] [place] [address], documented in this encounter Visit Diagnoses Diagnosis Unspecified atrial fibrillation (CMS/HCC V24, CMS/HCC V28) documented in this encounter Care Teams Poultice Machine Operator Relationship Specialty Start Date End Date Fartun Goldstein MD [address] [place] [phone] PCP - General Family Medicine 06/13/24 documented as of this encounter
--- OUTSIDE RECORDS SUMMARY | 2025-04-01 12:56 | XMS_ITS | Encounter Summary ---
Author Organization [facility] Address [address] [place] [address] Care Team Providers Care Cherry Cutter Name Role Phone Fartun Goldstein MD Primary Care Provider + Encounter Details Date Type Department Care Team (Late st Contact Info) Description 07/03/2024 Lab Requisition [facility] [address] [place] [address] Fartun Goldstein MD [address] [phone] Elevated white blood cell count, unspecified Social [...] AM EDT) WBC 6.5 4.8 - 10.8 K/[facility] LAB HEMETOLOGY METHOD 07/03/2024 8:48 AM EDT [facility] RBC 2.30(L) 4.50 - 5.50 M/[facility] LAB HEMETOLOGY METHOD 07/03/2024 8:48 AM EDT [facility] Hemoglobin 7.5(L) 13.5 - 17.5 g/dL LAB HEMETOLOGY METHOD 07/03/2024 8:48 AM EDT [facility] Hematocrit 23.6(L) 42.0 - 54.0 % LAB HEMETOLOGY METHOD 07/03/2024 8:48 AM EDT [facility] MCV 100.9(H) 79.0 - 98.0 FL LAB HEMETOLOGY METHOD 07/03/2024 8:48 AM EDT [facility] MCH 32.1(H) 27.0 - 32.0 pcg LAB HEMETOLOGY METHOD 07/03/2024 8:48 AM EDT [facility] MCHC 31.8(L) 32.0 - 37.0 g/dL LAB HEMETOLOGY METHOD 07/03/2024 8:48 AM EDT [facility] RDW 13.6 11.0 - 15.0 % LAB HEMETOLOGY METHOD 07/03/2024 8:48 AM EDT [facility] Platelets 355 130 - 400 K/mcL LAB HEMETOLOGY METHOD 07/03/2024 8:48 AM EDT [facility] MPV 9.8 7.0 - 11.0 FL LAB HEMETOLOGY METHOD 07/03/2024 8:48 AM EDT [facility] NRBC 0.0 <1.0 % LAB HEMETOLOGY METHOD 07/03/2024 8:48 AM EDT [facility] NRBC Absolute 0.00 <0.10 K/mcL LAB HEMETOLOGY METHOD 07/03/2024 8:48 AM EDT [facility] Blood Venous blood specimen / Unknown Venipuncture / Unknown 07/03/2024 6:54 AM EDT 07/03/2024 8:08 AM EDT us Fartun Goldstein MD LAB BLOOD ORDERABLES Fin al Result [facility] [address] [place] [address], documented in this encounter Visit Diagnoses Diagnosis Elevated white blood cell count, unspecified documented in this encounter Care Teams Cherry Cutter Relationship Specialty Start Date End Date Fartun Goldstein MD [address] [address] PCP - General Family Medicine 06/13/24 documented as of this encounter
--- OUTSIDE RECORDS SUMMARY | 2025-04-01 12:56 | XMS_ITS | Encounter Summary ---
Author Organization [facility] Address [address] [place] [address] Care Team Providers Care Magazine Editor Name Role Phone Fartun Goldstein MD Primary Care Provider + Encounter Details Date Type Department Care Team (Late st Contact Info) Description 06/30/2024 Lab Requisition [facility] - Main Lab [address] [place] [address] Fartun Goldstein MD 819 [facility] 1 [place], [place] [phone] Essential (primary) hypertension Social History Tobacco Use [...] Hold for add-ons. 06/30/2024 1:02 PM EDT [facility] Comment:Auto resulted. Blood Venous blood specimen / Unknown 06/30/2024 7:42 AM EDT 06/30/2024 11:48 AM EDT us Fartun Goldstein MD LAB BLOOD ORDERABLES Fin al Result [facility] [address] [place] [address], * (ABNORMAL) Complete blood count (06/30/2024 7:42 AM EDT) WBC 8.7 4.8 - 10.8 K/mcL LAB HEMETOLOGY METHOD 06/30/2024 1:20 PM EDT [facility] RBC 2.50(L) 4.50 - 5.50 M/mcL LAB HEMETOLOGY METHOD 06/30/2024 1:20 PM EDT [facility] Hemoglobin 7.9(L) 13.5 - 17.5 g/dL LAB HEMETOLOGY METHOD 06/30/2024 1:20 PM EDT [facility] Hematocrit 25.3(L) 42.0 - 54.0 % LAB HEMETOLOGY METHOD 06/30/2024 1:20 PM EDT [facility] MCV 102.4(H) 79.0 - 98.0 FL LAB HEMETOLOGY METHOD 06/30/2024 1:20 PM EDT [facility] MCH 32.0 27.0 - 32.0 pcg LAB HEMETOLOGY METHOD 06/30/2024 1:20 PM EDT [facility] MCHC 31.2(L) 32.0 - 37.0 g/dL LAB HEMETOLOGY METHOD 06/30/2024 1:20 PM EDT [facility] RDW 13.6 11.0 - 15.0 % LAB HEMETOLOGY METHOD 06/30/2024 1:20 PM EDT [facility] Platelets 368 130 - 400 K/mcL LAB HEMETOLOGY METHOD 06/30/2024 1:20 PM EDT [facility] MPV 10.5 7.0 - 11.0 FL LAB HEMETOLOGY METHOD 06/30/2024 1:20 PM EDT [facility] NRBC 0.0 <1.0 % LAB HEMETOLOGY METHOD 06/30/2024 1:20 PM EDT [facility] NRBC Absolute 0.00 <0.10 K/mcL LAB HEMETOLOGY METHOD 06/30/2024 1:20 PM EDT [facility] Blood Venous blood specimen / Unknown Venipuncture / Unknown 06/30/2024 7:42 AM EDT 06/30/2024 11:32 AM EDT us Fartun Goldstein MD LAB BLOOD ORDERABLES Fin al Result [facility] [address] [place] [address], documented in this encounter Visit Diagnoses Diagnosis Essential (primary) hypertension Unspecified essential hypertension documented in this encounter Care Teams Magazine Editor Relationship Specialty Start Date End Date Fartun Goldstein MD [address] [phone] PCP - General Family Medicine 06/13/24 documented as of this encounter
--- OUTSIDE RECORDS SUMMARY | 2025-04-01 12:56 | XMS_ITS | Encounter Summary ---
Author Organization [employer] [facility] Address [address] [place] [address] Care Team Providers Care Talent Acquisition Administrator Name Role Phone Fartun Goldstein MD Primary Care Provider + Encounter Details Date Type Department Care Team (Late st Contact Info) Description 07/15/2024 Lab Requisition [facility] - Main Lab 299 [facility] [place] [address] Fartun Goldstein MD 819 [facility] 1 [place] [address] Essential (primary) hypertension Social History Tobacco Use [...] mmol/L LAB CHEMISTRY METHOD 07/15/2024 9:17 AM [facility] Potassium 3.9 3.5 - 5.5 mmol/L LAB CHEMISTRY METHOD 07/15/2024 9:17 AM [facility] Chloride 106 96 - 110 mmol/L LAB CHEMISTRY METHOD 07/15/2024 9:17 AM [facility] CO2 25 21 - 32 mmol/L LAB CHEMISTRY METHOD 07/15/2024 9:17 AM [facility] Anion Gap 5 3 - 11 LAB CHEMISTRY METHOD 07/15/2024 9:17 AM [facility] Glucose 73 70 - 100 mg/dL LAB CHEMISTRY METHOD 07/15/2024 9:17 AM [facility] BUN 21 5 - 25 mg/dL LAB CHEMISTRY METHOD 07/15/2024 9:17 AM [facility] Creatinine 1.47(H) 0.70 - 1.30 mg/dL LAB CHEMISTRY METHOD 07/15/2024 9:17 AM [facility] eGFR 46(L) >=60 mL/min/1. 73m2 LAB CHEMISTRY METHOD 07/15/2024 9:17 AM [facility] Comment:Calculation based on the Chronic Kidney Disease Epidemiology Collaboration (CKD-EPI) equation refit without adjustment for race. BUN/Creatinine Ratio 14.3 LAB CHEMISTRY METHOD 07/15/2024 9:17 AM [facility] Calcium 8.7 8.5 - 10.5 mg/dL LAB CHEMISTRY METHOD 07/15/2024 9:17 AM [facility] Blood Venous blood specimen / Unknown Venipuncture / Unknown 07/15/2024 5:03 AM EDT 07/15/2024 8:28 AM EDT us Fartun Goldstein MD LAB BLOOD ORDERABLES Fin al Result [facility] [address] [place] [address], * (ABNORMAL) Complete blood count (07/15/2024 5:03 AM EDT) WBC 7.0 4.8 - 10.8 K/[facility] LAB HEMETOLOGY METHOD 07/15/2024 9:21 AM [facility] RBC 2.30(L) 4.50 - 5.50 M/mcL LAB HEMETOLOGY METHOD 07/15/2024 9:21 AM [facility] Hemoglobin 7.2(L) 13.5 - 17.5 g/dL LAB HEMETOLOGY METHOD 07/15/2024 9:21 AM [facility] Hematocrit 23.3(L) 42.0 - 54.0 % LAB HEMETOLOGY METHOD 07/15/2024 9:21 AM [facility] MCV 103.1(H) 79.0 - 98.0 FL LAB HEMETOLOGY METHOD 07/15/2024 9:21 AM [facility] MCH 31.9 27.0 - 32.0 pcg LAB HEMETOLOGY METHOD 07/15/2024 9:21 AM [facility] MCHC 30.9(L) 32.0 - 37.0 g/dL LAB HEMETOLOGY METHOD 07/15/2024 9:21 AM [facility] RDW 14.9 11.0 - 15.0 % LAB HEMETOLOGY METHOD 07/15/2024 9:21 AM [facility] Platelets 07/15/2024 9:21 AM [facility] Comment:Not measured. Platel ets appear adequate but clumped MPV 10.2 7.0 - 11.0 FL LAB HEMETOLOGY METHOD 07/15/2024 9:21 AM [facility] NRBC 0.0 <1.0 % LAB HEMETOLOGY METHOD 07/15/2024 9:21 AM [facility] NRBC Absolute 0.00 <0.10 K/mcL LAB HEMETOLOGY METHOD 07/15/2024 9:21 AM [facility] Blood Venous blood specimen / Unknown Venipuncture / Unknown 07/15/2024 5:03 AM EDT 07/15/2024 8:28 AM EDT us Fartun Goldstein MD LAB BLOOD ORDERABLES Fin al Result [facility] [address] [place] [address], documented in this encounter Visit Diagnoses Diagnosis Essential (primary) hypertension Unspecified essential hypertension documented in this encounter Care Teams Talent Acquisition Administrator Relationship Specialty Start Date End Date Fartun Goldstein MD [address] [place] [phone] PCP - General Family Medicine 06/13/24 documented as of this encounter
--- OUTSIDE RECORDS SUMMARY | 2025-04-01 12:56 | XMS_ITS | Encounter Summary ---
Author Organization [employer] Address [address] [place] [address] Care Team Providers Care Training Technician Name Role Phone Fartun Goldstein MD Primary Care Provider + Encounter Details Date Type Department Care Team (Late st Contact Info) Description 07/23/2024 Lab Requisition [facility] - Main Lab 299 [place] [address] Fartun Goldstein MD 819 [facility] 1 [place] [address] Anemia, unspecified Social History Tobacco Use Types [...] mmol/L LAB CHEMISTRY METHOD 07/23/2024 10:34 AM [facility] Potassium 4.0 3.5 - 5.5 mmol/L LAB CHEMISTRY METHOD 07/23/2024 10:34 AM [facility] Chloride 107 96 - 110 mmol/L LAB CHEMISTRY METHOD 07/23/2024 10:34 AM [facility] CO2 25 21 - 32 mmol/L LAB CHEMISTRY METHOD 07/23/2024 10:34 AM [facility] Anion Gap 6 3 - 11 LAB CHEMISTRY METHOD 07/23/2024 10:34 AM [facility] Glucose 83 70 - 100 mg/dL LAB CHEMISTRY METHOD 07/23/2024 10:34 AM [facility] BUN 25 5 - 25 mg/dL LAB CHEMISTRY METHOD 07/23/2024 10:34 AM [facility] Creatinine 1.73(H) 0.70 - 1.30 mg/dL LAB CHEMISTRY METHOD 07/23/2024 10:34 AM [facility] eGFR 38(L) >=60 mL/min/1. 73m2 LAB CHEMISTRY METHOD 07/23/2024 10:34 AM [facility] Comment:Calculation based on the Chronic Kidney Disease Epidemiology Collaboration (CKD-EPI) equation refit without adjustment for race. BUN/Creatinine Ratio 14.5 LAB CHEMISTRY METHOD 07/23/2024 10:34 AM [facility] Calcium 8.8 8.5 - 10.5 mg/dL LAB CHEMISTRY METHOD 07/23/2024 10:34 AM [facility] Blood Venous blood specimen / Unknown Venipuncture / Unknown 07/23/2024 7:47 AM EDT 07/23/2024 9:27 AM EDT us Fartun Goldstein MD LAB BLOOD ORDERABLES Fin al Result [facility] [address] [place] [address], * (ABNORMAL) Complete blood count (07/23/2024 7:47 AM EDT) WBC 5.6 4.8 - 10.8 K/mcL LAB HEMETOLOGY METHOD 07/23/2024 10:14 AM [facility] RBC 2.20(L) 4.50 - 5.50 M/mcL LAB HEMETOLOGY METHOD 07/23/2024 10:14 AM [facility] Hemoglobin 7.1(L) 13.5 - 17.5 g/dL LAB HEMETOLOGY METHOD 07/23/2024 10:14 AM [facility] Hematocrit 22.8(L) 42.0 - 54.0 % LAB HEMETOLOGY METHOD 07/23/2024 10:14 AM [facility] MCV 103.2(H) 79.0 - 98.0 FL LAB HEMETOLOGY METHOD 07/23/2024 10:14 AM [facility] MCH 32.1(H) 27.0 - 32.0 pcg LAB HEMETOLOGY METHOD 07/23/2024 10:14 AM [facility] MCHC 31.1(L) 32.0 - 37.0 g/dL LAB HEMETOLOGY METHOD 07/23/2024 10:14 AM [facility] RDW 15.1(H) 11.0 - 15.0 % LAB HEMETOLOGY METHOD 07/23/2024 10:14 AM [facility] Platelets 192 130 - 400 K/mcL LAB HEMETOLOGY METHOD 07/23/2024 10:14 AM [facility] MPV 11.7(H) 7.0 - 11.0 FL LAB HEMETOLOGY METHOD 07/23/2024 10:14 AM [facility] NRBC 0.0 <1.0 % LAB HEMETOLOGY METHOD 07/23/2024 10:14 AM [facility] NRBC Absolute 0.00 <0.10 K/mcL LAB HEMETOLOGY METHOD 07/23/2024 10:14 AM [facility] Blood Venous blood specimen / Unknown Venipuncture / Unknown 07/23/2024 7:47 AM EDT 07/23/2024 9:27 AM EDT Fartun Goldstein MD LAB BLOOD ORDERABLES Fin al Result [facility] [address] [place] [address], documented in this encounter Visit Diagnoses Diagnosis Anemia, unspecified documented in this encounter Care Teams Training Technician Relationship Specialty Start Date End Date Fartun Goldstein MD [address] [place] [phone] PCP - General Family Medicine 06/13/24 documented as of this encounter
--- OUTSIDE RECORDS SUMMARY | 2025-04-01 12:56 | XMS_ITS | Clinical Summary ---
Author Organization [facility] Address [address] [facility] 20 0 [place] [address] Phone Care Team Providers Care Technical Customer Support Specialist Name Role Phone Jet Hogan MD Primary Care Provider [phone] Allergies No known active allergies Medications aspirin (ST KORI) 81 MG EC tablet Take 1 tablet by mouth 1 (one) time each day Active rosuvastatin (CRESTOR) 40 MG tablet Take 1 tablet by mouth 1 (one) time each day Active amLODIPine (NORVASC) 10 MG tablet Take 7.5 mg by mouth 1 (one) time each day 01/08/2021 Active metoprolol succinate XL (TOPROL XL) 50 MG 24 hr tabletIndication s:Chronic kidney disease stage 3 (HCC) Take 1 tablet (50 mg total) by mouth 1 (one) time each day 90 tablet 3 02/20/2022 Active Active Problems Problem Noted Date Diagnosed Date Hypertensive disorder 06/21/2022 Fracture of ankle 06/21/2022 Overview (06/21/2022): right Benign essential hypertension 08/16/2020 Benign prostatic hyperplasia without outflow obs truction 08/16/2020 Chronic kidney disease stage 3 08/16/2020 Coronary arteriosclerosis 08/16/2020 Gastroesophageal reflux disease 08/16/2020 Hyperlipidemia 08/16/2020 Hypertensive heart and renal disease with (congestive) heart failure 08/16/2020 Immunizations Immunization Administration Dates Next Due Influenza Whole 01/27/2008 Pfizer SARS-COV-2 05/27/2020 Tdap 07/08/2019 Family History Medical History Relation Comments Heart disease Father Heart disease Mother Relation Status Comments Father Unknown Mother Unknown Social History Tobacco Use Types Packs/Day Years Used Date Smoking Tobacco: Never Smokeless Tobacco: Never Tobacco Cessation:Counseling Given: Not Answered Alcohol Use Standard Drinks/Week Comments Never 0 (1 standard drink = 0.6 oz pure alcohol) Alcoholic Drinks/day: Occasional social drink Sex and Gender Information Value Date Recorded Sex Assigned at Not on file Legal Sex Male 5:05 PM EST Gender Identity Not on file Sexual Orientation Not on file Last Filed Vital Signs Vital Sign Reading Time Taken Comments Blood Pressure 126/66 12/20/2022 1:06 PM EDT Pulse 68 12/20/2022 1:06 PM EDT Temperature - - Respiratory Rate - - Oxygen Saturation 98% 12/20/2022 1:06 PM EDT Inhaled Oxygen Concentration - - Weight 76.9 kg (169 lb 9.6 oz) 12/20/2022 1:06 P M EDT Height 172.7 cm (5' 8 ) 12/20/2022 1:06 PM EDT Body Mass Index 25.79 12/20/2022 1:06 PM EDT Plan of Treatment Health Maintenance Due Date Last Done Comments Pneumococcal Vaccine: 50+ Ye ars (1 of 2 - PCV) 1959 Influenza Vaccine (#1) 2024 01/27/2008 Hepatitis B Vaccine Aged Out No longe r eligible based on patient's age to complete this topic Insurance [facility] Medicare [facility] Medicare Care Teams Technical Customer Support Specialist Relationship Specialty Start Date End Date Jet Hogan MD [address] [place] [address] PCP - General 04/12/20
--- OUTSIDE RECORDS SUMMARY | 2025-04-01 12:56 | XMS_ITS | Encounter Summary ---
Author Organization [employer] Address [address] [place] [address] Care Team Providers Care Waiter/Waitress Cocktail Lounge Name Role Phone Fartun Goldstein MD Primary Care Provider + Encounter Details Date Type Department Care Team (Late st Contact Info) Description 06/28/2024 Lab Requisition [facility] - Main Lab 299 [facility] [place] [address] Fartun Goldstein MD [address] [phone] Abnormal results of kidney function studies Social [...] LAB CHEMISTRY METHOD 06/28/2024 1:21 PM EDT [facility] Potassium 4.4 3.5 - 5.5 mmol/L LAB CHEMISTRY METHOD 06/28/2024 1:21 PM EDT [facility] Chloride 103 96 - 110 mmol/L LAB CHEMISTRY METHOD 06/28/2024 1:21 PM EDT [facility] CO2 23 21 - 32 mmol/L LAB CHEMISTRY METHOD 06/28/2024 1:21 PM EDT [facility] Anion Gap 8 3 - 11 LAB CHEMISTRY METHOD 06/28/2024 1:21 PM EDT [facility] Glucose 94 70 - 100 mg/dL LAB CHEMISTRY METHOD 06/28/2024 1:21 PM EDT [facility] BUN 28(H) 5 - 25 mg/dL LAB CHEMISTRY METHOD 06/28/2024 1:21 PM EDT [facility] Creatinine 1.80(H) 0.70 - 1.30 mg/dL LAB CHEMISTRY METHOD 06/28/2024 1:21 PM EDT [facility] eGFR 36(L) >=60 mL/min/1. 73m2 LAB CHEMISTRY METHOD 06/28/2024 1:21 PM EDT [facility] Comment:Calculation based on the Chronic Kidney Disease Epidemiology Collaboration (CKD-EPI) equation refit without adjustment for race. BUN/Creatinine Ratio 15.6 LAB CHEMISTRY METHOD 06/28/2024 1:21 PM EDT [facility] Calcium 8.7 8.5 - 10.5 mg/dL LAB CHEMISTRY METHOD 06/28/2024 1:21 PM [facility] Blood Venous blood specimen / Unknown Venipuncture / Unknown 06/28/2024 11:33 AM EDT 06/28/2024 12:55 PM EDT us Fartun Goldstein MD LAB BLOOD ORDERABLES Fin al Result [facility] [address] [place] [address], [place] [phone] documented in this encounter Visit Diagnoses Diagnosis Abnormal results of kidney function studies Nonspecific abnormal results of kidney function study documented in this encounter Care Teams Waiter/Waitress Cocktail Lounge Relationship Specialty Start Date End Date Fartun Goldstein MD [address] [place] [address] PCP - General Family Medicine 06/13/24 documented as of this encounter
--- OUTSIDE RECORDS SUMMARY | 2025-04-01 12:56 | XMS_ITS | Encounter Summary ---
Author Organization [employer] Address [address] [place] [address] Care Team Providers Care General Operator Name Role Phone Fartun Goldstein MD Primary Care Provider + Encounter Details Date Type Department Care Team (Late st Contact Info) Description 07/09/2024 Lab Requisition [facility] - Main Lab 299 [place] [address] Fartun Goldstein MD 819 [facility] 1 [place] [address] Unspecified atrial fibrillation (CMS/HCC V24, CMS/HCC V28) [...] LAB CHEMISTRY METHOD 07/09/2024 10:39 AM EDT [facility] Potassium 3.8 3.5 - 5.5 mmol/L LAB CHEMISTRY METHOD 07/09/2024 10:39 AM [facility] Chloride 106 96 - 110 mmol/L LAB CHEMISTRY METHOD 07/09/2024 10:39 AM [facility] CO2 25 21 - 32 mmol/L LAB CHEMISTRY METHOD 07/09/2024 10:39 AM [facility] Anion Gap 6 3 - 11 LAB CHEMISTRY METHOD 07/09/2024 10:39 AM [facility] Glucose 77 70 - 100 mg/dL LAB CHEMISTRY METHOD 07/09/2024 10:39 AM [facility] BUN 27(H) 5 - 25 mg/dL LAB CHEMISTRY METHOD 07/09/2024 10:39 AM [facility] Creatinine 1.77(H) 0.70 - 1.30 mg/dL LAB CHEMISTRY METHOD 07/09/2024 10:39 AM [facility] eGFR 37(L) >=60 mL/min/1. 73m2 LAB CHEMISTRY METHOD 07/09/2024 10:39 AM [facility] Comment:Calculation based on the Chronic Kidney Disease Epidemiology Collaboration (CKD-EPI) equation refit without adjustment for race. BUN/Creatinine Ratio 15.3 LAB CHEMISTRY METHOD 07/09/2024 10:39 AM [facility] Calcium 8.5 8.5 - 10.5 mg/dL LAB CHEMISTRY METHOD 07/09/2024 10:39 AM [facility] Blood Venous blood specimen / Unknown Venipuncture / Unknown 07/09/2024 5:50 AM EDT 07/09/2024 8:43 AM EDT us Fartun Goldstein MD LAB BLOOD ORDERABLES Fin al Result [facility] [address] [place] [address], * (ABNORMAL) Complete blood count (07/09/2024 5:50 AM EDT) [facility] WBC 7.0 4.8 - 10.8 K/mcL LAB HEMETOLOGY METHOD 07/09/2024 9:37 AM [facility] RBC 2.20(L) 4.50 - 5.50 M/mcL LAB HEMETOLOGY METHOD 07/09/2024 9:37 AM [facility] Hemoglobin 7.1(L) 13.5 - 17.5 g/dL LAB HEMETOLOGY METHOD 07/09/2024 9:37 AM [facility] Hematocrit 22.9(L) 42.0 - 54.0 % LAB HEMETOLOGY METHOD 07/09/2024 9:37 AM [facility] MCV 103.2(H) 79.0 - 98.0 FL LAB HEMETOLOGY METHOD 07/09/2024 9:37 AM [facility] MCH 32.0 27.0 - 32.0 pcg LAB HEMETOLOGY METHOD 07/09/2024 9:37 AM [facility] MCHC 31.0(L) 32.0 - 37.0 g/dL LAB HEMETOLOGY METHOD 07/09/2024 9:37 AM [facility] RDW 14.3 11.0 - 15.0 % LAB HEMETOLOGY METHOD 07/09/2024 9:37 AM [facility] Platelets 291 130 - 400 K/mcL LAB HEMETOLOGY METHOD 07/09/2024 9:37 AM [facility] MPV 10.5 7.0 - 11.0 FL LAB HEMETOLOGY METHOD 07/09/2024 9:37 AM [facility] NRBC 0.0 <1.0 % LAB HEMETOLOGY METHOD 07/09/2024 9:37 AM [facility] NRBC Absolute 0.00 <0.10 K/mcL LAB HEMETOLOGY METHOD 07/09/2024 9:37 AM EDT [facility] Blood Venous blood specimen / Unknown Venipuncture / Unknown 07/09/2024 5:50 AM EDT 07/09/2024 8:43 AM EDT us Fartun Goldstein MD LAB BLOOD ORDERABLES Fin al Result [facility] [address] [place] [address], documented in this encounter Visit Diagnoses Diagnosis Unspecified atrial fibrillation (CMS/HCC V24, CMS/HCC V28) documented in this encounter Care Teams General Operator Relationship Specialty Start Date End Date Fartun Goldstein MD [address] [place] [phone] PCP - General Family Medicine 06/13/24 documented as of this encounter
--- OUTSIDE RECORDS SUMMARY | 2025-04-01 12:57 | XMS_ITS | Encounter Summary ---
Author Organization [employer] Address [address] [place] [address] Care Team Providers Care System Trainer Name Role Phone Fartun Goldstein MD Primary Care Provider + Encounter Details Date Type Department Care Team (Late st Contact Info) Description 08/09/2024 Lab Requisition [facility] - Main Lab [address] [place] [address] Fartun Goldstein MD 819 [facility] 1 [place] [address] Anemia, unspecified Social History Tobacco Use Types [...] mmol/L LAB CHEMISTRY METHOD 08/11/2024 8:47 AM [facility] Potassium 4.1 3.5 - 5.5 mmol/L LAB CHEMISTRY METHOD 08/11/2024 8:47 AM [facility] Chloride 109 96 - 110 mmol/L LAB CHEMISTRY METHOD 08/11/2024 8:47 AM [facility] CO2 24 21 - 32 mmol/L LAB CHEMISTRY METHOD 08/11/2024 8:47 AM [facility] Anion Gap 7 3 - 11 LAB CHEMISTRY METHOD 08/11/2024 8:47 AM [facility] Glucose 78 70 - 100 mg/dL LAB CHEMISTRY METHOD 08/11/2024 8:47 AM [facility] BUN 33(H) 5 - 25 mg/dL LAB CHEMISTRY METHOD 08/11/2024 8:47 AM [facility] Creatinine 1.81(H) 0.70 - 1.30 mg/dL LAB CHEMISTRY METHOD 08/11/2024 8:47 AM [facility] eGFR 36(L) >=60 mL/min/1. 73m2 LAB CHEMISTRY METHOD 08/11/2024 8:47 AM [facility] Comment:Calculation based on the Chronic Kidney Disease Epidemiology Collaboration (CKD-EPI) equation refit without adjustment for race. BUN/Creatinine Ratio 18.2 LAB CHEMISTRY METHOD 08/11/2024 8:47 AM [facility] Calcium 9.0 8.5 - 10.5 mg/dL LAB CHEMISTRY METHOD 08/11/2024 8:47 AM [facility] Blood Venous blood specimen / Unknown Venipuncture / Unknown 08/11/2024 5:57 AM EDT 08/11/2024 7:32 AM EDT us Fartun Goldstein MD LAB BLOOD ORDERABLES Fin al Result [facility] [address] [place] [address], * (ABNORMAL) Complete blood count (08/11/2024 5:57 AM EDT) WBC 5.8 4.8 - 10.8 K/[facility] LAB HEMETOLOGY METHOD 08/11/2024 8:01 AM [facility] RBC 2.20(L) 4.50 - 5.50 M/mcL LAB HEMETOLOGY METHOD 08/11/2024 8:01 AM [facility] Hemoglobin 7.0(L) 13.5 - 17.5 g/dL LAB HEMETOLOGY METHOD 08/11/2024 8:01 AM [facility] Hematocrit 22.4(L) 42.0 - 54.0 % LAB HEMETOLOGY METHOD 08/11/2024 8:01 AM [facility] MCV 102.3(H) 79.0 - 98.0 FL LAB HEMETOLOGY METHOD 08/11/2024 8:01 AM [facility] MCH 32.0 27.0 - 32.0 pcg LAB HEMETOLOGY METHOD 08/11/2024 8:01 AM [facility] MCHC 31.3(L) 32.0 - 37.0 g/dL LAB HEMETOLOGY METHOD 08/11/2024 8:01 AM [facility] RDW 15.2(H) 11.0 - 15.0 % LAB HEMETOLOGY METHOD 08/11/2024 8:01 AM [facility] Platelets 217 130 - 400 K/mcL LAB HEMETOLOGY METHOD 08/11/2024 8:01 AM [facility] MPV 10.7 7.0 - 11.0 FL LAB HEMETOLOGY METHOD 08/11/2024 8:01 AM [facility] NRBC 0.0 <1.0 % LAB HEMETOLOGY METHOD 08/11/2024 8:01 AM [facility] NRBC Absolute 0.00 <0.10 K/mcL LAB HEMETOLOGY METHOD 08/11/2024 8:01 AM [facility] Blood Venous blood specimen / Unknown Venipuncture / Unknown 08/11/2024 5:57 AM EDT 08/11/2024 7:32 AM EDT us Fartun Goldstein MD LAB BLOOD ORDERABLES Fin al Result Performing Organization Address City/State/[facility] Co de Phone Number [facility] [address] [place] [address], documented in this encounter Visit Diagnoses Diagnosis Anemia, unspecified documented in this encounter Care Teams System Trainer Relationship Specialty Start Date End Date Fartun Goldstein MD [address] [place] [phone] PCP - General Family Medicine 06/13/24 documented as of this encounter
--- OUTSIDE RECORDS SUMMARY | 2025-04-01 12:57 | XMS_ITS | Encounter Summary ---
Author Organization [facility] Address [address] [place] [address] Care Team Providers Care Tile Applicator Name Role Phone Fartun Goldstein MD Primary Care Provider + Encounter Details Date Type Department Care Team (Late st Contact Info) Description 08/25/2024 Lab Requisition [facility] - Main Lab [address] [place] [address] Fartun Goldstein MD [address] [phone] Myelodysplastic syndrome, unspecified (CMS/HCC V24, CMS/HCC V28) [...] LAB CHEMISTRY METHOD 08/26/2024 11:17 AM EDT [facility] Potassium 4.4 3.5 - 5.5 mmol/L LAB CHEMISTRY METHOD 08/26/2024 11:17 AM [facility] LAB Chloride 108 96 - 110 mmol/L LAB CHEMISTRY METHOD 08/26/2024 11:17 AM [facility] LAB CO2 23 21 - 32 mmol/L LAB CHEMISTRY METHOD 08/26/2024 11:17 AM [facility] LAB Anion Gap 9 3 - 11 LAB CHEMISTRY METHOD 08/26/2024 11:17 AM [facility] LAB Glucose 73 70 - 100 mg/dL LAB CHEMISTRY METHOD 08/26/2024 11:17 AM [facility] LAB BUN 36(H) 5 - 25 mg/dL LAB CHEMISTRY METHOD 08/26/2024 11:17 AM [facility] LAB Creatinine 1.98(H) 0.70 - 1.30 mg/dL LAB CHEMISTRY METHOD 08/26/2024 11:17 AM [facility] LAB eGFR 32(L) >=60 mL/min/1. 73m2 LAB CHEMISTRY METHOD 08/26/2024 11:17 AM [facility] LAB Comment:Calculation based on the Chronic Kidney Disease Epidemiology Collaboration (CKD-EPI) equation refit without adjustment for race. BUN/Creatinine Ratio 18.2 LAB CHEMISTRY METHOD 08/26/2024 11:17 AM [facility] LAB Calcium 9.0 8.5 - 10.5 mg/dL LAB CHEMISTRY METHOD 08/26/2024 11:17 AM [facility] LAB Blood Venous blood specimen / Unknown Venipuncture / Unknown 08/26/2024 5:58 AM EDT 08/26/2024 11:17 AM EDT us Fartun Goldstein MD LAB BLOOD ORDERABLES Fin al Result [facility] LAB [address] [place] [address], * (ABNORMAL) Complete blood count (08/26/2024 5:58 AM EDT) [facility] WBC 5.4 4.8 - 10.8 K/mcL LAB HEMETOLOGY METHOD 08/26/2024 11:03 AM [facility] LAB RBC 2.20(L) 4.50 - 5.50 M/mcL LAB HEMETOLOGY METHOD 08/26/2024 11:03 AM [facility] LAB Hemoglobin 7.3(L) 13.5 - 17.5 g/dL LAB HEMETOLOGY METHOD 08/26/2024 11:03 AM [facility] LAB Hematocrit 23.6(L) 42.0 - 54.0 % LAB HEMETOLOGY METHOD 08/26/2024 11:03 AM [facility] LAB MCV 105.4(H) 79.0 - 98.0 FL LAB HEMETOLOGY METHOD 08/26/2024 11:03 AM [facility] LAB MCH 32.6(H) 27.0 - 32.0 pcg LAB HEMETOLOGY METHOD 08/26/2024 11:03 AM [facility] LAB MCHC 30.9(L) 32.0 - 37.0 g/dL LAB HEMETOLOGY METHOD 08/26/2024 11:03 AM [facility] LAB RDW 14.6 11.0 - 15.0 % LAB HEMETOLOGY METHOD 08/26/2024 11:03 AM [facility] LAB Platelets 212 130 - 400 K/mcL LAB HEMETOLOGY METHOD 08/26/2024 11:03 AM [facility] LAB MPV 11.3(H) 7.0 - 11.0 FL LAB HEMETOLOGY METHOD 08/26/2024 11:03 AM [facility] LAB NRBC 0.0 <1.0 % LAB HEMETOLOGY METHOD 08/26/2024 11:03 AM [facility] LAB NRBC Absolute 0.00 <0.10 K/mcL LAB HEMETOLOGY METHOD 08/26/2024 11:03 AM EDT [facility] LAB Blood Venous blood specimen / Unknown Venipuncture / Unknown 08/26/2024 5:58 AM EDT 08/26/2024 11:02 AM EDT us Fartun Goldstein MD LAB BLOOD ORDERABLES Fin al Result [facility] LAB [address] [place] [address], documented in this encounter Visit Diagnoses Diagnosis Myelodysplastic syndrome, unspecified (CMS/HCC V24, CMS/HCC V28) Myelodysplastic syndrome, unspecified documented in this encounter Care Teams Tile Applicator Relationship Specialty Start Date End Date Fartun Goldstein MD [address] [place] [phone] PCP - General Family Medicine 06/13/24 documented as of this encounter
--- OUTSIDE RECORDS SUMMARY | 2025-04-01 12:57 | XMS_ITS | Encounter Summary ---
Author Organization [employer] Address [address] [place] [address] Care Team Providers Care Rotary Envelope Machine Operator Name Role Phone Fartun Goldstein MD Primary Care Provider + Encounter Details Date Type Department Care Team (Late st Contact Info) Description 08/29/2024 Lab Requisition [facility] - Main Lab [address] [place] [address] Fartun Goldstein MD 819 [facility] [address] [place] [address] Anemia, unspecified Social History Tobacco Use Types [...] mmol/L LAB CHEMISTRY METHOD 09/01/2024 10:20 AM [facility] LAB Potassium 4.7 3.5 - 5.5 mmol/L LAB CHEMISTRY METHOD 09/01/2024 10:20 AM [facility] LAB Chloride 108 96 - 110 mmol/L LAB CHEMISTRY METHOD 09/01/2024 10:20 AM [facility] LAB CO2 22 21 - 32 mmol/L LAB CHEMISTRY METHOD 09/01/2024 10:20 AM [facility] LAB Anion Gap 9 3 - 11 LAB CHEMISTRY METHOD 09/01/2024 10:20 AM [facility] LAB Glucose 80 70 - 100 mg/dL LAB CHEMISTRY METHOD 09/01/2024 10:20 AM [facility] LAB BUN 39(H) 5 - 25 mg/dL LAB CHEMISTRY METHOD 09/01/2024 10:20 AM [facility] LAB Creatinine 1.79(H) 0.70 - 1.30 mg/dL LAB CHEMISTRY METHOD 09/01/2024 10:20 AM [facility] LAB eGFR 36(L) >=60 mL/min/1. 73m2 LAB CHEMISTRY METHOD 09/01/2024 10:20 AM [facility] LAB Comment:Calculation based on the Chronic Kidney Disease Epidemiology Collaboration (CKD-EPI) equation refit without adjustment for race. BUN/Creatinine Ratio 21.8 LAB CHEMISTRY METHOD 09/01/2024 10:20 AM [facility] LAB Calcium 8.7 8.5 - 10.5 mg/dL LAB CHEMISTRY METHOD 09/01/2024 10:20 AM [facility] LAB Blood Venous blood specimen / Unknown Venipuncture / Unknown 09/01/2024 6:06 AM EDT 09/01/2024 10:19 AM EDT us Fartun Goldstein MD LAB BLOOD ORDERABLES Fin al Result [facility] LAB [address] [place] [address], * (ABNORMAL) Complete blood count (09/01/2024 6:06 AM EDT) WBC 5.8 4.8 - 10.8 K/[facility] LAB HEMETOLOGY METHOD 09/01/2024 10:13 AM [facility] LAB RBC 2.40(L) 4.50 - 5.50 M/mcL LAB HEMETOLOGY METHOD 09/01/2024 10:13 AM [facility] LAB Hemoglobin 7.8(L) 13.5 - 17.5 g/dL LAB HEMETOLOGY METHOD 09/01/2024 10:13 AM [facility] LAB Hematocrit 24.7(L) 42.0 - 54.0 % LAB HEMETOLOGY METHOD 09/01/2024 10:13 AM [facility] LAB MCV 102.1(H) 79.0 - 98.0 FL LAB HEMETOLOGY METHOD 09/01/2024 10:13 AM [facility] LAB MCH 32.2(H) 27.0 - 32.0 pcg LAB HEMETOLOGY METHOD 09/01/2024 10:13 AM [facility] LAB MCHC 31.6(L) 32.0 - 37.0 g/dL LAB HEMETOLOGY METHOD 09/01/2024 10:13 AM [facility] LAB RDW 14.2 11.0 - 15.0 % LAB HEMETOLOGY METHOD 09/01/2024 10:13 AM [facility] LAB Platelets 232 130 - 400 K/mcL LAB HEMETOLOGY METHOD 09/01/2024 10:13 AM [facility] LAB MPV 11.2(H) 7.0 - 11.0 FL LAB HEMETOLOGY METHOD 09/01/2024 10:13 AM [facility] LAB NRBC 0.0 <1.0 % LAB HEMETOLOGY METHOD 09/01/2024 10:13 AM [facility] LAB NRBC Absolute 0.00 <0.10 K/mcL LAB HEMETOLOGY METHOD 09/01/2024 10:13 AM [facility] LAB Blood Venous blood specimen / Unknown Venipuncture / Unknown 09/01/2024 6:06 AM EDT 09/01/2024 10:11 AM EDT Fartun Goldstein MD LAB BLOOD ORDERABLES Fin al Result [facility] [address] [place] [address], documented in this encounter Visit Diagnoses Diagnosis Anemia, unspecified documented in this encounter Care Teams Rotary Envelope Machine Operator Relationship Specialty Start Date End Date Fartun Goldstein MD [address] [place] [phone] PCP - General Family Medicine 06/13/24 documented as of this encounter
--- OUTSIDE RECORDS SUMMARY | 2025-04-01 12:57 | XMS_ITS | Encounter Summary ---
Author Organization [facility] Address [address] [place] [address] Care Team Providers Care Gis Engineer Name Role Phone Fartun Goldstein MD Primary Care Provider + Encounter Details Date Type Department Care Team (Late st Contact Info) Description 09/05/2024 Lab Requisition [facility] - Main Lab [address] [facility] [place] [address] Fartun Goldstein MD [address] [address] Anemia, unspecified Social History Tobacco Use Types [...] unspecified documented in this encounter Care Teams Gis Engineer Relationship Specialty Start Date End Date Fartun Goldstein MD [address] [phone] PCP - General Family Medicine 06/13/24 documented as of this encounter
--- OUTSIDE RECORDS SUMMARY | 2025-04-01 12:57 | XMS_ITS | Clinical Summary ---
Author Organization [address] [facility] Address [address] [place] [address] Phone Care Team Providers Care Drafter (Cad) Electrical Name Role Phone Elder, Fartun Barahona MD [...] mmol/L LAB CHEMISTRY METHOD 09/01/2024 10:20 AM [facility] LAB Potassium 4.7 3.5 - 5.5 mmol/L LAB CHEMISTRY METHOD 09/01/2024 10:20 AM [facility] LAB Chloride 108 96 - 110 mmol/L LAB CHEMISTRY METHOD 09/01/2024 10:20 AM [facility] LAB CO2 22 21 - 32 mmol/L LAB CHEMISTRY METHOD 09/01/2024 10:20 AM [facility] LAB Anion Gap 9 3 - 11 LAB CHEMISTRY METHOD 09/01/2024 10:20 AM [facility] LAB Glucose 80 70 - 100 mg/dL LAB CHEMISTRY METHOD 09/01/2024 10:20 AM [facility] LAB BUN 39(H) 5 - 25 mg/dL LAB CHEMISTRY METHOD 09/01/2024 10:20 AM [facility] LAB Creatinine 1.79(H) 0.70 - 1.30 mg/dL LAB CHEMISTRY METHOD 09/01/2024 10:20 AM [facility] LAB eGFR 36(L) >=60 mL/min/1. 73m2 LAB CHEMISTRY METHOD 09/01/2024 10:20 AM EDT [facility] LAB Comment:Calculation based on the Chronic Kidney Disease Epidemiology Collaboration (CKD-EPI) equation refit without adjustment for race. BUN/Creatinine Ratio 21.8 LAB CHEMISTRY METHOD 09/01/2024 10:20 AM EDT [facility] LAB Calcium 8.7 8.5 - 10.5 mg/dL LAB CHEMISTRY METHOD 09/01/2024 10:20 AM EDT [facility] LAB Blood Venous blood specimen / Unknown Venipuncture / Unknown 09/01/2024 6:06 AM EDT 09/01/2024 10:19 AM EDT us Fartun Goldstein MD LAB BLOOD ORDERABLES Fin al Result [facility] LAB [address] [place] [address], from Last 3 Months or Most Recently Relevant to Health Maintenance Insurance MEDICARE [facility] Care Teams Drafter (Cad) Electrical Relationship Specialty Start Date End Date Fartun Goldstein MD [address] [place] [address] PCP - General Family Medicine 06/13/24
--- OUTSIDE RECORDS SUMMARY | 2025-05-09 19:00 | XMS_ITS | Clinical Summary ---
Author Organization Unknown Care Team Providers Care Automatic Clipper Name Role Phone JANEY GRAYSONIONA Unavailable Unava james MOROCHO RN, INGRID Unavailable Unavailable DAVID MECHANICAL RESEARCH ENGINEER, SARA Unavailable Unavaillorelei COLON CHARGE OPERATOR, CHI Unavailable Unavailable JEREMIAH PT, THIERNO Unavailable Unavailable Payers Payer Name Policy Type Policy Number Effective Date Expira tion Date MEDICARE.NGS.PDGM [id number] Problems Condition Name Condition Details Condition Category [...] 2024-04 00:00: 00 ATHSCL HEART DISEASE OF [place] CORONARY ARTERY W/O ANG PCTRS Active 2024-04 [...] 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 2024-04 00:00: 00 PENITENTIARY (CURRENT) USE OF ASPIRIN Active 2024-04 00:00: [...] 5 mg tablet 08-19 00:00: 00 Yes [id number] HTN Per instruc tions ONCE DAILY Per instructio ns ONCE DAILY (route: oral) Med Classific ation: Cardiovas cular Therapy Agents metoprolol succinate ER 50 mg tablet,exte nded release 24 hr 08-19 00:00: 00 Yes [id number] AFIB Per instruc tions ONCE DAILY Per instructio ns ONCE DAILY (route: oral) Med Classific ation: Cardiovas cular Therapy Agents rosuvastati n 40 mg tablet 08-19 00:00: 00 Yes [id number] CHOLESTEROL 1 tablet DAILY 1 tablet DAILY (route: oral) Med Classific ation: Cardiovas cular Therapy Agents acetaminoph en 325 mg tablet 09-07 00:00: 00 Yes [id number] PAIN 2 tablet 3 TIMES DAILY 2 tablet 3 TIMES DAILY (route: oral) Med Classific ation: Analgesic , Anti-infl ammatory or Antipyret ic amlodipine 2.5 mg tablet 09-07 00:00: 00 03-12 00:00 :00 No [id number] HTN 1 tablet BEDTIME 1 tablet BEDTIME (route: oral) Med Classific ation: Cardiovas cular Therapy Agents aspirin 81 mg tablet,shantelle yed release 09-07 00:00: 00 Yes [id number] HEART HEALTH 1 tablet DAILY 1 tablet DAILY (route: oral) Med Classific ation: Hematolog ical Agents Miralax 17 gram/dose oral powder 09-07 00:00: 00 12-02 00:00 :00 No [id number] LAXATIVE 17 gram DAILY 17 gram DAILY (route: oral) Med Classific ation: Gastroint estinal Therapy Agents tamsulosin 0.4 mg capsule 09-07 00:00: 00 12-02 00:00 :00 No [id number] BPH 1 capsule DAILY 1 capsule DAILY (route: oral) Med Classific ation: Genitouri nary Therapy Vital Signs Vital Name Observation Time Observation Value Commen ts Temperature 2025-03-31 11:00:00.000 97.1 [degF] Temperature 2025-03-30 11:21:00.000 97 [degF] Temperature 2025-03-25 10:07:00.000 97.1 [degF] Temperature 2025-03-23 11:40:00.000 97.8 [degF] Temperature 2025-03-19 10:16:00.000 97.1 [degF] Temperature 2025-03-17 14:59:00.000 98.6 [degF] Temperature 2025-03-17 11:14:00.000 97 [degF] Temperature 2025-03-12 10:25:00.000 97.9 [degF] BMI (%) 2025-03-12 10:25:00.000 23 kg/m2 Height 2025-03-12 10:25:00.000 67 [in_us] Pulse 2025-03-31 11:00:00.000 60 /min Pulse 2025-03-30 11:21:00.000 70 /min Pulse 2025-03-25 10:07:00.000 61 /min Pulse 2025-03-23 11:40:00.000 86 /min Pulse 2025-03-19 10:16:00.000 60 /min Pulse 2025-03-17 14:59:00.000 68 /min Pulse 2025-03-17 11:14:00.000 60 /min Pulse 2025-03-12 10:25:00.000 61 /min O2 Saturation (%) 2025-03-31 11:00:00.000 100 % O2 Saturation (%) 2025-03-30 11:21:00.000 97 % O2 Saturation (%) 2025-03-25 10:07:00.000 97 % O2 Saturation (%) 2025-03-23 11:40:00.000 99 % O2 Saturation (%) 2025-03-19 10:16:00.000 100 % O2 Saturation (%) 2025-03-17 14:59:00.000 99 % O2 Saturation (%) 2025-03-17 11:14:00.000 95 % O2 Saturation (%) 2025-03-12 10:25:00.000 96 % Respirations 2025-03-31 11:00:00.000 16 /min Respirations 2025-03-30 11:21:00.000 16 /min Respirations 2025-03-25 10:07:00.000 16 /min Respirations 2025-03-23 11:40:00.000 16 /min Respirations 2025-03-19 10:16:00.000 16 /min Respirations 2025-03-17 14:59:00.000 18 /min Respirations 2025-03-17 11:14:00.000 16 /min Respirations 2025-03-12 10:25:00.000 18 /min Weight (lbs) 2025-03-31 11:00:00.000 149.6 [lb_av] Weight (lbs) 2025-03-25 10:11:00.000 163.6 [lb_av] Weight (lbs) 2025-03-19 10:16:00.000 164.6 [lb_av] Weight (lbs) 2025-03-12 10:25:00.000 150 [lb_av] Systolic Blood Pressure 2025-03-31 11:00:00.000 120 mm [Hg] Systolic Blood Pressure 2025-03-30 11:21:00.000 120 mm [Hg] Systolic Blood Pressure 2025-03-25 10:07:00.000 140 mm [Hg] Systolic Blood Pressure 2025-03-23 11:40:00.000 138 mm [Hg] Systolic Blood Pressure 2025-03-19 10:16:00.000 110 mm [Hg] Systolic Blood Pressure 2025-03-17 14:59:00.000 110 mm [Hg] Systolic Blood Pressure 2025-03-17 11:14:00.000 120 mm [Hg] Systolic Blood Pressure 2025-03-12 10:25:00.000 128 mm [Hg] Diastolic Blood Pressure 2025-03-31 11:00:00.000 58 mm [Hg] Diastolic Blood Pressure 2025-03-30 11:21:00.000 70 mm [Hg] Diastolic Blood Pressure 2025-03-25 10:07:00.000 60 mm [Hg] Diastolic Blood Pressure 2025-03-23 11:40:00.000 60 mm [Hg] Diastolic Blood Pressure 2025-03-19 10:16:00.000 60 mm [Hg] Diastolic Blood Pressure 2025-03-17 14:59:00.000 62 mm [Hg] Diastolic Blood Pressure 2025-03-17 11:14:00.000 70 mm [Hg] Diastolic Blood Pressure 2025-03-12 10:25:00.000 78 mm [Hg] Plan of Treatment Planned Activity Planned Date Details Comments Future Scheduled Test RN TO OBSE RVE, ASSESS, EVALUATE, AND DEVELOP AN INDIVIDUALIZED PLAN OF CARE. AGENCY MAY ACCEPT ORDERS FROM CONSULTING PHYSICIANS. RN TO OBSERVE AND ASSESS, MECHANICAL RESEARCH ENGINEER/AUTO CLUTCH SPECIALIST TO OBSERVE FOR RISK FOR FALLS AND INSTRUCT IN FALL PREVENTION, HOME SAFETY, MEDICATION MANAGEMENT, INFECTION PREVENTION, AND NUTRITION MANAGEMENT. RN/MECHANICAL RESEARCH ENGINEER/AUTO CLUTCH SPECIALIST NURSE MAY PERFORM O2 SATURATION LEVEL ON ADMISSION AND PRN FOR RN TO ASSESS/MECHANICAL RESEARCH ENGINEER TO OBSERVE PATIENT, WITH NOTIFICATION TO THE PHYSICIAN IF SATURATION IS 90% IN THE ABSENCE OF MORE SPECIFIC PARAMETERS FROM THE PHYSICIAN. AGENCY MAY PERFORM A RESUMPTION OF CARE VISIT FOLLOWING ANY HOSPITAL ADMISSION. RN/MECHANICAL RESEARCH ENGINEER/AUTO CLUTCH SPECIALIST TO MONITOR CO-MORBID CONDITIONS LISTED ON THE PLAN OF CARE AND ANY NEW CONDITIONS THAT PRESENT THEMSELVES DURING THIS EPISODE TO IDENTIFY CHANGES AND INTERVENE TO MINIMIZE COMPLICATIONS. [code = RN TO OBSERVE, ASSESS, EVALUATE, AND DEVELOP AN INDIVIDUALIZED PLAN OF CARE. AGENCY MAY ACCEPT ORDERS FROM CONSULTING PHYSICIANS. RN TO OBSERVE AND ASSESS, MECHANICAL RESEARCH ENGINEER/AUTO CLUTCH SPECIALIST TO OBSERVE FOR RISK FOR FALLS AND INSTRUCT IN FALL PREVENTION, HOME SAFETY, MEDICATION MANAGEMENT, INFECTION PREVENTION, AND NUTRITION MANAGEMENT. RN/MECHANICAL RESEARCH ENGINEER/AUTO CLUTCH SPECIALIST NURSE MAY PERFORM O2 SATURATION LEVEL ON ADMISSION AND PRN FOR RN TO ASSESS/MECHANICAL RESEARCH ENGINEER TO OBSERVE PATIENT, WITH NOTIFICATION TO THE PHYSICIAN IF SATURATION IS 90% IN THE ABSENCE OF MORE SPECIFIC PARAMETERS FROM THE PHYSICIAN. AGENCY MAY PERFORM A RESUMPTION OF CARE VISIT FOLLOWING ANY HOSPITAL ADMISSION. RN/MECHANICAL RESEARCH ENGINEER/AUTO CLUTCH SPECIALIST TO MONITOR CO-MORBID CONDITIONS LISTED ON THE PLAN OF CARE AND ANY NEW CONDITIONS THAT PRESENT THEMSELVES DURING THIS EPISODE TO IDENTIFY CHANGES AND INTERVENE TO MINIMIZE COMPLICATIONS.] Future Scheduled Test MEDICATION MANAGEMENT; RN/MECHANICAL RESEARCH ENGINEER/AUTO CLUTCH SPECIALIST TO REVIEW MEDICATIONS FOR INTERACTIONS, EFFECTIVENESS OF DRUG THERAPY, AND SIGNS/SYMPTOMS OF ADVERSE REACTIONS. MAY INSTRUCT AND REINFORCE MEDICATION TEACHING RELATED TO THE USE OF MEDICATIONS, DOSAGE, FREQUENCY, PURPOSE, SIDE EFFECTS, AND TO REPORT COMPLICATIONS. [code = MEDICATION MANAGEMENT; RN/MECHANICAL RESEARCH ENGINEER/AUTO CLUTCH SPECIALIST TO REVIEW MEDICATIONS FOR INTERACTIONS, EFFECTIVENESS OF DRUG THERAPY, AND SIGNS/SYMPTOMS OF ADVERSE REACTIONS. MAY INSTRUCT AND REINFORCE MEDICATION TEACHING RELATED TO THE USE OF MEDICATIONS, DOSAGE, FREQUENCY, PURPOSE, SIDE EFFECTS, AND TO REPORT COMPLICATIONS.] Future Scheduled Test RISK FOR H OSPITALIZATION; RN TO ASSESS/TEACH, AUTO CLUTCH SPECIALIST/MECHANICAL RESEARCH ENGINEER TO OBSERVE/TEACH PATIENT/CAREGIVER ON RISK FOR HOSPITALIZATION/EMERGENCY ROOM VISITS, TEACH SIGNS AND SYMPTOMS THAT PUT PATIENT AT RISK, WHEN TO NOTIFY NURSE/PHYSICIAN OF COMPLICATIONS/DECLINE, AND WHEN TO CALL 911. [code = RISK FOR HOSPITALIZATION; RN TO ASSESS/TEACH, AUTO CLUTCH SPECIALIST/MECHANICAL RESEARCH ENGINEER TO OBSERVE/TEACH PATIENT/CAREGIVER ON RISK FOR HOSPITALIZATION/EMERGENCY ROOM VISITS, TEACH SIGNS AND SYMPTOMS THAT PUT PATIENT AT RISK, WHEN TO NOTIFY NURSE/PHYSICIAN OF COMPLICATIONS/DECLINE, AND WHEN TO CALL 911.] Future Scheduled Test RESPIRATOR Y SYSTEM MANAGEMENT; RN TO ASSESS AND TEACH, MECHANICAL RESEARCH ENGINEER/AUTO CLUTCH SPECIALIST TO OBSERVE AND TEACH RELATED TO ALTERED RESPIRATORY STATUS TO MINIMIZE COMPLICATIONS AND REDUCE HOSPITALIZATION. [code = RESPIRATORY SYSTEM MANAGEMENT; RN TO ASSESS AND TEACH, MECHANICAL RESEARCH ENGINEER/AUTO CLUTCH SPECIALIST TO OBSERVE AND TEACH RELATED TO ALTERED RESPIRATORY STATUS TO MINIMIZE COMPLICATIONS AND REDUCE HOSPITALIZATION.] Future Scheduled Test PNEUMONIA MANAGEMENT; RN TO ASSESS AND TEACH, MECHANICAL RESEARCH ENGINEER/AUTO CLUTCH SPECIALIST TO OBSERVE AND TEACH SIGNS OF PNEUMONIA EXACERBATION AND PROVIDE EARLY INTERVENTIONS TO MINIMIZE RISK OF HOSPITALIZATION. [code = PNEUMONIA MANAGEMENT; RN TO ASSESS AND TEACH, MECHANICAL RESEARCH ENGINEER/AUTO CLUTCH SPECIALIST TO OBSERVE AND TEACH SIGNS OF PNEUMONIA EXACERBATION AND PROVIDE EARLY INTERVENTIONS TO MINIMIZE RISK OF HOSPITALIZATION.] Future Scheduled Test PAIN MANAG EMENT; RN TO ASSESS AND TEACH, AUTO CLUTCH SPECIALIST/MECHANICAL RESEARCH ENGINEER TO OBSERVE AND TEACH AND PROVIDE EDUCATION ON PAIN MANAGEMENT TECHNIQUES. [code = PAIN MANAGEMENT; RN TO ASSESS AND TEACH, AUTO CLUTCH SPECIALIST/MECHANICAL RESEARCH ENGINEER TO OBSERVE AND TEACH AND PROVIDE EDUCATION ON PAIN MANAGEMENT TECHNIQUES.] Future Scheduled Test FALL REDUC TION MANAGEMENT; RN TO ASSESS AND OBSERVE, MECHANICAL RESEARCH ENGINEER/AUTO CLUTCH SPECIALIST TO OBSERVE FALL RISK FACTORS AND EDUCATE PATIENT/CAREGIVER ON STRATEGIES TO MINIMIZE THE RISK OF FALLING. [code = FALL REDUCTION MANAGEMENT; RN TO ASSESS AND OBSERVE, MECHANICAL RESEARCH ENGINEER/AUTO CLUTCH SPECIALIST TO OBSERVE FALL RISK FACTORS AND EDUCATE PATIENT/CAREGIVER ON STRATEGIES TO MINIMIZE THE RISK OF FALLING.] Future Scheduled Test PHYSICAL T HERAPIST TO EVALUATE FOR DECREASED STRENGTH [code = PHYSICAL THERAPIST TO EVALUATE FOR DECREASED STRENGTH] Future Scheduled Test AGENCY MAY PERFORM A RESUMPTION OF CARE VISIT FOLLOWING ANY HOSPITAL ADMISSION. PT TO EVALUATE, OBSERVE / ASSESS, AND MONITOR, CHARGE OPERATOR TO OBSERVE AND MONITOR, PROVIDE SKILLED THERAPEUTIC INTERVENTION, ACTIVITY, EDUCATION, AND TRAINING TO ADDRESS; PT/CHARGE OPERATOR TO PROVIDE GAIT TRAINING FOR IMPROVED MOBILITY AND /OR TO NORMALIZE GAIT PATTERN NEUROMUSCULAR RE-EDUCATION / BALANCE / POSTURAL CONTROL (PT) THERAPEUTIC EXERCISES AND ESTABLISHING A HOME EXERCISE PROGRAM (PT/CHARGE OPERATOR) PT/CHARGE OPERATOR TO PROVIDE STAIR TRAINING CHAIR TRANSFERS (PT/CHARGE OPERATOR) PT TO ASSESS / CHARGE OPERATOR TO MONITOR FOR AND REPORT EARLY SIGNS OF ANTICOAGULANT TOXICITY TO THE PHYSICIAN AND/OR THE RN CLINICAL PERCUSSION INSTRUCTOR FOR PHYSICIAN NOTIFICATION AND TO PROVIDE PATIENT/CAREGIVER EDUCATION ON ANTICOAGULANT THERAPY PT / CHARGE OPERATOR TO MONITOR AND EDUCATE ON OXYGEN SATURATION DURING ADLS/IADLS, NOTIFY PHYSICIAN AND/OR THE RN CLINICAL PERCUSSION INSTRUCTOR FOR PHYSICIAN NOTIFICATION AND IF O2 SATS BELOW PHYSICIAN ORDERED PARAMETERS AFTER 10 MIN OF REST PT / CHARGE OPERATOR MAY EDUCATE ON PAIN MANAGEMENT CLINICALLY INDICATED, INCLUDING NON-PHARMACOLOGICAL PAIN REDUCTION TECHNIQUES AND USE OF CRYOTHERAPY OR HEAT UP TO 20 MIN AT A TIME FOR PAIN MANAGEMENT TIMES PER DAY TO PT/CHARGE OPERATOR TO IDENTIFY FALL RISK FACTORS; EDUCATE THE PATIENT/CAREGIVER ON WAYS TO REDUCE FALL RISK FACTORS AND ESTABLISH HOME EXERCISE PROGRAM TO MINIMIZE FALL RISK. MAY TEACH THE PATIENT FLOOR RECOVERY WHEN CLINICALLY APPROPRIATE [code = AGENCY MAY PERFORM A RESUMPTION OF CARE VISIT FOLLOWING ANY HOSPITAL ADMISSION. PT TO EVALUATE, OBSERVE / ASSESS, AND MONITOR, CHARGE OPERATOR TO OBSERVE AND MONITOR, PROVIDE SKILLED THERAPEUTIC INTERVENTION, ACTIVITY, EDUCATION, AND TRAINING TO ADDRESS; PT/CHARGE OPERATOR TO PROVIDE GAIT TRAINING FOR IMPROVED MOBILITY AND /OR TO NORMALIZE GAIT PATTERN NEUROMUSCULAR RE-EDUCATION / BALANCE / POSTURAL CONTROL (PT) THERAPEUTIC EXERCISES AND ESTABLISHING A HOME EXERCISE PROGRAM (PT/CHARGE OPERATOR) PT/CHARGE OPERATOR TO PROVIDE STAIR TRAINING CHAIR TRANSFERS (PT/CHARGE OPERATOR) PT TO ASSESS / CHARGE OPERATOR TO MONITOR FOR AND REPORT EARLY SIGNS OF ANTICOAGULANT TOXICITY TO THE PHYSICIAN AND/OR THE RN CLINICAL PERCUSSION INSTRUCTOR FOR PHYSICIAN NOTIFICATION AND TO PROVIDE PATIENT/CAREGIVER EDUCATION ON ANTICOAGULANT THERAPY PT / CHARGE OPERATOR TO MONITOR AND EDUCATE ON OXYGEN SATURATION DURING ADLS/IADLS, NOTIFY PHYSICIAN AND/OR THE RN CLINICAL PERCUSSION INSTRUCTOR FOR PHYSICIAN NOTIFICATION AND IF O2 SATS BELOW PHYSICIAN ORDERED PARAMETERS AFTER 10 MIN OF REST PT / CHARGE OPERATOR MAY EDUCATE ON PAIN MANAGEMENT CLINICALLY INDICATED, INCLUDING NON-PHARMACOLOGICAL PAIN REDUCTION TECHNIQUES AND USE OF CRYOTHERAPY OR HEAT UP TO 20 MIN AT A TIME FOR PAIN MANAGEMENT TIMES PER DAY TO PT/CHARGE OPERATOR TO IDENTIFY FALL RISK FACTORS; EDUCATE THE [...] MONITORING. SPOUSE PRESENT FOR VISIT AND IS SUPPORTIVE AND INVOLVED WITH PLAN OF CARE. PATIENT ALERT AND ORIENTED X3, FORGETFUL AT BASELINE, GROOMED AND DRESSED, PLEASANT AND COOPERATIVE WITH VISIT. </paragraph><paragraph></paragraph><paragraph>PATIENT WAS SEEN BY HIS PCP ON 03/24/25 FOR SWELLING IN LEFT HAND AND ARM. PATIENT WAS STARTED IN FUROSEMIDE 40 MG DAILY AND HAD AN ULTRASOUND OS LEFT ARM ON 03/27/25. RESULTS PENDING. SWELLING IS RESOLVED TO LEFT ARM AND HAND. SKILLED NURSE EDUCATION PROVIEDED ON FUROSEMIDE INCLUDING USE, PIRPOSE, DOSAGE, TIMING AND SIDE EFFECTS. PATIENT VERBALIZED UNDERSTANDING.</paragraph><paragraph></paragraph><paragraph>PATIENT CONTINUES TO REQUIRE [facility] SERVICES FOR MONITORING OF RESPIRATORY STATUS. PATIENT IS HOMEBOUND DUE TO UNSTEADY GAIT AND POOR ENDURANCE AND PNEUMONIA AND REQUIRES ASSISTANCE OF ONE CAREGIVER TO SAFELY LEAVE HOME. PATIENT EDUCATED ON HOW AND WHEN TO CALL HOME HEALTH AGENCY AND WHEN TO CALL 911. VERBALIZED UNDERSTANDING.</paragraph> Encounters Start Date/Time End Date/Time Encounter Type Admission Type Attending [facility] [place] Facility Care Department Encounter ID Discharge Date Discharge Status Discharge Condition Discharge Reason Percent Goals Met 2025-03-12 00:00:00 2025-05-10 00:00:00 Outpatient INGRID [facility] [id number] 40.00
== END 2025-04-01 11:54 | disposition home or self-care (01) ==
LOC: HO.HKAS 11:18
PROVIDERS: PCP Internal Medicine; Visit Provider Internal Medicine Critical Care Medicine
DX: I12.9 Hypertensive chronic kidney disease with stage 1 through stage 4 chronic kidney disease, or unspecified chronic kidney disease (principal); N18.9 Chronic kidney disease, unspecified; D63.1 Anemia in chronic kidney disease
CPT/HCPCS: 99214